=== PATIENT | female | born 1965 | race Caucasian/White ===

== ENCOUNTER 2017-10-22 09:57 | Observation (INO) | payer SELFPAY ==
[2017-10-22] VITALS (13 sets, daily range): BP systolic 96–162; BP diastolic 63–104
[~2017-10-22] VITALS: Ht 165.1 cm; Wt 75.7 kg
[~2017-10-22 09:57] MED LIST: AGM875T PO; ALPR.5T PO; AMIT50TA3 PO; ASP325TEC PO; ATOR20TA66 PO; CHLO25TA2 PO; CLCX200C PO; CLN.1T PO; CLON0.5T3 PO; CTLP20T PO; DOXY100C2 PO; DULO60CA6 PO; FLT05NA16 NSEACH; HYDR-2889 PO; HYDR-2890 PO; HYDR-3730 PO; HYDR-707 PO; HYDR118S10 PO; HYDR25CA5 PO; HYDROCODONE; ISOS30TA3 PO; LISI10TA2 PO; LISI1TAB; LISI40TA PO; METO25TA PO; METR500T PO; MULT1CAP27 PO; NAPR-243 PO; OMEG1CAP PO; PANT20TA2 PO; PARO20TA4 PO; QTP100T PO; RABE20TA PO; RISP1TAB2 PO; SIMV40TA4 PO; SULF1TAB35 PO; TRAZ150T42; TRAZ150T42 PO; ZIPR60CA6 PO
[2017-10-22] MEDS ORDERED: ONDANSETRON 4 MG/2 ML (SDV) Z0FRAN IVP ONE (10:15)
[2017-10-22] MEDS ORDERED: NITROGLYCERIN 0.4 MG SL TABS BTL 25'S SL PRN (10:15)
[2017-10-22] MEDS ORDERED: ASPIRIN 81 MG CHEW (CHILDREN'S ASA) PO ONE (10:15)
[2017-10-22 10:25] LABS: BASOPHILS # (AUTO) 0.1 10^3/uL (0.0-0.1); BASOPHILS % (AUTO) 1 % (0-10); EOSINOPHILS # (AUTO) 0.3 10^3/uL (0.0-0.3); EOSINOPHILS % (AUTO) 3 % (0-10); HEMATOCRIT 45 % (35-52); HEMOGLOBIN 15.8 G/DL (11.5-16.0); LYMPHOCYTES # (AUTO) 3.3 X 10^3 (1.0-4.0); LYMPHOCYTES % (AUTO) 27 % (12-44); MEAN CORPUSCULAR HEMOGLOBIN 34 PG (25-34); MEAN CORPUSCULAR HGB CONC 35 G/DL (32-36); MEAN CORPUSCULAR VOLUME 96 FL (80-99); MEAN PLATELET VOLUME 11.8 FL (7.4-10.4); MONOCYTES # (AUTO) 0.7 X 10^3 (0.0-1.0); MONOCYTES % (AUTO) 6 % (0-12); NEUTROPHILS # (AUTO) 7.7 X 10^3 (1.8-7.8); NEUTROPHILS % (AUTO) 64 % (42-75); PLATELET COUNT 251 10^3/uL (130-400); RED BLOOD COUNT 4.71 10^6/uL (4.35-5.85); RED CELL DISTRIBUTION WIDTH 12.6 % (10.0-14.5)
--- NOTE | 2017-10-22 10:28 | ED Chest Pain ---
General Chief Complaint: Chest Pain Stated Complaint: CP Source: patient, other Exam Limitations: no limitations History of Present Illness Date Seen by Provider: Oct 22, 2017 Time Seen by Provider: 09:58 Initial Comments Patient presents to ER by private conveyance with a chief complaint that in the last few hours she began to experience some substernal mid chest pain radiating to her left shoulder as well as back of her neck and jaw. She is not having any cough but she is having some shortness of breath, sweats, nausea and some palpitations. She says she is known to Dr. Lucas. She denies a history of atrial fibrillation or flutter but says that she is having a workup done looking for these things given her history of palpitations and chest pain. She had a heart catheter showing some disease in her maker coronary but no stent was placed and she's had no surgeries on her heart. She smokes half pack a day is not diabetic and has no hypothyroidism or hypercholesterolemia. She is on lisinopril, metoprolol and chlorthalidone for her blood pressure as well as a daily aspirin. She took one dose of nitroglycerin under the tongue when her chest pain started but she says it did nothing for her pain. She is currently rating her pain as a 6 out of 10. Allergies and Home Medications Allergies Uncoded Allergies: IV CONTRAST (Allergy, Unknown, HIVES, 11/02/14) Home Medications Buspirone HCl 10 Mg Tablet, 10 MG PO BID, (Reported) LAST FILLED 08/07/17 #90 Cetirizine HCl 10 Mg Tablet, 10 MG PO DAILY, (Reported) LAST FILLED 08/07/17 #30 Chlorthalidone 25 Mg Tablet, 25 MG PO DAILY, (Reported) LAST FILLED 03/16/17 #90 Clonidine HCl 0.1 Mg Tablet, 0.1 MG PO BID, (Reported) LAST FILLED 08/07/17 #60 Gabapentin 300 Mg Capsule, 300 MG PO HS, (Reported) Ginseng 100 Mg Capsule, 100 MG PO DAILY, (Reported) Lisinopril 10 Mg Tablet, 10 MG PO DAILY, (Reported) LAST FILLED 08/14/17 #30 Metoprolol Succinate 25 Mg Tab.er.24h, 25 MG PO DAILY, (Reported) LAST FILLED 03/16/17 #90 Vitamin B Complex 1 Each Tablet, 1 TAB PO DAILY, (Reported) Review of Systems Constitutional: No chills, No diaphoresis EENTM: No Blurred Vision, No Double Vision Respiratory: Denies Cough, Shortness of Air Cardiovascular: See HPI, Chest Pain, Palpitations, Denies Syncope Gastrointestinal: Denies Abdomen Distended, Denies Abdominal Pain, Denies Constipated, Denies Diarrhea, Nausea, Denies Vomiting Genitourinary: Denies Burning, Denies Discharge Musculoskeletal: No back pain, No joint pain Skin: No pruritus, No rash Psychiatric/Neurological: Denies Headache, Denies Numbness Past Gpohotl-Zftonq-Bjvpee Hx Patient Social History Alcohol Use: Denies Use Recreational Drug Use: Yes (remote Hx) Smoking Status: Current Everyday Smoker Type Used: Cigarettes (0.5 ppd) Recent Foreign Travel: No Contact w/Someone Who Travel: No Immunizations Up To Date Date of Pneumonia Vaccine: Jun 12, 2014 Date of Influenza Vaccine: Jun 12, 2014 Seasonal Allergies Seasonal Allergies: No Respiratory Respiratory Disorders: COPD Cardiovascular Cardiac Disorders: High Cholesterol, Hypertension Neurological Neurological Disorders: Headaches /Migraines Reproductive System Hx Reproductive Disorders: Yes (HAD A PRIOR ABLATION? FOR FOR HEAVY PEERIODS) Female Reproductive Disorders: Menstrual Problems Gastrointestinal Gastrointestinal Disorders: Gastroesophageal Reflux, Hiatal Hernia Musculoskeletal Musculoskeletal Disorders: Arthritis Psychosocial Behavioral Health Disorders: Anxiety, Depression Family Medical History Family Medial History: Diabetes mellitus 19 FATHER Myocardial infarction 19 FATHER Psychosocial problem 19 MOTHER Schizophrenia 19 MOTHER Physical Exam Vital Signs Vital Signs - First Documented 10/22/17 10:21 Temp 97.9 Pulse 63 Resp 18 B/P (MAP) 173/91 (118) Pulse Ox 97 O2 Delivery Room Air Capillary Refill : General Appearance: No Apparent Distress, WD/WN HEENT: PERRL/EOMI, Pharynx Normal Neck: Normal Inspection, Supple Respiratory: Lungs Clear, Normal Breath Sounds, No Accessory Muscle Use, No Respiratory Distress, Other (sternum is tender and re-creates the pain on palpation) Cardiovascular: Regular Rate, Rhythm, No Edema, Normal Peripheral Pulses Gastrointestinal: Normal Bowel Sounds, Non Tender, Soft Extremity: Normal Capillary Refill, No Pedal Edema Neurologic/Psychiatric: Alert, Oriented x3, No Motor/Sensory Deficits, Normal Mood/Affect Skin: Normal Color, Warm/Dry Progress/Results/Core Measures Results/Orders Lab Results Laboratory Tests Test 10/22/17 10:14 Range/Units White Blood Count 12.0 H 4.3-11.0 10^3/uL Red Blood Count 4.71 4.35-5.85 10^6/uL Hemoglobin 15.8 11.5-16.0 G/DL Hematocrit 45 35-52 % Mean Corpuscular Volume 96 80-99 FL Mean Corpuscular Hemoglobin 34 25-34 PG Mean Corpuscular Hemoglobin Concent 35 32-36 G/DL Red Cell Distribution Width 12.6 10.0-14.5 % Platelet Count 251 130-400 10^3/uL Mean Platelet Volume 11.8 H 7.4-10.4 FL Neutrophils (%) (Auto) 64 42-75 % Lymphocytes (%) (Auto) 27 12-44 % Monocytes (%) (Auto) 6 0-12 % Eosinophils (%) (Auto) 3 0-10 % Basophils (%) (Auto) 1 0-10 % Neutrophils # (Auto) 7.7 1.8-7.8 X 10^3 Lymphocytes # (Auto) 3.3 1.0-4.0 X 10^3 Monocytes # (Auto) 0.7 0.0-1.0 X 10^3 Eosinophils # (Auto) 0.3 0.0-0.3 10^3/uL Basophils # (Auto) 0.1 0.0-0.1 10^3/uL Prothrombin Time 12.1 L 12.2-14.7 SEC INR Comment 0.9 0.8-1.4 Activated Partial Thromboplast Time 27 24-35 SEC D-Dimer 0.28 0.00-0.49 UG/ML Sodium Level 144 135-145 MMOL/L Potassium Level 3.5 L 3.6-5.0 MMOL/L Chloride Level 110 H 98-107 MMOL/L Carbon Dioxide Level 21 21-32 MMOL/L Anion Gap 13 5-14 MMOL/L Blood Urea Nitrogen 15 7-18 MG/DL Creatinine 0.90 0.60-1.30 MG/DL Estimat Glomerular Filtration Rate > 60 BUN/Creatinine Ratio 17 Glucose Level 114 H 70-105 MG/DL Calcium Level 10.3 H 8.5-10.1 MG/DL Magnesium Level 2.4 1.8-2.4 MG/DL Total Bilirubin 0.2 0.1-1.0 MG/DL Aspartate Amino Transf (AST/SGOT) 21 5-34 U/L Alanine Aminotransferase (ALT/SGPT) 34 0-55 U/L Alkaline Phosphatase 83 40-136 U/L Myoglobin 35.3 10.0-92.0 NG/ML Troponin I < 0.30 <0.30 NG/ML B-Type Natriuretic Peptide 19.5 <100.0 PG/ML Total Protein 7.8 6.4-8.2 GM/DL Albumin 4.3 3.2-4.5 GM/DL Lipase 35 8-78 U/L My Orders Orders - THAO RAGSDALE Continuous Ekg Monitoring (10/22/17 10:01) Ekg Tracing (10/22/17 10:01) Cbc With Automated Diff (10/22/17 10:08) Magnesium (10/22/17 10:08) Chest 1 View, Ap/Pa Only (10/22/17 10:08) Cardiac Profile 1 (10/22/17 10:08) Comprehensive Metabolic Panel (10/22/17 10:08) Myoglobin Serum (10/22/17 10:08) Protime With Inr (10/22/17 10:08) Partial Thromboplastin Time (10/22/17 10:08) O2 (10/22/17 10:08) Lipid Panel (10/23/17 06:00) Aspirin Chewable Tablet (Baby Aspirin Ch (10/22/17 10:15) Nitroglycerin 0.4 Mg Btl 25's (Nitrostat (10/22/17 10:15) Saline Lock/Iv-Start (10/22/17 10:08) Lipase (10/22/17 10:08) BNP (10/22/17 10:08) Fibrin Degradation Products (10/22/17 10:08) Ondansetron Injection (Zofran Injectio (10/22/17 10:15) Medications Given in ED Current Medications Medications Dose Ordered Sig/Bradley Route Start Time Stop Time Status Last Admin Dose Admin Aspirin 324 mg ONCE ONCE PO 10/22/17 10:15 10/22/17 10:16 DC 10/22/17 10:50 324 MG Nitroglycerin 0.4 mg UD PRN SL 10/22/17 10:15 10/22/17 13:26 DC 10/22/17 10:50 0.4 MG Ondansetron HCl 4 mg ONCE ONCE IVP 10/22/17 10:15 10/22/17 10:16 DC 10/22/17 10:50 4 MG Vital Signs/I&O Vital Sign - Last 12Hours 10/22/17 10/22/17 10:21 10:21 Temp 97.9 Pulse 63 Resp 18 B/P (MAP) 173/91 (118) Pulse Ox 97 O2 Delivery Room Air Progress Note : Time: 11:15 Progress Note The one dose of nitroglycerin we gave here in the ER brought the patient's pain down from a 6 to a 1 out of 10. ECG Initial ECG Impression Date: Oct 22, 2017 Initial ECG Impression Time: 10:03 Initial ECG Rate: 96 Initial ECG Rhythm: Normal Sinus Initial ECG Intervals: Normal Initial ECG Impression: Normal Initial ECG Comparisson: No Previous ECG Available Comment No T-wave elevation or depression. Diagnostic Imaging Diagonstic Imaging: Xray Plain Films/CT/US/NM/MRI: chest Comments VIA [facility]. [place], [place] NAME: [facility] REC#: [id number] PT STATUS: REG ER : 1965 PHYSICIAN: THAO RAGSDALE MD ADMIT DATE: 10/22/17/ER Draft Date of Exam:10/22/17 CHEST 1 VIEW, AP/PA ONLY EXAM: CHEST 1 VIEW, AP/PA ONLY INDICATION: Chest pain. COMPARISON: Chest radiograph 11/09/2014. FINDINGS: Normal heart size and pulmonary vascularity. No focal pulmonary opacity, pleural effusion or pneumothorax. Osseous structures are unremarkable. IMPRESSION: No acute cardiopulmonary findings. Dictated on workstation # [id number] Dict: 10/22/17 1032 Trans: 10/22/[address] [place] [id number] Interpreted by: KHADRA SMITH MD Electronically signed by: Reviewed: Reviewed by Me Departure Communication (Admissions) Time/Spoke to Admitting Phy: 11:19 Communication Discussed her case lab imaging EKG and findings with Dr. Gama. Time/Spoke to Consulting Phy: 11:10 Communication/Consulting Discussed case and Dr. Elizabeth would like to give her 300 mg Plavix and observation stay. Impression Impression: Primary Impression: Chest pain Qualified Codes: R07.9 - Chest pain, unspecified Disposition: ADMITTED INPATIENT Condition: Stable Admissions Decision to Admit Reason: Admit from ER (General) Decision to Admit/Date: Oct 22, 2017 Time/Decision to Admit Time: 11:13 Departure-Patient Inst. Referrals: [facility] (PCP) Primary Care Physician MARC PELAYO APRN (Family) Primary Care Physician Copy Copies To 1: MEHREEN POLO DO Copies To 2: LARISA LUCAS MD, TITUS J Oct 22, 2017 10:28
--- NOTE | 2017-10-22 10:37 | Diagnostic Imaging Report ---
EXAM: CHEST 1 VIEW, AP/PA ONLY INDICATION: Chest pain. COMPARISON: Chest radiograph 11/09/2014. FINDINGS: Normal heart size and pulmonary vascularity. No focal pulmonary opacity, pleural effusion or pneumothorax. Osseous structures are unremarkable. IMPRESSION: No acute cardiopulmonary findings. Dictated by: Dictated on workstation # [id number]
[2017-10-22 10:40] LABS: INR 0.9 (0.8-1.4); PROTHROMBIN TIME PATIENT 12.1 SEC (12.2-14.7)
[2017-10-22 10:46] LABS: ALANINE AMINOTRANSFERASE 34 U/L (0-55); ALBUMIN 4.3 GM/DL (3.2-4.5); ALKALINE PHOSPHATASE 83 U/L (40-136); BILIRUBIN,TOTAL 0.2 MG/DL (0.1-1.0); BUN/CREATININE RATIO 17; CALCIUM 10.3 MG/DL (8.5-10.1); CARBON DIOXIDE 21 MMOL/L (21-32); CHLORIDE 110 MMOL/L (98-107); GFR ESTIMATED > 60; GLUCOSE 114 MG/DL (70-105); LIPASE 35 U/L (8-78); MAGNESIUM 2.4 MG/DL (1.8-2.4); POTASSIUM 3.5 MMOL/L (3.6-5.0); SODIUM 144 MMOL/L (135-145); TOTAL PROTEIN 7.8 GM/DL (6.4-8.2)
[2017-10-22 10:53] LABS: MYOGLOBIN SERUM 35.3 NG/ML (10.0-92.0)
[2017-10-22] MEDS ORDERED: CLOPIDOGREL 300 MG (PLAVIX) TABLET PO ONE (11:30)
--- NOTE | 2017-10-22 12:00 | Consultation-Cardiology ---
HPI-Cardiology Cardiology Consultation: Date of Consultation 10/22/17 Date of Admission Attending Physician Josefa Gama MD Admitting Physician [facility] Consulting Physician Marc ELIZABETH MD HPI: Time Seen by Provider: 12:01 Chief Complaint: Chest pain This is a 52-year-old lady who sees Dr. Lucas as an outpatient. She has history of coronary artery disease with moderate ostial LAD lesion found in October 2014 on coronary angiography. She presents with substernal chest pain radiating to her left shoulder. Moderate intensity. He is also complaining of shortness of breath and fever. Her chest pain is reproducible and also worse with breathing. She is an active smoker but denies diabetes. She has history of hyperlipidemia and hypertension. She denies any other exacerbating or relieving factors. She denies syncope, near-syncope, palpitation, lower extremity swelling. Review of Systems-Cardiology Review of Systems Constitutional: No As described under HPI, No no symptoms reported, No chills, fever, No lightheadedness, No malaise, No tiredness, No weight loss, No weight gain, No other Eyes: No As described under HPI, No no symptoms reported, No blindness, No blurred vision, No contact lenses, No drainage, No decreased acuity, No foreign body sensation, No glasses, No inflammation, No pain, No photophobia, No previous injury, No shadows, No tunnel vision, No other, No vision change Ears/Nose/Throat: No As described under HPI, No no symptoms reported, No chronic hearing loss, No epistaxis, No ear discharge, No ear pain, No loose teeth, No mouth pain, No mouth swelling, No nasal drainage, No nose pain, No recent hearing loss, No throat pain, No throat swelling, No ulcerations, No other Respiratory: No no symptoms reported, No As described under HPI, No cough, No orthopnea, shortness of breath, No SOB with excertion, No SOB at rest, No stridor, No wheezing, No other Cardiovascular: No no symptoms reported, No As described under HPI, chest pain , No edema, No irregular heart rate, No lightheadedness, No palpitations, No syncope, No other Gastrointestinal: No no symptoms reported, No As described under HPI, No abdomen distended, No abdominal pain, No blood streaked bowels, No constipation , No diarrhea, No difficulty swallowing, No nausea, No poor appetite, No poor fluid intake, No rectal bleeding, No vomiting, No other, No nausea/vomiting/ diarrhea, No stool coloration changes Genitourinary: No no symptoms reported, No As described under HPI, No burning, No dysuria, No discharge, No frequency, No flank pain, No hematuria, No incontinence, No pain, No urgency, No other, No urine frequency changes, No urine coloration changes Musculoskeletal: No no symptoms reported, No As describe under HPI, No back pain, No gout, No joint pain, No joint swelling, No muscle pain, No muscle stiffness, No neck pain, No other Skin: No no symptoms reported, No As described under HPI, No change in color, No change in hair/nails, No dryness, No lesions, No lumps, No rash, No other, No skin related problems, No ulcerations, No rash on exposed areas, No ulcerations on exposed areas Psychiatric/Neurological: No no symptoms reported, No As described under HPI, No anxiety, No depression, No emotional problems, No headache, No numbness, No pre-existing deficit, No seizure, No tingling, No tremors, No weakness, No other , No focal weakness, No syncope Hematologic: No no symptoms reported, No As described under HPI, No anemia, No blood clots, No easy bleeding, No easy bruising, No swollen glands, No other, No bleeding abnormalities WTX-[id number]-Izrhrl Hx Patient Social History Alcohol Use: Denies Use Recreational Drug Use: Yes (remote Hx) Smoking Status: Current Everyday Smoker Type Used: Cigarettes (0.5 ppd) Recent Foreign Travel: No Recent Infectious Disease Expo: No Immunizations Up To Date Date of Pneumonia Vaccine: Jun 12, 2014 Date of Influenza Vaccine: Jun 12, 2014 Past Medical History PMH As described under Assessment. Family Medical History Family History: Diabetes mellitus 19 FATHER Myocardial infarction 19 FATHER Psychosocial problem 19 MOTHER Schizophrenia 19 MOTHER Allergies and Home Medications Allergies Uncoded Allergies: IV CONTRAST (Allergy, Unknown, HIVES, 11/02/14) Home Medications Aspirin 325 Mg Tabec, 325 MG PO DAILY, (Reported) Atorvastatin 20 Mg Tablet, 20 MG PO DAILY, (Reported) Chlorthalidone 25 Mg Tablet, 25 MG PO DAILY, (Reported) Clonazepam 0.5 Mg Tablet, 0.5 MG PO HS PRN for ANXIETY, (Reported) Hydrocodone/Acetaminophen 1 Each Tablet, 1-2 TAB PO Q6H, (Reported) Isosorbide Mononitrate 30 Mg Tab.sr.24h, 1 EACH PO DAILY, #30 Ref 4 Prescribed by: LARISA LUCAS on 11/10/14 1006 Lisinopril 40 Mg Tablet, 40 MG PO DAILY, (Reported) Metoprolol Succinate 25 Mg Tab.sr.24h, 25 MG PO DAILY, (Reported) Multivitamins 1 Each Capsule, 1 CAP PO DAILY, (Reported) Pantoprazole Sodium 20 Mg Tablet.dr, 20 MG PO DAILY, #30 Ref 4 Prescribed by: LARISA LUCAS on 11/10/14 1006 Physical Exam-Cardiology Physical Exam Vital Signs/I&O Vital Sign - Last 12Hours 10/22/17 10/22/17 10/22/17 10:21 10:21 11:43 Temp 97.9 Pulse 63 Resp 18 B/P (MAP) 173/91 (118) Pulse Ox 97 98 O2 Delivery Room Air Nasal Cannula O2 Flow Rate 2.00 Capillary Refill : Less Than 3 Seconds Constitutional: appears stated age, AAO x 3, No apparent distress, No PERRL, No well-developed, No well-nourished, No other HEENT: PERRL, No normal ENT inspection, No TMs normal, No pharynx normal, No scleral icterus (R), No scleral icterus (L), No pale conjunctivae (R), No pale conjunctivae (L), No photophobia, No TM abnormal (R), No TM abnormal (L), No pharyngeal erythema, No tonsillar exudate, No other, No discharge, No EOMI, hearing is well preserved, No hard of hearing, oral hygience is good, No ulceration, No xanthelasmas are seen Neck: No carotid bruit, carotid pulses are 2 + bilaterally Respiratory: No accessory muscle use, No respiratory distress, No chest tender , No chest expansion is symmetric, chest is bilaterally symmetric, lungs clear to percussion, lungs clear to auscultation, No crackles, No rhonchi, No rales, No stridor, No wheezing, No pleural rub, No other Cardiovascular: regular rate-rhythm, No irregularly irregular, No extra beats, No parasternal heave is noted, No JVD, No edema, No bradycardia, No tachycardia , No point of maximal impulse, No cardiac thrills are palpable, S1 and S2, No gallop/S3, No gallop/S4, No diastolic murmur, No systolic murmur, No friction rub, No click, No other Gastrointestinal: No tender, No soft, No round, No distended, No pulsatile mass , No organomegaly, No guarding, No rebound, No tenderness, No hernia, No mass, No audible bowel sounds, No abnormal bowel sounds, No abdominal bruits, No spleenomegaly, No other Rectal: deferred Extremities: normal range of motion, non-tender, normal inspection, No pedal edema, No calf tenderness, No normal capillary refill, No pelvis stable, No calf tenderness, No inflammation, No pedal edema, No slow capillary refill, No swelling, No other, No abrasion, No clubbing, No cyanosis, No ecchymosis, No laceration, No no lower extremity edema bilateral, No significant edema, No tenderness, No wound Neurologic/Psychiatric: No utility sales and service manager II-XII nml as tested, no motor/sensory deficits , alert, normal mood/affect, oriented x 3, No abnormal cerebellar tests, No abnormal utility sales and service manager II-XII, No abnormal gait, No aphasia, No EOM palsy, No facial droop , No motor weakness, No sensory deficit, No depressed affect, No disoriented x 3 , No other, No grossly intact, power is 5/5 both on sides Skin: No normal color, No warm/dry, No cyanosis, No cool, No diaphoresis, No damp, No ecchymosis, No jaundice, No mottled, No pallor, No rash, No tattoos/ piercings, No ulcerations, No rash on exposed areas, No ulcerations on exposed areas, No other Lymphatic: No no adenopathy, No axilla node tender (R), No axilla node tender ( L), No inguinal node tender (R), No inguinal node tender (L), No other Data Review Labs Laboratory Tests 10/22/17 10:14: White Blood Count 12.0H, Red Blood Count 4.71, Hemoglobin 15.8, Hematocrit 45, Mean Corpuscular Volume 96, Mean Corpuscular Hemoglobin 34, Mean Corpuscular Hemoglobin Concent 35, Red Cell Distribution Width 12.6, Platelet Count 251, Mean Platelet Volume 11.8H, Neutrophils (%) (Auto) 64, Lymphocytes (%) (Auto) 27 , Monocytes (%) (Auto) 6, Eosinophils (%) (Auto) 3, Basophils (%) (Auto) 1, Neutrophils # (Auto) 7.7, Lymphocytes # (Auto) 3.3, Monocytes # (Auto) 0.7, Eosinophils # (Auto) 0.3, Basophils # (Auto) 0.1, Prothrombin Time 12.1L, INR Comment 0.9, Activated Partial Thromboplast Time 27, D-Dimer 0.28, Sodium Level 144, Potassium Level 3.5L, Chloride Level 110H, Carbon Dioxide Level 21, Anion Gap 13, Blood Urea Nitrogen 15, Creatinine 0.90, Estimat Glomerular Filtration Rate > 60, BUN/Creatinine Ratio 17, Glucose Level 114H, Calcium Level 10.3H, Magnesium Level 2.4, Total Bilirubin 0.2, Aspartate Amino Transf (AST/SGOT) 21, Alanine Aminotransferase (ALT/SGPT) 34, Alkaline Phosphatase 83, Myoglobin 35.3 , Troponin I < 0.30, B-Type Natriuretic Peptide 19.5, Total Protein 7.8, Albumin 4.3, Lipase 35 ECG Impression ECG Initial ECG Rhythm: Normal Sinus Initial ECG Impression: Nonspecific Changes A/P-Cardiology Assessment/Admission Diagnosis chest pain, with some atypical features. Coronary artery disease Hypertension Hyperlipidemia Tobaccoism Plan chest pain with some atypical features. EKG does not show any acute ST-T wave abnormalities. First set of troponin is negative. Acute coronary syndrome will be ruled out with serial troponins. However I gave Plavix 300 mg 1 because of her history of ostial LAD disease. Patient may require nuclear stress test. Defer to Dr. Lucas tomorrow. Coronary artery disease, status post cardiac catheterization done 10/2014 showing 60 percent stenosis ostial LAD, FFR after Adenosine injection was 0.81. Stress test 11/2014 did not show any ischemia in the anterior territory. Echocardiogram done on August 2014 showed normal LV and RV size and function with no valvular heart disease. Hypertension, controlled. Monitor blood pressure. Hyperlipidemia, continue statin. Monitor lipids Tobaccoism, strongly recommended to quit.. Dyspnea, secondary to COPD. however we'll request to rule out influenza. COPD based on CT scan Dr. Shayy to take over cardiology care tomorrow. Thank you for your consultation. Please call me if you have any questions. Sasha Elizabeth MD, FACP, FACC, FSCAI, FHRS, CCDS Interventional Cardiology Cardiac Electrophysiology Vascular Medicine and Endovascular Interventions Clinical Quality Measures AMI/AHF: ASA po Prior to arrival: Marc Sagastume MD Oct 22, 2017 12:00
[2017-10-22] MEDS ORDERED: INFLUENZA TRIvalent 2017-2018 0.5 ML/45 MCG SYR IM ONE (13:00)
[2017-10-22] MEDS ORDERED: GABA-488 PO (14:56)
[2017-10-22] MEDS ORDERED: ONDANSETRON 4 MG/2 ML (SDV) Z0FRAN IV PRN (15:00)
[2017-10-22] MEDS ORDERED: CATHETER FLUSH 10 ML SYR IV PRN (15:00)
[2017-10-22] MEDS ORDERED: ACETAMINOPHEN 500 MG TAB (TYLENOL) PO PRN (15:00)
[2017-10-22] MEDS ORDERED: CETI10TA17 PO (16:39)
[2017-10-22] MEDS ORDERED: METO-387 PO (16:39)
[2017-10-22] MEDS ORDERED: CLON0.1T PO (16:39)
[2017-10-22] MEDS ORDERED: BUSP10TA95 PO (16:39)
[2017-10-22] MEDS ORDERED: CHLO25TA22 PO (16:39)
[2017-10-22] MEDS ORDERED: LISI10TA2 PO (16:39)
[2017-10-22] MEDS ORDERED: VITA1TAB17 PO (16:41)
[2017-10-22] MEDS ORDERED: [UNRECOGNIZED DRUG - CODE] PO (16:41)
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
[2017-10-22] MEDS ORDERED: PATIENT MAY USE OWN MEDS, ALL MC SCH (17:00)
[2017-10-22] MEDS ORDERED: ENOXAPARIN 40 MG/0.4 ML (LOVENOX) SYR SC SCH (17:00)
[2017-10-22] MEDS ORDERED: busPIRone 10 MG (BUSPAR) TAB ONE (20:55)
[2017-10-22] MEDS ORDERED: cloNIDine 0.1 MG (CATAPRES) TAB ONE (20:55)
[2017-10-22] MEDS: CATHETER FLUSH 10 ML SYR IV SCH (20:58)
[2017-10-22] MEDS ORDERED: GABAPENTIN 300 MG (NEURONTIN) CAP PO SCH (21:00)
[2017-10-22] MEDS ORDERED: cloNIDine 0.1 MG (CATAPRES) TAB PO SCH (21:00)
[2017-10-22] MEDS ORDERED: busPIRone 10 MG (BUSPAR) TAB PO SCH (21:00)
[2017-10-23] VITALS: BP 124/91
[2017-10-23 02:18] VITALS: BP 112/85
[2017-10-23 03:35] VITALS: BP 121/43
[2017-10-23] MEDS: CATHETER FLUSH 10 ML SYR IV SCH (04:56)
[2017-10-23 05:37] LABS: BASOPHILS # (AUTO) 0.1 10^3/uL (0.0-0.1); BASOPHILS % (AUTO) 1 % (0-10); EOSINOPHILS # (AUTO) 0.2 10^3/uL (0.0-0.3); EOSINOPHILS % (AUTO) 2 % (0-10); HEMATOCRIT 43 % (35-52); HEMOGLOBIN 15.1 G/DL (11.5-16.0); LYMPHOCYTES # (AUTO) 2.6 X 10^3 (1.0-4.0); LYMPHOCYTES % (AUTO) 27 % (12-44); MEAN CORPUSCULAR HEMOGLOBIN 34 PG (25-34); MEAN CORPUSCULAR HGB CONC 35 G/DL (32-36); MEAN CORPUSCULAR VOLUME 96 FL (80-99); MEAN PLATELET VOLUME 12.2 FL (7.4-10.4); MONOCYTES # (AUTO) 0.6 X 10^3 (0.0-1.0); MONOCYTES % (AUTO) 6 % (0-12); NEUTROPHILS # (AUTO) 6.3 X 10^3 (1.8-7.8); NEUTROPHILS % (AUTO) 65 % (42-75); PLATELET COUNT 230 10^3/uL (130-400); RED BLOOD COUNT 4.49 10^6/uL (4.35-5.85); RED CELL DISTRIBUTION WIDTH 12.5 % (10.0-14.5); WHITE BLOOD COUNT 9.8 10^3/uL (4.3-11.0)
[2017-10-23 05:59] LABS: BUN/CREATININE RATIO 25; CALCIUM 9.9 MG/DL (8.5-10.1); CARBON DIOXIDE 18 MMOL/L (21-32); CHLORIDE 110 MMOL/L (98-107); CREATININE SERUM 0.88 MG/DL (0.60-1.30); GFR ESTIMATED > 60; GLUCOSE 101 MG/DL (70-105); POTASSIUM 4.2 MMOL/L (3.6-5.0); SODIUM 139 MMOL/L (135-145)
[2017-10-23 06:00] LABS: CHOLESTEROL 198 MG/DL (< 200); HDL CHOLESTEROL 44 MG/DL (40-60); TRIGLYCERIDES 147 MG/DL (<150); VLDL CHOLESTEROL 29 MG/DL (5-40)
[2017-10-23 08:30] VITALS: BP 137/89
--- NOTE | 2017-10-23 08:57 | Cardiology Progress Note ---
Subjective Date Seen by Provider: Oct 23, 2017 Time Seen by Provider: 08:55 Subjective/Events-last exam Patient is laying down in bed, feeling better, reported an episode of chest pain prior to admission, responded to sublingual nitroglycerin, no further episodes were reported, EKG and cardiac enzymes did not show any acute problems. Patient is still an active smoker and working on smoking cessation. Currently she had breakfast, will be unable to have a stress test done, I will schedule it as an outpatient Review of Systems General: No Chills, No Night Sweats, No Fatigue, No Malaise, No Appetite, No Other HEENT: No Head Aches, No Visual Changes, No Eye Pain, No Ear Pain, No Dysphasia , No Sinus Congestion, No Post Nasal Drip, No Sore Throat, No Other Pulmonary: No Dyspnea, No Cough, No Pleuritic Chest Pain, No Other Cardiovascular: No: Chest Pain, Palpitations, Orthopnea, Paroxysmal Noc. Dyspnea, Edema, Lt Headedness, Other Objective-Cardiology Exam Last Set of Vital Signs Vital Signs 10/22/17 10/23/17 11:43 08:30 Temp 98.9 Pulse 78 Resp 18 B/P (MAP) 137/89 (105) Pulse Ox 100 O2 Delivery Room Air O2 Flow Rate 2.00 Capillary Refill : Less Than 3 Seconds I&O Intake and Output 10/23/17 00:00 Intake Total 812 ml Output Total 350 ml Balance 462 ml Intake Oral 812 ml Output Urine Total 350 ml # Voids 1 Daily Weight Change No General: Alert, Oriented X3, Cooperative HEENT: Atraumatic, PERRLA Neck: Supple, No JVD, No Thyromegaly Lungs: Clear to Auscultation, Normal Air Movement Heart: Regular Rate, Normal S1, Normal S2, No Murmurs Abdomen: Normal Bowel Sounds, Soft, No Tenderness, No Hepatosplenomegaly, No Masses Extremities: No Clubbing, No Cyanosis, No Edema, Normal Pulses, No Tenderness/ Swelling Skin: No Rashes, No Breakdown, No Significant Lesion Neuro: Normal Gait, Normal Speech, Strength at 5/5 X4 Ext, Normal Tone, Sensation Intact Psych/Mental Status: Mental Status NL, Mood NL Results Lab Laboratory Tests 10/22/17 10:14 10/23/17 05:21 A/P-Cardiology Admission Diagnosis Chest pain nonspecific etiology Coronary artery disease Hypertension Hyperlipidemia Tobaccoism Assessment/Plan Chest pain nonspecific etiology, responsive to sublingual nitroglycerin, feeling better at this time, no chest pain yesterday or today. Patient had breakfast today, I'll schedule stress test as an outpatient, okay for discharge from cardiology standpoint Coronary artery disease, status post cardiac catheterization done 10/2014 showing 60 percent stenosis ostial LAD, FFR after Adenosine injection was 0.81. Stress test 11/2014 did not show any ischemia in the anterior territory, planning to repeat stress test as an outpatient. Echocardiogram done on August 2014 showed normal LV and RV size and function with no valvular heart disease. Hypertension, controlled. Monitor blood pressure. Hyperlipidemia, continue statin. Monitor lipids Tobaccoism, working on smoking cessation, educated in length about smoking cessation. Dyspnea, secondary to COPD. however we'll request to rule out influenza. COPD based on CT scan Clinical Quality Measures AMI/AHF: ASA po Prior to arrival: No DVT/VTE Risk/Contraindication: Risk Factor Score Per Nursin RFS Level Per Nursing on Admit: 2=Moderate LARISA DOWELL MD Oct 23, 2017 08:57
--- NOTE | 2017-10-23 08:58 | Cardiology Progress Note ---
Subjective Date Seen by Provider: Oct 23, 2017 Time Seen by Provider: 08:53 Objective-Cardiology Exam Last Set of Vital Signs Vital Signs 10/22/17 10/23/17 11:43 08:30 Temp 98.9 Pulse 78 Resp 18 B/P (MAP) 137/89 (105) Pulse Ox 100 O2 Delivery Room Air O2 Flow Rate 2.00 Capillary Refill : Less Than 3 Seconds I&O Intake and Output 10/23/17 00:00 Intake Total 812 ml Output Total 350 ml Balance 462 ml Intake Oral 812 ml Output Urine Total 350 ml # Voids 1 Daily Weight Change No Results Lab Laboratory Tests 10/22/17 10:14 10/23/17 05:21 Clinical Quality Measures AMI/AHF: ASA po Prior to arrival: No DVT/VTE Risk/Contraindication: Risk Factor Score Per Nursin RFS Level Per Nursing on Admit: 2=Moderate LARISA DOWELL MD Oct 23, 2017 08:58
[2017-10-23] MEDS ORDERED: CETIRIZINE HCL 10 MG PO SCH (09:00)
[2017-10-23] MEDS ORDERED: busPIRone 10 MG (BUSPAR) TAB PO SCH (09:00)
[2017-10-23] MEDS ORDERED: CHLORTHALIDONE 25 MG (HYGROTON) TABLET PO SCH (09:00)
[2017-10-23] MEDS ORDERED: cloNIDine 0.1 MG (CATAPRES) TAB PO SCH (09:00)
[2017-10-23] MEDS ORDERED: lisINopril 10 MG (PRINIVIL) TAB PO SCH (09:00)
[2017-10-23] MEDS ORDERED: ASPI-586 PO (09:04)
[2017-10-23] MEDS ORDERED: ATOR10TA PO (09:11)
--- NOTE | 2017-10-23 12:17 | Discharge Summary ---
Diagnosis/Chief Complaint Date of Admission Oct 22, 2017 at 11:15 Date of Discharge 10/23/17 Admission Diagnosis Admission Diagnosis Atypical Chest pain HTN HLD Tobacco Use Hyperthyroidism Discharge Diagnosis See Above Chief Complaint/HPI Chief Complaint/HPI 52 yo female came to ER due to chest pain starting early this morning that felt like an elephant on her chest, with associated sweatiness, jaw pain, left arm pain, nausea. She had a similar episode a few years ago and had a cath which showed non-obstructive CAD of up to 60% stenosis. She does have HTN, HLD and smokes. Her pain improved with nitroglycerin. Discharge Summary-Simple/Stand Consultations Cardiology: Dr Lucas Discharge Physical Examination Allergies: Uncoded Allergies: IV CONTRAST (Allergy, Unknown, HIVES, 11/02/14) Vitals & I&Os Vital Sign - Last 12Hours Date Time Temp Pulse Resp B/P (MAP) Pulse Ox O2 Delivery O2 Flow Rate FiO2 10/23/17 08:30 98.9 78 18 137/89 (105) 100 Room Air 10/22/17 11:43 2.00 Intake and Output 10/23/17 00:00 Intake Total 812 ml Output Total 350 ml Balance 462 ml General Appearance: Alert, Oriented X3, Cooperative, No Acute Distress HEENT: PERRLA, EOMI, Mucous Memb Moist/Blades Respiratory: Clear to Auscultation, Normal Air Movement Cardiovascular: Regular Rate, No Murmurs Abdominal: Normal Bowel Sounds, Soft, No Tenderness, No Hepatosplenomegaly, No Masses Extremities: No Edema, No Tenderness/Swelling Skin: No Rashes Neuro: Normal Speech, Strength at 5/5 X4 Ext, Sensation Intact, Cranial Nerves 3-12 NL Hospital Course See final discharge diagnosis. Radiology Reviewed CXR 10/22/17- No acute process Discussion & Recommendations 52 yo F admitted for chest pain. Neg troponin and normal ECG. Plans for stress test on Monday with Dr Lucas. Discharge Condition at discharge stable Instructions to patient/family Please see electronic discharge instructions given to patient. Discharge Medications Reviewed and agree with Discharge Medication list on patient's Discharge Instruction sheet Clinical Quality Measures AMI/AHF: ASA po Prior to arrival: No DVT/VTE Risk/Contraindication: Risk Factor Score Per Nursin RFS Level Per Nursing on Admit: 2=Moderate Copy Copies To 1: FREDY ARROYO MD, HOLLY R MD Oct 23, 2017 12:17
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
--- OUTSIDE RECORDS SUMMARY | 2017-10-25 13:05 | XMS REPORT | Clinical Summary ---
Author Author [facility] Organization [facility] Address Unknown Phone Unavailable Care Team Providers Care Plant Security Guard Name Role Phone PCP Unavailable Source Comments Some departments are not documenting in the electronic medical record. If you do not see the information that you expected, contact Release of Information in the Health Information Management department at [phone] for further assistance in locating additional records.[facility] Allergies Active Allergy Reactions Severity Noted Date Comments Adhesive Tape 12/31/2005 Allergy recorded in SMS: Tape Codeine Medium 12/31/2005 Allergy recorded in SMS: Codeine~Reactions: HIVES Current Medications Not on file Active Problems Not on file Social History Tobacco Use Types Packs/Day Years Used Date Never Assessed Sex Assigned at Date Recorded Not on file Last Filed Vital Signs Not on file Plan of Treatment Health Maintenance Due Date Last Done Comments PHYSICAL (COMPREHENSIVE) 1974 EXAM PERTUSSIS VACCINE 1978 TETANUS VACCINE 1984 CERVICAL CANCER SCREENING 1997 BREAST CANCER SCREENING 2007 INFLUENZA VACCINE 04/11/2017 COLORECTAL CANCER 2017 SCREENING Results Not on filefrom Last 3 Months
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
--- OUTSIDE RECORDS SUMMARY | 2017-10-25 13:06 | XMS REPORT ---
Author Author MABLE HWANG [facility] eClinicalWorks Address Unknown Phone Unavailable Care Team Providers Care Industrial Production Manager Name Role Phone MABLE HWANG CP Unavailable Allergies No Known Allergies Problems Problem Type Condition Code Onset Dates Condition Status Problem Bipolar I disorder, most recent episode (or current) mixed, moderate 296.62 Active Problem Essential hypertension I10 Active Problem Hyperlipidemia E78.5 Active Assessment Personal history of other (healed) [...] Start Date End Date Status Dosage Hydrocodone-Acetaminophen [facility] [address]-75 7.5-325 MG Orally every 6 hrs Aug 24, 2015 Sep 21, 2015 1 to 2 tablet as needed Results No Known Results Summary Purpose eClinicalWorks Submission
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
--- OUTSIDE RECORDS SUMMARY | 2017-10-25 13:07 | XMS REPORT ---
Author Author MABLE HWANG [facility] eClinicalWorks Address Unknown Phone Unavailable Care Team Providers Care Pain Management Specialist Name Role Phone MABLE HWANG CP Unavailable Allergies, Adverse Reactions, Alerts Substance Reaction Event Type Paxil irritability Drug Allergy Problems Problem Type Condition ICD-9 Code Onset Dates Condition Status Assessment Cellulitis of knee, right 682.6 Active Assessment Anxiety and depression 300.00 Active Assessment Hyperlipidemia 272.4 Active Assessment Essential hypertension, benign 401.1 Active Problem Nondependent tobacco use disorder 305.1 Active [...] Coronary atherosclerosis of unspecified type of vessel, alturas or graft 414.00 Active Problem Pain in [...] Date End Date Status Dosage Multi Complete [facility] [address] Orally Once a day not defined Toprol XL [facility] [address]-57 25 MG Orally Once a day Nov 04, 2014 take 1 tablet by Oral route 1 time per day REPOSITORY Hydrocodone-Acetaminophen [facility] [address]-81 7.5-325 MG Orally every 6 hrs must last 30 days November 14, 2014 take 1-2 tablet by Oral route every 6 hours PRN NOTE 4000mg of tylenol in a 24 hour period Bactrim DS [facility] [address]-53 800-160 MG Orally 2 times a day May 20, 2015 May 27, 2015 1 tablet Ranexa [facility] [address]-62 500 MG Orally Twice a day 1 tablet Lexapro [facility] [address]-88 20 MG Orally Once a day May 20, 2015 1 tablet Protonix [facility] [address]-64 40 MG Orally Once a day 1 tablet atorvastatin [facility] 0 20 mg oral daily at hs Nov 04, 2014 take 1 tablet by Oral route 1 time per day QHS; Avoid grapefruit juice Chlorthalidone [facility] [address]-54 25 MG Orally Once a day Nov 04, 2014 1 tablet by Oral route 1 time per day for blood pressure. take in the morning Aspirin [facility] [address]-44 325 mg Nov 04, 2014 1 tablet by Oral route 1 time per day Lisinopril [facility] [address]-09 10 MG Orally Once a day Nov 04, 2014 take 1 tablet by Oral route 1 time per day Procedures Procedure Coding System Code Date Office Visit, Est Pt., Level 3 CPT-4 50588 May 20, 2015 Vital Signs Date/Time: May 20, 2015 Temperature 98.9 F Weight 178.8 lbs Height 65 in BMI 29.75 Index 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 Diastolic 82 mmHg 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 Systolic 150 mmHg Cardiac Monitoring Heart Rate 80 bpm Results No Known Results Summary Purpose eClinicalWorks Submission
--- OUTSIDE RECORDS SUMMARY | 2017-10-25 13:09 | XMS REPORT | Continuity of Care Document ---
Author Author [facility] Organization [facility] Address Unknown Phone Unavailable Allergies Active Description Code Type Severity Reaction Onset Reported/Identified Relationship to Patient Clinical Status Yes No Known Drug Allergies [id number] Drug Allergy Mild N/A 02/05/2009 Yes IV CONTRAST IV CONTRAST Unknown HIVES 11/02/2014 Medications There is no data. Problems Date Dx Coded Attending Type Code Diagnosis Diagnosed By 06/19/2009 SABINA POWELL MD 338.4 CHRONIC PAIN SYNDROME 06/19/2009 SABINA POWELL MD 338.4 CHRONIC PAIN SYNDROME 06/19/2009 SABINA POWELL MD 338.4 CHRONIC PAIN SYNDROME 06/19/2009 STUART MAC APRN 338.4 CHRONIC PAIN SYNDROME 06/19/2009 SABINA POWELL MD 338.4 CHRONIC PAIN SYNDROME 06/19/2009 MEHREEN POLO DO 338.4 CHRONIC PAIN SYNDROME 06/19/2009 338.4 CHRONIC PAIN SYNDROME 06/19/2009 338.4 CHRONIC PAIN SYNDROME 06/19/2009 338.4 CHRONIC PAIN SYNDROME 06/19/2009 338.4 CHRONIC PAIN SYNDROME 06/19/2009 SABINA POWELL MD 338.4 CHRONIC PAIN SYNDROME 06/19/2009 338.4 CHRONIC PAIN SYNDROME 06/19/2009 DANIEL KAM MD 338.4 CHRONIC PAIN SYNDROME 06/19/2009 DANIEL KAM MD 338.4 CHRONIC PAIN SYNDROME 06/19/2009 MARC PELAYO APRN R 338.4 CHRONIC PAIN SYNDROME 06/19/2009 MARC PELAYO APRN R 338.4 CHRONIC PAIN SYNDROME 06/19/2009 MEHREEN POLO DO 338.4 CHRONIC PAIN SYNDROME 06/19/2009 YUMIKO PELAYO APRNINA R 338.4 CHRONIC PAIN SYNDROME 06/19/2009 PIERCE RAMACHANDRAN MARC R 338.4 CHRONIC PAIN SYNDROME 06/19/2009 LARISA DOWELL MD 338.4 CHRONIC PAIN SYNDROME 06/19/2009 MARC PELAYO APRN R 338.4 CHRONIC PAIN SYNDROME 06/19/2009 BARBER STUDENT AMBASSADOR, YASMIN M 338.4 CHRONIC PAIN SYNDROME 06/19/2009 PIERCE PIG CASTING MACHINE OPERATOR, MARC R 338.4 CHRONIC PAIN SYNDROME 06/19/2009 POLO DO, MEHREEN K 338.4 CHRONIC PAIN SYNDROME 06/19/2009 POLO DO, MEHREEN K 338.4 CHRONIC PAIN SYNDROME 06/19/2009 BARBER STUDENT AMBASSADOR, YASMIN M 338.4 CHRONIC PAIN SYNDROME 06/19/2009 BARBER STUDENT AMBASSADOR, YASMIN M 338.4 CHRONIC PAIN SYNDROME 06/19/2009 PIERCE PIG CASTING MACHINE OPERATOR, MARC R 338.4 CHRONIC PAIN SYNDROME 06/19/2009 BARBER STUDENT AMBASSADOR, YASMIN M 338.4 CHRONIC PAIN SYNDROME 06/19/2009 BARBER STUDENT AMBASSADOR, YASMIN M 338.4 CHRONIC PAIN SYNDROME 06/19/2009 PIERCE PIG CASTING MACHINE OPERATOR, MARC R 338.4 CHRONIC PAIN SYNDROME 06/19/2009 BARBER STUDENT AMBASSADOR, YASMIN M 338.4 CHRONIC PAIN SYNDROME 08/05/2009 SABINA POWELL MD 296.33 MAJOR DEPRESSION RECURRENT SEVERE 08/05/2009 SABINA POWELL MD 300.01 AN PANIC DIS W/O AGORA 08/05/2009 SABINA POWELL MD 296.33 MAJOR DEPRESSION RECURRENT SEVERE 08/05/2009 SABINA POWELL MD 300.01 AN PANIC DIS W/O AGORA 08/05/2009 SABINA POWELL MD 296.33 MAJOR DEPRESSION RECURRENT SEVERE 08/05/2009 SABINA POWELL MD 300.01 AN PANIC DIS W/O AGORA 08/05/2009 STUART MAC APRN 296.33 MAJOR DEPRESSION RECURRENT SEVERE 08/05/2009 STUART MAC APRN S 300.01 AN PANIC DIS W/O AGORA 08/05/2009 SABINA POWELL MD 296.33 MAJOR DEPRESSION RECURRENT SEVERE 08/05/2009 SABINA POWELL MD 300.01 AN PANIC DIS W/O AGORA 08/05/2009 MEHREEN POLO DO K 296.33 MAJOR DEPRESSION RECURRENT SEVERE 08/05/2009 MEHREEN POLO DO K 300.01 AN PANIC DIS W/O AGORA 08/05/2009 296.33 MAJOR DEPRESSION RECURRENT SEVERE 08/05/2009 300.01 AN PANIC DIS W/O AGORA 08/05/2009 296.33 MAJOR DEPRESSION RECURRENT SEVERE 08/05/2009 300.01 AN PANIC DIS W/O AGORA 08/05/2009 296.33 MAJOR DEPRESSION RECURRENT SEVERE 08/05/2009 300.01 AN PANIC DIS W/O AGORA 08/05/2009 296.33 MAJOR DEPRESSION RECURRENT SEVERE 08/05/2009 300.01 AN PANIC DIS W/O AGORA 08/05/2009 SABINA POWELL MD 296.33 MAJOR DEPRESSION RECURRENT SEVERE 08/05/2009 SABINA POWELL MD 300.01 AN PANIC DIS W/O AGORA 08/05/2009 296.33 MAJOR DEPRESSION RECURRENT SEVERE 08/05/2009 300.01 AN PANIC DIS W/O AGORA 08/05/2009 DANIEL KAM MD 296.33 MAJOR DEPRESSION RECURRENT SEVERE 08/05/2009 DANIEL KAM MD 300.01 AN PANIC DIS W/O AGORA 08/05/2009 DANIEL KAM MD 296.33 MAJOR DEPRESSION RECURRENT SEVERE 08/05/2009 DANIEL KAM MD 300.01 AN PANIC DIS W/O AGORA 08/05/2009 MARC PELAYO APRN R 296.33 MAJOR DEPRESSION RECURRENT SEVERE 08/05/2009 MARC PELAYO APRN R 300.01 AN PANIC DIS W/O AGORA 08/05/2009 MARC PELAYO APRN R 296.33 MAJOR DEPRESSION RECURRENT SEVERE 08/05/2009 MARC PELAYO APRN R 300.01 AN PANIC DIS W/O AGORA 08/05/2009 POLO DO, MEHREEN K 296.33 MAJOR DEPRESSION RECURRENT SEVERE 08/05/2009 POLO DO, MEHREEN K 300.01 AN PANIC DIS W/O AGORA 08/05/2009 MARC PELAYO APRN R 296.33 MAJOR DEPRESSION RECURRENT SEVERE 08/05/2009 MARC PELAYO APRN R 300.01 AN PANIC DIS W/O AGORA 08/05/2009 MARC PELAYO APRN R 296.33 MAJOR DEPRESSION RECURRENT SEVERE 08/05/2009 MARC PELAYO APRN R 300.01 AN PANIC DIS W/O AGORA 08/05/2009 LARISA DOWELL MD 296.33 MAJOR DEPRESSION RECURRENT SEVERE 08/05/2009 LARISA DOWELL MD 300.01 AN PANIC DIS W/O AGORA 08/05/2009 YUMIKO PELAYO APRNINA R 296.33 MAJOR DEPRESSION RECURRENT SEVERE 08/05/2009 MARC PELAYO APRN R 300.01 AN PANIC DIS W/O AGORA 08/05/2009 BARBER AUSTIN, YASMIN M 296.33 MAJOR DEPRESSION RECURRENT SEVERE 08/05/2009 BARBER STUDENT AMBASSADORYASMIN M 300.01 AN PANIC DIS W/O AGORA 08/05/2009 PIERCE PIG CASTING MACHINE OPERATOR, MARC R 296.33 MAJOR DEPRESSION RECURRENT SEVERE 08/05/2009 PIERCE PIG CASTING MACHINE OPERATOR, MARC R 300.01 AN PANIC DIS W/O AGORA 08/05/2009 POLO DO, MEHREEN K 296.33 MAJOR DEPRESSION RECURRENT SEVERE 08/05/2009 POLO DO, MEHREEN K 300.01 AN PANIC DIS W/O AGORA 08/05/2009 POLO DO, MEHREEN K 296.33 MAJOR DEPRESSION RECURRENT SEVERE 08/05/2009 POLO DO, MEHREEN K 300.01 AN PANIC DIS W/O AGORA 08/05/2009 BARBER STUDENT AMBASSADORYASMIN M 296.33 MAJOR DEPRESSION RECURRENT SEVERE 08/05/2009 BARBER STUDENT AMBASSADOR, YASMIN M 300.01 AN PANIC DIS W/O AGORA 08/05/2009 BARBER STUDENT AMBASSADORYASMIN M 296.33 MAJOR DEPRESSION RECURRENT SEVERE 08/05/2009 BARBER STUDENT AMBASSADORYASMIN M 300.01 AN PANIC DIS W/O AGORA 08/05/2009 PIERCE DAIN, MARC R 296.33 MAJOR DEPRESSION RECURRENT SEVERE 08/05/2009 PIERCE DAIN, MARC R 300.01 AN PANIC DIS W/O AGORA 08/05/2009 BARBER STUDENT AMBASSADOR, YASMIN M 296.33 MAJOR DEPRESSION RECURRENT SEVERE 08/05/2009 BARBER STUDENT AMBASSADOR, YASMIN M 300.01 AN PANIC DIS W/O AGORA 08/05/2009 BARBER STUDENT AMBASSADORYASMIN M 296.33 MAJOR DEPRESSION RECURRENT SEVERE 08/05/2009 BARBER STUDENT AMBASSADORYASMIN M 300.01 AN PANIC DIS W/O AGORA 08/05/2009 PIERCE PIG CASTING MACHINE OPERATOR, MARC R 296.33 MAJOR DEPRESSION RECURRENT SEVERE 08/05/2009 PIERCE PIG CASTING MACHINE OPERATOR, MARC R 300.01 AN PANIC DIS W/O AGORA 08/05/2009 YASMIN NORRIS M 296.33 MAJOR DEPRESSION RECURRENT SEVERE 08/05/2009 YASMIN NORRIS M 300.01 AN PANIC DIS W/O AGORA 08/25/2009 SABINA POWELL MD 401.9 Essential Hypertension 08/25/2009 SABINA POWELL MD 401.9 Essential Hypertension 08/25/2009 SABINA POWELL MD 401.9 Essential Hypertension 08/25/2009 ESTEFANIA RAMACHANDRAN, STUART S 401.9 Essential Hypertension 08/25/2009 SABINA POWELL MD 401.9 Essential Hypertension 08/25/2009 POLO DO, MEHREEN K 401.9 Essential Hypertension 08/25/2009 401.9 Essential Hypertension 08/25/2009 401.9 Essential Hypertension 08/25/2009 401.9 Essential Hypertension 08/25/2009 401.9 Essential Hypertension 08/25/2009 SABINA POWELL MD 401.9 Essential Hypertension 08/25/2009 401.9 Essential Hypertension 08/25/2009 YASMIN KAM MDA M 401.9 Essential Hypertension 08/25/2009 YASMIN KAM MDA M 401.9 Essential Hypertension 08/25/2009 PIERCE PIG CASTING MACHINE OPERATOR, MARC R 401.9 Essential Hypertension 08/25/2009 PIERCE PIG CASTING MACHINE OPERATOR, MARC R 401.9 Essential Hypertension 08/25/2009 POLO DO, MEHREEN K 401.9 Essential Hypertension 08/25/2009 PIERCE PIG CASTING MACHINE OPERATOR, MARC R 401.9 Essential Hypertension 08/25/2009 PIERCE PIG CASTING MACHINE OPERATOR, MARC R 401.9 Essential Hypertension 08/25/2009 LARISA DOWELL MD 401.9 Essential Hypertension 08/25/2009 PIERCE PIG CASTING MACHINE OPERATOR, MARC R 401.9 Essential Hypertension 08/25/2009 BARBER STUDENT AMBASSADOR, YASMIN M 401.9 Essential Hypertension 08/25/2009 PIERCE PIG CASTING MACHINE OPERATOR, MARC R 401.9 Essential Hypertension 08/25/2009 POLO DO, MEHREEN K 401.9 Essential Hypertension 08/25/2009 POLO DO, MEHREEN K 401.9 Essential Hypertension 08/25/2009 BARBER STUDENT AMBASSADOR, YASMIN M 401.9 Essential Hypertension 08/25/2009 BARBER STUDENT AMBASSADOR, YASMIN M 401.9 Essential Hypertension 08/25/2009 PIERCE PIG CASTING MACHINE OPERATOR, MARC R 401.9 Essential Hypertension 08/25/2009 BARBER STUDENT AMBASSADOR, YASMIN M 401.9 Essential Hypertension 08/25/2009 BARBER STUDENT AMBASSADOR, YASMIN M 401.9 Essential Hypertension 08/25/2009 PIERCE PIG CASTING MACHINE OPERATOR, MARC R 401.9 Essential Hypertension 08/25/2009 BARBER STUDENT AMBASSADOR, YASMIN M 401.9 Essential Hypertension 10/02/2009 SABINA POWELL MD V72.9 ROUTINE GENITOURINARY EXAM 10/02/2009 SABINA POWELL MD V72.9 ROUTINE GENITOURINARY EXAM 10/02/2009 ANDRE ALMAGUER, SABINA V72.9 ROUTINE GENITOURINARY EXAM 10/02/2009 SUTART MAC APRN V72.9 ROUTINE GENITOURINARY EXAM 10/02/2009 SABINA POWELL MD V72.9 ROUTINE GENITOURINARY EXAM 10/02/2009 NADIA POLO DOA K V72.9 ROUTINE GENITOURINARY EXAM 10/02/2009 V72.9 ROUTINE GENITOURINARY EXAM 10/02/2009 V72.9 ROUTINE GENITOURINARY EXAM 10/02/2009 V72.9 ROUTINE GENITOURINARY EXAM 10/02/2009 V72.9 ROUTINE GENITOURINARY EXAM 10/02/2009 ANDRE ALMAGUER, SABINA V72.9 ROUTINE GENITOURINARY EXAM 10/02/2009 V72.9 ROUTINE GENITOURINARY EXAM 10/02/2009 DANIEL KAM MD V72.9 ROUTINE GENITOURINARY EXAM 10/02/2009 DANIEL KAM MD V72.9 ROUTINE GENITOURINARY EXAM 10/02/2009 PIERCE RAMACHANDRAN, MARC R V72.9 ROUTINE GENITOURINARY EXAM 10/02/2009 PIERCE RAMACHANDRAN, MARC R V72.9 ROUTINE GENITOURINARY EXAM 10/02/2009 NADIA POLO DOA K V72.9 ROUTINE GENITOURINARY EXAM 10/02/2009 PIERCE RAMACHANDRAN, MARC R V72.9 ROUTINE GENITOURINARY EXAM 10/02/2009 PIERCE RAMACHANDRAN MARC R V72.9 ROUTINE GENITOURINARY EXAM 10/02/2009 LARISA DOWELL MD V72.9 ROUTINE GENITOURINARY EXAM 10/02/2009 PIERCE RAMACHANDRAN, MARC R V72.9 ROUTINE GENITOURINARY EXAM 10/02/2009 YASMIN NORRIS V72.9 ROUTINE GENITOURINARY EXAM 10/02/2009 PIERCE RAMACHANDRAN MARC R V72.9 ROUTINE GENITOURINARY EXAM 10/02/2009 NADIA POLO DOA K V72.9 ROUTINE GENITOURINARY EXAM 10/02/2009 POLO DO MEHREEN K V72.9 ROUTINE GENITOURINARY EXAM 10/02/2009 YASMIN NORRIS V72.9 ROUTINE GENITOURINARY EXAM 10/02/2009 YASMIN NORRIS V72.9 ROUTINE GENITOURINARY EXAM 10/02/2009 PIERCE PIG CASTING MACHINE OPERATOR, MARC R V72.9 ROUTINE GENITOURINARY EXAM 10/02/2009 YASMIN NORRIS V72.9 ROUTINE GENITOURINARY EXAM 10/02/2009 YASMIN NORRIS V72.9 ROUTINE GENITOURINARY EXAM 10/02/2009 PIERCE PIG CASTING MACHINE OPERATOR, MARC R V72.9 ROUTINE GENITOURINARY EXAM 10/02/2009 YASMIN NORRIS V72.9 ROUTINE GENITOURINARY EXAM 11/05/2009 SABINA POWELL MD 780.52 insomnia 11/05/2009 SABINA POWELL MD 780.52 insomnia 11/05/2009 SABINA POWELL MD 780.52 insomnia 11/05/2009 STUART MAC APRN 780.52 insomnia 11/05/2009 SABINA POWELL MD 780.52 insomnia 11/05/2009 MELANI DOMEHREEN K 780.52 insomnia 11/05/2009 780.52 insomnia 11/05/2009 780.52 insomnia 11/05/2009 780.52 insomnia 11/05/2009 780.52 insomnia 11/05/2009 SABINA POWELL MD 780.52 insomnia 11/05/2009 780.52 insomnia 11/05/2009 DANIEL KAM MD 780.52 insomnia 11/05/2009 DANIEL KAM MD 780.52 insomnia 11/05/2009 PIERCE PIG CASTING MACHINE OPERATOR, MARC R 780.52 insomnia 11/05/2009 PIERCE PIG CASTING MACHINE OPERATOR, MARC R 780.52 insomnia 11/05/2009 POLO DO MEHREEN K 780.52 insomnia 11/05/2009 PIERCE PIG CASTING MACHINE OPERATOR, MARC R 780.52 insomnia 11/05/2009 PIERCE PIG CASTING MACHINE OPERATOR, MARC R 780.52 insomnia 11/05/2009 LARISA DOWELL MD 780.52 insomnia 11/05/2009 PIERCE PIG CASTING MACHINE OPERATOR, MARC R 780.52 insomnia 11/05/2009 YASMIN NORRIS 780.52 insomnia 11/05/2009 PIERCE PIG CASTING MACHINE OPERATOR, MARC R 780.52 insomnia 11/05/2009 POLO DO MEHREEN K 780.52 insomnia 11/05/2009 POLO DO, MEHREEN K 780.52 insomnia 11/05/2009 YASMIN NORRIS 780.52 insomnia 11/05/2009 BARBER AUSTIN, YASMIN M 780.52 insomnia 11/05/2009 PIERCE PIG CASTING MACHINE OPERATOR, MARC R 780.52 insomnia 11/05/2009 BARBER [place], YASMIN M 780.52 insomnia 11/05/2009 BARBER [place], YASMIN M 780.52 insomnia 11/05/2009 PIERCE PIG CASTING MACHINE OPERATOR, MARC R 780.52 insomnia 11/05/2009 YASMIN NORRIS 780.52 insomnia 11/27/2009 ANDRE ALMAGUER, SABINA 461.9 SINUSITIS ACUTE 11/27/2009 SABINA POWELL MD 461.9 SINUSITIS ACUTE 11/27/2009 SABINA POWELL MD 461.9 SINUSITIS ACUTE 11/27/2009 ESTEFANIA RAMACHANDRAN, STUART S 461.9 SINUSITIS ACUTE 11/27/2009 SABINA POWELL MD 461.9 SINUSITIS ACUTE 11/27/2009 POLO MEHREEN BURCH K 461.9 SINUSITIS ACUTE 11/27/2009 461.9 SINUSITIS ACUTE 11/27/2009 461.9 SINUSITIS ACUTE 11/27/2009 461.9 SINUSITIS ACUTE 11/27/2009 461.9 SINUSITIS ACUTE 11/27/2009 SABINA POWELL MD 461.9 SINUSITIS ACUTE 11/27/2009 461.9 SINUSITIS ACUTE 11/27/2009 DANIEL KAM MD 461.9 SINUSITIS ACUTE 11/27/2009 DANIEL KAM MD 461.9 SINUSITIS ACUTE 11/27/2009 PIERCE PIG CASTING MACHINE OPERATOR, MARC R 461.9 SINUSITIS ACUTE 11/27/2009 PIERCE PIG CASTING MACHINE OPERATOR, MARC R 461.9 SINUSITIS ACUTE 11/27/2009 POLO MEHREEN BURCH K 461.9 SINUSITIS ACUTE 11/27/2009 PIERCE PIG CASTING MACHINE OPERATOR, MARC R 461.9 SINUSITIS ACUTE 11/27/2009 PIERCE PIG CASTING MACHINE OPERATOR, MARC R 461.9 SINUSITIS ACUTE 11/27/2009 LARISA DOWELL MD 461.9 SINUSITIS ACUTE 11/27/2009 PIERCE PIG CASTING MACHINE OPERATOR, MARC R 461.9 SINUSITIS ACUTE 11/27/2009 YASMIN NORRIS 461.9 SINUSITIS ACUTE 11/27/2009 PIERCE PIG CASTING MACHINE OPERATOR, MARC R 461.9 SINUSITIS ACUTE 11/27/2009 POLO DO, MEHREEN K 461.9 SINUSITIS ACUTE 11/27/2009 POLO DO, MEHREEN K 461.9 SINUSITIS ACUTE 11/27/2009 BARBER [place], YASMIN M 461.9 SINUSITIS ACUTE 11/27/2009 BARBER [place], YASMIN M 461.9 SINUSITIS ACUTE 11/27/2009 PIERCE PIG CASTING MACHINE OPERATOR, MARC R 461.9 SINUSITIS ACUTE 11/27/2009 YASMIN NORRIS M 461.9 SINUSITIS ACUTE 11/27/2009 BARBER [place], YASMIN M 461.9 SINUSITIS ACUTE 11/27/2009 PIERCE PIG CASTING MACHINE OPERATOR, MARC R 461.9 SINUSITIS ACUTE 11/27/2009 YASMIN NORRIS 461.9 SINUSITIS ACUTE 12/22/2009 ANDRE ALMAGUER, SABINA 692.9 DERMATITIS 12/22/2009 ANDRE ALMAGUER, SABINA 692.9 DERMATITIS 12/22/2009 ANDRE ALMAGUER, SABINA 692.9 DERMATITIS 12/22/2009 ESTEFANIA RAMACHANDRAN, STUART S 692.9 DERMATITIS 12/22/2009 SABINA POWELL MD 692.9 DERMATITIS 12/22/2009 MELANI BURCH, MEHREEN K 692.9 DERMATITIS 12/22/2009 692.9 DERMATITIS 12/22/2009 692.9 DERMATITIS 12/22/2009 692.9 DERMATITIS 12/22/2009 692.9 DERMATITIS 12/22/2009 SABINA POWELL MD 692.9 DERMATITIS 12/22/2009 692.9 DERMATITIS 12/22/2009 DANIEL KAM MD 692.9 DERMATITIS 12/22/2009 DANIEL KAM MD 692.9 DERMATITIS 12/22/2009 PIERCE PIG CASTING MACHINE OPERATOR, MARC R 692.9 DERMATITIS 12/22/2009 PIERCE PIG CASTING MACHINE OPERATOR, MARC R 692.9 DERMATITIS 12/22/2009 POLO DO, MEHREEN K 692.9 DERMATITIS 12/22/2009 PIERCE PIG CASTING MACHINE OPERATOR, MARC R 692.9 DERMATITIS 12/22/2009 PIERCE PIG CASTING MACHINE OPERATOR, MARC R 692.9 DERMATITIS 12/22/2009 LARISA DOWELL MD 692.9 DERMATITIS 12/22/2009 PIERCE PIG CASTING MACHINE OPERATOR, MRAC R 692.9 DERMATITIS 12/22/2009 YASMIN NORRIS 692.9 DERMATITIS 12/22/2009 PIERCE PIG CASTING MACHINE OPERATOR, MARC R 692.9 DERMATITIS 12/22/2009 POLO DO, MEHREEN K 692.9 DERMATITIS 12/22/2009 POLO DO, MEHREEN K 692.9 DERMATITIS 12/22/2009 BARBER STUDENT AMBASSADOR, YASMIN M 692.9 DERMATITIS 12/22/2009 BARBER STUDENT AMBASSADOR, YASMIN M 692.9 DERMATITIS 12/22/2009 PIERCE PIG CASTING MACHINE OPERATOR, MARC R 692.9 DERMATITIS 12/22/2009 BARBER STUDENT AMBASSADOR, YASMIN M 692.9 DERMATITIS 12/22/2009 BARBER STUDENT AMBASSADOR, YSAMIN M 692.9 DERMATITIS 12/22/2009 PIERCE PIG CASTING MACHINE OPERATOR, MARC R 692.9 DERMATITIS 12/22/2009 BARBER STUDENT AMBASSADOR, YASMIN M 692.9 DERMATITIS 01/11/2010 ANDRE ALMAGUER, SABINA 133.0 SCABIES 01/11/2010 ANDRE ALMAGUER, SABINA 133.0 SCABIES 01/11/2010 SABINA POWELL MD 133.0 SCABIES 01/11/2010 ESTEFANIA RAMACHANDRAN, STUART S 133.0 SCABIES 01/11/2010 SABINA POWELL MD 133.0 SCABIES 01/11/2010 POLO DO, MEHREEN K 133.0 SCABIES 01/11/2010 133.0 SCABIES 01/11/2010 133.0 SCABIES 01/11/2010 133.0 SCABIES 01/11/2010 133.0 SCABIES 01/11/2010 SABINA POWELL MD 133.0 SCABIES 01/11/2010 133.0 SCABIES 01/11/2010 DANIEL KAM MD 133.0 SCABIES 01/11/2010 DANIEL KAM MD 133.0 SCABIES 01/11/2010 PIERCE PIG CASTING MACHINE OPERATOR, MARC R 133.0 SCABIES 01/11/2010 PIERCE PIG CASTING MACHINE OPERATOR, MARC R 133.0 SCABIES 01/11/2010 POLO DO, MEHREEN K 133.0 SCABIES 01/11/2010 PIERCE PIG CASTING MACHINE OPERATOR, MARC R 133.0 SCABIES 01/11/2010 PIERCE PIG CASTING MACHINE OPERATOR, MARC R 133.0 SCABIES 01/11/2010 LARISA DOWELL MD 133.0 SCABIES 01/11/2010 PIERCE PIG CASTING MACHINE OPERATOR, MARC R 133.0 SCABIES 01/11/2010 BARBER STUDENT AMBASSADOR, YASMIN M 133.0 SCABIES 01/11/2010 PIERCE PIG CASTING MACHINE OPERATOR, MARC R 133.0 SCABIES 01/11/2010 POLO DO, MEHREEN K 133.0 SCABIES 01/11/2010 POLO DO, MEHREEN K 133.0 SCABIES 01/11/2010 BABRER STUDENT AMBASSADOR, YASMIN M 133.0 SCABIES 01/11/2010 BARBER STUDENT AMBASSADOR, YASMIN M 133.0 SCABIES 01/11/2010 PIERCE PIG CASTING MACHINE OPERATOR, MARC R 133.0 SCABIES 01/11/2010 BARBER STUDENT AMBASSADOR, YASMIN M 133.0 SCABIES 01/11/2010 BARBER STUDENT AMBASSADOR, YASMIN M 133.0 SCABIES 01/11/2010 PIERCE PIG CASTING MACHINE OPERATOR, MARC R 133.0 SCABIES 01/11/2010 BARBER STUDENT AMBASSADOR, YASMIN M 133.0 SCABIES 01/21/2010 SABINA POWELL MD V58.69 LONG-TERM (CURRENT) USE OF OTHER MEDICATIONS 01/21/2010 SABINA POWELL MD V58.69 LONG-TERM (CURRENT) USE OF OTHER MEDICATIONS 01/21/2010 SABINA POWELL MD V58.69 LONG-TERM (CURRENT) USE OF OTHER MEDICATIONS 01/21/2010 STUART MAC APRN V58.69 LONG-TERM (CURRENT) USE OF OTHER MEDICATIONS 01/21/2010 SABINA POWELL MD V58.69 LONG-TERM (CURRENT) USE OF OTHER MEDICATIONS 01/21/2010 POLO DO, MEHREEN K V58.69 LONG-TERM (CURRENT) USE OF OTHER MEDICATIONS 01/21/2010 V58.69 LONG-TERM ( CURRENT) USE OF OTHER MEDICATIONS 01/21/2010 V58.69 LONG-TERM ( CURRENT) USE OF OTHER MEDICATIONS 01/21/2010 V58.69 LONG-TERM ( CURRENT) USE OF OTHER MEDICATIONS 01/21/2010 V58.69 LONG-TERM ( CURRENT) USE OF OTHER MEDICATIONS 01/21/2010 SABINA POWELL MD V58.69 LONG-TERM (CURRENT) USE OF OTHER MEDICATIONS 01/21/2010 V58.69 LONG-TERM ( CURRENT) USE OF OTHER MEDICATIONS 01/21/2010 DANIEL KAM MD V58.69 LONG-TERM (CURRENT) USE OF OTHER MEDICATIONS 01/21/2010 DANIEL KAM MD V58.69 LONG-TERM (CURRENT) USE OF OTHER MEDICATIONS 01/21/2010 PIERCE PIG CASTING MACHINE OPERATORYUMIKOMARC R V58.69 LONG-TERM (CURRENT) USE OF OTHER MEDICATIONS 01/21/2010 PIERCE PIG CASTING MACHINE OPERATOR, MARC R V58.69 LONG-TERM (CURRENT) USE OF OTHER MEDICATIONS 01/21/2010 MEHREEN POLO DO V58.69 LONG-TERM (CURRENT) USE OF OTHER MEDICATIONS 01/21/2010 PIERCE PIG CASTING MACHINE OPERATOR, MARC R V58.69 LONG-TERM (CURRENT) USE OF OTHER MEDICATIONS 01/21/2010 PIERCE RAMACHANDRAN MARC R V58.69 LONG-TERM (CURRENT) USE OF OTHER MEDICATIONS 01/21/2010 LARISA DOWELL MD V58.69 LONG-TERM (CURRENT) USE OF OTHER MEDICATIONS 01/21/2010 PIERCE RAMACHANDRAN MARC R V58.69 LONG-TERM (CURRENT) USE OF OTHER MEDICATIONS 01/21/2010 YASMIN NORRIS V58.69 LONG-TERM (CURRENT) USE OF OTHER MEDICATIONS 01/21/2010 PIERCE RAMACHANDRAN MARC R V58.69 LONG-TERM (CURRENT) USE OF OTHER MEDICATIONS 01/21/2010 MEHREEN POLO DO V58.69 LONG-TERM (CURRENT) USE OF OTHER MEDICATIONS 01/21/2010 MEHREEN POLO DO K V58.69 LONG-TERM (CURRENT) USE OF OTHER MEDICATIONS 01/21/2010 YASMIN NRORIS V58.69 LONG-TERM (CURRENT) USE OF OTHER MEDICATIONS 01/21/2010 YASMIN NORRIS V58.69 LONG-TERM (CURRENT) USE OF OTHER MEDICATIONS 01/21/2010 PIERCE RAMACHANDRAN MARC R V58.69 LONG-TERM (CURRENT) USE OF OTHER MEDICATIONS 01/21/2010 YASMIN NORRIS V58.69 LONG-TERM (CURRENT) USE OF OTHER MEDICATIONS 01/21/2010 YASMIN NORRIS V58.69 LONG-TERM (CURRENT) USE OF OTHER MEDICATIONS 01/21/2010 PIERCE RAMACHANDRAN MARC R V58.69 LONG-TERM (CURRENT) USE OF OTHER MEDICATIONS 01/21/2010 YASMIN NORRIS V58.69 LONG-TERM (CURRENT) USE OF OTHER MEDICATIONS 11/11/2010 Ot 296.20 11/11/2010 Ot 305.70 11/11/2010 Ot 969.00 11/11/2010 Ot 969.3 11/11/2010 Ot E849.0 11/11/2010 Ot E950.3 11/18/2010 SABINA POWELL MD 241.1 NONTOXIC MULTINODULAR GOITER 11/18/2010 SABINA POWELL MD 241.1 NONTOXIC MULTINODULAR GOITER 11/18/2010 SABINA POWELL MD 241.1 NONTOXIC MULTINODULAR GOITER 11/18/2010 STUART MAC APRN 241.1 NONTOXIC MULTINODULAR GOITER 11/18/2010 SABINA POWELL MD 241.1 NONTOXIC MULTINODULAR GOITER 11/18/2010 MEHREEN POLO DO 241.1 NONTOXIC MULTINODULAR GOITER 11/18/2010 241.1 NONTOXIC MULTINODULAR GOITER 11/18/2010 241.1 NONTOXIC MULTINODULAR GOITER 11/18/2010 241.1 NONTOXIC MULTINODULAR GOITER 11/18/2010 241.1 NONTOXIC MULTINODULAR GOITER 11/18/2010 SABINA POWELL MD 241.1 NONTOXIC MULTINODULAR GOITER 11/18/2010 241.1 NONTOXIC MULTINODULAR GOITER 11/18/2010 DANIEL KAM MD 241.1 NONTOXIC MULTINODULAR GOITER 11/18/2010 DANIEL KAM MD 241.1 NONTOXIC MULTINODULAR GOITER 11/18/2010 YUMIKO PELAYO APRNINA R 241.1 NONTOXIC MULTINODULAR GOITER 11/18/2010 YUMIKO PELAYO APRNINA R 241.1 NONTOXIC MULTINODULAR GOITER 11/18/2010 MEHREEN POLO DO 241.1 NONTOXIC MULTINODULAR GOITER 11/18/2010 PIERCE RAMACHANDRAN MARC R 241.1 NONTOXIC MULTINODULAR GOITER 11/18/2010 PIERCE RAMACHANDRAN MARC R 241.1 NONTOXIC MULTINODULAR GOITER 11/18/2010 LARISA DOWELL MD 241.1 NONTOXIC MULTINODULAR GOITER 11/18/2010 PIERCE RAMACHANDRAN MARC R 241.1 NONTOXIC MULTINODULAR GOITER 11/18/2010 YASMIN NORRIS 241.1 NONTOXIC MULTINODULAR GOITER 11/18/2010 PIERCE PIG CASTING MACHINE OPERATOR, MARC R 241.1 NONTOXIC MULTINODULAR GOITER 11/18/2010 POLO DO, MEHREEN K 241.1 NONTOXIC MULTINODULAR GOITER 11/18/2010 POLO DO, MEHREEN K 241.1 NONTOXIC MULTINODULAR GOITER 11/18/2010 BARBER STUDENT AMBASSADOR, YASMIN M 241.1 NONTOXIC MULTINODULAR GOITER 11/18/2010 BARBER STUDENT AMBASSADOR, YASMIN M 241.1 NONTOXIC MULTINODULAR GOITER 11/18/2010 PIERCE PIG CASTING MACHINE OPERATOR, MARC R 241.1 NONTOXIC MULTINODULAR GOITER 11/18/2010 BARBER STUDENT AMBASSADOR, YASMIN M 241.1 NONTOXIC MULTINODULAR GOITER 11/18/2010 BARBER STUDENT AMBASSADOR, YASMIN M 241.1 NONTOXIC MULTINODULAR GOITER 11/18/2010 PIERCE PIG CASTING MACHINE OPERATOR, MARC R 241.1 NONTOXIC MULTINODULAR GOITER 11/18/2010 BARBER STUDENT AMBASSADOR, YASMIN M 241.1 NONTOXIC MULTINODULAR GOITER 12/20/2010 SABINA POWELL MD 272.4 OTHER AND UNSPECIFIED HYPERLIPIDEMIA 12/20/2010 SABINA POWELL MD 356.9 UNSPECIFIED IDIOPATHIC PERIPHERAL NEUROPATHY 12/20/2010 SABINA POWELL MD 626.0 ABSENCE OF MENSTRUATION 12/20/2010 SABINA POWELL MD 272.4 OTHER AND UNSPECIFIED HYPERLIPIDEMIA 12/20/2010 SABINA POWELL MD 356.9 UNSPECIFIED IDIOPATHIC PERIPHERAL NEUROPATHY 12/20/2010 SABINA POWELL MD 626.0 ABSENCE OF MENSTRUATION 12/20/2010 SABINA POWELL MD 272.4 OTHER AND UNSPECIFIED HYPERLIPIDEMIA 12/20/2010 SABINA POWELL MD 356.9 UNSPECIFIED IDIOPATHIC PERIPHERAL NEUROPATHY 12/20/2010 SABINA POWELL MD 626.0 ABSENCE OF MENSTRUATION 12/20/2010 STUART MAC APRN S 272.4 OTHER AND UNSPECIFIED HYPERLIPIDEMIA 12/20/2010 STUART AMC APRN S 356.9 UNSPECIFIED IDIOPATHIC PERIPHERAL NEUROPATHY 12/20/2010 STUART MAC APRN S 626.0 ABSENCE OF MENSTRUATION 12/20/2010 SABINA POWELL MD 272.4 OTHER AND UNSPECIFIED HYPERLIPIDEMIA 12/20/2010 SABINA POWELL MD 356.9 UNSPECIFIED IDIOPATHIC PERIPHERAL NEUROPATHY 12/20/2010 SABINA POWELL MD 626.0 ABSENCE OF MENSTRUATION 12/20/2010 POLO DO, MEHREEN K 272.4 OTHER AND UNSPECIFIED HYPERLIPIDEMIA 12/20/2010 POLO DO, MEHREEN K 356.9 UNSPECIFIED IDIOPATHIC PERIPHERAL NEUROPATHY 12/20/2010 POLO DO, MEHREEN K 626.0 ABSENCE OF MENSTRUATION 12/20/2010 272.4 OTHER AND UNSPECIFIED HYPERLIPIDEMIA 12/20/2010 356.9 UNSPECIFIED IDIOPATHIC PERIPHERAL NEUROPATHY 12/20/2010 626.0 ABSENCE OF MENSTRUATION 12/20/2010 272.4 OTHER AND UNSPECIFIED HYPERLIPIDEMIA 12/20/2010 356.9 UNSPECIFIED IDIOPATHIC PERIPHERAL NEUROPATHY 12/20/2010 626.0 ABSENCE OF MENSTRUATION 12/20/2010 272.4 OTHER AND UNSPECIFIED HYPERLIPIDEMIA 12/20/2010 356.9 UNSPECIFIED IDIOPATHIC PERIPHERAL NEUROPATHY 12/20/2010 626.0 ABSENCE OF MENSTRUATION 12/20/2010 272.4 OTHER AND UNSPECIFIED HYPERLIPIDEMIA 12/20/2010 356.9 UNSPECIFIED IDIOPATHIC PERIPHERAL NEUROPATHY 12/20/2010 626.0 ABSENCE OF MENSTRUATION 12/20/2010 SABINA POWELL MD 272.4 OTHER AND UNSPECIFIED HYPERLIPIDEMIA 12/20/2010 SABINA POWELL MD 356.9 UNSPECIFIED IDIOPATHIC PERIPHERAL NEUROPATHY 12/20/2010 SABINA POWELL MD 626.0 ABSENCE OF MENSTRUATION 12/20/2010 272.4 OTHER AND UNSPECIFIED HYPERLIPIDEMIA 12/20/2010 356.9 UNSPECIFIED IDIOPATHIC PERIPHERAL NEUROPATHY 12/20/2010 626.0 ABSENCE OF MENSTRUATION 12/20/2010 DANIEL KAM MD 272.4 OTHER AND UNSPECIFIED HYPERLIPIDEMIA 12/20/2010 DANIEL KAM MD 356.9 UNSPECIFIED IDIOPATHIC PERIPHERAL NEUROPATHY 12/20/2010 DANIEL KAM MD 626.0 ABSENCE OF MENSTRUATION 12/20/2010 DANIEL KAM MD 272.4 OTHER AND UNSPECIFIED HYPERLIPIDEMIA 12/20/2010 DANIEL KAM MD 356.9 UNSPECIFIED IDIOPATHIC PERIPHERAL NEUROPATHY 12/20/2010 DANIEL KAM MD 626.0 ABSENCE OF MENSTRUATION 12/20/2010 PIERCE PIG CASTING MACHINE OPERATOR, MARC R 272.4 OTHER AND UNSPECIFIED HYPERLIPIDEMIA 12/20/2010 PIERCE PIG CASTING MACHINE OPERATOR, MARC R 356.9 UNSPECIFIED IDIOPATHIC PERIPHERAL NEUROPATHY 12/20/2010 PIERCE PIG CASTING MACHINE OPERATOR, MARC R 626.0 ABSENCE OF MENSTRUATION 12/20/2010 PIERCE PIG CASTING MACHINE OPERATOR, MARC R 272.4 OTHER AND UNSPECIFIED HYPERLIPIDEMIA 12/20/2010 PIERCE PIG CASTING MACHINE OPERATOR, MARC R 356.9 UNSPECIFIED IDIOPATHIC PERIPHERAL NEUROPATHY 12/20/2010 PIERCE PIG CASTING MACHINE OPERATOR, MARC R 626.0 ABSENCE OF MENSTRUATION 12/20/2010 POLO DO, MEHREEN K 272.4 OTHER AND UNSPECIFIED HYPERLIPIDEMIA 12/20/2010 POLO DO, MEHREEN K 356.9 UNSPECIFIED IDIOPATHIC PERIPHERAL NEUROPATHY 12/20/2010 POLO DO, MEHREEN K 626.0 ABSENCE OF MENSTRUATION 12/20/2010 PIERCE PIG CASTING MACHINE OPERATOR, MARC R 272.4 OTHER AND UNSPECIFIED HYPERLIPIDEMIA 12/20/2010 PIERCE PIG CASTING MACHINE OPERATOR, MARC R 356.9 UNSPECIFIED IDIOPATHIC PERIPHERAL NEUROPATHY 12/20/2010 PIERCE PIG CASTING MACHINE OPERATOR, MARC R 626.0 ABSENCE OF MENSTRUATION 12/20/2010 PIERCE DAIN, MARC R 272.4 OTHER AND UNSPECIFIED HYPERLIPIDEMIA 12/20/2010 PIERCE RAMACHANDRAN, MARC R 356.9 UNSPECIFIED IDIOPATHIC PERIPHERAL NEUROPATHY 12/20/2010 PIERCE DAIN, MARC R 626.0 ABSENCE OF MENSTRUATION 12/20/2010 MAGALYS ALMAGUER, LARISA 272.4 OTHER AND UNSPECIFIED HYPERLIPIDEMIA 12/20/2010 LARISA DOWELL MD 356.9 UNSPECIFIED IDIOPATHIC PERIPHERAL NEUROPATHY 12/20/2010 MAGALYS ALMAGUER BASOLMAN 626.0 ABSENCE OF MENSTRUATION 12/20/2010 PIERCE DAIN, MARC R 272.4 OTHER AND UNSPECIFIED HYPERLIPIDEMIA 12/20/2010 PIERCE DAIN, MARC R 356.9 UNSPECIFIED IDIOPATHIC PERIPHERAL NEUROPATHY 12/20/2010 PIERCE DAIN, MARC R 626.0 ABSENCE OF MENSTRUATION 12/20/2010 BARBER STUDENT AMBASSADOR, YASMIN M 272.4 OTHER AND UNSPECIFIED HYPERLIPIDEMIA 12/20/2010 BARBER STUDENT AMBASSADOR, YASMIN M 356.9 UNSPECIFIED IDIOPATHIC PERIPHERAL NEUROPATHY 12/20/2010 BARBER STUDENT AMBASSADOR, YASMIN M 626.0 ABSENCE OF MENSTRUATION 12/20/2010 PIERCE PIG CASTING MACHINE OPERATOR, MARC R 272.4 OTHER AND UNSPECIFIED HYPERLIPIDEMIA 12/20/2010 PIERCE PIG CASTING MACHINE OPERATOR, MARC R 356.9 UNSPECIFIED IDIOPATHIC PERIPHERAL NEUROPATHY 12/20/2010 PIERCE DAIN, MARC R 626.0 ABSENCE OF MENSTRUATION 12/20/2010 POLO DO, MEHREEN K 272.4 OTHER AND UNSPECIFIED HYPERLIPIDEMIA 12/20/2010 POLO DO, MEHREEN K 356.9 UNSPECIFIED IDIOPATHIC PERIPHERAL NEUROPATHY 12/20/2010 POLO DO, MEHREEN K 626.0 ABSENCE OF MENSTRUATION 12/20/2010 POLO DO, MEHREEN K 272.4 OTHER AND UNSPECIFIED HYPERLIPIDEMIA 12/20/2010 OPLO DO, MEHREEN K 356.9 UNSPECIFIED IDIOPATHIC PERIPHERAL NEUROPATHY 12/20/2010 POLO DO, MEHREEN K 626.0 ABSENCE OF MENSTRUATION 12/20/2010 BARBER STUDENT AMBASSADOR, YASMIN M 272.4 OTHER AND UNSPECIFIED HYPERLIPIDEMIA 12/20/2010 BARBER STUDENT AMBASSADOR, YASMIN M 356.9 UNSPECIFIED IDIOPATHIC PERIPHERAL NEUROPATHY 12/20/2010 BARBER STUDENT AMBASSADOR, YASMIN M 626.0 ABSENCE OF MENSTRUATION 12/20/2010 BARBER STUDENT AMBASSADOR, YASMIN M 272.4 OTHER AND UNSPECIFIED HYPERLIPIDEMIA 12/20/2010 BARBER STUDENT AMBASSADOR, YASMIN M 356.9 UNSPECIFIED IDIOPATHIC PERIPHERAL NEUROPATHY 12/20/2010 BARBER STUDENT AMBASSADOR, YASMIN M 626.0 ABSENCE OF MENSTRUATION 12/20/2010 PIERCE PIG CASTING MACHINE OPERATOR, MARC R 272.4 OTHER AND UNSPECIFIED HYPERLIPIDEMIA 12/20/2010 PIERCE PIG CASTING MACHINE OPERATOR, MARC R 356.9 UNSPECIFIED IDIOPATHIC PERIPHERAL NEUROPATHY 12/20/2010 PIERCE PIG CASTING MACHINE OPERATOR, MARC R 626.0 ABSENCE OF MENSTRUATION 12/20/2010 BARBER STUDENT AMBASSADOR, YASMIN M 272.4 OTHER AND UNSPECIFIED HYPERLIPIDEMIA 12/20/2010 BARBER STUDENT AMBASSADOR, YASMIN M 356.9 UNSPECIFIED IDIOPATHIC PERIPHERAL NEUROPATHY 12/20/2010 BARBER STUDENT AMBASSADOR, YASMIN M 626.0 ABSENCE OF MENSTRUATION 12/20/2010 BARBER STUDENT AMBASSADOR, YASMIN M 272.4 OTHER AND UNSPECIFIED HYPERLIPIDEMIA 12/20/2010 BARBER STUDENT AMBASSADOR, YASMIN M 356.9 UNSPECIFIED IDIOPATHIC PERIPHERAL NEUROPATHY 12/20/2010 BARBER STUDENT AMBASSADOR, YASMIN M 626.0 ABSENCE OF MENSTRUATION 12/20/2010 PIERCE PIG CASTING MACHINE OPERATOR, MARC R 272.4 OTHER AND UNSPECIFIED HYPERLIPIDEMIA 12/20/2010 PIERCE PIG CASTING MACHINE OPERATOR, MARC R 356.9 UNSPECIFIED IDIOPATHIC PERIPHERAL NEUROPATHY 12/20/2010 PIERCE PIG CASTING MACHINE OPERATOR, MARC R 626.0 ABSENCE OF MENSTRUATION 12/20/2010 BARBER STUDENT AMBASSADOR, YASMIN M 272.4 OTHER AND UNSPECIFIED HYPERLIPIDEMIA 12/20/2010 BARBER STUDENT AMBASSADOR, YASMIN M 356.9 UNSPECIFIED IDIOPATHIC PERIPHERAL NEUROPATHY 12/20/2010 YASMIN NORRIS 626.0 ABSENCE OF MENSTRUATION 06/04/2011 Ot 524.60 06/04/2011 Ot 784.92 06/13/2011 SABINA POWELL MD 524.60 TEMPOROMANDIBULAR JOINT DISORDERS UNSPECIFIED 06/13/2011 SABINA POWELL MD 524.60 TEMPOROMANDIBULAR JOINT DISORDERS UNSPECIFIED 06/13/2011 SABINA POWELL MD 524.60 TEMPOROMANDIBULAR JOINT DISORDERS UNSPECIFIED 06/13/2011 STUART MAC APRN 524.60 TEMPOROMANDIBULAR JOINT DISORDERS UNSPECIFIED 06/13/2011 SABINA POWELL MD 524.60 TEMPOROMANDIBULAR JOINT DISORDERS UNSPECIFIED 06/13/2011 MEHREEN POLO DO 524.60 TEMPOROMANDIBULAR JOINT DISORDERS UNSPECIFIED 06/13/2011 524.60 TEMPOROMANDIBULAR JOINT DISORDERS UNSPECIFIED 06/13/2011 524.60 TEMPOROMANDIBULAR JOINT DISORDERS UNSPECIFIED 06/13/2011 524.60 TEMPOROMANDIBULAR JOINT DISORDERS UNSPECIFIED 06/13/2011 524.60 TEMPOROMANDIBULAR JOINT DISORDERS UNSPECIFIED 06/13/2011 SABINA POWELL MD 524.60 TEMPOROMANDIBULAR JOINT DISORDERS UNSPECIFIED 06/13/2011 524.60 TEMPOROMANDIBULAR JOINT DISORDERS UNSPECIFIED 06/13/2011 DANIEL KAM MD 524.60 TEMPOROMANDIBULAR JOINT DISORDERS UNSPECIFIED 06/13/2011 DANIEL KAM MD 524.60 TEMPOROMANDIBULAR JOINT DISORDERS UNSPECIFIED 06/13/2011 PIERCE RAMACHANDRAN, MRAC R 524.60 TEMPOROMANDIBULAR JOINT DISORDERS UNSPECIFIED 06/13/2011 PIERCE RAMACHANDRAN, MARC R 524.60 TEMPOROMANDIBULAR JOINT DISORDERS UNSPECIFIED 06/13/2011 MEHREEN POLO DO 524.60 TEMPOROMANDIBULAR JOINT DISORDERS UNSPECIFIED 06/13/2011 PIERCE RAMACHANDRAN, MARC R 524.60 TEMPOROMANDIBULAR JOINT DISORDERS UNSPECIFIED 06/13/2011 PIERCE RAMACHANDRAN, MARC R 524.60 TEMPOROMANDIBULAR JOINT DISORDERS UNSPECIFIED 06/13/2011 MAGALYS ALMAGUER, LARISA 524.60 TEMPOROMANDIBULAR JOINT DISORDERS UNSPECIFIED 06/13/2011 PIERCE RAMACHANDRAN, MARC R 524.60 TEMPOROMANDIBULAR JOINT DISORDERS UNSPECIFIED 06/13/2011 BARBER STUDENT AMBASSADOR, YASMIN M 524.60 TEMPOROMANDIBULAR JOINT DISORDERS UNSPECIFIED 06/13/2011 PIERCE RAMACHANDRAN, MARC R 524.60 TEMPOROMANDIBULAR JOINT DISORDERS UNSPECIFIED 06/13/2011 POLO DO, MEHREEN K 524.60 TEMPOROMANDIBULAR JOINT DISORDERS UNSPECIFIED 06/13/2011 POLO DO, MEHREEN K 524.60 TEMPOROMANDIBULAR JOINT DISORDERS UNSPECIFIED 06/13/2011 BARBER STUDENT AMBASSADOR, YASMIN M 524.60 TEMPOROMANDIBULAR JOINT DISORDERS UNSPECIFIED 06/13/2011 BARBER STUDENT AMBASSADOR, YASMIN M 524.60 TEMPOROMANDIBULAR JOINT DISORDERS UNSPECIFIED 06/13/2011 PIERCE RAMACHANDRAN, MARC R 524.60 TEMPOROMANDIBULAR JOINT DISORDERS UNSPECIFIED 06/13/2011 BARBER STUDENT AMBASSADOR, YASMIN M 524.60 TEMPOROMANDIBULAR JOINT DISORDERS UNSPECIFIED 06/13/2011 BARBER STUDENT AMBASSADOR, YASMIN M 524.60 TEMPOROMANDIBULAR JOINT DISORDERS UNSPECIFIED 06/13/2011 PIERCE RAMACHANDRAN, MARC R 524.60 TEMPOROMANDIBULAR JOINT DISORDERS UNSPECIFIED 06/13/2011 BARBER STUDENT AMBASSADOR, YASMIN M 524.60 TEMPOROMANDIBULAR JOINT DISORDERS UNSPECIFIED 07/04/2012 Ot 338.29 07/04/2012 Ot 729.5 07/26/2012 SABINA POWELL MD 787.20 DYSPHAGIA, UNSPECIFIED 07/26/2012 SABINA POWELL MD 787.20 DYSPHAGIA, UNSPECIFIED 07/26/2012 SABINA POWELL MD 787.20 DYSPHAGIA, UNSPECIFIED 07/26/2012 STUART MAC APRN 787.20 DYSPHAGIA, UNSPECIFIED 07/26/2012 SABINA POWELL MD 787.20 DYSPHAGIA, UNSPECIFIED 07/26/2012 POLO DO, MEHREEN K 787.20 DYSPHAGIA, UNSPECIFIED 07/26/2012 787.20 DYSPHAGIA, UNSPECIFIED 07/26/2012 787.20 DYSPHAGIA, UNSPECIFIED 07/26/2012 787.20 DYSPHAGIA, UNSPECIFIED 07/26/2012 787.20 DYSPHAGIA, UNSPECIFIED 07/26/2012 ANDRE ALMAGUER, SABINA 787.20 DYSPHAGIA, UNSPECIFIED 07/26/2012 787.20 DYSPHAGIA, UNSPECIFIED 07/26/2012 NEGIN ALMAGUER, DANIEL Tran 787.20 DYSPHAGIA, UNSPECIFIED 07/26/2012 NEGIN ALMAGUER, DANIEL Tran 787.20 DYSPHAGIA, UNSPECIFIED 07/26/2012 PIERCE PIG CASTING MACHINE OPERATOR, MARC R 787.20 DYSPHAGIA, UNSPECIFIED 07/26/2012 PIERCE PIG CASTING MACHINE OPERATOR, MARC R 787.20 DYSPHAGIA, UNSPECIFIED 07/26/2012 POLO DO, MEHREEN K 787.20 DYSPHAGIA, UNSPECIFIED 07/26/2012 PIERCE PIG CASTING MACHINE OPERATOR, MARC R 787.20 DYSPHAGIA, UNSPECIFIED 07/26/2012 PIERCE PIG CASTING MACHINE OPERATOR, MARC R 787.20 DYSPHAGIA, UNSPECIFIED 07/26/2012 MAGALYS ALMAGUER, LARISA 787.20 DYSPHAGIA, UNSPECIFIED 07/26/2012 PIERCE PIG CASTING MACHINE OPERATOR, MARC R 787.20 DYSPHAGIA, UNSPECIFIED 07/26/2012 BARBER STUDENT AMBASSADOR, YASMIN M 787.20 DYSPHAGIA, UNSPECIFIED 07/26/2012 PIERCE PIG CASTING MACHINE OPERATOR, MARC R 787.20 DYSPHAGIA, UNSPECIFIED 07/26/2012 POLO DO, MEHREEN K 787.20 DYSPHAGIA, UNSPECIFIED 07/26/2012 POLO DO, MEHREEN K 787.20 DYSPHAGIA, UNSPECIFIED 07/26/2012 BARBER STUDENT AMBASSADOR, YASMIN M 787.20 DYSPHAGIA, UNSPECIFIED 07/26/2012 BARBER STUDENT AMBASSADOR, YASMIN M 787.20 DYSPHAGIA, UNSPECIFIED 07/26/2012 PIERCE PIG CASTING MACHINE OPERATOR, MARC R 787.20 DYSPHAGIA, UNSPECIFIED 07/26/2012 BARBER STUDENT AMBASSADOR, YASMIN M 787.20 DYSPHAGIA, UNSPECIFIED 07/26/2012 BARBER STUDENT AMBASSADOR, YASMIN M 787.20 DYSPHAGIA, UNSPECIFIED 07/26/2012 PIERCE PIG CASTING MACHINE OPERATOR, MRAC R 787.20 DYSPHAGIA, UNSPECIFIED 07/26/2012 BARBER STUDENT AMBASSADOR, YASMIN M 787.20 DYSPHAGIA, UNSPECIFIED 08/15/2012 SABINA POWELL MD 401.1 ESSENTIAL HYPERTENSION BENIGN 08/15/2012 SABINA POWELL MD 401.1 ESSENTIAL HYPERTENSION BENIGN 08/15/2012 SABINA POWELL MD 401.1 ESSENTIAL HYPERTENSION BENIGN 08/15/2012 ESTEFANIA RAMACHANDRAN, STUART S 401.1 ESSENTIAL HYPERTENSION BENIGN 08/15/2012 SABINA POWELL MD 401.1 ESSENTIAL HYPERTENSION BENIGN 08/15/2012 POLO DO, MEHREEN K 401.1 ESSENTIAL HYPERTENSION BENIGN 08/15/2012 401.1 ESSENTIAL HYPERTENSION BENIGN 08/15/2012 401.1 ESSENTIAL HYPERTENSION BENIGN 08/15/2012 401.1 ESSENTIAL HYPERTENSION BENIGN 08/15/2012 401.1 ESSENTIAL HYPERTENSION BENIGN 08/15/2012 401.1 ESSENTIAL HYPERTENSION BENIGN 08/15/2012 NEGIN ALMAGUER, DANIEL M 401.1 ESSENTIAL HYPERTENSION BENIGN 08/15/2012 NEGIN ALMAGUER, DANIEL M 401.1 ESSENTIAL HYPERTENSION BENIGN 08/15/2012 PIERCE RAMACHANDRAN, MARC R 401.1 ESSENTIAL HYPERTENSION BENIGN 08/15/2012 PIERCE RAMACHANDRAN, MARC R 401.1 ESSENTIAL HYPERTENSION BENIGN 08/15/2012 POLO DO, MEHREEN K 401.1 ESSENTIAL HYPERTENSION BENIGN 08/15/2012 PIERCE RAMACHANDRAN, MARC R 401.1 ESSENTIAL HYPERTENSION BENIGN 08/15/2012 PIERCE RAMACHANDRAN, MARC R 401.1 ESSENTIAL HYPERTENSION BENIGN 08/15/2012 LARISA DOWELL MD 401.1 ESSENTIAL HYPERTENSION BENIGN 08/15/2012 PIERCE PIG CASTING MACHINE OPERATOR, MARC R 401.1 ESSENTIAL HYPERTENSION BENIGN 08/15/2012 BARBER STUDENT AMBASSADOR, YASMIN M 401.1 ESSENTIAL HYPERTENSION BENIGN 08/15/2012 PIERCE PIG CASTING MACHINE OPERATOR, MARC R 401.1 ESSENTIAL HYPERTENSION BENIGN 08/15/2012 POLO DO, MEHREEN K 401.1 ESSENTIAL HYPERTENSION BENIGN 08/15/2012 POLO DO, MEHREEN K 401.1 ESSENTIAL HYPERTENSION BENIGN 08/15/2012 BARBER STUDENT AMBASSADOR, YASMIN M 401.1 ESSENTIAL HYPERTENSION BENIGN 08/15/2012 BARBER STUDENT AMBASSADOR, YASMIN M 401.1 ESSENTIAL HYPERTENSION BENIGN 08/15/2012 PIERCE PIG CASTING MACHINE OPERATOR, MARC R 401.1 ESSENTIAL HYPERTENSION BENIGN 08/15/2012 BARBER STUDENT AMBASSADOR, YASMIN M 401.1 ESSENTIAL HYPERTENSION BENIGN 08/15/2012 BARBER STUDENT AMBASSADOR, YASMIN M 401.1 ESSENTIAL HYPERTENSION BENIGN 08/15/2012 PIERCE PIG CASTING MACHINE OPERATOR, MARC R 401.1 ESSENTIAL HYPERTENSION BENIGN 08/15/2012 BARBER STUDENT AMBASSADOR, YASMIN M 401.1 ESSENTIAL HYPERTENSION BENIGN 09/12/2012 SABINA POWELL MD 610.0 BREAST CYST 09/12/2012 SABINA POWELL MD 610.0 BREAST CYST 09/12/2012 ESTEFANIA RAMACHANDRAN, STUART S 610.0 BREAST CYST 09/12/2012 ANDRE ALMAGUER, SABINA 610.0 BREAST CYST 09/12/2012 POLO DO, MEHREEN K 610.0 BREAST CYST 09/12/2012 610.0 BREAST CYST 09/12/2012 610.0 BREAST CYST 09/12/2012 610.0 BREAST CYST 09/12/2012 610.0 BREAST CYST 09/12/2012 610.0 BREAST CYST 09/12/2012 NEGIN ALMAGUER, DANIEL M 610.0 BREAST CYST 09/12/2012 NEGIN ALMAGUER, DANIEL M 610.0 BREAST CYST 09/12/2012 PIERCE PIG CASTING MACHINE OPERATOR, MARC R 610.0 BREAST CYST 09/12/2012 PIERCE PIG CASTING MACHINE OPERATOR, MARC R 610.0 BREAST CYST 09/12/2012 POLO DO, MEHREEN K 610.0 BREAST CYST 09/12/2012 PIERCE PIG CASTING MACHINE OPERATOR, MARC R 610.0 BREAST CYST 09/12/2012 PIERCE PIG CASTING MACHINE OPERATOR, MARC R 610.0 BREAST CYST 09/12/2012 MAGALYS ALMAGUER, LARISA 610.0 BREAST CYST 09/12/2012 PIERCE PIG CASTING MACHINE OPERATOR, MARC R 610.0 BREAST CYST 09/12/2012 BARBER STUDENT AMBASSADOR, YASMIN M 610.0 BREAST CYST 09/12/2012 PIERCE PIG CASTING MACHINE OPERATOR, MARC R 610.0 BREAST CYST 09/12/2012 POLO DO, MEHREEN K 610.0 BREAST CYST 09/12/2012 POLO DO, MEHREEN K 610.0 BREAST CYST 09/12/2012 BARBER STUDENT AMBASSADOR, YASMIN M 610.0 BREAST CYST 09/12/2012 BARBER STUDENT AMBASSADOR, YASMIN M 610.0 BREAST CYST 09/12/2012 PIECRE PIG CASTING MACHINE OPERATOR, MARC R 610.0 BREAST CYST 09/12/2012 BARBER STUDENT AMBASSADOR, YASMIN M 610.0 BREAST CYST 09/12/2012 BARBER STUDENT AMBASSADOR, YASMIN M 610.0 BREAST CYST 09/12/2012 PIERCE PIG CASTING MACHINE OPERATOR, MARC R 610.0 BREAST CYST 09/12/2012 BARBER STUDENT AMBASSADOR, YASMIN M 610.0 BREAST CYST 09/25/2012 SABINA POWELL MD 216.9 PIGMENTED NEVUS 09/25/2012 ANDRE ALMAGUER, SABINA 278.00 OBESITY 09/25/2012 SABINA POWELL MD 625.9 pelvic pain 09/25/2012 ANGE MAC APRNA S 216.9 PIGMENTED NEVUS 09/25/2012 ESTEFANIA RAMACHANDRAN, STUART S 278.00 OBESITY 09/25/2012 STUART MAC APRN S 625.9 pelvic pain 09/25/2012 SABINA POWELL MD 216.9 PIGMENTED NEVUS 09/25/2012 SABINA POWELL MD 278.00 OBESITY 09/25/2012 SABINA POWELL MD 625.9 pelvic pain 09/25/2012 POLO DO, MEHREEN K 216.9 PIGMENTED NEVUS 09/25/2012 POLO DO, MEHREEN K 278.00 OBESITY 09/25/2012 POLO DO, MEHREEN K 625.9 pelvic pain 09/25/2012 216.9 PIGMENTED NEVUS 09/25/2012 278.00 OBESITY 09/25/2012 625.9 pelvic pain 09/25/2012 216.9 PIGMENTED NEVUS 09/25/2012 278.00 OBESITY 09/25/2012 625.9 pelvic pain 09/25/2012 216.9 PIGMENTED NEVUS 09/25/2012 278.00 OBESITY 09/25/2012 625.9 pelvic pain 09/25/2012 216.9 PIGMENTED NEVUS 09/25/2012 278.00 OBESITY 09/25/2012 625.9 pelvic pain 09/25/2012 216.9 PIGMENTED NEVUS 09/25/2012 278.00 OBESITY 09/25/2012 625.9 pelvic pain 09/25/2012 DANIEL KAM MD 216.9 PIGMENTED NEVUS 09/25/2012 DANIEL KAM MD 278.00 OBESITY 09/25/2012 DANIEL KAM MD 625.9 pelvic pain 09/25/2012 DANIEL KAM MD 216.9 PIGMENTED NEVUS 09/25/2012 DANIEL KAM MD 278.00 OBESITY 09/25/2012 DANIEL KAM MD 625.9 pelvic pain 09/25/2012 PIERCE PIG CASTING MACHINE OPERATOR, MARC R 216.9 PIGMENTED NEVUS 09/25/2012 PIERCE RAMACHANDRAN, MARC R 278.00 OBESITY 09/25/2012 PIERCE RAMACHANDRAN, MARC R 625.9 pelvic pain 09/25/2012 PIERCE PIG CASTING MACHINE OPERATOR, MARC R 216.9 PIGMENTED NEVUS 09/25/2012 PIERCE RAMACHANDRAN, MARC R 278.00 OBESITY 09/25/2012 PIERCE PIG CASTING MACHINE OPERATOR, MARC R 625.9 pelvic pain 09/25/2012 POLO DO, MEHREEN K 216.9 PIGMENTED NEVUS 09/25/2012 POLO DO, MEHREEN K 278.00 OBESITY 09/25/2012 POLO DO, MEHREEN K 625.9 pelvic pain 09/25/2012 PIERCE PIG CASTING MACHINE OPERATOR, MARC R 216.9 PIGMENTED NEVUS 09/25/2012 PIERCE PIG CASTING MACHINE OPERATOR, MARC R 278.00 OBESITY 09/25/2012 PIERCE PIG CASTING MACHINE OPERATOR, MARC R 625.9 pelvic pain 09/25/2012 PIERCE PIG CASTING MACHINE OPERATOR, MARC R 216.9 PIGMENTED NEVUS 09/25/2012 PIERCE PIG CASTING MACHINE OPERATOR, MARC R 278.00 OBESITY 09/25/2012 PIERCE PIG CASTING MACHINE OPERATOR, MARC R 625.9 pelvic pain 09/25/2012 MAGALYS ALMAGUER, LARISA 216.9 PIGMENTED NEVUS 09/25/2012 MAGALYS ALMAGUER, BASHAR 278.00 OBESITY 09/25/2012 MAGALYS ALMAGUER, LARISA 625.9 pelvic pain 09/25/2012 PIERCE PIG CASTING MACHINE OPERATOR, MARC R 216.9 PIGMENTED NEVUS 09/25/2012 PIERCE PIG CASTING MACHINE OPERATOR, MARC R 278.00 OBESITY 09/25/2012 PIERCE PIG CASTING MACHINE OPERATOR, MARC R 625.9 pelvic pain 09/25/2012 YASMIN NORRIS M 216.9 PIGMENTED NEVUS 09/25/2012 YASMIN NORRIS M 278.00 OBESITY 09/25/2012 YASMIN NORRIS M 625.9 pelvic pain 09/25/2012 PIERCE PIG CASTING MACHINE OPERATOR, MARC R 216.9 PIGMENTED NEVUS 09/25/2012 PIERCE PIG CASTING MACHINE OPERATOR, MARC R 278.00 OBESITY 09/25/2012 PIERCE PIG CASTING MACHINE OPERATOR, MARC R 625.9 pelvic pain 09/25/2012 POLO DO, MEHREEN K 216.9 PIGMENTED NEVUS 09/25/2012 POLO DO, MEHREEN K 278.00 OBESITY 09/25/2012 POLO DO, MEHREEN K 625.9 pelvic pain 09/25/2012 POLO DO, MEHREEN K 216.9 PIGMENTED NEVUS 09/25/2012 POLO DO, MEHREEN K 278.00 OBESITY 09/25/2012 POLO DO, MEHREEN K 625.9 pelvic pain 09/25/2012 YASMIN NORRIS M 216.9 PIGMENTED NEVUS 09/25/2012 YASMIN NORRIS M 278.00 OBESITY 09/25/2012 BARBER STUDENT AMBASSADOR, YASMIN M 625.9 pelvic pain 09/25/2012 BARBER STUDENT AMBASSADOR, YASMIN M 216.9 PIGMENTED NEVUS 09/25/2012 BARBER STUDENT AMBASSADOR, YASMIN M 278.00 OBESITY 09/25/2012 BARBER STUDENT AMBASSADOR, YASMIN M 625.9 pelvic pain 09/25/2012 PIERCE PIG CASTING MACHINE OPERATOR, MARC R 216.9 PIGMENTED NEVUS 09/25/2012 PIERCE PIG CASTING MACHINE OPERATOR, MARC R 278.00 OBESITY 09/25/2012 PIERCE PIG CASTING MACHINE OPERATOR, MARC R 625.9 pelvic pain 09/25/2012 BARBER STUDENT AMBASSADOR, YASMIN M 216.9 PIGMENTED NEVUS 09/25/2012 BARBER STUDENT AMBASSADOR, YASMIN M 278.00 OBESITY 09/25/2012 BARBER STUDENT AMBASSADOR, YASMIN M 625.9 pelvic pain 09/25/2012 BARBER STUDENT AMBASSADOR, YASMIN M 216.9 PIGMENTED NEVUS 09/25/2012 BARBER STUDENT AMBASSADOR, YASMIN M 278.00 OBESITY 09/25/2012 BARBER STUDENT AMBASSADOR, YASMIN M 625.9 pelvic pain 09/25/2012 PIERCE PIG CASTING MACHINE OPERATOR, MARC R 216.9 PIGMENTED NEVUS 09/25/2012 PIERCE PIG CASTING MACHINE OPERATOR, MARC R 278.00 OBESITY 09/25/2012 PIERCE PIG CASTING MACHINE OPERATOR, MARC R 625.9 pelvic pain 09/25/2012 BARBER STUDENT AMBASSADOR, YASMIN M 216.9 PIGMENTED NEVUS 09/25/2012 BARBER STUDENT AMBASSADOR, YASMIN M 278.00 OBESITY 09/25/2012 BARBER STUDENT AMBASSADOR, YASMIN M 625.9 pelvic pain 10/11/2012 STUART MAC APRN 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, CHIN, AND NOSE 10/11/2012 SABINA POWELL MD 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, CHIN, AND NOSE 10/11/2012 MEHREEN POLO DO 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, CHIN, AND NOSE 10/11/2012 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, CHIN, AND NOSE 10/11/2012 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, CHIN, AND NOSE 10/11/2012 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, CHIN, AND NOSE 10/11/2012 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, CHIN, AND NOSE 10/11/2012 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, CHIN, AND NOSE 10/11/2012 DANIEL KAM MD 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, CHIN, AND NOSE 10/11/2012 DANIEL KAM MD M 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, CHIN, AND NOSE 10/11/2012 PIERCE PIG CASTING MACHINE OPERATOR, MARC R 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, CHIN, AND NOSE 10/11/2012 PIERCE PIG CASTING MACHINE OPERATOR, MARC R 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, CHIN, AND NOSE 10/11/2012 POLO DO, MEHREEN K 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, CHIN, AND NOSE 10/11/2012 PIERCE PIG CASTING MACHINE OPERATOR, MARC R 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, CHIN, AND NOSE 10/11/2012 PIERCE PIG CASTING MACHINE OPERATOR, MARC R 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, CHIN, AND NOSE 10/11/2012 MAGALYS ALMAGUER, BASHAR 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, CHIN, AND NOSE 10/11/2012 PIERCE PIG CASTING MACHINE OPERATOR, MACR R 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, CHIN, AND NOSE 10/11/2012 BARBER AUSTIN, YASMIN M 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, CHIN, AND NOSE 10/11/2012 PIERCE DAIN, MARC R 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, CHIN, AND NOSE 10/11/2012 POLO DO, MEHREEN K 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, CHIN, AND NOSE 10/11/2012 POLO DO, MEHREEN K 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, CHIN, AND NOSE 10/11/2012 BARBER STUDENT AMBASSADOR, YASMIN M 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, CHIN, AND NOSE 10/11/2012 BARBER STUDENT AMBASSADOR, YASMIN M 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, CHIN, AND NOSE 10/11/2012 PIERCE DAIN, MARC R 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, CHIN, AND NOSE 10/11/2012 BARBER STUDENT AMBASSADOR, YASMIN M 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, CHIN, AND NOSE 10/11/2012 BARBER STUDENT AMBASSADOR, YASMIN M 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, CHIN, AND NOSE 10/11/2012 PIERCE RAMACHANDRAN, MARC R 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, CHIN, AND NOSE 10/11/2012 BARBER AUSTIN, YASMIN M 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, CHIN, AND NOSE 10/24/2012 SABINA POWELL MD 219.9 UTERINE NEOPLASM, BENIGN 10/24/2012 SABINA POWELL MD 305.1 NICOTINE DEPENDENCE 10/24/2012 MEHREEN POLO DO K 219.9 UTERINE NEOPLASM, BENIGN 10/24/2012 MELANI BURCH, MEHREEN K 305.1 NICOTINE DEPENDENCE 10/24/2012 219.9 UTERINE NEOPLASM, BENIGN 10/24/2012 305.1 NICOTINE DEPENDENCE 10/24/2012 219.9 UTERINE NEOPLASM, BENIGN 10/24/2012 305.1 NICOTINE DEPENDENCE 10/24/2012 219.9 UTERINE NEOPLASM, BENIGN 10/24/2012 305.1 NICOTINE DEPENDENCE 10/24/2012 219.9 UTERINE NEOPLASM, BENIGN 10/24/2012 305.1 NICOTINE DEPENDENCE 10/24/2012 219.9 UTERINE NEOPLASM, BENIGN 10/24/2012 305.1 NICOTINE DEPENDENCE 10/24/2012 DANIEL KAM MD 219.9 UTERINE NEOPLASM, BENIGN 10/24/2012 DANIEL KAM MD 305.1 NICOTINE DEPENDENCE 10/24/2012 DANIEL KAM MD 219.9 UTERINE NEOPLASM, BENIGN 10/24/2012 DANIEL KAM MD M 305.1 NICOTINE DEPENDENCE 10/24/2012 PIERCE PIG CASTING MACHINE OPERATOR, MARC R 219.9 UTERINE NEOPLASM, BENIGN 10/24/2012 PIERCE PIG CASTING MACHINE OPERATOR, MARC R 305.1 NICOTINE DEPENDENCE 10/24/2012 PIERCE PIG CASTING MACHINE OPERATOR, MARC R 219.9 UTERINE NEOPLASM, BENIGN 10/24/2012 PIERCE PIG CASTING MACHINE OPERATOR, MARC R 305.1 NICOTINE DEPENDENCE 10/24/2012 MELANI BURCH MEHREEN K 219.9 UTERINE NEOPLASM, BENIGN 10/24/2012 MELANI BURCH MEHREEN K 305.1 NICOTINE DEPENDENCE 10/24/2012 PIERCE PIG CASTING MACHINE OPERATOR, MARC R 219.9 UTERINE NEOPLASM, BENIGN 10/24/2012 PIERCE PIG CASTING MACHINE OPERATOR, MARC R 305.1 NICOTINE DEPENDENCE 10/24/2012 PIERCE PIG CASTING MACHINE OPERATOR, MARC R 219.9 UTERINE NEOPLASM, BENIGN 10/24/2012 PIERCE PIG CASTING MACHINE OPERATOR, MARC R 305.1 NICOTINE DEPENDENCE 10/24/2012 MAGALYS ALMAGUER, LARISA 219.9 UTERINE NEOPLASM, BENIGN 10/24/2012 LARISA DOWELL MD 305.1 NICOTINE DEPENDENCE 10/24/2012 PIERCE PIG CASTING MACHINE OPERATOR, MARC R 219.9 UTERINE NEOPLASM, BENIGN 10/24/2012 PIERCE PIG CASTING MACHINE OPERATOR, MARC R 305.1 NICOTINE DEPENDENCE 10/24/2012 YASMIN NORRIS M 219.9 UTERINE NEOPLASM, BENIGN 10/24/2012 YASMIN NORRIS M 305.1 NICOTINE DEPENDENCE 10/24/2012 PIERCE PIG CASTING MACHINE OPERATOR, MARC R 219.9 UTERINE NEOPLASM, BENIGN 10/24/2012 PIERCE PIG CASTING MACHINE OPERATOR, MARC R 305.1 NICOTINE DEPENDENCE 10/24/2012 MELANI BURCH MEHREEN K 219.9 UTERINE NEOPLASM, BENIGN 10/24/2012 MELANI BURCHNADIAA K 305.1 NICOTINE DEPENDENCE 10/24/2012 MELANI BURCH MEHREEN K 219.9 UTERINE NEOPLASM, BENIGN 10/24/2012 MELANI BURCH MEHREEN K 305.1 NICOTINE DEPENDENCE 10/24/2012 BARBER STUDENT AMBASSADOR, YASMIN M 219.9 UTERINE NEOPLASM, BENIGN 10/24/2012 BARBER STUDENT AMBASSADOR, YASMIN M 305.1 NICOTINE DEPENDENCE 10/24/2012 BARBER STUDENT AMBASSADOR, YASMIN M 219.9 UTERINE NEOPLASM, BENIGN 10/24/2012 BARBER STUDENT AMBASSADOR, YASMIN M 305.1 NICOTINE DEPENDENCE 10/24/2012 PIERCE PIG CASTING MACHINE OPERATOR, MARC R 219.9 UTERINE NEOPLASM, BENIGN 10/24/2012 PIERCE PIG CASTING MACHINE OPERATOR, MARC R 305.1 NICOTINE DEPENDENCE 10/24/2012 BARBER STUDENT AMBASSADOR, YASMIN M 219.9 UTERINE NEOPLASM, BENIGN 10/24/2012 BARBER STUDENT AMBASSADOR, YASMIN M 305.1 NICOTINE DEPENDENCE 10/24/2012 BARBER STUDENT AMBASSADOR, YASMIN M 219.9 UTERINE NEOPLASM, BENIGN 10/24/2012 BARBER STUDENT AMBASSADOR, YASMIN M 305.1 NICOTINE DEPENDENCE 10/24/2012 PIERCE PIG CASTING MACHINE OPERATOR, MARC R 219.9 UTERINE NEOPLASM, BENIGN 10/24/2012 PIERCE PIG CASTING MACHINE OPERATOR, MARC R 305.1 NICOTINE DEPENDENCE 10/24/2012 BARBER STUDENT AMBASSADOR, YASMIN M 219.9 UTERINE NEOPLASM, BENIGN 10/24/2012 BARBER STUDENT AMBASSADOR, YASMIN M 305.1 NICOTINE DEPENDENCE 11/15/2012 MEHREEN POLO DO K V73.81 HPV SCREENING 11/15/2012 MEHREEN POLO DO K V76.10 BREAST CANCER SCREENING 11/15/2012 MEHREEN POLO DO K V76.2 CERVICAL CANCER SCREENING (PAP SMEAR) 11/15/2012 V73.81 HPV SCREENING 11/15/2012 V76.10 BREAST CANCER SCREENING 11/15/2012 V76.2 CERVICAL CANCER SCREENING (PAP SMEAR) 11/15/2012 V73.81 HPV SCREENING 11/15/2012 V76.10 BREAST CANCER SCREENING 11/15/2012 V76.2 CERVICAL CANCER SCREENING (PAP SMEAR) 11/15/2012 V73.81 HPV SCREENING 11/15/2012 V76.10 BREAST CANCER SCREENING 11/15/2012 V76.2 CERVICAL CANCER SCREENING (PAP SMEAR) 11/15/2012 V73.81 HPV SCREENING 11/15/2012 V76.10 BREAST CANCER SCREENING 11/15/2012 V76.2 CERVICAL CANCER SCREENING (PAP SMEAR) 11/15/2012 V73.81 HPV SCREENING 11/15/2012 V76.10 BREAST CANCER SCREENING 11/15/2012 V76.2 CERVICAL CANCER SCREENING (PAP SMEAR) 11/15/2012 DANIEL KAM MD V73.81 HPV SCREENING 11/15/2012 DANIEL KAM MD V76.10 BREAST CANCER SCREENING 11/15/2012 DANIEL KAM MD V76.2 CERVICAL CANCER SCREENING (PAP SMEAR) 11/15/2012 DANIEL KAM MD V73.81 HPV SCREENING 11/15/2012 DANIEL KAM MD V76.10 BREAST CANCER SCREENING 11/15/2012 DANIEL KAM MD V76.2 CERVICAL CANCER SCREENING (PAP SMEAR) 11/15/2012 PIERCE PIG CASTING MACHINE OPERATOR, MARC R V73.81 HPV SCREENING 11/15/2012 PIERCE PIG CASTING MACHINE OPERATOR, MARC R V76.10 BREAST CANCER SCREENING 11/15/2012 PIERCE PIG CASTING MACHINE OPERATOR, MARC R V76.2 CERVICAL CANCER SCREENING (PAP SMEAR) 11/15/2012 PIERCE PIG CASTING MACHINE OPERATOR, MARC R V73.81 HPV SCREENING 11/15/2012 PIERCE PIG CASTING MACHINE OPERATOR, MARC R V76.10 BREAST CANCER SCREENING 11/15/2012 PIERCE PIG CASTING MACHINE OPERATOR, MARC R V76.2 CERVICAL CANCER SCREENING (PAP SMEAR) 11/15/2012 POLO DO, MEHREEN K V73.81 HPV SCREENING 11/15/2012 POLO DO, MEHREEN K V76.10 BREAST CANCER SCREENING 11/15/2012 POLO DO, MEHREEN K V76.2 CERVICAL CANCER SCREENING (PAP SMEAR) 11/15/2012 PIERCE PIG CASTING MACHINE OPERATOR, MARC R V73.81 HPV SCREENING 11/15/2012 PIERCE PIG CASTING MACHINE OPERATOR, MARC R V76.10 BREAST CANCER SCREENING 11/15/2012 PIERCE PIG CASTING MACHINE OPERATOR, MARC R V76.2 CERVICAL CANCER SCREENING (PAP SMEAR) 11/15/2012 PIERCE PIG CASTING MACHINE OPERATOR, MARC R V73.81 HPV SCREENING 11/15/2012 PIERCE PIG CASTING MACHINE OPERATOR, MARC R V76.10 BREAST CANCER SCREENING 11/15/2012 PIERCE PIG CASTING MACHINE OPERATOR, MARC R V76.2 CERVICAL CANCER SCREENING (PAP SMEAR) 11/15/2012 MAGALYS ALMAGUER, LARISA V73.81 HPV SCREENING 11/15/2012 MAGALYS ALMAGUER, LARISA V76.10 BREAST CANCER SCREENING 11/15/2012 MAGALYS ALMAGUER, LARISA V76.2 CERVICAL CANCER SCREENING (PAP SMEAR) 11/15/2012 PIERCE PIG CASTING MACHINE OPERATOR, MARC R V73.81 HPV SCREENING 11/15/2012 PIERCE PIG CASTING MACHINE OPERATOR, MARC R V76.10 BREAST CANCER SCREENING 11/15/2012 PIERCE PIG CASTING MACHINE OPERATOR, MARC R V76.2 CERVICAL CANCER SCREENING (PAP SMEAR) 11/15/2012 YASMIN NORRIS M V73.81 HPV SCREENING 11/15/2012 YASMIN NORRIS M V76.10 BREAST CANCER SCREENING 11/15/2012 BARBER AUSTIN, YASMIN M V76.2 CERVICAL CANCER SCREENING (PAP SMEAR) 11/15/2012 PIERCE PIG CASTING MACHINE OPERATOR, MARC R V73.81 HPV SCREENING 11/15/2012 PIERCE PIG CASTING MACHINE OPERATOR, MARC R V76.10 BREAST CANCER SCREENING 11/15/2012 PIERCE PIG CASTING MACHINE OPERATOR, MARC R V76.2 CERVICAL CANCER SCREENING (PAP SMEAR) 11/15/2012 POLO DO, MEHREEN K V73.81 HPV SCREENING 11/15/2012 POLO DO, MEHREEN K V76.10 BREAST CANCER SCREENING 11/15/2012 POLO DO, MEHREEN K V76.2 CERVICAL CANCER SCREENING (PAP SMEAR) 11/15/2012 POLO DO, MEHREEN K V73.81 HPV SCREENING 11/15/2012 POLO DO, MEHREEN K V76.10 BREAST CANCER SCREENING 11/15/2012 POLO DO, MEHREEN K V76.2 CERVICAL CANCER SCREENING (PAP SMEAR) 11/15/2012 YASMIN NORRIS M V73.81 HPV SCREENING 11/15/2012 YASMIN NORRIS M V76.10 BREAST CANCER SCREENING 11/15/2012 YASMIN NORRIS M V76.2 CERVICAL CANCER SCREENING (PAP SMEAR) 11/15/2012 YASMIN NORRIS M V73.81 HPV SCREENING 11/15/2012 YASMIN NORRIS M V76.10 BREAST CANCER SCREENING 11/15/2012 YASMIN NORRIS M V76.2 CERVICAL CANCER SCREENING (PAP SMEAR) 11/15/2012 PIERCE PIG CASTING MACHINE OPERATOR, MARC R V73.81 HPV SCREENING 11/15/2012 PIERCE PIG CASTING MACHINE OPERATOR, MARC R V76.10 BREAST CANCER SCREENING 11/15/2012 PIERCE PIG CASTING MACHINE OPERATOR, MARC R V76.2 CERVICAL CANCER SCREENING (PAP SMEAR) 11/15/2012 BARBER STUDENT AMBASSADOR, YASMIN M V73.81 HPV SCREENING 11/15/2012 BARBER STUDENT AMBASSADOR, YASMIN M V76.10 BREAST CANCER SCREENING 11/15/2012 BARBER STUDENT AMBASSADOR, YASMIN M V76.2 CERVICAL CANCER SCREENING (PAP SMEAR) 11/15/2012 BARBER STUDENT AMBASSADOR, YASMIN M V73.81 HPV SCREENING 11/15/2012 BARBER STUDENT AMBASSADOR, YASMIN M V76.10 BREAST CANCER SCREENING 11/15/2012 BARBER STUDENT AMBASSADOR, YASMIN M V76.2 CERVICAL CANCER SCREENING (PAP SMEAR) 11/15/2012 PIERCE PIG CASTING MACHINE OPERATOR, MARC R V73.81 HPV SCREENING 11/15/2012 PIERCE PIG CASTING MACHINE OPERATOR, MARC R V76.10 BREAST CANCER SCREENING 11/15/2012 PIERCE PIG CASTING MACHINE OPERATOR, MARC R V76.2 CERVICAL CANCER SCREENING (PAP SMEAR) 11/15/2012 BARBER STUDENT AMBASSADOR, YASMIN M V73.81 HPV SCREENING 11/15/2012 BARBER STUDENT AMBASSADOR, YASMIN M V76.10 BREAST CANCER SCREENING 11/15/2012 BARBER STUDENT AMBASSADOR, YASMIN M V76.2 CERVICAL CANCER SCREENING (PAP SMEAR) 01/24/2013 465.9 UPPER RESPIRATORY INFECTION 01/24/2013 465.9 UPPER RESPIRATORY INFECTION 01/24/2013 465.9 UPPER RESPIRATORY INFECTION 01/24/2013 465.9 UPPER RESPIRATORY INFECTION 01/24/2013 DANIEL KAM MD 465.9 UPPER RESPIRATORY INFECTION 01/24/2013 DANIEL KAM MD 465.9 UPPER RESPIRATORY INFECTION 01/24/2013 PIERCE PIG CASTING MACHINE OPERATOR, MARC R 465.9 UPPER RESPIRATORY INFECTION 01/24/2013 PIERCE PIG CASTING MACHINE OPERATOR, MARC R 465.9 UPPER RESPIRATORY INFECTION 01/24/2013 MEHREEN POLO DO 465.9 UPPER RESPIRATORY INFECTION 01/24/2013 PIERCE PIG CASTING MACHINE OPERATOR, MARC R 465.9 UPPER RESPIRATORY INFECTION 01/24/2013 PIERCE PIG CASTING MACHINE OPERATOR, MARC R 465.9 UPPER RESPIRATORY INFECTION 01/24/2013 LARISA DOWELL MD 465.9 UPPER RESPIRATORY INFECTION 01/24/2013 PIERCE PIG CASTING MACHINE OPERATOR, MARC R 465.9 UPPER RESPIRATORY INFECTION 01/24/2013 BARBER AUSTIN, YASMIN M 465.9 UPPER RESPIRATORY INFECTION 01/24/2013 PIERCE PIG CASTING MACHINE OPERATOR, MARC R 465.9 UPPER RESPIRATORY INFECTION 01/24/2013 POLO DONADIAA K 465.9 UPPER RESPIRATORY INFECTION 01/24/2013 POLO DO, MEHREEN K 465.9 UPPER RESPIRATORY INFECTION 01/24/2013 BARBER STUDENT AMBASSADOR, YASMIN M 465.9 UPPER RESPIRATORY INFECTION 01/24/2013 BARBER STUDENT AMBASSADOR, YASMIN M 465.9 UPPER RESPIRATORY INFECTION 01/24/2013 PIERCE PIG CASTING MACHINE OPERATOR, MARC R 465.9 UPPER RESPIRATORY INFECTION 01/24/2013 BARBER STUDENT AMBASSADOR, YASMIN M 465.9 UPPER RESPIRATORY INFECTION 01/24/2013 BARBER STUDENT AMBASSADOR, YASMIN M 465.9 UPPER RESPIRATORY INFECTION 01/24/2013 PIERCE PIG CASTING MACHINE OPERATOR, MARC R 465.9 UPPER RESPIRATORY INFECTION 01/24/2013 BARBER STUDENT AMBASSADOR, YASMIN M 465.9 UPPER RESPIRATORY INFECTION 01/31/2013 SADIQ ALMAGUER, SANTIAGO R Ot 840.9 01/31/2013 SADIQ ALMAGUER, SANTIAGO R Ot 959.2 01/31/2013 SADIQ ALMAGUER, SANTIAGO R Ot E000.8 01/31/2013 SADIQ ALMAGUER, SANTIAGO R Ot E849.0 01/31/2013 SADIQ ALMAGUER SANITAGO R Ot E927.0 02/15/2013 719.41 PAIN IN JOINT INVOLVING SHOULDER REGION 02/15/2013 719.41 PAIN IN JOINT INVOLVING SHOULDER REGION 02/15/2013 719.41 PAIN IN JOINT INVOLVING SHOULDER REGION 02/15/2013 DANIEL KAM MD 719.41 PAIN IN JOINT INVOLVING SHOULDER REGION 02/15/2013 DANIEL KAM MD 719.41 PAIN IN JOINT INVOLVING SHOULDER REGION 02/15/2013 YUMIKO PELAYO APRNINA R 719.41 PAIN IN JOINT INVOLVING SHOULDER REGION 02/15/2013 YUMIKO PELAYO APRNINA R 719.41 PAIN IN JOINT INVOLVING SHOULDER REGION 02/15/2013 MEHREEN POLO DO K 719.41 PAIN IN JOINT INVOLVING SHOULDER REGION 02/15/2013 PIERCE RAMACHANDRAN MARC R 719.41 PAIN IN JOINT INVOLVING SHOULDER REGION 02/15/2013 PIERCE RAMACHANDRAN MARC R 719.41 PAIN IN JOINT INVOLVING SHOULDER REGION 02/15/2013 LARISA DOWELL MD 719.41 PAIN IN JOINT INVOLVING SHOULDER REGION 02/15/2013 YUMIKO PELAYO APRNINA R 719.41 PAIN IN JOINT INVOLVING SHOULDER REGION 02/15/2013 YASMIN NORRIS M 719.41 PAIN IN JOINT INVOLVING SHOULDER REGION 02/15/2013 YUMIKO PELAYO APRNINA R 719.41 PAIN IN JOINT INVOLVING SHOULDER REGION 02/15/2013 MEHREEN POLO DO K 719.41 PAIN IN JOINT INVOLVING SHOULDER REGION 02/15/2013 NADIA POLO DOA K 719.41 PAIN IN JOINT INVOLVING SHOULDER REGION 02/15/2013 BARBER STUDENT AMBASSADORYASMIN M 719.41 PAIN IN JOINT INVOLVING SHOULDER REGION 02/15/2013 BARBER STUDENT AMBASSADORYASMIN M 719.41 PAIN IN JOINT INVOLVING SHOULDER REGION 02/15/2013 MARC PELAYO APRN R 719.41 PAIN IN JOINT INVOLVING SHOULDER REGION 02/15/2013 YASMIN NORRIS M 719.41 PAIN IN JOINT INVOLVING SHOULDER REGION 02/15/2013 YASMIN NORRIS M 719.41 PAIN IN JOINT INVOLVING SHOULDER REGION 02/15/2013 MARC PELAYO APRN R 719.41 PAIN IN JOINT INVOLVING SHOULDER REGION 02/15/2013 YASMIN NORRIS M 719.41 PAIN IN JOINT INVOLVING SHOULDER REGION 11/05/2013 SADIQ ALMAGUER, SANTIAGO R Ot 789.00 01/16/2014 MARC PELAYO APRN R 300.00 AN ANXIETY UNSPEC 01/16/2014 YUMIKO PELAYO APRNINA R V70.0 EXAM - ROUTINE H&P 01/16/2014 YUMIKO PELAYO APRNINA R 300.00 AN ANXIETY UNSPEC 01/16/2014 YUMIKO PELAYO APRNINA R V70.0 EXAM - ROUTINE H&P 01/16/2014 NADIA POLO DOA K 300.00 AN ANXIETY UNSPEC 01/16/2014 NADIA POLO DOA K V70.0 EXAM - ROUTINE H&P 01/16/2014 YUMIKO PELAYO APRNINA R 300.00 AN ANXIETY UNSPEC 01/16/2014 YUMIKO PELAYO APRNINA R V70.0 EXAM - ROUTINE H&P 01/16/2014 YUMIKO PELAYO APRNINA R 300.00 AN ANXIETY UNSPEC 01/16/2014 PIERCE RAMACHANDRAN MARC R V70.0 EXAM - ROUTINE H&P 01/16/2014 LARISA DOWELL MD 300.00 AN ANXIETY UNSPEC 01/16/2014 VIJAYA DOWELL MDHAR V70.0 EXAM - ROUTINE H&P 01/16/2014 YUMIKO PELAYO APRNINA R 300.00 AN ANXIETY UNSPEC 01/16/2014 PIERCE RAMACHANDRAN MARC R V70.0 EXAM - ROUTINE H&P 01/16/2014 BARBER STUDENT AMBASSADOR, YASMIN M 300.00 AN ANXIETY UNSPEC 01/16/2014 BARBER STUDENT AMBASSADOR, YASMIN M V70.0 EXAM - ROUTINE H&P 01/16/2014 YUMIKO PELAYO APRNINA R 300.00 AN ANXIETY UNSPEC 01/16/2014 PIERCE RAMACHANDRAN MARC R V70.0 EXAM - ROUTINE H&P 01/16/2014 POLO DO, MEHREEN K 300.00 AN ANXIETY UNSPEC 01/16/2014 POLO DO, MEHREEN K V70.0 EXAM - ROUTINE H&P 01/16/2014 POLO DO, MEHREEN K 300.00 AN ANXIETY UNSPEC 01/16/2014 POLO DO, MEHREEN K V70.0 EXAM - ROUTINE H&P 01/16/2014 BARBER STUDENT AMBASSADOR, YASMIN M 300.00 AN ANXIETY UNSPEC 01/16/2014 BARBER STUDENT AMBASSADOR, YASMIN M V70.0 EXAM - ROUTINE H&P 01/16/2014 BARBER STUDENT AMBASSADOR, YASMIN M 300.00 AN ANXIETY UNSPEC 01/16/2014 BARBER STUDENT AMBASSADOR, YASMIN M V70.0 EXAM - ROUTINE H&P 01/16/2014 YUMIKO PELAYO APRNINA R 300.00 AN ANXIETY UNSPEC 01/16/2014 PIERCE RAMACHANDRAN MARC R V70.0 EXAM - ROUTINE H&P 01/16/2014 BARBER STUDENT AMBASSADOR, YASMIN M 300.00 AN ANXIETY UNSPEC 01/16/2014 BARBER STUDENT AMBASSADOR, YASMIN M V70.0 EXAM - ROUTINE H&P 01/16/2014 BARBER STUDENT AMBASSADOR, YASMIN M 300.00 AN ANXIETY UNSPEC 01/16/2014 BARBER STUDENT AMBASSADOR, YASMIN M V70.0 EXAM - ROUTINE H&P 01/16/2014 MARC PELAYO APRN R 300.00 AN ANXIETY UNSPEC 01/16/2014 YUMIKO PELAYO APRNINA R V70.0 EXAM - ROUTINE H&P 01/16/2014 BARBER STUDENT AMBASSADOR, YASMIN M 300.00 AN ANXIETY UNSPEC 01/16/2014 BARBER STUDENT AMBASSADOR, YASMIN M V70.0 EXAM - ROUTINE H&P 01/29/2014 PIERCE PIG CASTING MACHINE OPERATOR, MARC R 239.3 BREAST MASS 01/29/2014 PIERCE PIG CASTING MACHINE OPERATOR, MARC R 239.3 BREAST MASS 01/29/2014 POLO DO, MEHREEN K 239.3 BREAST MASS 01/29/2014 PIERCE PIG CASTING MACHINE OPERATOR, MARC R 239.3 BREAST MASS 01/29/2014 PIERCE PIG CASTING MACHINE OPERATOR, MARC R 239.3 BREAST MASS 01/29/2014 MAGALYS ALMAGUER, BASOLMAN 239.3 BREAST MASS 01/29/2014 PIERCE PIG CASTING MACHINE OPERATOR, MARC R 239.3 BREAST MASS 01/29/2014 BARBER STUDENT AMBASSADOR, YASMIN M 239.3 BREAST MASS 01/29/2014 PIERCE PIG CASTING MACHINE OPERATOR, MARC R 239.3 BREAST MASS 01/29/2014 POLO DO, MEHREEN K 239.3 BREAST MASS 01/29/2014 POLO DO, MEHREEN K 239.3 BREAST MASS 01/29/2014 BARBER STUDENT AMBASSADOR, YASMIN M 239.3 BREAST MASS 01/29/2014 BARBER STUDENT AMBASSADOR, YASMIN M 239.3 BREAST MASS 01/29/2014 PIERCE PIG CASTING MACHINE OPERATOR, MARC R 239.3 BREAST MASS 01/29/2014 BARBER STUDENT AMBASSADOR, YASMIN M 239.3 BREAST MASS 01/29/2014 BARBER STUDENT AMBASSADOR, YASMIN M 239.3 BREAST MASS 01/29/2014 PIERCE PIG CASTING MACHINE OPERATOR, MARC R 239.3 BREAST MASS 01/29/2014 BARBER STUDENT AMBASSADOR, YASMIN M 239.3 BREAST MASS 06/06/2014 PIERCE PIG CASTING MACHINE OPERATOR, MARC R 784.0 HEADACHE 06/06/2014 PIERCE PIG CASTING MACHINE OPERATOR, MARC R 786.50 CHEST PAIN 06/06/2014 POLO DO, MEHREEN K 784.0 HEADACHE 06/06/2014 POLO DO, MEHREEN K 786.50 CHEST PAIN 06/06/2014 PIERCE PIG CASTING MACHINE OPERATOR, MARC R 784.0 HEADACHE 06/06/2014 PIERCE PIG CASTING MACHINE OPERATOR, MARC R 786.50 CHEST PAIN 06/06/2014 PIERCE PIG CASTING MACHINE OPERATOR, MARC R 784.0 HEADACHE 06/06/2014 PIERCE PIG CASTING MACHINE OPERATOR, MARC R 786.50 CHEST PAIN 06/06/2014 MAGALYS ALMAGUER, LARISA 784.0 HEADACHE 06/06/2014 MAGALYS ALMAGUER, LARISA 786.50 CHEST PAIN 06/06/2014 PIERCE PIG CASTING MACHINE OPERATOR, MARC R 784.0 HEADACHE 06/06/2014 PIERCE PIG CASTING MACHINE OPERATOR, MARC R 786.50 CHEST PAIN 06/06/2014 BARBER STUDENT AMBASSADOR, YASMIN M 784.0 HEADACHE 06/06/2014 BARBER STUDENT AMBASSADOR, YASMIN M 786.50 CHEST PAIN 06/06/2014 PIERCE PIG CASTING MACHINE OPERATOR, MARC R 784.0 HEADACHE 06/06/2014 PIERCE PIG CASTING MACHINE OPERATOR, MARC R 786.50 CHEST PAIN 06/06/2014 POLO DO, MEHREEN K 784.0 HEADACHE 06/06/2014 POLO DO, MEHREEN K 786.50 CHEST PAIN 06/06/2014 POLO DO, MEHREEN K 784.0 HEADACHE 06/06/2014 POLO DO, MEHREEN K 786.50 CHEST PAIN 06/06/2014 BARBER STUDENT AMBASSADOR, YASMIN M 784.0 HEADACHE 06/06/2014 BARBER STUDENT AMBASSADOR, YASMIN M 786.50 CHEST PAIN 06/06/2014 BARBER STUDENT AMBASSADOR, YASMIN M 784.0 HEADACHE 06/06/2014 BARBER STUDENT AMBASSADOR, YASMIN M 786.50 CHEST PAIN 06/06/2014 PIERCE PIG CASTING MACHINE OPERATOR, MARC R 784.0 HEADACHE 06/06/2014 PIERCE PIG CASTING MACHINE OPERATOR, MARC R 786.50 CHEST PAIN 06/06/2014 BARBER STUDENT AMBASSADOR, YASMIN M 784.0 HEADACHE 06/06/2014 BARBER STUDENT AMBASSADOR, YASMIN M 786.50 CHEST PAIN 06/06/2014 BARBER STUDENT AMBASSADOR, YASMIN M 784.0 HEADACHE 06/06/2014 BARBER STUDENT AMBASSADOR, YASMIN M 786.50 CHEST PAIN 06/06/2014 PIERCE PIG CASTING MACHINE OPERATOR, MARC R 784.0 HEADACHE 06/06/2014 PIERCE PIG CASTING MACHINE OPERATOR, MARC R 786.50 CHEST PAIN 06/06/2014 BARBER STUDENT AMBASSADOR, YASMIN M 784.0 HEADACHE 06/06/2014 BARBER STUDENT AMBASSADOR, YASMIN M 786.50 CHEST PAIN 06/13/2014 POLO DO, MEHREEN K V81.1 HYPERTENSION SCREENING 06/13/2014 PIERCE PIG CASTING MACHINE OPERATOR, MARC R V81.1 HYPERTENSION SCREENING 06/13/2014 PIERCE PIG CASTING MACHINE OPERATOR, MARC R V81.1 HYPERTENSION SCREENING 06/13/2014 LARISA DOWELL MD V81.1 HYPERTENSION SCREENING 06/13/2014 PIERCE PIG CASTING MACHINE OPERATOR, MARC R V81.1 HYPERTENSION SCREENING 06/13/2014 BARBER STUDENT AMBASSADOR, YASMIN M V81.1 HYPERTENSION SCREENING 06/13/2014 PIERCE PIG CASTING MACHINE OPERATOR, MARC R V81.1 HYPERTENSION SCREENING 06/13/2014 POLO DO, MEHREEN K V81.1 HYPERTENSION SCREENING 06/13/2014 POLO DO, MEHREEN K V81.1 HYPERTENSION SCREENING 06/13/2014 YASMIN NORRIS M V81.1 HYPERTENSION SCREENING 06/13/2014 YASMIN NORRIS M V81.1 HYPERTENSION SCREENING 06/13/2014 PIERCE PIG CASTING MACHINE OPERATOR, MARC R V81.1 HYPERTENSION SCREENING 06/13/2014 YASMIN NORRIS M V81.1 HYPERTENSION SCREENING 06/13/2014 YASMIN NORRIS M V81.1 HYPERTENSION SCREENING 06/13/2014 PIERCE RAMACHANDRAN, MARC R V81.1 HYPERTENSION SCREENING 06/13/2014 BARBER STUDENT AMBASSADOR, YASMIN M V81.1 HYPERTENSION SCREENING 06/13/2014 AVANI GUO APRN Ot 300.00 ANXIETY STATE NOS 06/13/2014 AVANI GUO APRN Ot 786.50 CHEST PAIN NOS 07/03/2014 YUMIKO PELAYO [facility]INA R [facility] 07/03/2014 YUMIKO PELAYO APRNINA R V04.81 FLU SHOT 07/03/2014 PIERCE RAMACHANDRAN MARC R [facility] RECORDS 07/03/2014 PIERCE RAMACHANDRAN MARC R V04.81 FLU SHOT 07/03/2014 LARISA DOWELL MD [facility] MED[facility] RECORDS 07/03/2014 LARISA DOWELL MD V04.81 FLU SHOT 07/03/2014 PIERCE RAMACHANDRAN, MARC R [facility] MED[facility] RECORDS 07/03/2014 PIERCE RAMACHANDRAN, MARC R V04.81 FLU SHOT 07/03/2014 [facility] 07/03/2014 YASMIN NORRIS V04.81 FLU SHOT 07/03/2014 PIERCE RAMACHANDRAN MARC R [facility] RECORDS 07/03/2014 PIERCE RAMACHANDRAN, MARC R V04.81 FLU SHOT 07/03/2014 POLO DO MEHREEN K [facility] MEDICAL RECORDS 07/03/2014 POLO DO, MEHREEN K V04.81 FLU SHOT 07/03/2014 POLO DO, MEHREEN K [facility] MEDICAL RECORDS 07/03/2014 POLO DO, MEHREEN K V04.81 FLU SHOT 07/03/2014 YAS[facility] 07/03/2014 YASMIN NORRIS V04.81 FLU SHOT 07/03/2014 YASMIN NORRIS [facility] 07/03/2014 YASMIN NORRIS V04.81 FLU SHOT 07/03/2014 PIERCE PIG CASTING MACHINE OPERATOR, MARC R [facility] MEDICAL RECORDS 07/03/2014 PIERCE PIG CASTING MACHINE OPERATOR, MARC R V04.81 FLU SHOT 07/03/2014 YASMIN NORRIS [facility] REC[facility] 07/03/2014 YASMIN NORRIS V04.81 FLU SHOT 07/03/2014 [facility] 07/03/2014 YASMIN NORRIS V04.81 FLU SHOT 07/03/2014 PIERCE PIG CASTING MACHINE OPERATOR, MARC R [facility] MED[facility] REC[facility]DS 07/03/2014 PIERCE DAIN, MARC R V04.81 FLU SHOT 07/03/2014 YASMIN NORRIS [facility] MED[facility] RECORDS 07/03/2014 YASMIN NORRIS V04.81 FLU SHOT 08/12/2014 Ot V76.12 08/12/2014 Ot 241.0 08/12/2014 Ot 241.0 08/12/2014 Ot 241.1 08/12/2014 Ot 787.20 08/12/2014 Ot 241.0 08/12/2014 Ot 530.81 08/12/2014 Ot 553.3 08/12/2014 Ot 793.82 08/12/2014 Ot V76.12 08/12/2014 Ot 793.89 08/12/2014 Ot 625.9 08/12/2014 DANIEL KAM MD Ot 241.1 08/12/2014 DANIEL KAM MD Ot 401.1 08/12/2014 DANIEL KAM MD Ot 719.41 08/12/2014 LUPILLO KIM Ot 611.71 08/12/2014 LUPILLO KIM Ot 793.89 08/12/2014 MARC PELAYO R PIG CASTING MACHINE OPERATOR Ot 611.72 08/12/2014 MARC PELAYO R PIG CASTING MACHINE OPERATOR Ot 611.89 08/15/2014 YASMIN NORRIS 296.62 MO BIPOLAR I MIXED MODERATE 08/15/2014 YASMIN NORRIS 300.02 AN GEN ANXIETY 08/15/2014 MARC PELAYO APRN R 296.62 MO BIPOLAR I MIXED MODERATE 08/15/2014 MARC PELAYO APRN R 300.02 AN GEN ANXIETY 08/15/2014 POLO DO, MEHREEN K 296.62 MO BIPOLAR I MIXED MODERATE 08/15/2014 POLO DO, MEHREEN K 300.02 AN GEN ANXIETY 08/15/2014 POLO DO, MEHREEN K 296.62 MO BIPOLAR I MIXED MODERATE 08/15/2014 POLO DO, MEHREEN K 300.02 AN GEN ANXIETY 08/15/2014 BARBER STUDENT AMBASSADOR, YASMIN M 296.62 MO BIPOLAR I MIXED MODERATE 08/15/2014 BARBER STUDENT AMBASSADOR, YASMIN M 300.02 AN GEN ANXIETY 08/15/2014 BARBER STUDENT AMBASSADOR, YASMIN M 296.62 MO BIPOLAR I MIXED MODERATE 08/15/2014 BARBER STUDENT AMBASSADOR, YASMIN M 300.02 AN GEN ANXIETY 08/15/2014 PIERCE RAMACHANDRAN MARC R 296.62 MO BIPOLAR I MIXED MODERATE 08/15/2014 PIERCE RAMACHADNRAN MARC R 300.02 AN GEN ANXIETY 08/15/2014 BARBER STUDENT AMBASSADOR, YASMIN M 296.62 MO BIPOLAR I MIXED MODERATE 08/15/2014 BARBER STUDENT AMBASSADOR, YASMIN M 300.02 AN GEN ANXIETY 08/15/2014 BARBER STUDENT AMBASSADOR, YASMIN M 296.62 MO BIPOLAR I MIXED MODERATE 08/15/2014 BARBER STUDENT AMBASSADOR, YASMIN M 300.02 AN GEN ANXIETY 08/15/2014 PIERCE RAMACHANDRAN, MARC R 296.62 MO BIPOLAR I MIXED MODERATE 08/15/2014 PIERCE RAMACHANDRAN MARC R 300.02 AN GEN ANXIETY 08/15/2014 BARBER STUDENT AMBASSADOR, YASMIN M 296.62 MO BIPOLAR I MIXED MODERATE 08/15/2014 BARBER STUDENT AMBASSADOR, YASMIN M 300.02 AN GEN ANXIETY 10/03/2014 PIERCE RAMACHANDRAN MARC R 702.0 ACTINIC KERATOSIS 10/03/2014 BARBER STUDENT AMBASSADOR, YASMIN M 702.0 ACTINIC KERATOSIS 10/03/2014 BARBER STUDENT AMBASSADOR, YASMIN M 702.0 ACTINIC KERATOSIS 10/03/2014 PIERCE RAMACHANDRAN MARC R 702.0 ACTINIC KERATOSIS 10/03/2014 BARBER STUDENT AMBASSADOR, YASMIN M 702.0 ACTINIC KERATOSIS 11/01/2014 Ot V76.12 11/01/2014 Ot 241.0 11/01/2014 Ot 241.0 11/01/2014 Ot 241.1 11/01/2014 Ot 787.20 11/01/2014 Ot 241.0 11/01/2014 Ot 530.81 11/01/2014 Ot 553.3 11/01/2014 Ot 793.82 11/01/2014 Ot V76.12 11/01/2014 Ot 793.89 11/01/2014 Ot 625.9 11/01/2014 NEGIN ALMAGUER, DANIEL Tran Ot 241.1 11/01/2014 NEGIN ALMAGUER, DANIEL Tran Ot 401.1 11/01/2014 DANIEL KAM MD Ot 719.41 11/01/2014 LUPILLO KIM TREE PLANTER Ot 611.71 11/01/2014 LUPILLO KIM TREE PLANTER Ot 793.89 11/01/2014 MARC PELAYO PIG CASTING MACHINE OPERATOR Ot 611.72 11/01/2014 MARC PELAYO PIG CASTING MACHINE OPERATOR Ot 611.89 11/01/2014 GRACE CANDELARIO, GREG Castrejon Ot 272.4 11/01/2014 GRACE CANDELARIO, GREG Castrejon Ot 397.0 11/01/2014 GRACE CANDELARIO, GREG Castrejon Ot 401.1 11/01/2014 GRACE CANDELARIO, GREG Castrejon Ot 424.0 11/01/2014 GRACE CANDELARIO, GREG Castrejon Ot 786.50 11/01/2014 GRACE CANDELARIO, GREG Castrejon Ot 272.4 11/01/2014 GRACE CANDELARIO, GREG Castrejon Ot 305.1 11/01/2014 GRACE CANDELARIO, GREG Castrejon Ot 401.1 11/01/2014 GREG LARA Ot 786.50 11/03/2014 Ot 272.4 11/03/2014 Ot 305.1 11/03/2014 Ot 401.9 11/03/2014 Ot 414.01 11/03/2014 Ot 719.47 11/03/2014 Ot 786.50 11/03/2014 Ot 995.1 11/03/2014 Ot 995.27 11/03/2014 Ot E849.6 11/03/2014 Ot E947.8 11/03/2014 Ot V58.69 11/03/2014 Ot V76.12 11/03/2014 Ot 241.0 11/03/2014 Ot 241.0 11/03/2014 Ot 241.1 11/03/2014 Ot 787.20 11/03/2014 Ot 241.0 11/03/2014 Ot 530.81 11/03/2014 Ot 553.3 11/03/2014 Ot 793.82 11/03/2014 Ot V76.12 11/03/2014 Ot 793.89 11/03/2014 Ot 625.9 11/03/2014 DANIEL KAM MD Ot 241.1 11/03/2014 DANIEL KAM MD Ot 401.1 11/03/2014 DANIEL KAM MD Ot 719.41 11/03/2014 LUPILLO KIM Ot 611.71 11/03/2014 LUPILLO KIM Ot 793.89 11/03/2014 MARC PELAYO PIG CASTING MACHINE OPERATOR Ot 611.72 11/03/2014 MARC PELAYO PIG CASTING MACHINE OPERATOR Ot 611.89 11/03/2014 Ot V76.12 11/03/2014 Ot 241.0 11/03/2014 Ot 241.0 11/03/2014 Ot 241.1 11/03/2014 Ot 787.20 11/03/2014 Ot 241.0 11/03/2014 Ot 530.81 11/03/2014 Ot 553.3 11/03/2014 Ot 793.82 11/03/2014 Ot V76.12 11/03/2014 Ot 793.89 11/03/2014 Ot 625.9 11/03/2014 DANIEL KAM MD Ot 241.1 11/03/2014 DANIEL KAM MD Ot 401.1 11/03/2014 DANIEL KAM MD Ot 719.41 11/03/2014 LUPILLO KIM Ot 611.71 11/03/2014 LUPILLO KIM Ot 793.89 11/03/2014 MARC PELAYO PIG CASTING MACHINE OPERATOR Ot 611.72 11/03/2014 MARC PELAYO PIG CASTING MACHINE OPERATOR Ot 611.89 11/03/2014 GREG LARA Ot 272.4 11/03/2014 GREG LARA Ot 397.0 11/03/2014 GREG LARA Ot 401.1 11/03/2014 GREG LARA Ot 424.0 11/03/2014 GREG LARA Ot 786.50 11/03/2014 GRACE PA, GREG K Ot 272.4 11/03/2014 GRACE PA, GREG K Ot 305.1 11/03/2014 GRACE PA, GREG K Ot 401.1 11/03/2014 GRACE PA, GREG K Ot 786.50 11/03/2014 Ot V76.12 11/03/2014 Ot 241.0 11/03/2014 Ot 241.0 11/03/2014 Ot 241.1 11/03/2014 Ot 787.20 11/03/2014 Ot 241.0 11/03/2014 Ot 530.81 11/03/2014 Ot 553.3 11/03/2014 Ot 793.82 11/03/2014 Ot V76.12 11/03/2014 Ot 793.89 11/03/2014 Ot 625.9 11/03/2014 NEGIN ALMAGUER, DANIEL Tran Ot 241.1 11/03/2014 NEGIN ALMAGUER, DANIEL Tran Ot 401.1 11/03/2014 NEGIN ALMAGUER, DANIEL Tran Ot 719.41 11/03/2014 LUPILLO KIM Ot 611.71 11/03/2014 LUPILLO KIM Ot 793.89 11/03/2014 MARC PELAYO PIG CASTING MACHINE OPERATOR Ot 611.72 11/03/2014 MARC PELAYO PIG CASTING MACHINE OPERATOR Ot 611.89 11/03/2014 GRACE PA, GREG K Ot 272.4 11/03/2014 GRACE PA, GREG K Ot 397.0 11/03/2014 GRACE PA, GREG K Ot 401.1 11/03/2014 GRACE PA, GREG K Ot 424.0 11/03/2014 GRACE PA, GREG K Ot 786.50 11/03/2014 GRACE PA, GREG K Ot 272.4 11/03/2014 GRACE PA, GREG K Ot 305.1 11/03/2014 GRACE PA, GREG K Ot 401.1 11/03/2014 GRACE PA, GREG K Ot 786.50 11/03/2014 GRACE PA, GREG K Ot 272.4 11/03/2014 GRACE CANDELARIO, GREG Castrejon Ot 305.1 11/03/2014 GRACE CANDELARIO, GREG Castrejon Ot 401.1 11/03/2014 GRACE CANDELARIO, GREG Castrejon Ot 786.50 11/03/2014 GRACE CANDELARIO, GREG K Ot 272.4 11/03/2014 GRACE CANDELARIO, GREG Castrejon Ot 397.0 11/03/2014 GRACE CANDELARIO, GREG Castrejon Ot 401.1 11/03/2014 GRACE CANDELARIO, GREG Castrejon Ot 424.0 11/03/2014 GRACE CANDELARIO, GREG Castrejon Ot 786.50 11/04/2014 YASMIN NORRIS 414.00 CORONARY ATHEROSCLEROSIS OF UNSPECIFIED TYPE OF VESSEL [place] OR GRAFT 11/04/2014 YASMIN NORRIS 719.47 PAIN IN JOINT INVOLVING ANKLE AND FOOT 11/04/2014 MARC PELAYO APRN R 414.00 CORONARY ATHEROSCLEROSIS OF UNSPECIFIED TYPE OF VESSEL [place] OR GRAFT 11/04/2014 MARC PELAYO APRN R 719.47 PAIN IN JOINT INVOLVING ANKLE AND FOOT 11/04/2014 YASMIN NORRIS 414.00 CORONARY ATHEROSCLEROSIS OF UNSPECIFIED TYPE OF VESSEL [place] OR GRAFT 11/04/2014 YASMIN NORRIS 719.47 PAIN IN JOINT INVOLVING ANKLE AND FOOT 11/10/2014 Ot 272.4 11/10/2014 Ot 296.20 11/10/2014 Ot 305.1 11/10/2014 Ot 401.9 11/10/2014 Ot 413.9 11/10/2014 Ot 414.01 11/10/2014 Ot 496 11/10/2014 Ot 530.81 11/10/2014 Ot 553.3 12/05/2014 MAGALYS ALMAGUER, LARISA Morgan Ot 272.4 12/05/2014 MAGALYS ALMAGUER, LARISA Morgan Ot 414.00 12/05/2014 MAGALYS ALMAGUER, LARISA Morgan Ot 496 12/05/2014 MAGALYS ALMAGUER, LARISA Morgan Ot 786.09 12/19/2014 PIERCE RAMACHANDRAN MARC R 780.4 DIZZINESS AND GIDDINESS 12/19/2014 YASMIN NORRIS 780.4 DIZZINESS AND GIDDINESS 02/03/2015 Ot V76.12 02/03/2015 Ot 241.0 02/03/2015 Ot 241.0 02/03/2015 Ot 241.1 02/03/2015 Ot 787.20 02/03/2015 Ot 241.0 02/03/2015 Ot 530.81 02/03/2015 Ot 553.3 02/03/2015 Ot 793.82 02/03/2015 Ot V76.12 02/03/2015 Ot 793.89 02/03/2015 Ot 625.9 02/03/2015 DANIEL KAM MD Ot 241.1 02/03/2015 DANIEL KAM MD Ot 401.1 02/03/2015 DANIEL KAM MD Ot 719.41 02/03/2015 LUPILLO KIM TREE PLANTER Ot 611.71 02/03/2015 LUPILLO KIM TREE PLANTER Ot 793.89 02/03/2015 MARC PELAYO PIG CASTING MACHINE OPERATOR Ot 611.72 02/03/2015 MARC PELAYO PIG CASTING MACHINE OPERATOR Ot 611.89 02/03/2015 GRACE PA, GREG K Ot 272.4 02/03/2015 GRACE PA, GREG K Ot 397.0 02/03/2015 STUART-ROB PA, GREG K Ot 401.1 02/03/2015 GRACE PA, GREG K Ot 424.0 02/03/2015 SADE-ROB PA, GREG K Ot 786.50 02/03/2015 STUART-ROB PA, GREG K Ot 272.4 02/03/2015 SADE-ROB PA, GREG K Ot 305.1 02/03/2015 STUART-ROB PA, GREG K Ot 401.1 02/03/2015 STUART-ROB PA, GREG K Ot 786.50 02/03/2015 MAGALYS ALMAGUER, LARISA Morgan Ot 272.4 02/03/2015 MAGALYS ALMAGUER, LARISA Morgan Ot 414.00 02/03/2015 MAGALYS ALMAGUER, LARISA Morgan Ot 496 02/03/2015 MAGALYS ALMAGUER, LARISA Morgan Ot 786.09 02/03/2015 SADE-ROB PA, GREG K Ot 272.4 02/03/2015 GRACE PA, GREG K Ot 305.1 02/03/2015 SADE-ROB PA, GREG K Ot 401.1 02/03/2015 STUART-ROB PA, GREG K Ot 786.50 02/03/2015 STUART-ROB PA, GREG K Ot 272.4 02/03/2015 STUART-ROB PA, GREG K Ot 397.0 02/03/2015 STUART-ROB PA, GREG K Ot 401.1 02/03/2015 STUART-ROB PA, GREG K Ot 424.0 02/03/2015 STUART-ROB PA, GREG K Ot 786.50 02/03/2015 NEGIN ALMAGUER, DANIEL Tran Ot 241.1 02/03/2015 NEGIN ALMAGUER, DANIEL Tran Ot 401.1 02/03/2015 NEGIN ALMAGUER, DANIEL Tran Ot 719.41 02/10/2015 NEGIN ALMAGUER, DANIEL Tran Ot 241.1 02/10/2015 NEGIN ALMAGUER, DANIEL M Ot 401.1 02/10/2015 NEGIN ALMAGUER, DANIEL Tran Ot 719.41 02/10/2015 STUART-ROB PA, GREG K Ot 272.4 02/10/2015 STUART-ROB PA, GREG K Ot 397.0 02/10/2015 STUART-ROB PA, GREG K Ot 401.1 02/10/2015 STUART-ROB PA, GREG K Ot 424.0 02/10/2015 STUART-ROB PA, GREG K Ot 786.50 02/10/2015 STUART-ROB PA, GREG K Ot 272.4 02/10/2015 STUART-ROB PA, GREG K Ot 305.1 02/10/2015 STUART-ROB PA, GREG K Ot 401.1 02/10/2015 STUART-ROB PA, GREG K Ot 786.50 02/10/2015 MAGALYS ALMAGUER, LARISA Morgan Ot 272.4 02/10/2015 MAGALYS ALMAGUER, LARISA Morgan Ot 414.00 02/10/2015 MAGALYS ALMAGUER, LARISA Morgan Ot 496 02/10/2015 LARISA DOWELL MD Ot 786.09 Procedures Code [place] [address] ROUTINE VENIPUNCTURE 07/13/2012 69442 URINE DRUG SCREEN (IN-HOUSE ) 07/13/2012 93798 A1C (IN-HOUSE) 07/13/2012 55063 CBC 07/13/2012 76173 LIPID PANEL 07/13/2012 93822 CMP 07/13/2012 5422461 GFR CALC (RESULT ONLY) 07/13/2012 21919 LH 07/14/2012 86237 T4 FREE 07/14/2012 52062 T3 TOTAL 07/14/2012 38013 FSH 07/14/2012 90787 TSH 07/14/2012 53283 FNA W/IMAGE 07/17/2012 00977 TRIGGER POINT INJ/3 MUS 07/17/2012 02416 BARIUM SWALLOW XRAY 07/17/2012 86857 US THYROID ULTRASOUND 07/17/2012 L3040 FT ARCH SUPRT PREMOLD LONGIT 07/17/2012 62788 ESTROGEN 07/18/2012 81397 MAMMOGRAM DX, RIGHT 09/12/2012 53754 URINE DRUG SCREEN (IN-HOUSE ) 09/21/2012 96105 URINE DRUG SCREEN (IN-HOUSE ) 09/21/2012 84280 US PELVIC COMPL (REFLEX CPT - 34145) 09/25/2012 82297 URINE DRUG SCREEN (IN-HOUSE ) 09/25/2012 65918 BIOPSY SKIN (EACH ADD'L) 10/12/2012 29739 BIOPSY SKIN LESION (SINGLE) 10/18/2012 FITZE Mayra Mcdaniel 10/25/2012 74580 URINE DRUG SCREEN (IN-HOUSE ) 11/15/2012 93176 PAP SMEAR 11/16/2012 Q0091 PAP SMEAR OBTAIN SMEAR 11/16/2012 ORTHOPEDI RevealAndrey 05/07/2013 62068 URINE DRUG SCREEN (IN-HOUSE ) 05/29/2013 09033 URINE DRUG SCREEN (IN-HOUSE ) 05/29/2013 95272 US GUIDE FOR BIOPSY 01/17/2014 96233 MAMMOGRAM DX, LEFT 01/17/2014 20973 AMERITOX 01/20/2014 96768 MAMMOGRAM DX, YUMIKO 01/21/2014 48459 BIOPSY OF BREAST, OPEN 01/29/2014 82988 ROUTINE VENIPUNCTURE 06/06/2014 29551 XRAY CHEST 2 VIEW 06/06/2014 31792 EKG, TRACING 06/06/2014 0983470 GFR CALC (RESULT ONLY) 06/06/2014 98041 CMP 06/06/2014 49836 LIPID PANEL 06/06/2014 81240 MAGNESIUM 06/06/2014 54317 CBC 06/06/2014 00766 TSH 06/06/2014 BLOOD PRESSURE CHECK 06/13/2014 73419 NUCLEAR STRESS TESTING 08/01/2014 08506 ECHO 2D 08/01/2014 21537 LIVER PANEL (LFT) 09/10/2014 63071 VALPROIC ACID / DEPAKOTE 09/10/2014 15671 PSYCH DIAG EVAL W/MED SRVCS 09/10/2014 BLOOD PRESSURE CHECK 09/10/2014 BLOOD PRESSURE CHECK 09/17/2014 38541 LIVER PANEL (LFT) 09/25/2014 12833 VALPROIC ACID / DEPAKOTE 09/25/2014 38029 PSYCH DIAG EVAL W/MED SRVCS 09/25/2014 65261 UA W/ CULTURE IF INDICATED 12/19/2014 Results There is no data. Encounters ACCT No. Visit Date/Time Discharge Status Pt. Type Provider Facility Loc./Unit Complaint [id number] 12/01/2014 07:22:00 12/01/2014 23:59:59 CLS Outpatient LARISA DOWELL MD [facility] CARD [id number] 10/14/2014 11:25:00 10/14/2014 23:59:59 CLS Outpatient GREG LARA [facility] CARD [id number] 08/19/2014 12:15:00 08/19/2014 23:59:59 CLS Preadmit GREG LARA [facility] CARD [id number] 08/13/2014 10:45:00 08/13/2014 23:59:59 CLS Outpatient GREG LARA [facility] CARD [id number] 06/13/2014 12:09:00 06/13/2014 14:27:00 DIS Emergency AVANI GUO PIG CASTING MACHINE OPERATOR [facility] ER CHEST PAIN ABDOMINAL PAIN [id number] 02/10/2014 10:25:00 02/10/2014 23:59:59 CLS Outpatient MARC PELAYO APRN [facility] RAD [id number] 01/21/2014 14:18:00 01/21/2014 23:59:59 CLS Outpatient LUPILLO KIM [facility] RAD [id number] 11/05/2013 11:56:00 11/05/2013 15:31:00 DIS Emergency SANTIAGO BABCOCK MD [facility] ER [id number] 04/02/2013 14:50:00 04/02/2013 23:59:59 CLS Outpatient DANIEL KAM MD [facility] RAD [id number] 01/31/2013 19:06:00 01/31/2013 21:39:00 DIS Emergency SANTIAGO BABCOCK MD [facility] ER [id number] 10/23/2017 09:21:00 Document Registration [id number] 11/09/2014 19:40:00 Document Registration [id number] 11/03/2014 11:55:00 Document Registration [id number] 11/03/2014 11:55:00 Document Registration [id number] 11/03/2014 11:55:00 Document Registration [id number] 11/03/2014 11:55:00 Document Registration [id number] 11/01/2014 22:05:00 Document Registration [id number] 10/05/2012 13:48:00 Document Registration [id number] 09/19/2012 07:38:00 Document Registration [id number] 08/24/2012 11:20:00 Document Registration [id number] 08/08/2012 08:36:00 Document Registration [id number] 08/07/2012 09:34:00 Document Registration [id number] 07/20/2012 14:19:00 Document Registration [id number] 07/04/2012 12:03:00 Document Registration [id number] 06/04/2011 15:05:00 Document Registration [id number] 03/09/2011 12:45:00 Document Registration [id number] 11/29/2010 11:41:00 Document Registration [id number] 11/11/2010 04:00:00 Document Registration [id number] 01/15/2010 14:28:00 Document Registration [id number] 12/19/2014 13:17:00 12/19/2014 23:59:59 CLS Outpatient MARC PELAYO APRN [id number] 12/05/2014 09:58:00 12/05/2014 23:59:59 CLS Outpatient YASMIN NORRIS [id number] 12/05/2014 09:58:00 12/05/2014 23:59:59 CLS Outpatient YASMIN NORRIS [id number] 10/22/2014 11:11:00 10/22/2014 23:59:59 CLS Outpatient YASMIN NORRIS [id number] 10/03/2014 08:48:00 10/03/2014 23:59:59 CLS Outpatient MARC PELAYO APRN R [id number] 09/17/2014 10:06:00 09/17/2014 23:59:59 CLS Outpatient MELANI MEHREEN [id number] 09/10/2014 12:24:00 09/10/2014 23:59:59 CLS Outpatient POLO MEHREEN [id number] 09/10/2014 11:24:00 09/10/2014 23:59:59 CLS Outpatient YASMIN NORRIS [id number] 09/03/2014 08:35:00 09/03/2014 23:59:59 CLS Outpatient MARC PELAYO APRN R [id number] 08/15/2014 08:38:00 08/15/2014 23:59:59 CLS Outpatient YASMIN NORRIS [id number] 08/15/2014 08:38:00 08/15/2014 23:59:59 CLS Outpatient YASMIN NORRIS [id number] 08/05/2014 10:49:00 08/05/2014 23:59:59 CLS Outpatient MARC PELAYO APRN R [id number] 08/01/2014 09:53:00 08/01/2014 23:59:59 CLS Outpatient MAGALYS ALMAGUER, LARISA [id number] 07/03/2014 11:18:00 07/03/2014 23:59:59 CLS Outpatient PIERCE DAIN MARC R [id number] 06/13/2014 09:36:00 06/13/2014 23:59:59 CLS Outpatient MEHREEN POLO DO [id number] 06/06/2014 08:11:00 06/06/2014 23:59:59 CLS Outpatient MARC PELAYO APRN R [id number] 01/16/2014 13:13:00 01/16/2014 23:59:59 CLS Outpatient MARC PELAYO APRN R [id number] 01/16/2014 13:13:00 01/16/2014 23:59:59 CLS Outpatient PIERCE RAMACHANDRAN MARC Cameron [id number] 06/28/2013 10:42:00 06/28/2013 23:59:59 CLS Outpatient DANIEL KAM MD [id number] 05/29/2013 16:01:00 05/29/2013 23:59:59 CLS Outpatient DANIEL KAM MD [id number] 11/15/2012 10:05:00 11/15/2012 23:59:59 CLS Outpatient MEHREEN POLO DO [id number] 10/24/2012 13:59:00 10/24/2012 23:59:59 CLS Outpatient SABINA POWELL MD [id number] 10/11/2012 13:37:00 10/11/2012 23:59:59 CLS Outpatient STUART MAC APRN [id number] 09/25/2012 14:38:00 09/25/2012 23:59:59 CLS Outpatient SABINA POWELL MD [id number] 09/17/2012 00:00:00 09/17/2012 23:59:59 CLS Outpatient SABINA POWELL MD [id number] 08/15/2012 13:34:00 08/15/2012 23:59:59 [place] [id number] 07/13/2012 10:10:00 07/13/2012 23:59:59 CLS Outpatient SABINA POWELL MD [id number] 04/26/2013 11:16:00 Document Registration [id number] 03/26/2013 12:59:00 Document Registration [id number] 02/15/2013 09:57:00 Document Registration [id number] 01/24/2013 12:42:00 Document Registration [id number] 01/15/2013 15:35:00 Document Registration
== END 2017-10-23 09:04 | disposition home or self-care (01) ==
LOC: EDUNIT# 09:57 → ER 10:00 → ICU 11:15 → UNDOADMOB 11:15 → ICU 12:20 → UNDODISOB 10-23 12:15
PROVIDERS: ADMIT Family Medicine; ATTEND Family Medicine
DX: R07.89 Other chest pain (principal); I25.10 Atherosclerotic heart disease of native coronary artery without angina pectoris; I10 Essential (primary) hypertension; E78.5 Hyperlipidemia, unspecified; F17.210 Nicotine dependence, cigarettes, uncomplicated; J44.9 Chronic obstructive pulmonary disease, unspecified; F41.9 Anxiety disorder, unspecified; F32.9 Major depressive disorder, single episode, unspecified; E05.90 Thyrotoxicosis, unspecified without thyrotoxic crisis or storm
CPT/HCPCS: 36415; 71045; 80048; 80053; 80061; 83690; 83735; 83874; 83880; 84443; 84484; 85025; 85379; 85610; 85730; 87804; 93005; 96374

== ENCOUNTER → 2017-10-25 | Outpatient (CLI) | payer SELFPAY ==
[~2017-10-25] VITALS: Ht 165.1 cm; Wt 75.7 kg
[~2017-10-25] MED LIST changes: +ASPI-586 PO; +ATOR10TA PO; +BUSP10TA95 PO; +CATHETER FLUSH 10 ML SYR IV PRN; +CETI10TA17 PO; +CHLO25TA22 PO; +CLON0.1T PO; +GABA-488 PO; +METO-387 PO; +VITA1TAB17 PO; +[UNRECOGNIZED DRUG - CODE] PO
[2017-10-25 13:15] VITALS: BP 158/121
--- NOTE | 2017-10-25 18:18 | STRESS TEST ---
DATE OF SERVICE: 10/25/2017 EXERCISE MYOVIEW STRESS TEST REPORT REFERRING PHYSICIAN: [facility]. Baseline heart rate is 100. Baseline blood pressure 158/120. Baseline EKG is sinus rhythm with no ischemic changes. In summary, the patient was injected with 10.61 mCi of technetium-99 Myoview and the resting images were obtained. Then, the patient started exercising with the baseline heart rate, blood pressure and EKG mentioned above. She was able to exercise for 3 minutes 30 seconds on standard Alexandru protocol. With peak exercise level, EKG was showing [address] depression in II, III, aVF, V4, V5. Blood pressure was 186/98. During recovery, heart rate and blood pressure returned to baseline. EKG returned to baseline. The resting and stress images were reviewed and compared in the short axis, horizontal long axis, and vertical long axis views. Review of the images showed breast attenuation with reversible ischemia involving the mid to apical inferior wall and inferoseptum. SSS is 6, SDS 3, TID value is 1.03. On the gated images, the left ventricle appeared to be normal size with normal contractility, calculated ejection fraction 58%. CONCLUSION: 1. Poor exercise tolerance. A total of 3 minutes 30 seconds on standard Alexandru protocol, total of 5.2 METS achieving 100% of maximum expected heart rate. 2. Appropriate heart rate response to exercise with mild hypertensive response to exercise. 3. Nondiagnostic EKG changes with exercise returned to baseline during recovery. 4. Mild ischemia involving the mid to apical inferior wall and inferoseptum. 5. Normal left ventricular size with normal contractility, calculated ejection fraction 58%. Job ID: [id number] DocumentID: [id number] Dictated Date: 10/25/2017 14:42:35 Truck Farmer Date: 10/25/2017 18:18:14 Dictated By: LARISA DOWELL MD
== END ==
LOC: CARD 11:31
PROVIDERS: ATTEND Physician Assistant
DX: I25.10 Atherosclerotic heart disease of native coronary artery without angina pectoris (principal); E78.2 Mixed hyperlipidemia
CPT/HCPCS: 78452; 93017

== ENCOUNTER 2017-11-01 08:33 | Day surgery (SDC) | payer SELFPAY ==
[~2017-11-01] VITALS: Ht 165.1 cm; Wt 75.7 kg
[2017-11-01] VITALS (11 sets, daily range): BP systolic 101–120; BP diastolic 75–83
[~2017-11-01 08:33] MED LIST changes: -CATHETER FLUSH 10 ML SYR IV PRN
--- OUTSIDE RECORDS SUMMARY | 2017-11-01 08:37 | XMS REPORT | Clinical Summary ---
Author Author [facility] Organization [facility] Address Unknown Phone Unavailable Care Team Providers Care Ip Network Architect Name Role Phone PCP Unavailable Source Comments Some departments are not documenting in the electronic medical record. If you do not see the information that you expected, contact Release of Information in the Health Information Management department at [phone] for further assistance in locating additional records.[facility] Allergies Active Allergy Reactions Severity Noted [...]
--- OUTSIDE RECORDS SUMMARY | 2017-11-01 08:42 | XMS REPORT | Continuity of Care Document ---
Author Author [facility] Organization [facility] Address Unknown Phone Unavailable Allergies Active Description Code Type Severity Reaction Onset Reported/Identified Relationship to Patient Clinical Status Yes No Known Drug Allergies [id number] Drug Allergy Mild N/A 02/05/2009 Yes IV [...] POLO DO 338.4 CHRONIC PAIN SYNDROME 06/19/2009 PIERCE RAMACHANDRAN, MARC R 338.4 CHRONIC PAIN SYNDROME 06/19/2009 PIERCE RAMACHANDRAN MARC R 338.4 CHRONIC PAIN SYNDROME 06/19/2009 LARISA DOWELL MD 338.4 CHRONIC PAIN SYNDROME 06/19/2009 MARC PELAYO APRN R 338.4 CHRONIC PAIN SYNDROME 06/19/2009 BARBER TRANSMISSION REBUILDER, YASMIN M 338.4 CHRONIC PAIN SYNDROME 06/19/2009 PIERCE DIE MAKER STAMPING, MARC R 338.4 CHRONIC PAIN SYNDROME 06/19/2009 POLO DO, MEHREEN K 338.4 CHRONIC PAIN SYNDROME 06/19/2009 POLO DO, MEHREEN K 338.4 CHRONIC PAIN SYNDROME 06/19/2009 BARBER TRANSMISSION REBUILDER, YASMIN M 338.4 CHRONIC PAIN SYNDROME 06/19/2009 BARBER TRANSMISSION REBUILDER, YASMIN M 338.4 CHRONIC PAIN SYNDROME 06/19/2009 PIERCE DIE MAKER STAMPING, MARC R 338.4 CHRONIC PAIN SYNDROME 06/19/2009 BARBER TRANSMISSION REBUILDER, YASMIN M 338.4 CHRONIC PAIN SYNDROME 06/19/2009 BARBER TRANSMISSION REBUILDER, YASMIN M 338.4 CHRONIC PAIN SYNDROME 06/19/2009 PIERCE DIE MAKER STAMPING, MARC R 338.4 CHRONIC PAIN SYNDROME 06/19/2009 BAREBR TRANSMISSION REBUILDER, YASMIN M 338.4 CHRONIC PAIN SYNDROME 08/05/2009 [...] 300.01 AN PANIC DIS W/O AGORA 08/05/2009 ADNIEL KAM MD 296.33 MAJOR DEPRESSION RECURRENT SEVERE [...] 296.33 MAJOR DEPRESSION RECURRENT SEVERE 08/05/2009 BARBER TRANSMISSION REBUILDERYASMIN M 300.01 AN PANIC DIS W/O AGORA 08/05/2009 PIERCE DIE MAKER STAMPING, MARC R 296.33 MAJOR DEPRESSION RECURRENT SEVERE 08/05/2009 PIERCE DIE MAKER STAMPING, MARC R 300.01 AN PANIC DIS W/O AGORA 08/05/2009 POLO DO, MEHREEN K 296.33 MAJOR DEPRESSION RECURRENT SEVERE 08/05/2009 POLO DO, MEHREEN K 300.01 AN PANIC DIS W/O AGORA 08/05/2009 POLO DO, MEHREEN K 296.33 MAJOR DEPRESSION RECURRENT SEVERE 08/05/2009 POLO DO, MEHREEN K 300.01 AN PANIC DIS W/O AGORA 08/05/2009 BARBER TRANSMISSION REBUILDERYASMIN M 296.33 MAJOR DEPRESSION RECURRENT SEVERE 08/05/2009 BARBER TRANSMISSION REBUILDER, YASMIN M 300.01 AN PANIC DIS W/O AGORA 08/05/2009 BARBER TRANSMISSION REBUILDERYASMIN M 296.33 MAJOR DEPRESSION RECURRENT SEVERE 08/05/2009 BARBER TRANSMISSION REBUILDERYASMIN M 300.01 AN PANIC DIS W/O AGORA 08/05/2009 PIERCE DAIN, MARC R 296.33 MAJOR DEPRESSION RECURRENT SEVERE 08/05/2009 PIERCE DAIN, MARC R 300.01 AN PANIC DIS W/O AGORA 08/05/2009 BARBER TRANSMISSION REBUILDER, YASMIN M 296.33 MAJOR DEPRESSION RECURRENT SEVERE 08/05/2009 BARBER TRANSMISSION REBUILDER, YASMIN M 300.01 AN PANIC DIS W/O AGORA 08/05/2009 BARBER TRANSMISSION REBUILDERYASMIN M 296.33 MAJOR DEPRESSION RECURRENT SEVERE 08/05/2009 BARBER TRANSMISSION REBUILDERYASMIN M 300.01 AN PANIC DIS W/O AGORA 08/05/2009 PIERCE DIE MAKER STAMPING, MARC R 296.33 MAJOR DEPRESSION RECURRENT SEVERE 08/05/2009 PIERCE DIE MAKER STAMPING, MARC R 300.01 AN PANIC DIS W/O [...] MDA M 401.9 Essential Hypertension 08/25/2009 PIERCE DIE MAKER STAMPING, MARC R 401.9 Essential Hypertension 08/25/2009 PIEREC DIE MAKER STAMPING, MARC R 401.9 Essential Hypertension 08/25/2009 POLO DO, MEHREEN K 401.9 Essential Hypertension 08/25/2009 PIERCE DIE MAKER STAMPING, MARC R 401.9 Essential Hypertension 08/25/2009 PIERCE DIE MAKER STAMPING, MARC R 401.9 Essential Hypertension 08/25/2009 LARISA DOWELL MD 401.9 Essential Hypertension 08/25/2009 PIERCE DIE MAKER STAMPING, MARC R 401.9 Essential Hypertension 08/25/2009 BARBER TRANSMISSION REBUILDER, YASMIN M 401.9 Essential Hypertension 08/25/2009 PIERCE DIE MAKER STAMPING, MARC R 401.9 Essential Hypertension 08/25/2009 POLO DO, MEHREEN K 401.9 Essential Hypertension 08/25/2009 POLO DO, MEHREEN K 401.9 Essential Hypertension 08/25/2009 BARBER TRANSMISSION REBUILDER, YASMIN M 401.9 Essential Hypertension 08/25/2009 BARBER TRANSMISSION REBUILDER, YASMIN M 401.9 Essential Hypertension 08/25/2009 PIERCE DIE MAKER STAMPING, MARC R 401.9 Essential Hypertension 08/25/2009 BARBER TRANSMISSION REBUILDER, YASMIN M 401.9 Essential Hypertension 08/25/2009 BARBER TRANSMISSION REBUILDER, YASMIN M 401.9 Essential Hypertension 08/25/2009 PIERCE DIE MAKER STAMPING, MARC R 401.9 Essential Hypertension 08/25/2009 BARBER TRANSMISSION REBUILDER, YASMIN M 401.9 Essential Hypertension 10/02/2009 SABINA POWELL MD V72.9 ROUTINE GENITOURINARY EXAM 10/02/2009 SABINA POWELL MD V72.9 ROUTINE GENITOURINARY EXAM 10/02/2009 ANDRE ALMAGUER, SABINA V72.9 ROUTINE GENITOURINARY EXAM 10/02/2009 STUART MAC APRN V72.9 ROUTINE GENITOURINARY EXAM 10/02/2009 SABINA POWELL MD V72.9 ROUTINE GENITOURINARY EXAM 10/02/2009 NADIA POLO DOA K V72.9 ROUTINE GENITOURINARY EXAM 10/02/2009 V72.9 ROUTINE GENITOURINARY EXAM 10/02/2009 V72.9 ROUTINE GENITOURINARY EXAM 10/02/2009 V72.9 ROUTINE GENITOURINARY EXAM 10/02/2009 V72.9 ROUTINE GENITOURINARY EXAM 10/02/2009 NADRE ALMAGUER, SABINA V72.9 ROUTINE GENITOURINARY EXAM 10/02/2009 [...] NORRIS V72.9 ROUTINE GENITOURINARY EXAM 10/02/2009 PIERCE DIE MAKER STAMPING, MARC R V72.9 ROUTINE GENITOURINARY EXAM 10/02/2009 YASMIN NORRIS V72.9 ROUTINE GENITOURINARY EXAM 10/02/2009 YASMIN NORRIS V72.9 ROUTINE GENITOURINARY EXAM 10/02/2009 PIERCE DIE MAKER STAMPING, MARC R V72.9 ROUTINE GENITOURINARY EXAM 10/02/2009 [...] DANIEL KAM MD 780.52 insomnia 11/05/2009 DANIEL KMA MD 780.52 insomnia 11/05/2009 PIERCE DIE MAKER STAMPING, MARC R 780.52 insomnia 11/05/2009 PIERCE DIE MAKER STAMPING, MARC R 780.52 insomnia 11/05/2009 POLO DO MEHREEN K 780.52 insomnia 11/05/2009 PIERCE DIE MAKER STAMPING, MARC R 780.52 insomnia 11/05/2009 PIERCE DIE MAKER STAMPING, MARC R 780.52 insomnia 11/05/2009 LARISA DOWELL MD 780.52 insomnia 11/05/2009 PIERCE DIE MAKER STAMPING, MARC R 780.52 insomnia 11/05/2009 YASMIN NORRIS 780.52 insomnia 11/05/2009 PIERCE DIE MAKER STAMPING, MARC R 780.52 insomnia 11/05/2009 POLO DO MEHREEN K 780.52 insomnia 11/05/2009 POLO DO, MEHREEN K 780.52 insomnia 11/05/2009 YASMIN NORRIS 780.52 insomnia 11/05/2009 BARBER [place], YASMIN M 780.52 insomnia 11/05/2009 PIERCE DIE MAKER STAMPING, MARC R 780.52 insomnia 11/05/2009 BARBER [place], YASMIN M 780.52 insomnia 11/05/2009 BARBER [place], YASMIN M 780.52 insomnia 11/05/2009 PIERCE DIE MAKER STAMPING, MARC R 780.52 insomnia 11/05/2009 YASMIN NORRIS [...] KAM MD 461.9 SINUSITIS ACUTE 11/27/2009 PIERCE DIE MAKER STAMPING, MARC R 461.9 SINUSITIS ACUTE 11/27/2009 PIERCE DIE MAKER STAMPING, MARC R 461.9 SINUSITIS ACUTE 11/27/2009 POLO MEHREEN BURCH K 461.9 SINUSITIS ACUTE 11/27/2009 PIERCE DIE MAKER STAMPING, MARC R 461.9 SINUSITIS ACUTE 11/27/2009 PIERCE DIE MAKER STAMPING, MARC R 461.9 SINUSITIS ACUTE 11/27/2009 LARISA DOWELL MD 461.9 SINUSITIS ACUTE 11/27/2009 PIERCE DIE MAKER STAMPING, MARC R 461.9 SINUSITIS ACUTE 11/27/2009 YASMIN NORRIS 461.9 SINUSITIS ACUTE 11/27/2009 PIERCE DIE MAKER STAMPING, MARC R 461.9 SINUSITIS ACUTE 11/27/2009 POLO DO, MEHREEN K 461.9 SINUSITIS ACUTE 11/27/2009 POLO DO, MEHREEN K 461.9 SINUSITIS ACUTE 11/27/2009 BARBER [place], YASMIN M 461.9 SINUSITIS ACUTE 11/27/2009 BARBER [place], YASMIN M 461.9 SINUSITIS ACUTE 11/27/2009 PIERCE DIE MAKER STAMPING, MARC R 461.9 SINUSITIS ACUTE 11/27/2009 YASMIN NORRIS M 461.9 SINUSITIS ACUTE 11/27/2009 BARBER [place], YASMIN M 461.9 SINUSITIS ACUTE 11/27/2009 PIERCE DIE MAKER STAMPING, MARC R 461.9 SINUSITIS ACUTE 11/27/2009 YASMIN [...] DANIEL KAM MD 692.9 DERMATITIS 12/22/2009 PIERCE DIE MAKER STAMPING, MARC R 692.9 DERMATITIS 12/22/2009 PIERCE DIE MAKER STAMPING, MARC R 692.9 DERMATITIS 12/22/2009 POLO DO, MEHREEN K 692.9 DERMATITIS 12/22/2009 PIERCE DIE MAKER STAMPING, MARC R 692.9 DERMATITIS 12/22/2009 PIERCE DIE MAKER STAMPING, MARC R 692.9 DERMATITIS 12/22/2009 LARISA DOWELL MD 692.9 DERMATITIS 12/22/2009 PIERCE DIE MAKER STAMPING, MARC R 692.9 DERMATITIS 12/22/2009 YASMIN NORRIS 692.9 DERMATITIS 12/22/2009 PIERCE DIE MAKER STAMPING, MARC R 692.9 DERMATITIS 12/22/2009 POLO DO, MEHREEN K 692.9 DERMATITIS 12/22/2009 POLO DO, MEHREEN K 692.9 DERMATITIS 12/22/2009 BARBER TRANSMISSION REBUILDER, YASMIN M 692.9 DERMATITIS 12/22/2009 BARBER TRANSMISSION REBUILDER, YASMIN M 692.9 DERMATITIS 12/22/2009 PIERCE DIE MAKER STAMPING, MARC R 692.9 DERMATITIS 12/22/2009 BARBER TRANSMISSION REBUILDER, YASMIN M 692.9 DERMATITIS 12/22/2009 BARBER TRANSMISSION REBUILDER, YASMIN M 692.9 DERMATITIS 12/22/2009 PIERCE DIE MAKER STAMPING, MARC R 692.9 DERMATITIS 12/22/2009 BARBER TRANSMISSION REBUILDER, YASMIN M 692.9 DERMATITIS 01/11/2010 ANDRE ALMAGUER, [...] DANIEL KAM MD 133.0 SCABIES 01/11/2010 PIERCE DIE MAKER STAMPING, MARC R 133.0 SCABIES 01/11/2010 PIERCE DIE MAKER STAMPING, MARC R 133.0 SCABIES 01/11/2010 POLO DO, MEHREEN K 133.0 SCABIES 01/11/2010 PIERCE DIE MAKER STAMPING, MARC R 133.0 SCABIES 01/11/2010 PIERCE DIE MAKER STAMPING, MARC R 133.0 SCABIES 01/11/2010 LARISA DOWELL MD 133.0 SCABIES 01/11/2010 PIERCE DIE MAKER STAMPING, MARC R 133.0 SCABIES 01/11/2010 BARBER TRANSMISSION REBUILDER, YASMIN M 133.0 SCABIES 01/11/2010 PIERCE DIE MAKER STAMPING, MARC R 133.0 SCABIES 01/11/2010 POLO DO, MEHREEN K 133.0 SCABIES 01/11/2010 POLO DO, MEHREEN K 133.0 SCABIES 01/11/2010 BARBER TRANSMISSION REBUILDER, YASMIN M 133.0 SCABIES 01/11/2010 BARBER TRANSMISSION REBUILDER, YASMIN M 133.0 SCABIES 01/11/2010 PIERCE DIE MAKER STAMPING, MARC R 133.0 SCABIES 01/11/2010 BARBER TRANSMISSION REBUILDER, YASMIN M 133.0 SCABIES 01/11/2010 BARBER TRANSMISSION REBUILDER, YASMIN M 133.0 SCABIES 01/11/2010 PIERCE DIE MAKER STAMPING, MARC R 133.0 SCABIES 01/11/2010 BARBER TRANSMISSION REBUILDER, YASMIN M 133.0 SCABIES 01/21/2010 SABINA POWELL MD V58.69 LONG-TERM (CURRENT) USE OF OTHER MEDICATIONS 01/21/2010 SABINA POWELL MD V58.69 LONG-TERM (CURRENT) USE OF OTHER MEDICATIONS 01/21/2010 SABINA POWELL MD V58.69 LONG-TERM (CURRENT) USE OF OTHER MEDICATIONS 01/21/2010 STUART MAC APRN V58.69 LONG-TERM (CURRENT) USE OF OTHER MEDICATIONS 01/21/2010 ASBINA POWELL MD V58.69 LONG-TERM (CURRENT) USE OF [...] (CURRENT) USE OF OTHER MEDICATIONS 01/21/2010 PIERCE DIE MAKER STAMPINGYUMIKOMARC R V58.69 LONG-TERM (CURRENT) USE OF OTHER MEDICATIONS 01/21/2010 PIERCE DIE MAKER STAMPING, MARC R V58.69 LONG-TERM (CURRENT) USE OF OTHER MEDICATIONS 01/21/2010 MEHREEN POLO DO V58.69 LONG-TERM (CURRENT) USE OF OTHER MEDICATIONS 01/21/2010 PIERCE DIE MAKER STAMPING, MARC R V58.69 LONG-TERM (CURRENT) USE OF [...] (CURRENT) USE OF OTHER MEDICATIONS 01/21/2010 MEHREEN POOL DO K V58.69 LONG-TERM (CURRENT) USE OF [...] NORRIS 241.1 NONTOXIC MULTINODULAR GOITER 11/18/2010 PIERCE DIE MAKER STAMPING, MARC R 241.1 NONTOXIC MULTINODULAR GOITER 11/18/2010 POLO DO, MEHREEN K 241.1 NONTOXIC MULTINODULAR GOITER 11/18/2010 POLO DO, MEHREEN K 241.1 NONTOXIC MULTINODULAR GOITER 11/18/2010 BARBER TRANSMISSION REBUILDER, YASMIN M 241.1 NONTOXIC MULTINODULAR GOITER 11/18/2010 BARBER TRANSMISSION REBUILDER, YASMIN M 241.1 NONTOXIC MULTINODULAR GOITER 11/18/2010 PIERCE DIE MAKER STAMPING, MARC R 241.1 NONTOXIC MULTINODULAR GOITER 11/18/2010 BARBER TRANSMISSION REBUILDER, YASMIN M 241.1 NONTOXIC MULTINODULAR GOITER 11/18/2010 BARBER TRANSMISSION REBUILDER, YASMIN M 241.1 NONTOXIC MULTINODULAR GOITER 11/18/2010 PIERCE DIE MAKER STAMPING, MARC R 241.1 NONTOXIC MULTINODULAR GOITER 11/18/2010 BARBER TRANSMISSION REBUILDER, YASMIN M 241.1 NONTOXIC MULTINODULAR GOITER 12/20/2010 [...] 272.4 OTHER AND UNSPECIFIED HYPERLIPIDEMIA 12/20/2010 STUART MAC APRN S 356.9 UNSPECIFIED IDIOPATHIC PERIPHERAL NEUROPATHY [...] MD 626.0 ABSENCE OF MENSTRUATION 12/20/2010 PIERCE DIE MAKER STAMPING, MARC R 272.4 OTHER AND UNSPECIFIED HYPERLIPIDEMIA 12/20/2010 PIERCE DIE MAKER STAMPING, MARC R 356.9 UNSPECIFIED IDIOPATHIC PERIPHERAL NEUROPATHY 12/20/2010 PIERCE DIE MAKER STAMPING, MARC R 626.0 ABSENCE OF MENSTRUATION 12/20/2010 PIERCE DIE MAKER STAMPING, MARC R 272.4 OTHER AND UNSPECIFIED HYPERLIPIDEMIA 12/20/2010 PIERCE DIE MAKER STAMPING, MARC R 356.9 UNSPECIFIED IDIOPATHIC PERIPHERAL NEUROPATHY 12/20/2010 PIERCE DIE MAKER STAMPING, MARC R 626.0 ABSENCE OF MENSTRUATION 12/20/2010 POLO DO, MEHREEN K 272.4 OTHER AND UNSPECIFIED HYPERLIPIDEMIA 12/20/2010 POLO DO, MEHREEN K 356.9 UNSPECIFIED IDIOPATHIC PERIPHERAL NEUROPATHY 12/20/2010 POLO DO, MEHREEN K 626.0 ABSENCE OF MENSTRUATION 12/20/2010 PIERCE DIE MAKER STAMPING, MARC R 272.4 OTHER AND UNSPECIFIED HYPERLIPIDEMIA 12/20/2010 PIERCE DIE MAKER STAMPING, MARC R 356.9 UNSPECIFIED IDIOPATHIC PERIPHERAL NEUROPATHY 12/20/2010 PIERCE DIE MAKER STAMPING, MARC R 626.0 ABSENCE OF MENSTRUATION 12/20/2010 [...] R 626.0 ABSENCE OF MENSTRUATION 12/20/2010 BARBER TRANSMISSION REBUILDER, YASMIN M 272.4 OTHER AND UNSPECIFIED HYPERLIPIDEMIA 12/20/2010 BARBER TRANSMISSION REBUILDER, YASMIN M 356.9 UNSPECIFIED IDIOPATHIC PERIPHERAL NEUROPATHY 12/20/2010 BARBER TRANSMISSION REBUILDER, YASMIN M 626.0 ABSENCE OF MENSTRUATION 12/20/2010 PIERCE DIE MAKER STAMPING, MARC R 272.4 OTHER AND UNSPECIFIED HYPERLIPIDEMIA 12/20/2010 PIERCE DIE MAKER STAMPING, MARC R 356.9 UNSPECIFIED IDIOPATHIC PERIPHERAL NEUROPATHY [...] K 626.0 ABSENCE OF MENSTRUATION 12/20/2010 BARBER TRANSMISSION REBUILDER, YASMIN M 272.4 OTHER AND UNSPECIFIED HYPERLIPIDEMIA 12/20/2010 BARBER TRANSMISSION REBUILDER, YASMIN M 356.9 UNSPECIFIED IDIOPATHIC PERIPHERAL NEUROPATHY 12/20/2010 BARBER TRANSMISSION REBUILDER, YASMIN M 626.0 ABSENCE OF MENSTRUATION 12/20/2010 BARBER TRANSMISSION REBUILDER, YASMIN M 272.4 OTHER AND UNSPECIFIED HYPERLIPIDEMIA 12/20/2010 BARBER TRANSMISSION REBUILDER, YASMIN M 356.9 UNSPECIFIED IDIOPATHIC PERIPHERAL NEUROPATHY 12/20/2010 BARBER TRANSMISSION REBUILDER, YASMIN M 626.0 ABSENCE OF MENSTRUATION 12/20/2010 PIERCE DIE MAKER STAMPING, MARC R 272.4 OTHER AND UNSPECIFIED HYPERLIPIDEMIA 12/20/2010 PIERCE DIE MAKER STAMPING, MARC R 356.9 UNSPECIFIED IDIOPATHIC PERIPHERAL NEUROPATHY 12/20/2010 PIERCE DIE MAKER STAMPING, MARC R 626.0 ABSENCE OF MENSTRUATION 12/20/2010 BARBER TRANSMISSION REBUILDER, YASMIN M 272.4 OTHER AND UNSPECIFIED HYPERLIPIDEMIA 12/20/2010 BARBER TRANSMISSION REBUILDER, YASMIN M 356.9 UNSPECIFIED IDIOPATHIC PERIPHERAL NEUROPATHY 12/20/2010 BARBER TRANSMISSION REBUILDER, YASMIN M 626.0 ABSENCE OF MENSTRUATION 12/20/2010 BARBER TRANSMISSION REBUILDER, YASMIN M 272.4 OTHER AND UNSPECIFIED HYPERLIPIDEMIA 12/20/2010 BARBER TRANSMISSION REBUILDER, YASMIN M 356.9 UNSPECIFIED IDIOPATHIC PERIPHERAL NEUROPATHY 12/20/2010 BARBER TRANSMISSION REBUILDER, YASMIN M 626.0 ABSENCE OF MENSTRUATION 12/20/2010 PIERCE DIE MAKER STAMPING, MARC R 272.4 OTHER AND UNSPECIFIED HYPERLIPIDEMIA 12/20/2010 PIERCE DIE MAKER STAMPING, MARC R 356.9 UNSPECIFIED IDIOPATHIC PERIPHERAL NEUROPATHY 12/20/2010 PIERCE DIE MAKER STAMPING, MARC R 626.0 ABSENCE OF MENSTRUATION 12/20/2010 BARBER TRANSMISSION REBUILDER, YASMIN M 272.4 OTHER AND UNSPECIFIED HYPERLIPIDEMIA 12/20/2010 BARBER TRANSMISSION REBUILDER, YASMIN M 356.9 UNSPECIFIED IDIOPATHIC PERIPHERAL NEUROPATHY [...] 524.60 TEMPOROMANDIBULAR JOINT DISORDERS UNSPECIFIED 06/13/2011 BARBER TRANSMISSION REBUILDER, YASMIN M 524.60 TEMPOROMANDIBULAR JOINT DISORDERS UNSPECIFIED 06/13/2011 PIERCE RAMACHANDRAN, MARC R 524.60 TEMPOROMANDIBULAR JOINT DISORDERS UNSPECIFIED 06/13/2011 POLO DO, MEHREEN K 524.60 TEMPOROMANDIBULAR JOINT DISORDERS UNSPECIFIED 06/13/2011 POLO DO, MEHREEN K 524.60 TEMPOROMANDIBULAR JOINT DISORDERS UNSPECIFIED 06/13/2011 BARBER TRANSMISSION REBUILDER, YASMIN M 524.60 TEMPOROMANDIBULAR JOINT DISORDERS UNSPECIFIED 06/13/2011 BARBER TRANSMISSION REBUILDER, YASMIN M 524.60 TEMPOROMANDIBULAR JOINT DISORDERS UNSPECIFIED 06/13/2011 PIERCE RAMACHANDRAN, MARC R 524.60 TEMPOROMANDIBULAR JOINT DISORDERS UNSPECIFIED 06/13/2011 BARBER TRANSMISSION REBUILDER, YASMIN M 524.60 TEMPOROMANDIBULAR JOINT DISORDERS UNSPECIFIED 06/13/2011 BARBER TRANSMISSION REBUILDER, YASMIN M 524.60 TEMPOROMANDIBULAR JOINT DISORDERS UNSPECIFIED 06/13/2011 PIERCE RAMACHANDRAN, MARC R 524.60 TEMPOROMANDIBULAR JOINT DISORDERS UNSPECIFIED 06/13/2011 BARBER TRANSMISSION REBUILDER, YASMIN M 524.60 TEMPOROMANDIBULAR JOINT DISORDERS UNSPECIFIED [...] DANIEL Tran 787.20 DYSPHAGIA, UNSPECIFIED 07/26/2012 PIERCE DIE MAKER STAMPING, MARC R 787.20 DYSPHAGIA, UNSPECIFIED 07/26/2012 PIERCE DIE MAKER STAMPING, MARC R 787.20 DYSPHAGIA, UNSPECIFIED 07/26/2012 POLO DO, MEHREEN K 787.20 DYSPHAGIA, UNSPECIFIED 07/26/2012 PIERCE DIE MAKER STAMPING, MARC R 787.20 DYSPHAGIA, UNSPECIFIED 07/26/2012 PIERCE DIE MAKER STAMPING, MARC R 787.20 DYSPHAGIA, UNSPECIFIED 07/26/2012 MAGALYS ALMAGUER, LARISA 787.20 DYSPHAGIA, UNSPECIFIED 07/26/2012 PIERCE DIE MAKER STAMPING, MARC R 787.20 DYSPHAGIA, UNSPECIFIED 07/26/2012 BARBER TRANSMISSION REBUILDER, YASMIN M 787.20 DYSPHAGIA, UNSPECIFIED 07/26/2012 PIERCE DIE MAKER STAMPING, MARC R 787.20 DYSPHAGIA, UNSPECIFIED 07/26/2012 POLO DO, MEHREEN K 787.20 DYSPHAGIA, UNSPECIFIED 07/26/2012 POLO DO, MEHREEN K 787.20 DYSPHAGIA, UNSPECIFIED 07/26/2012 BARBER TRANSMISSION REBUILDER, YASMIN M 787.20 DYSPHAGIA, UNSPECIFIED 07/26/2012 BARBER TRANSMISSION REBUILDER, YASMIN M 787.20 DYSPHAGIA, UNSPECIFIED 07/26/2012 PIERCE DIE MAKER STAMPING, MARC R 787.20 DYSPHAGIA, UNSPECIFIED 07/26/2012 BARBER TRANSMISSION REBUILDER, YASMIN M 787.20 DYSPHAGIA, UNSPECIFIED 07/26/2012 BARBER TRANSMISSION REBUILDER, YASMIN M 787.20 DYSPHAGIA, UNSPECIFIED 07/26/2012 PIERCE DIE MAKER STAMPING, MARC R 787.20 DYSPHAGIA, UNSPECIFIED 07/26/2012 BARBER TRANSMISSION REBUILDER, YASMIN M 787.20 DYSPHAGIA, UNSPECIFIED 08/15/2012 SABINA [...] MD 401.1 ESSENTIAL HYPERTENSION BENIGN 08/15/2012 PIERCE DIE MAKER STAMPING, MARC R 401.1 ESSENTIAL HYPERTENSION BENIGN 08/15/2012 BARBER TRANSMISSION REBUILDER, YASMIN M 401.1 ESSENTIAL HYPERTENSION BENIGN 08/15/2012 PIERCE DIE MAKER STAMPING, MARC R 401.1 ESSENTIAL HYPERTENSION BENIGN 08/15/2012 POLO DO, MEHREEN K 401.1 ESSENTIAL HYPERTENSION BENIGN 08/15/2012 POLO DO, MEHREEN K 401.1 ESSENTIAL HYPERTENSION BENIGN 08/15/2012 BARBER TRANSMISSION REBUILDER, YASMIN M 401.1 ESSENTIAL HYPERTENSION BENIGN 08/15/2012 BARBER TRANSMISSION REBUILDER, YASMIN M 401.1 ESSENTIAL HYPERTENSION BENIGN 08/15/2012 PIERCE DIE MAKER STAMPING, MARC R 401.1 ESSENTIAL HYPERTENSION BENIGN 08/15/2012 BARBER TRANSMISSION REBUILDER, YASMIN M 401.1 ESSENTIAL HYPERTENSION BENIGN 08/15/2012 BARBER TRANSMISSION REBUILDER, YASMIN M 401.1 ESSENTIAL HYPERTENSION BENIGN 08/15/2012 PIERCE DIE MAKER STAMPING, MARC R 401.1 ESSENTIAL HYPERTENSION BENIGN 08/15/2012 BARBER TRANSMISSION REBUILDER, YASMIN M 401.1 ESSENTIAL HYPERTENSION BENIGN 09/12/2012 SABINA POWELL MD 610.0 BREAST CYST 09/12/2012 SABINA POWELL MD 610.0 BREAST CYST 09/12/2012 ESTEFANIA RAMACHANDARN, STUART S 610.0 BREAST CYST 09/12/2012 ANDRE ALMAGUER, SABINA 610.0 BREAST CYST 09/12/2012 POLO DO, MEHREEN K 610.0 BREAST CYST 09/12/2012 610.0 BREAST CYST 09/12/2012 610.0 BREAST CYST 09/12/2012 610.0 BREAST CYST 09/12/2012 610.0 BREAST CYST 09/12/2012 610.0 BREAST CYST 09/12/2012 NEGIN ALMAGUER, DANIEL M 610.0 BREAST CYST 09/12/2012 NEGIN ALMAGUER, DANIEL M 610.0 BREAST CYST 09/12/2012 PIERCE DIE MAKER STAMPING, MARC R 610.0 BREAST CYST 09/12/2012 PIERCE DIE MAKER STAMPING, MARC R 610.0 BREAST CYST 09/12/2012 POLO DO, MEHREEN K 610.0 BREAST CYST 09/12/2012 PIERCE DIE MAKER STAMPING, MARC R 610.0 BREAST CYST 09/12/2012 PIERCE DIE MAKER STAMPING, MARC R 610.0 BREAST CYST 09/12/2012 MAGALYS ALMAGUER, LARISA 610.0 BREAST CYST 09/12/2012 PIERCE DIE MAKER STAMPING, MARC R 610.0 BREAST CYST 09/12/2012 BARBER TRANSMISSION REBUILDER, YASMIN M 610.0 BREAST CYST 09/12/2012 PIERCE DIE MAKER STAMPING, MARC R 610.0 BREAST CYST 09/12/2012 POLO DO, MEHREEN K 610.0 BREAST CYST 09/12/2012 POLO DO, MEHREEN K 610.0 BREAST CYST 09/12/2012 BARBER TRANSMISSION REBUILDER, YASMIN M 610.0 BREAST CYST 09/12/2012 BARBER TRANSMISSION REBUILDER, YASMIN M 610.0 BREAST CYST 09/12/2012 PIERCE DIE MAKER STAMPING, MARC R 610.0 BREAST CYST 09/12/2012 BARBER TRANSMISSION REBUILDER, YASMIN M 610.0 BREAST CYST 09/12/2012 BARBER TRANSMISSION REBUILDER, YASMIN M 610.0 BREAST CYST 09/12/2012 PIERCE DIE MAKER STAMPING, MARC R 610.0 BREAST CYST 09/12/2012 BARBER TRANSMISSION REBUILDER, YASMIN M 610.0 BREAST CYST 09/25/2012 SABINA [...] KAM MD 625.9 pelvic pain 09/25/2012 PIERCE DIE MAKER STAMPING, MARC R 216.9 PIGMENTED NEVUS 09/25/2012 PIERCE RAMACHANDRAN, MARC R 278.00 OBESITY 09/25/2012 PIERCE RAMACHANDRAN, MARC R 625.9 pelvic pain 09/25/2012 PIERCE DIE MAKER STAMPING, MARC R 216.9 PIGMENTED NEVUS 09/25/2012 PIERCE RAMACHANDRAN, MARC R 278.00 OBESITY 09/25/2012 PIERCE DIE MAKER STAMPING, MARC R 625.9 pelvic pain 09/25/2012 POLO DO, MEHREEN K 216.9 PIGMENTED NEVUS 09/25/2012 POLO DO, MEHREEN K 278.00 OBESITY 09/25/2012 POLO DO, MEHREEN K 625.9 pelvic pain 09/25/2012 PIERCE DIE MAKER STAMPING, MARC R 216.9 PIGMENTED NEVUS 09/25/2012 PIERCE DIE MAKER STAMPING, MARC R 278.00 OBESITY 09/25/2012 PIERCE DIE MAKER STAMPING, MARC R 625.9 pelvic pain 09/25/2012 PIERCE DIE MAKER STAMPING, MARC R 216.9 PIGMENTED NEVUS 09/25/2012 PIERCE DIE MAKER STAMPING, MARC R 278.00 OBESITY 09/25/2012 PIERCE DIE MAKER STAMPING, MARC R 625.9 pelvic pain 09/25/2012 MAGALYS LAMAGUER, LARISA 216.9 PIGMENTED NEVUS 09/25/2012 MAGALYS ALMAGUER, BASHAR 278.00 OBESITY 09/25/2012 MAGALYS ALMAGUER, LARISA 625.9 pelvic pain 09/25/2012 PIERCE DIE MAKER STAMPING, MARC R 216.9 PIGMENTED NEVUS 09/25/2012 PIERCE DIE MAKER STAMPING, MARC R 278.00 OBESITY 09/25/2012 PIERCE DIE MAKER STAMPING, MARC R 625.9 pelvic pain 09/25/2012 YASMIN NORRIS M 216.9 PIGMENTED NEVUS 09/25/2012 YASMIN NORRIS M 278.00 OBESITY 09/25/2012 YASMIN NORRIS M 625.9 pelvic pain 09/25/2012 PIERCE DIE MAKER STAMPING, MARC R 216.9 PIGMENTED NEVUS 09/25/2012 PIERCE DIE MAKER STAMPING, MARC R 278.00 OBESITY 09/25/2012 PIERCE DIE MAKER STAMPING, MARC R 625.9 pelvic pain 09/25/2012 POLO [...] YASMIN NORRIS M 278.00 OBESITY 09/25/2012 BARBER TRANSMISSION REBUILDER, YASMIN M 625.9 pelvic pain 09/25/2012 BARBER TRANSMISSION REBUILDER, YASMIN M 216.9 PIGMENTED NEVUS 09/25/2012 BARBER TRANSMISSION REBUILDER, YASMIN M 278.00 OBESITY 09/25/2012 BARBER TRANSMISSION REBUILDER, YASMIN M 625.9 pelvic pain 09/25/2012 PIERCE DIE MAKER STAMPING, MARC R 216.9 PIGMENTED NEVUS 09/25/2012 PIERCE DIE MAKER STAMPING, MARC R 278.00 OBESITY 09/25/2012 PIERCE DIE MAKER STAMPING, MARC R 625.9 pelvic pain 09/25/2012 BARBER TRANSMISSION REBUILDER, YASMIN M 216.9 PIGMENTED NEVUS 09/25/2012 BARBER TRANSMISSION REBUILDER, YASMIN M 278.00 OBESITY 09/25/2012 BARBER TRANSMISSION REBUILDER, YASMIN M 625.9 pelvic pain 09/25/2012 BARBER TRANSMISSION REBUILDER, YASMIN M 216.9 PIGMENTED NEVUS 09/25/2012 BARBER TRANSMISSION REBUILDER, YASMIN M 278.00 OBESITY 09/25/2012 BARBER TRANSMISSION REBUILDER, YASMIN M 625.9 pelvic pain 09/25/2012 PIERCE DIE MAKER STAMPING, MARC R 216.9 PIGMENTED NEVUS 09/25/2012 PIERCE DIE MAKER STAMPING, MARC R 278.00 OBESITY 09/25/2012 PIERCE DIE MAKER STAMPING, MARC R 625.9 pelvic pain 09/25/2012 BARBER TRANSMISSION REBUILDER, YASMIN M 216.9 PIGMENTED NEVUS 09/25/2012 BARBER TRANSMISSION REBUILDER, YASMIN M 278.00 OBESITY 09/25/2012 BARBER TRANSMISSION REBUILDER, YASMIN M 625.9 pelvic pain 10/11/2012 STUART [...] OF CHEEK, CHIN, AND NOSE 10/11/2012 PIERCE DIE MAKER STAMPING, MARC R 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, CHIN, AND NOSE 10/11/2012 PIERCE DIE MAKER STAMPING, MARC R 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, CHIN, AND NOSE 10/11/2012 POLO DO, MEHREEN K 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, CHIN, AND NOSE 10/11/2012 PIERCE DIE MAKER STAMPING, MARC R 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, CHIN, AND NOSE 10/11/2012 PIERCE DIE MAKER STAMPING, MARC R 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, CHIN, AND NOSE 10/11/2012 MAGALYS ALMAGUER, BASHAR 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, CHIN, AND NOSE 10/11/2012 PIERCE DIE MAKER STAMPING, MARC R 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, CHIN, AND NOSE 10/11/2012 BARBER AUSTIN, YASMIN M 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, CHIN, AND NOSE 10/11/2012 PIERCE DAIN, MARC R 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, CHIN, AND NOSE 10/11/2012 POLO DO, MEHREEN K 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, CHIN, AND NOSE 10/11/2012 POLO DO, MEHREEN K 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, CHIN, AND NOSE 10/11/2012 BARBER TRANSMISSION REBUILDER, YASMIN M 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, CHIN, AND NOSE 10/11/2012 BARBER TRANSMISSION REBUILDER, YASMIN M 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, CHIN, AND NOSE 10/11/2012 PIERCE DAIN, MARC R 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, CHIN, AND NOSE 10/11/2012 BARBER TRANSMISSION REBUILDER, YASMIN M 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, CHIN, AND NOSE 10/11/2012 BARBER TRANSMISSION REBUILDER, YASMIN M 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, CHIN, [...] MD M 305.1 NICOTINE DEPENDENCE 10/24/2012 PIERCE DIE MAKER STAMPING, MARC R 219.9 UTERINE NEOPLASM, BENIGN 10/24/2012 PIERCE DIE MAKER STAMPING, MARC R 305.1 NICOTINE DEPENDENCE 10/24/2012 PIERCE DIE MAKER STAMPING, MARC R 219.9 UTERINE NEOPLASM, BENIGN 10/24/2012 PIERCE DIE MAKER STAMPING, MARC R 305.1 NICOTINE DEPENDENCE 10/24/2012 MELANI BURCH MEHREEN K 219.9 UTERINE NEOPLASM, BENIGN 10/24/2012 MELANI BURCH EMHREEN K 305.1 NICOTINE DEPENDENCE 10/24/2012 PIERCE DIE MAKER STAMPING, MARC R 219.9 UTERINE NEOPLASM, BENIGN 10/24/2012 PIERCE DIE MAKER STAMPING, MARC R 305.1 NICOTINE DEPENDENCE 10/24/2012 PIERCE DIE MAKER STAMPING, MARC R 219.9 UTERINE NEOPLASM, BENIGN 10/24/2012 PIERCE DIE MAKER STAMPING, MARC R 305.1 NICOTINE DEPENDENCE 10/24/2012 MAGALYS ALMAGUER, LARISA 219.9 UTERINE NEOPLASM, BENIGN 10/24/2012 LARISA DOWELL MD 305.1 NICOTINE DEPENDENCE 10/24/2012 PIERCE DIE MAKER STAMPING, MARC R 219.9 UTERINE NEOPLASM, BENIGN 10/24/2012 PIERCE DIE MAKER STAMPING, MARC R 305.1 NICOTINE DEPENDENCE 10/24/2012 YASMIN NORRIS M 219.9 UTERINE NEOPLASM, BENIGN 10/24/2012 YASMIN NORRIS M 305.1 NICOTINE DEPENDENCE 10/24/2012 PIERCE DIE MAKER STAMPING, MARC R 219.9 UTERINE NEOPLASM, BENIGN 10/24/2012 PIERCE DIE MAKER STAMPING, MARC R 305.1 NICOTINE DEPENDENCE 10/24/2012 MELANI BURCH MEHREEN K 219.9 UTERINE NEOPLASM, BENIGN 10/24/2012 MELANI BURCHNADIAA K 305.1 NICOTINE DEPENDENCE 10/24/2012 MELANI BURCH MEHREEN K 219.9 UTERINE NEOPLASM, BENIGN 10/24/2012 MELANI BURCH MEHREEN K 305.1 NICOTINE DEPENDENCE 10/24/2012 BARBER TRANSMISSION REBUILDER, YASMIN M 219.9 UTERINE NEOPLASM, BENIGN 10/24/2012 BARBER TRANSMISSION REBUILDER, YASMIN M 305.1 NICOTINE DEPENDENCE 10/24/2012 BARBER TRANSMISSION REBUILDER, YASMIN M 219.9 UTERINE NEOPLASM, BENIGN 10/24/2012 BARBER TRANSMISSION REBUILDER, YASMIN M 305.1 NICOTINE DEPENDENCE 10/24/2012 PIERCE DIE MAKER STAMPING, MARC R 219.9 UTERINE NEOPLASM, BENIGN 10/24/2012 PIERCE DIE MAKER STAMPING, MARC R 305.1 NICOTINE DEPENDENCE 10/24/2012 BARBER TRANSMISSION REBUILDER, YASMIN M 219.9 UTERINE NEOPLASM, BENIGN 10/24/2012 BARBER TRANSMISSION REBUILDER, YASMIN M 305.1 NICOTINE DEPENDENCE 10/24/2012 BARBER TRANSMISSION REBUILDER, YASMIN M 219.9 UTERINE NEOPLASM, BENIGN 10/24/2012 BARBER TRANSMISSION REBUILDER, YASMIN M 305.1 NICOTINE DEPENDENCE 10/24/2012 PIERCE DIE MAKER STAMPING, MARC R 219.9 UTERINE NEOPLASM, BENIGN 10/24/2012 PIERCE DIE MAKER STAMPING, MARC R 305.1 NICOTINE DEPENDENCE 10/24/2012 BARBER TRANSMISSION REBUILDER, YASMIN M 219.9 UTERINE NEOPLASM, BENIGN 10/24/2012 BARBER TRANSMISSION REBUILDER, YASMIN M 305.1 NICOTINE DEPENDENCE 11/15/2012 MEHREEN [...] CERVICAL CANCER SCREENING (PAP SMEAR) 11/15/2012 PIERCE DIE MAKER STAMPING, MARC R V73.81 HPV SCREENING 11/15/2012 PIERCE DIE MAKER STAMPING, MARC R V76.10 BREAST CANCER SCREENING 11/15/2012 PIERCE DIE MAKER STAMPING, MARC R V76.2 CERVICAL CANCER SCREENING (PAP SMEAR) 11/15/2012 PIERCE DIE MAKER STAMPING, MARC R V73.81 HPV SCREENING 11/15/2012 PIERCE DIE MAKER STAMPING, MARC R V76.10 BREAST CANCER SCREENING 11/15/2012 PIERCE DIE MAKER STAMPING, MARC R V76.2 CERVICAL CANCER SCREENING (PAP SMEAR) 11/15/2012 POLO DO, MEHREEN K V73.81 HPV SCREENING 11/15/2012 POLO DO, MEHREEN K V76.10 BREAST CANCER SCREENING 11/15/2012 POLO DO, MEHREEN K V76.2 CERVICAL CANCER SCREENING (PAP SMEAR) 11/15/2012 PIERCE DIE MAKER STAMPING, MARC R V73.81 HPV SCREENING 11/15/2012 PIERCE DIE MAKER STAMPING, MARC R V76.10 BREAST CANCER SCREENING 11/15/2012 PIERCE DIE MAKER STAMPING, MARC R V76.2 CERVICAL CANCER SCREENING (PAP SMEAR) 11/15/2012 PIERCE DIE MAKER STAMPING, MARC R V73.81 HPV SCREENING 11/15/2012 PIERCE DIE MAKER STAMPING, MARC R V76.10 BREAST CANCER SCREENING 11/15/2012 PIERCE DIE MAKER STAMPING, MARC R V76.2 CERVICAL CANCER SCREENING (PAP SMEAR) 11/15/2012 MAGALYS ALMAGUER, LARISA V73.81 HPV SCREENING 11/15/2012 MAGALYS ALMAGUER, LARISA V76.10 BREAST CANCER SCREENING 11/15/2012 MAGALYS ALMAGUER, LARISA V76.2 CERVICAL CANCER SCREENING (PAP SMEAR) 11/15/2012 PIERCE DIE MAKER STAMPING, MARC R V73.81 HPV SCREENING 11/15/2012 PIERCE DIE MAKER STAMPING, MARC R V76.10 BREAST CANCER SCREENING 11/15/2012 PIERCE DIE MAKER STAMPING, MARC R V76.2 CERVICAL CANCER SCREENING (PAP SMEAR) 11/15/2012 YASMIN NORRIS M V73.81 HPV SCREENING 11/15/2012 YASMIN NORRIS M V76.10 BREAST CANCER SCREENING 11/15/2012 BARBER AUSTIN, YASMIN M V76.2 CERVICAL CANCER SCREENING (PAP SMEAR) 11/15/2012 PIERCE DIE MAKER STAMPING, MARC R V73.81 HPV SCREENING 11/15/2012 PIERCE DIE MAKER STAMPING, MARC R V76.10 BREAST CANCER SCREENING 11/15/2012 PIERCE DIE MAKER STAMPING, MARC R V76.2 CERVICAL CANCER SCREENING (PAP [...] CERVICAL CANCER SCREENING (PAP SMEAR) 11/15/2012 PIERCE DIE MAKER STAMPING, MARC R V73.81 HPV SCREENING 11/15/2012 PIERCE DIE MAKER STAMPING, MARC R V76.10 BREAST CANCER SCREENING 11/15/2012 PIERCE DIE MAKER STAMPING, MARC R V76.2 CERVICAL CANCER SCREENING (PAP SMEAR) 11/15/2012 BARBER TRANSMISSION REBUILDER, YASMIN M V73.81 HPV SCREENING 11/15/2012 BARBER TRANSMISSION REBUILDER, YASMIN M V76.10 BREAST CANCER SCREENING 11/15/2012 BARBER TRANSMISSION REBUILDER, YASMIN M V76.2 CERVICAL CANCER SCREENING (PAP SMEAR) 11/15/2012 BARBER TRANSMISSION REBUILDER, YASMIN M V73.81 HPV SCREENING 11/15/2012 BARBER TRANSMISSION REBUILDER, YASMIN M V76.10 BREAST CANCER SCREENING 11/15/2012 BARBER TRANSMISSION REBUILDER, YASMIN M V76.2 CERVICAL CANCER SCREENING (PAP SMEAR) 11/15/2012 PIERCE DIE MAKER STAMPING, MARC R V73.81 HPV SCREENING 11/15/2012 PIERCE DIE MAKER STAMPING, MARC R V76.10 BREAST CANCER SCREENING 11/15/2012 PIERCE DIE MAKER STAMPING, MARC R V76.2 CERVICAL CANCER SCREENING (PAP SMEAR) 11/15/2012 BARBER TRANSMISSION REBUILDER, YASMIN M V73.81 HPV SCREENING 11/15/2012 BARBER TRANSMISSION REBUILDER, YASMIN M V76.10 BREAST CANCER SCREENING 11/15/2012 BARBER TRANSMISSION REBUILDER, YASMIN M V76.2 CERVICAL CANCER SCREENING (PAP SMEAR) 01/24/2013 465.9 UPPER RESPIRATORY INFECTION 01/24/2013 465.9 UPPER RESPIRATORY INFECTION 01/24/2013 465.9 UPPER RESPIRATORY INFECTION 01/24/2013 465.9 UPPER RESPIRATORY INFECTION 01/24/2013 DANIEL KAM MD 465.9 UPPER RESPIRATORY INFECTION 01/24/2013 DANIEL KAM MD 465.9 UPPER RESPIRATORY INFECTION 01/24/2013 PIERCE DIE MAKER STAMPING, MARC R 465.9 UPPER RESPIRATORY INFECTION 01/24/2013 PIERCE DIE MAKER STAMPING, MARC R 465.9 UPPER RESPIRATORY INFECTION 01/24/2013 MEHREEN POLO DO 465.9 UPPER RESPIRATORY INFECTION 01/24/2013 PIERCE DIE MAKER STAMPING, MARC R 465.9 UPPER RESPIRATORY INFECTION 01/24/2013 PIERCE DIE MAKER STAMPING, MARC R 465.9 UPPER RESPIRATORY INFECTION 01/24/2013 LARISA DOWELL MD 465.9 UPPER RESPIRATORY INFECTION 01/24/2013 PIERCE DIE MAKER STAMPING, MARC R 465.9 UPPER RESPIRATORY INFECTION 01/24/2013 BARBER AUSTIN, YASMIN M 465.9 UPPER RESPIRATORY INFECTION 01/24/2013 PIERCE DIE MAKER STAMPING, MARC R 465.9 UPPER RESPIRATORY INFECTION 01/24/2013 POLO DONADIAA K 465.9 UPPER RESPIRATORY INFECTION 01/24/2013 POLO DO, MEHREEN K 465.9 UPPER RESPIRATORY INFECTION 01/24/2013 BARBER TRANSMISSION REBUILDER, YASMIN M 465.9 UPPER RESPIRATORY INFECTION 01/24/2013 BARBER TRANSMISSION REBUILDER, YASMIN M 465.9 UPPER RESPIRATORY INFECTION 01/24/2013 PIERCE DIE MAKER STAMPING, MARC R 465.9 UPPER RESPIRATORY INFECTION 01/24/2013 BARBER TRANSMISSION REBUILDER, YASMIN M 465.9 UPPER RESPIRATORY INFECTION 01/24/2013 BARBER TRANSMISSION REBUILDER, YASMIN M 465.9 UPPER RESPIRATORY INFECTION 01/24/2013 PIERCE DIE MAKER STAMPING, MARC R 465.9 UPPER RESPIRATORY INFECTION 01/24/2013 BARBER TRANSMISSION REBUILDER, YASMIN M 465.9 UPPER RESPIRATORY INFECTION 01/31/2013 SADIQ ALMAGUER, SANTIAGO R Ot 840.9 01/31/2013 SADIQ ALMAGUER, SANTIAGO R Ot 959.2 01/31/2013 SADIQ ALMAGUER, SANTIAGO R Ot E000.8 01/31/2013 SADIQ ALMAGUER, SANTIAGO R Ot E849.0 01/31/2013 SADIQ ALMAGUER SANTIAGO R Ot E927.0 02/15/2013 719.41 PAIN IN [...] IN JOINT INVOLVING SHOULDER REGION 02/15/2013 BARBER TRANSMISSION REBUILDERYASMIN M 719.41 PAIN IN JOINT INVOLVING SHOULDER REGION 02/15/2013 BARBER TRANSMISSION REBUILDERYASMIN M 719.41 PAIN IN JOINT INVOLVING SHOULDER [...] V70.0 EXAM - ROUTINE H&P 01/16/2014 BARBER TRANSMISSION REBUILDER, YASMIN M 300.00 AN ANXIETY UNSPEC 01/16/2014 BARBER TRANSMISSION REBUILDER, YASMIN M V70.0 EXAM - ROUTINE H&P [...] V70.0 EXAM - ROUTINE H&P 01/16/2014 BARBER TRANSMISSION REBUILDER, YASMIN M 300.00 AN ANXIETY UNSPEC 01/16/2014 BARBER TRANSMISSION REBUILDER, YASMIN M V70.0 EXAM - ROUTINE H&P 01/16/2014 BARBER TRANSMISSION REBUILDER, YASMIN M 300.00 AN ANXIETY UNSPEC 01/16/2014 BARBER TRANSMISSION REBUILDER, YASMIN M V70.0 EXAM - ROUTINE H&P 01/16/2014 YUMIKO PELAYO APRNINA R 300.00 AN ANXIETY UNSPEC 01/16/2014 PIERCE RAMACHANDRAN MARC R V70.0 EXAM - ROUTINE H&P 01/16/2014 BARBER TRANSMISSION REBUILDER, YASMIN M 300.00 AN ANXIETY UNSPEC 01/16/2014 BARBER TRANSMISSION REBUILDER, YASMIN M V70.0 EXAM - ROUTINE H&P 01/16/2014 BARBER TRANSMISSION REBUILDER, YASMIN M 300.00 AN ANXIETY UNSPEC 01/16/2014 BARBER TRANSMISSION REBUILDER, YASMIN M V70.0 EXAM - ROUTINE H&P 01/16/2014 MARC PELAYO APRN R 300.00 AN ANXIETY UNSPEC 01/16/2014 YUMIKO PELAYO APRNINA R V70.0 EXAM - ROUTINE H&P 01/16/2014 BARBER TRANSMISSION REBUILDER, YASMIN M 300.00 AN ANXIETY UNSPEC 01/16/2014 BARBER TRANSMISSION REBUILDER, YASMIN M V70.0 EXAM - ROUTINE H&P 01/29/2014 PIERCE DIE MAKER STAMPING, MARC R 239.3 BREAST MASS 01/29/2014 PIERCE DIE MAKER STAMPING, MARC R 239.3 BREAST MASS 01/29/2014 POLO DO, MEHREEN K 239.3 BREAST MASS 01/29/2014 PIERCE DIE MAKER STAMPING, MARC R 239.3 BREAST MASS 01/29/2014 PIERCE DIE MAKER STAMPING, MARC R 239.3 BREAST MASS 01/29/2014 MAGALYS ALMAGUER, BASOLMAN 239.3 BREAST MASS 01/29/2014 PIERCE DIE MAKER STAMPING, MARC R 239.3 BREAST MASS 01/29/2014 BARBER TRANSMISSION REBUILDER, YASMIN M 239.3 BREAST MASS 01/29/2014 PIERCE DIE MAKER STAMPING, MARC R 239.3 BREAST MASS 01/29/2014 POLO DO, MEHREEN K 239.3 BREAST MASS 01/29/2014 POLO DO, MEHREEN K 239.3 BREAST MASS 01/29/2014 BARBER TRANSMISSION REBUILDER, YASMIN M 239.3 BREAST MASS 01/29/2014 BARBER TRANSMISSION REBUILDER, YASMIN M 239.3 BREAST MASS 01/29/2014 PIERCE DIE MAKER STAMPING, MARC R 239.3 BREAST MASS 01/29/2014 BARBER TRANSMISSION REBUILDER, YASMIN M 239.3 BREAST MASS 01/29/2014 BARBER TRANSMISSION REBUILDER, YASMIN M 239.3 BREAST MASS 01/29/2014 PIERCE DIE MAKER STAMPING, MARC R 239.3 BREAST MASS 01/29/2014 ABRBER TRANSMISSION REBUILDER, YASMIN M 239.3 BREAST MASS 06/06/2014 PIERCE DIE MAKER STAMPING, MARC R 784.0 HEADACHE 06/06/2014 PIERCE DIE MAKER STAMPING, MARC R 786.50 CHEST PAIN 06/06/2014 POLO DO, MEHREEN K 784.0 HEADACHE 06/06/2014 POLO DO, MEHREEN K 786.50 CHEST PAIN 06/06/2014 PIERCE DIE MAKER STAMPING, MARC R 784.0 HEADACHE 06/06/2014 PIERCE DIE MAKER STAMPING, MARC R 786.50 CHEST PAIN 06/06/2014 PIERCE DIE MAKER STAMPING, MARC R 784.0 HEADACHE 06/06/2014 PIERCE DIE MAKER STAMPING, MARC R 786.50 CHEST PAIN 06/06/2014 MAGALYS ALMAGUER, LARISA 784.0 HEADACHE 06/06/2014 MAGALYS ALMAGUER, LARISA 786.50 CHEST PAIN 06/06/2014 PIERCE DIE MAKER STAMPING, MARC R 784.0 HEADACHE 06/06/2014 PIERCE DIE MAKER STAMPING, MARC R 786.50 CHEST PAIN 06/06/2014 BARBER TRANSMISSION REBUILDER, YASMIN M 784.0 HEADACHE 06/06/2014 BARBER TRANSMISSION REBUILDER, YASMIN M 786.50 CHEST PAIN 06/06/2014 PIERCE DIE MAKER STAMPING, MARC R 784.0 HEADACHE 06/06/2014 PIERCE DIE MAKER STAMPING, MARC R 786.50 CHEST PAIN 06/06/2014 POLO DO, MEHREEN K 784.0 HEADACHE 06/06/2014 POLO DO, MEHREEN K 786.50 CHEST PAIN 06/06/2014 POLO DO, MEHREEN K 784.0 HEADACHE 06/06/2014 POLO DO, MEHREEN K 786.50 CHEST PAIN 06/06/2014 BARBER TRANSMISSION REBUILDER, YASMIN M 784.0 HEADACHE 06/06/2014 BARBER TRANSMISSION REBUILDER, YASMIN M 786.50 CHEST PAIN 06/06/2014 BARBER TRANSMISSION REBUILDER, YASMIN M 784.0 HEADACHE 06/06/2014 BARBER TRANSMISSION REBUILDER, YASMIN M 786.50 CHEST PAIN 06/06/2014 PIERCE DIE MAKER STAMPING, MARC R 784.0 HEADACHE 06/06/2014 PIERCE DIE MAKER STAMPING, MARC R 786.50 CHEST PAIN 06/06/2014 BARBER TRANSMISSION REBUILDER, YASMIN M 784.0 HEADACHE 06/06/2014 BARBER TRANSMISSION REBUILDER, YASMIN M 786.50 CHEST PAIN 06/06/2014 BARBER TRANSMISSION REBUILDER, YASMIN M 784.0 HEADACHE 06/06/2014 BARBER TRANSMISSION REBUILDER, YASMIN M 786.50 CHEST PAIN 06/06/2014 PIERCE DIE MAKER STAMPING, MARC R 784.0 HEADACHE 06/06/2014 PIERCE DIE MAKER STAMPING, MARC R 786.50 CHEST PAIN 06/06/2014 BARBER TRANSMISSION REBUILDER, YASMIN M 784.0 HEADACHE 06/06/2014 BARBER TRANSMISSION REBUILDER, YASMIN M 786.50 CHEST PAIN 06/13/2014 POLO DO, MEHREEN K V81.1 HYPERTENSION SCREENING 06/13/2014 PIERCE DIE MAKER STAMPING, MARC R V81.1 HYPERTENSION SCREENING 06/13/2014 PIERCE DIE MAKER STAMPING, MARC R V81.1 HYPERTENSION SCREENING 06/13/2014 LARISA DOWELL MD V81.1 HYPERTENSION SCREENING 06/13/2014 PIERCE DIE MAKER STAMPING, MARC R V81.1 HYPERTENSION SCREENING 06/13/2014 BARBER TRANSMISSION REBUILDER, YASMIN M V81.1 HYPERTENSION SCREENING 06/13/2014 PIERCE DIE MAKER STAMPING, MARC R V81.1 HYPERTENSION SCREENING 06/13/2014 POLO DO, MEHREEN K V81.1 HYPERTENSION SCREENING 06/13/2014 POLO DO, MEHREEN K V81.1 HYPERTENSION SCREENING 06/13/2014 YASMIN NORRIS M V81.1 HYPERTENSION SCREENING 06/13/2014 YASMIN NORRIS M V81.1 HYPERTENSION SCREENING 06/13/2014 PIERCE DIE MAKER STAMPING, MARC R V81.1 HYPERTENSION SCREENING 06/13/2014 YASMIN NORRIS M V81.1 HYPERTENSION SCREENING 06/13/2014 YASMIN NORRIS M V81.1 HYPERTENSION SCREENING 06/13/2014 PIERCE RAMACHANDRAN, MARC R V81.1 HYPERTENSION SCREENING 06/13/2014 BARBER TRANSMISSION REBUILDER, YASMIN M V81.1 HYPERTENSION SCREENING 06/13/2014 AVANI GUO APRN Ot 300.00 ANXIETY STATE NOS 06/13/2014 AVANI GUO APRN Ot 786.50 CHEST PAIN NOS 07/03/2014 YUMIKO PELAYO [facility]INA R [facility] 07/03/2014 YUMIKO PELAYO APRNINA R V04.81 FLU SHOT 07/03/2014 PIERCE RAMACHANDRAN MARC R [facility] MEDICAL RECORDS 07/03/2014 PIERCE RAMACHANDRAN MARC R V04.81 FLU SHOT 07/03/2014 LARISA DOWELL MD [facility] MEDICAL RECORDS 07/03/2014 LARISA DOWELL MD V04.81 FLU SHOT 07/03/2014 PIERCE RAMACHANDRAN, MARC R [facility] MEDICAL RECORDS 07/03/2014 PIERCE RAMACHANDRAN, MARC R V04.81 FLU SHOT 07/03/2014 [facility]AS[facility] 07/03/2014 YASMIN NORRIS V04.81 FLU SHOT 07/03/2014 PIERCE RAMACHANDRAN MARC R [facility] MEDICAL RECORDS 07/03/2014 PIERCE RAMACHANDRAN, MARC R V04.81 FLU SHOT 07/03/2014 POLO DO MEHREEN K [facility] MEDICAL RECORDS 07/03/2014 POLO DO, MEHREEN K V04.81 FLU SHOT 07/03/2014 POLO DO, MEHREEN K [facility] MEDICAL RECORDS 07/03/2014 POLO DO, MEHREEN K V04.81 FLU SHOT 07/03/2014 YASMIN [facility]IS [facility] 07/03/2014 YASMIN NORRIS V04.81 FLU SHOT 07/03/2014 YASMIN NORRIS [facility] MEDICAL RECORDS 07/03/2014 YASMIN NORRIS V04.81 FLU SHOT 07/03/2014 PIERCE DIE MAKER STAMPING, MARC R [facility] MEDICAL RECORDS 07/03/2014 PIERCE DIE MAKER STAMPING, MARC R V04.81 FLU SHOT 07/03/2014 YASMIN NORRIS [facility] MEDICAL RECORDS 07/03/2014 YASMIN NORRIS V04.81 FLU SHOT 07/03/2014 [facility] 07/03/2014 YASMIN NORRIS V04.81 FLU SHOT 07/03/2014 PIERCE DIE MAKER STAMPING, MARC R [facility] MEDICAL RECORDS 07/03/2014 PIERCE DAIN, MARC R V04.81 FLU SHOT 07/03/2014 YASMIN NORRIS [facility] MEDICAL RECORDS 07/03/2014 YASMIN NORRIS V04.81 FLU [...] KIM Ot 793.89 08/12/2014 MARC PELAYO R DIE MAKER STAMPING Ot 611.72 08/12/2014 MARC PELAYO R DIE MAKER STAMPING Ot 611.89 08/15/2014 YASMIN NORRIS 296.62 MO [...] K 300.02 AN GEN ANXIETY 08/15/2014 BARBER TRANSMISSION REBUILDER, YASMIN M 296.62 MO BIPOLAR I MIXED MODERATE 08/15/2014 BARBER TRANSMISSION REBUILDER, YASMIN M 300.02 AN GEN ANXIETY 08/15/2014 BARBER TRANSMISSION REBUILDER, YASMIN M 296.62 MO BIPOLAR I MIXED MODERATE 08/15/2014 BARBER TRANSMISSION REBUILDER, YASMIN M 300.02 AN GEN ANXIETY 08/15/2014 PIERCE RAMACHANDRAN MARC R 296.62 MO BIPOLAR I MIXED MODERATE 08/15/2014 PIERCE RAMACHANDRAN MARC R 300.02 AN GEN ANXIETY 08/15/2014 BARBER TRANSMISSION REBUILDER, YASMIN M 296.62 MO BIPOLAR I MIXED MODERATE 08/15/2014 BARBER TRANSMISSION REBUILDER, YASMIN M 300.02 AN GEN ANXIETY 08/15/2014 BARBER TRANSMISSION REBUILDER, YASMIN M 296.62 MO BIPOLAR I MIXED MODERATE 08/15/2014 BARBER TRANSMISSION REBUILDER, YASMIN M 300.02 AN GEN ANXIETY 08/15/2014 PIERCE RAMACHANDRAN, MARC R 296.62 MO BIPOLAR I MIXED MODERATE 08/15/2014 PIERCE RAMACHANDRAN MARC R 300.02 AN GEN ANXIETY 08/15/2014 BARBER TRANSMISSION REBUILDER, YASMIN M 296.62 MO BIPOLAR I MIXED MODERATE 08/15/2014 BARBER TRANSMISSION REBUILDER, YASMIN M 300.02 AN GEN ANXIETY 10/03/2014 PIERCE RAMACHANDRAN MARC R 702.0 ACTINIC KERATOSIS 10/03/2014 BARBER TRANSMISSION REBUILDER, YASMIN M 702.0 ACTINIC KERATOSIS 10/03/2014 BARBER TRANSMISSION REBUILDER, YASMIN M 702.0 ACTINIC KERATOSIS 10/03/2014 PIERCE RAMACHANDRAN MARC R 702.0 ACTINIC KERATOSIS 10/03/2014 BARBER TRANSMISSION REBUILDER, YASMIN M 702.0 ACTINIC KERATOSIS 11/01/2014 Ot V76.12 11/01/2014 Ot 241.0 11/01/2014 Ot 241.0 11/01/2014 Ot 241.1 11/01/2014 Ot 787.20 11/01/2014 Ot 241.0 11/01/2014 Ot 530.81 11/01/2014 Ot 553.3 11/01/2014 Ot 793.82 11/01/2014 Ot V76.12 11/01/2014 Ot 793.89 11/01/2014 Ot 625.9 11/01/2014 NEGIN ALMAGUER, DANIEL Tran Ot 241.1 11/01/2014 NEGIN ALMAGUER, DANIEL Tran Ot 401.1 11/01/2014 DANIEL KAM MD Ot 719.41 11/01/2014 LUPILLO KMI SUPERVISOR INSTANT POTATO PROCESSING Ot 611.71 11/01/2014 LUPILLO KIM SUPERVISOR INSTANT POTATO PROCESSING Ot 793.89 11/01/2014 MARC PELAYO DIE MAKER STAMPING Ot 611.72 11/01/2014 MARC PELAYO DIE MAKER STAMPING Ot 611.89 11/01/2014 GRACE CANDELARIO, GREG Castrejon [...] 719.41 11/03/2014 LUPILLO KIM Ot 611.71 11/03/2014 LUIPLLO KIM Ot 793.89 11/03/2014 MARC PELAYO DIE MAKER STAMPING Ot 611.72 11/03/2014 MARC PELAYO DIE MAKER STAMPING Ot 611.89 11/03/2014 Ot V76.12 11/03/2014 Ot [...] LUPILLO KIM Ot 793.89 11/03/2014 MARC PELAYO DIE MAKER STAMPING Ot 611.72 11/03/2014 MARC PELAYO DIE MAKER STAMPING Ot 611.89 11/03/2014 GREG LARA Ot 272.4 [...] LUPILLO KIM Ot 793.89 11/03/2014 MARC PELAYO DIE MAKER STAMPING Ot 611.72 11/03/2014 MARC PELAYO DIE MAKER STAMPING Ot 611.89 11/03/2014 GRACE PA, GREG K [...] 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 11/04/2014 YASMIN NORRIS 719.47 PAIN IN JOINT INVOLVING ANKLE AND FOOT 11/04/2014 MARC PELAYO APRN R 414.00 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 11/04/2014 MARC PELAYO APRN R 719.47 PAIN IN JOINT INVOLVING ANKLE AND FOOT 11/04/2014 YASMIN NORRIS 414.00 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 11/04/2014 YASMIN NORRIS 719.47 PAIN [...] KAM MD Ot 719.41 02/03/2015 LUPILLO KIM SUPERVISOR INSTANT [employer]OTAT[employer] PROCESSING Ot 611.71 02/03/2015 LUPILLO KIM SUPERVISOR INSTANT POTATO PROCESSING Ot 793.89 02/03/2015 MARC PELAYO DIE MAKER STAMPING Ot 611.72 02/03/2015 MARC PELAYO DIE MAKER STAMPING Ot 611.89 02/03/2015 GRACE PA, GREG K [...] GREG K Ot 272.4 02/10/2015 STUART-ROB PA, GERG K Ot 305.1 02/10/2015 STUART-ROB PA, GREG K Ot 401.1 02/10/2015 STUART-ROB PA, GREG K Ot 786.50 02/10/2015 MAGALYS ALMAGUER, LARISA Morgan Ot 272.4 02/10/2015 MAGALYS ALMAGUER, LARISA Morgan Ot 414.00 02/10/2015 MAGALYS ALMAGUER, LARISA Morgan Ot 496 02/10/2015 LARISA DOWELL MD Ot 786.09 Procedures Code Description [place] [address] ROUTINE VENIPUNCTURE 07/13/2012 07049 URINE DRUG SCREEN (IN-HOUSE ) 07/13/2012 31127 A1C (IN-HOUSE) 07/13/2012 69045 CBC 07/13/2012 59667 LIPID PANEL 07/13/2012 63641 CMP 07/13/2012 6993177 GFR CALC (RESULT ONLY) 07/13/2012 80714 LH 07/14/2012 47360 T4 FREE 07/14/2012 87889 T3 TOTAL 07/14/2012 39032 FSH 07/14/2012 29230 TSH 07/14/2012 07816 FNA W/IMAGE 07/17/2012 47643 TRIGGER POINT INJ/3 MUS 07/17/2012 98599 BARIUM SWALLOW XRAY 07/17/2012 25245 US THYROID ULTRASOUND 07/17/2012 L3040 FT ARCH SUPRT PREMOLD LONGIT 07/17/2012 33778 ESTROGEN 07/18/2012 01051 MAMMOGRAM DX, RIGHT 09/12/2012 60452 URINE DRUG SCREEN (IN-HOUSE ) 09/21/2012 19880 URINE DRUG SCREEN (IN-HOUSE ) 09/21/2012 36651 US PELVIC COMPL (REFLEX CPT - 07054) 09/25/2012 94324 URINE DRUG SCREEN (IN-HOUSE ) 09/25/2012 29079 BIOPSY SKIN (EACH ADD'L) 10/12/2012 80519 BIOPSY SKIN LESION (SINGLE) 10/18/2012 FITZE Mayra Mcdaniel 10/25/2012 83337 URINE DRUG SCREEN (IN-HOUSE ) 11/15/2012 31645 PAP SMEAR 11/16/2012 Q0091 PAP SMEAR OBTAIN SMEAR 11/16/2012 ORTHOPEDI RevealAndrey 05/07/2013 17071 URINE DRUG SCREEN (IN-HOUSE ) 05/29/2013 34985 URINE DRUG SCREEN (IN-HOUSE ) 05/29/2013 20228 US GUIDE FOR BIOPSY 01/17/2014 63369 MAMMOGRAM DX, LEFT 01/17/2014 61236 [employer] 01/20/2014 22063 MAMMOGRAM DX, YUMIKO 01/21/2014 14961 BIOPSY OF BREAST, OPEN 01/29/2014 78683 ROUTINE VENIPUNCTURE 06/06/2014 04501 XRAY CHEST 2 VIEW 06/06/2014 87153 EKG, TRACING 06/06/2014 2042346 GFR CALC (RESULT ONLY) 06/06/2014 54721 CMP 06/06/2014 02071 LIPID PANEL 06/06/2014 45567 MAGNESIUM 06/06/2014 32670 CBC 06/06/2014 71406 TSH 06/06/2014 BLOOD PRESSURE CHECK 06/13/2014 18032 NUCLEAR STRESS TESTING 08/01/2014 14997 ECHO 2D 08/01/2014 01052 LIVER PANEL (LFT) 09/10/2014 13163 VALPROIC ACID / DEPAKOTE 09/10/2014 31139 PSYCH DIAG EVAL W/MED SRVCS 09/10/2014 BLOOD PRESSURE CHECK 09/10/2014 BLOOD PRESSURE CHECK 09/17/2014 00956 LIVER PANEL (LFT) 09/25/2014 84298 VALPROIC ACID / DEPAKOTE 09/25/2014 74567 PSYCH DIAG EVAL W/MED SRVCS 09/25/2014 61808 UA W/ CULTURE IF INDICATED 12/19/2014 Results There is no data. Encounters ACCT No. Visit Date/Time Discharge Status Pt. Type Provider Facility Loc./Unit Complaint [id number] 12/01/2014 07:22:00 12/01/2014 23:59:59 CLS Outpatient LARISA DOWELL MD [facility] CARD [id number] 10/14/2014 11:25:00 10/14/2014 23:59:59 CLS Outpatient GREG LARA [facility] CARD [id number] 08/19/2014 12:15:00 08/19/2014 23:59:59 CLS Preadmit GREG LARA [facility] CARD [id number] 08/13/2014 10:45:00 08/13/2014 23:59:59 CLS Outpatient GREG LARA [facility] CARD [id number] 06/13/2014 12:09:00 06/13/2014 14:27:00 DIS Emergency AVANI GUO DIE MAKER STAMPING [facility] ER CHEST PAIN ABDOMINAL PAIN [id number] 02/10/2014 10:25:00 02/10/2014 23:59:59 CLS Outpatient MARC PELAYO APRN [facility] RAD [id number] 01/21/2014 14:18:00 01/21/2014 23:59:59 CLS Outpatient LUPILLO KIM [facility] RAD [id number] 11/05/2013 11:56:00 11/05/2013 15:31:00 DIS Emergency SANTIAGO BABCOCK MD [facility] ER [id number] 04/02/2013 14:50:00 04/02/2013 23:59:59 CLS Outpatient DANIEL KAM MD [facility] RAD [id number] 01/31/2013 19:06:00 01/31/2013 21:39:00 DIS Emergency SANTIAGO BABCOCK MD [facility] ER [id number] 10/23/2017 09:21:00 Document Registration [id number] 11/09/2014 19:40:00 Document Registration [id number] 11/03/2014 11:55:00 Document Registration [id number] 11/03/2014 11:55:00 Document Registration [id number] 11/03/2014 11:55:00 Document Registration [id number] 11/03/2014 11:55:00 Document Registration [id number] 11/01/2014 22:05:00 Document Registration [id number] 10/05/2012 13:48:00 Document Registration [id number] 09/19/2012 07:38:00 Document Registration [id number] 08/24/2012 11:20:00 Document Registration [id number] 08/08/2012 08:36:00 Document Registration [id number] 08/07/2012 09:34:00 Document Registration [id number] 07/20/2012 14:19:00 Document Registration [id number] 07/04/2012 12:03:00 Document Registration [id number] 06/04/2011 15:05:00 Document Registration [id number] 03/09/2011 12:45:00 Document Registration [id number] 11/29/2010 11:41:00 Document Registration [id number] 11/11/2010 04:00:00 Document Registration [id number] 01/15/2010 14:28:00 Document Registration [id number] 12/19/2014 13:17:00 12/19/2014 23:59:59 CLS Outpatient MARC PELAYO APRN [id number] 12/05/2014 09:58:00 12/05/2014 23:59:59 CLS Outpatient YASMIN NORRIS [id number] 12/05/2014 09:58:00 12/05/2014 23:59:59 CLS Outpatient YASMIN NORRIS [id number] 10/22/2014 11:11:00 10/22/2014 23:59:59 CLS Outpatient YASMIN NORRIS [id number] 10/03/2014 08:48:00 10/03/2014 23:59:59 CLS Outpatient MARC PELAYO APRN R [id number] 09/17/2014 10:06:00 09/17/2014 23:59:59 CLS Outpatient MELANI MEHREEN [id number] 09/10/2014 12:24:00 09/10/2014 23:59:59 CLS Outpatient POLO MEHREEN [id number] 09/10/2014 11:24:00 09/10/2014 23:59:59 CLS Outpatient YASMIN NORRIS [id number] 09/03/2014 08:35:00 09/03/2014 23:59:59 CLS Outpatient MARC PELAYO APRN R [id number] 08/15/2014 08:38:00 08/15/2014 23:59:59 CLS Outpatient YASMIN NORRIS [id number] 08/15/2014 08:38:00 08/15/2014 23:59:59 CLS Outpatient YASMIN NORRIS [id number] 08/05/2014 10:49:00 08/05/2014 23:59:59 CLS Outpatient MARC PELAYO APRN R [id number] 08/01/2014 09:53:00 08/01/2014 23:59:59 CLS Outpatient MAGALYS ALMAGUER, LARISA [id number] 07/03/2014 11:18:00 07/03/2014 23:59:59 CLS Outpatient PIERCE DAIN MARC R [id number] 06/13/2014 09:36:00 06/13/2014 23:59:59 CLS Outpatient MEHREEN POLO DO [id number] 06/06/2014 08:11:00 06/06/2014 23:59:59 CLS Outpatient MARC PELAYO APRN R [id number] 01/16/2014 13:13:00 01/16/2014 23:59:59 CLS Outpatient MARC PELAYO APRN R [id number] 01/16/2014 13:13:00 01/16/2014 23:59:59 CLS Outpatient PIERCE RAMACHANDRAN MARC Cameron [id number] 06/28/2013 10:42:00 06/28/2013 23:59:59 CLS Outpatient DANIEL KAM MD [id number] 05/29/2013 16:01:00 05/29/2013 23:59:59 CLS Outpatient DANIEL KAM MD [id number] 11/15/2012 10:05:00 11/15/2012 23:59:59 CLS Outpatient MEHREEN POLO DO [id number] 10/24/2012 13:59:00 10/24/2012 23:59:59 CLS Outpatient SABINA POWELL MD [id number] 10/11/2012 13:37:00 10/11/2012 23:59:59 CLS Outpatient STUART MAC APRN [id number] 09/25/2012 14:38:00 09/25/2012 23:59:59 CLS Outpatient SABINA POWELL MD [id number] 09/17/2012 00:00:00 09/17/2012 23:59:59 CLS Outpatient SABINA POWELL MD [id number] 08/15/2012 13:34:00 08/15/2012 23:59:59 [place] [id number] 07/13/2012 10:10:00 07/13/2012 23:59:59 CLS Outpatient SABINA POWELL MD [id number] 04/26/2013 11:16:00 Document Registration [id number] 03/26/2013 12:59:00 Document Registration [id number] 02/15/2013 09:57:00 Document Registration [id number] 01/24/2013 12:42:00 Document Registration [id number] 01/15/2013 15:35:00 Document Registration
[2017-11-01] MEDS ORDERED: HEParin (CATH LAB) 2,000 ML IV ONE (08:58)
[2017-11-01] MEDS ORDERED: NS IV 1000 ML 1,000 ML ONE (08:58)
[2017-11-01] MEDS ORDERED: LIDOCAINE 1% INJ 50 ML (XYLOCAINE) VIAL ONE (08:58)
[2017-11-01] MEDS ORDERED: NS IV 1000 ML 1,000 ML IV SCH ×3 (09:03→12:24)
--- NOTE | 2017-11-01 09:32 | Diagnostic Imaging Report ---
INDICATION: Chest pain and coronary artery disease. Single view of the chest was obtained with comparison made to study of 10/22/2017. FINDINGS: Heart size and pulmonary vascularity are within normal limits, and the lungs are clear, bilaterally. IMPRESSION: Unremarkable chest. Dictated by: Dictated on workstation # [id number]
[2017-11-01 09:44] LABS: HEMOGLOBIN 16.4 G/DL (11.5-16.0); RED BLOOD COUNT 4.89 10^6/uL (4.35-5.85); RED CELL DISTRIBUTION WIDTH 12.2 % (10.0-14.5); WHITE BLOOD COUNT 10.4 10^3/uL (4.3-11.0)
[2017-11-01 09:53] LABS: INR 0.9 (0.8-1.4); PROTHROMBIN TIME PATIENT 12.6 SEC (12.2-14.7)
[2017-11-01] MEDS ORDERED: INFLUENZA TRIvalent 2017-2018 0.5 ML/45 MCG SYR IM ONE (10:00)
[2017-11-01 10:03] LABS: ALBUMIN 4.5 GM/DL (3.2-4.5); BILIRUBIN,TOTAL 0.5 MG/DL (0.1-1.0); CREATININE SERUM 1.06 MG/DL (0.60-1.30); POTASSIUM 3.8 MMOL/L (3.6-5.0); TOTAL PROTEIN 8.1 GM/DL (6.4-8.2)
[2017-11-01] MEDS ORDERED: ASPI-983 PO (10:13)
[2017-11-01] MEDS ORDERED: ATOR10TA PO (10:13)
[2017-11-01] MEDS ORDERED: BUPR150T7 PO (10:13)
[2017-11-01] MEDS ORDERED: NITR0.4T39 SL (10:16)
[2017-11-01] MEDS ORDERED: methylPREDNISolone 125 MG (Solu-MEDROL) VIAL ONE (11:11)
[2017-11-01] MEDS ORDERED: diphenhydrAMINE 50 MG/ML INJ (BENADRYL) ONE (11:28)
[2017-11-01] MEDS ORDERED: MIDAZOLAM 5 MG/5 ML (VERSED) VIAL ONE (11:49)
--- NOTE | 2017-11-01 12:26 | Discharge Inst-Post CATH ---
Discharge Inst-CATH Post Cardiac Cath D/C Inst Follow Up/Plan Appointment with Dr. Lucas's office in 4 weeks CARDIAC CATH DISCHARGE INSTRUCTIONS *Hold Metformin for 48 hours post heart cath. ACTIVITY * Go Home directly and rest. * Limit activity of the leg (or wrist if it was used) for 7 days including aerobics, swimming, jogging, bicycling, etc. * Restrict stair-climbing for 7 days if possible, if not, climb up with your non -cath leg, then bring together on the same step. * Avoid lifting, pushing, pulling or excessive movement of the affected extremity for 7 days. * Customary sexual activity may be resumed after 2 days-use caution not to use a position that strains or causes pain to the affected extremity. * No driving for 24 hours. * NO SMOKING. * Avoid straining for bowel movements for 7 days. * Gentle walking on level ground is allowed. * Returning to work will depend on the type of procedure and the results. Your doctor will discuss this with you. CALL YOUR DOCTOR FOR ANY OF THE FOLLOWING: *If bleeding from the puncture site occurs- Apply gentle pressure to site with clean cloth and call your doctor or EMS. * If a knot or lump forms under the skin, increases in size, or causes pain. * If bruising appears to be worsening or moving further down your leg instead of disappearing. * Temperature above 101 F. CARE OF YOUR GROIN INCISION; * Bruising or purple discoloration of the skin near the puncture site is common. * You may shower only, no bathtub bathing for 5 days. Be careful to avoid slipping as your leg may feel stiff. * If a closure device was used on your femoral artery, please see the attached guide regarding care of the device and your leg. * REMOVE the dressing from your groin the next day after your procedure in the shower. CARE OF YOUR WRIST INCISION; * Bruising or purple discoloration of the skin near the puncture site is common. * You may shower. * DO NOT submerge wrist. * Remove dressing in 24 hours. LARISA LUCAS MD Nov 01, 2017 12:26
[2017-11-01] MEDS ORDERED: PATIENT MAY USE OWN MEDS, ALL PO SCH (12:30)
--- NOTE | 2017-11-01 12:41 | Cardiac Cath Report ---
Cardiac Cath Report Physician (s)/[employer] (s) Physician LARISA DOWELL MD Pre-Procedure Diagnosis Pre-Procedure Diagnosis: Coronary artery disease Post-Procedure Note Procedure Start Date: Nov 01, 2017 Name of Procedure: Left heart catheterization Findings/Procedure Note PROCEDURE NOTE: After explaining the procedure to the patient, all pros and cons were explained, all questions were answered. The patient signed the consent and then she was placed on the cardiac catheterization laboratory. The patient was placed on the cardiac catheterization laboratory. Groin was prepped SL fashion local anesthesia was used. Sheath placed in the right femoral artery. Luis Felipe right and left catheter were used to access the coronary system. Luis Felipe right was used to access the left ventricular cavity. Pressure was measured, pullback LV to aorta was done At the end of the procedure the sheath was removed. Closure device was used FINDINGS: Hemodynamics LV 124/12, end-diastolic pressure of 12 Aorta 119/76 mean of 69 ANATOMY: Left Main is free of obstructive disease Left Anterior Descending has ostial/proximal 40-50 percent stenosis nonobstructive disease no change from previous study, mild disease at the midportion Left Circumflex a small to moderate in size with no obstructive disease Right Coronory Artery is moderate in size with mild disease or disease LV Gram was not done, pressure was measured CONCLUSION: [id number] coronary artery disease nonobstructive disease, no change compared to the previous study Normal left ventricular end-diastolic pressure DISCUSSION AND RECOMMENDATION: Continue to maximize medical therapy no intervention is warranted. Abnormal stress test is probably due to extracardiac attenuation Anesthesia Type: Conscious Sedation Estimated blood loss (mL): 10 ml Contrast Amount: 25 ml Total Radiation Dose: 224 mGy Post-Procedure Diagnosis Post-operative diagnosis: Coronary artery disease Hypertension Hyperlipidemia Chest pain nonspecific etiology LARISA DOWELL MD Nov 01, 2017 12:41
== END 2017-11-01 17:00 | disposition home or self-care (01) ==
LOC: CATH 08:33 → SURG 13:25 → CATH 17:00
PROVIDERS: ATTEND Internal Medicine Cardiovascular Disease
DX: I25.10 Atherosclerotic heart disease of native coronary artery without angina pectoris (principal); I10 Essential (primary) hypertension; E78.5 Hyperlipidemia, unspecified; R07.9 Chest pain, unspecified; E05.90 Thyrotoxicosis, unspecified without thyrotoxic crisis or storm; Z79.899 Other long term (current) drug therapy; Z87.891 Personal history of nicotine dependence; Z11.2 Encounter for screening for other bacterial diseases
CPT/HCPCS: 36415; 71045; 80053; 80061; 85027; 85610; 85730; 87081; 93458

== ENCOUNTER → 2017-11-06 | Outpatient (CLI) | payer SELFPAY ==
[~2017-11-06] MED LIST changes: +ASPI-983 PO; +BUPR150T7 PO; +NITR0.4T39 SL
--- NOTE | 2017-11-06 12:47 | Diagnostic Imaging Report ---
PROCEDURE: US Thyroid. TECHNIQUE: Multiple Real-time grayscale images were obtained of the thyroid in various projections. INDICATION: Bilateral thyroid nodules. The patient presents for followup. COMPARISON: Thyroid ultrasound dating back to 07/20/2012. FINDINGS: The right lobe of the thyroid measures 5.3 x 2.1 x 2.3 cm and the left lobe measures 4.5 x 1.7 x 1.3 cm. The partially calcified hypoechoic nodule in the mid left lobe measures approximately 8 x 10 x 8 mm, stable when compared with the prior exam. The nodule in the lower pole of the left lobe is not as well-seen on today's study. Multiple solid masses in the right lobe are again noted. A solid mass in the inferior aspect of the right lobe does show some enlargement since the prior exam, now measuring 2.7 x 1.8 x 3.0 cm. This compares with 1.8 x 1.8 x 3.0 cm. A mixed solid and cystic mass in the upper pole of the right lobe appears similar; however, this was not measured on the current exam. IMPRESSION: Stable left lobe thyroid nodule. There has been a mild increase in the size of the solid mass in the lower pole of the right lobe when compared with the prior study from July 2012. Tissue sampling of the lower pole nodule could be performed, if not already performed. Dictated by: Dictated on workstation # [id number]
== END ==
LOC: RAD 10:44
PROVIDERS: ATTEND Nurse Practitioner Family
DX: E04.2 Nontoxic multinodular goiter (principal); R94.6 Abnormal results of thyroid function studies
CPT/HCPCS: 76536

== ENCOUNTER → 2017-11-17 | Outpatient (CLI) | payer SELFPAY ==
[~2017-11-17] VITALS: Ht 165.1 cm; Wt 75.7 kg
[~2017-11-17] MED LIST changes: +LIDOCAINE 1% INJ 50 ML (XYLOCAINE) VIAL IJ ONE
[2017-11-17 12:30] VITALS: BP 127/71
[2017-11-17 13:06] VITALS: BP 129/84
--- NOTE | 2017-11-17 14:54 | Diagnostic Imaging Report ---
INDICATION: Right thyroid mass. Patient presents for ultrasound-guided biopsy. PROCEDURE: The patient was brought to the procedure room and placed on the table in the supine position. Ultrasound imaging over the neck was performed to evaluate appropriate entry site. The neck was then prepped and draped in usual sterile fashion. Small amount of 1% lidocaine was utilized for local anesthesia. A total of three passes were made with 25-gauge needle into the mixed solid and cystic mass in the lower pole of right lobe and fine-needle aspiration was performed. In addition, a total of four passes were made with a 20-gauge Temno and core biopsies were obtained. Hemostasis was obtained using manual compression. The patient tolerated the procedure well and left the department in stable condition. IMPRESSION: Ultrasound-guided fine needle aspiration and core biopsy of the mixed solid and cystic mass lower pole right lobe of the thyroid, as described. Pathology results are currently pending. Dictated by: Dictated on workstation # [id number]
== END ==
LOC: RAD 12:08
PROVIDERS: ATTEND Nurse Practitioner Family
DX: E04.1 Nontoxic single thyroid nodule (principal)
CPT/HCPCS: 76942

== ENCOUNTER 2019-01-05 07:35 | Observation (INO) | payer SELFPAY ==
[~2019-01-05] VITALS: Ht 165.1 cm; Wt 85.7 kg
[2019-01-05] VITALS (13 sets, daily range): BP systolic 122–174; BP diastolic 82–137
[~2019-01-05 07:35] MED LIST changes: -LIDOCAINE 1% INJ 50 ML (XYLOCAINE) VIAL IJ ONE
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
--- OUTSIDE RECORDS SUMMARY | 2019-01-05 07:41 | XMS REPORT | Clinical Summary ---
Author Author [facility] Organization [facility] Address Unknown Phone Unavailable Care Team Providers Care Retail Route Supervisor Name Role Phone PCP Unavailable Source Comments Some departments are not documenting in the electronic medical record. If you do not see the information that you expected, contact Release of Information in the Health Information Management department at [phone] for further assistance in locating additional records.[facility] Allergies Comments Active Allergy Reactions Severity Noted Date Allergy recorded in SMS: Tape Adhesive Tape 12/31/2005 Allergy recorded in SMS: Codeine~Reactions: HIVES Codeine Medium 12/31/2005 Medications Not on file Active Problems Not on file Social History Date Tobacco Use Types Packs/Day Years Used Never Assessed Sex Assigned at Date Recorded Not on file Industry Job Start Date Occupation Not on file Not on file Not on file Travel End Travel History Travel Start No recent travel history available. Last Filed Vital Signs Not on file Plan of Treatment Health Maintenance Due Date Last Done Comments PHYSICAL (COMPREHENSIVE) 1974 EXAM HIV SCREENING 1982 DTAP/TDAP VACCINES (1 - 1985 Tdap) CERVICAL CANCER SCREENING 1997 BREAST CANCER SCREENING 2007 COLORECTAL CANCER 2017 SCREENING SHINGLES RECOMBINANT 2017 VACCINE (1 of 2) INFLUENZA VACCINE 04/11/2019 Results Not on filefrom Last 3 Months
[2019-01-05] MEDS ORDERED: NITROGLYCERIN 0.4 MG SL TABS BTL 25'S SL ONE (07:42)
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
[2019-01-05] MEDS ORDERED: ASPIRIN 81 MG CHEW (CHILDREN'S ASA) ONE (07:43)
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
[2019-01-05] MEDS ORDERED: NITROGLYCERIN 0.4 MG SL TABS BTL 25'S SL PRN ×2 (07:45→10:30)
[2019-01-05] MEDS ORDERED: ASPIRIN 81 MG CHEW (CHILDREN'S ASA) PO ONE (07:45)
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
--- NOTE | 2019-01-05 07:47 | ED Chest Pain ---
General Stated Complaint: CP Source: patient Exam Limitations: no limitations History of Present Illness Date Seen by Provider: Jan 05, 2019 Time Seen by Provider: 07:39 Initial Comments The patient presents to the ER by private conveyance with chief complaint that about 4:30, 3 hours prior to arrival she began to experience severe chest pain about a 7 out of 10 in the center of her chest radiating towards her back. He has a history of coronary disease with a 60% stenosis but no stent placed on cardiac catheterization [address] Lucas[address] She's not having shortness of breath that she has having nausea and sweats. She took one dose of her nitroglycerin and that made the pain go away for a while but then the pain has come back since then and she still has a headache. He has not having any swelling in her hands or feet, orthopnea or shortness of breath. 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 She denies using recreational drugs recently with her last use of opiates being 3-1/ 2 years ago. She smokes about half pack cigarettes per day. She does not drink alcohol. She does not have diabetes, hypothyroidism but she does have high cholesterol and high blood pressure. She took her morning medicines already. She does take aspirin daily. She is having no pain in her daughter neck but she has a tingling in her left arm. Allergies and Home Medications Allergies Coded Allergies: Iodinated Contrast- Oral and IV Dye (Unverified Allergy, Intermediate, RASH, 11/01/17) morphine (Verified Adverse Reaction, Unknown, 01/05/19) Home Medications Aspirin 81 Mg Tablet.dr, 81 MG PO DAILY, (Reported) Atorvastatin Calcium 10 Mg Tablet, 10 MG PO DAILY, (Reported) Bupropion HCl 150 Mg Tab.er.24h, 150 MG PO DAILY, (Reported) Buspirone HCl 10 Mg Tablet, 10 MG PO TID, (Reported) Cetirizine HCl 10 Mg Tablet, 10 MG PO DAILY, (Reported) Chlorthalidone 25 Mg Tablet, 25 MG PO DAILY, (Reported) Clonidine HCl 0.1 Mg Tablet, 0.1 MG PO BID, (Reported) Gabapentin 300 Mg Capsule, 300 MG PO HS, (Reported) Ginseng 100 Mg Capsule, 100 MG PO DAILY, (Reported) Lisinopril 10 Mg Tablet, 10 MG PO DAILY, (Reported) LAST FILLED 08/14/17 #49 Metoprolol Succinate 25 Mg Tab.er.24h, 25 MG PO DAILY, (Reported) Nitroglycerin 0.4 Mg Tab.subl, 0.4 MG SL UD PRN for CHEST PAIN, (Reported) Vitamin B Complex 1 Each Tablet, 1 TAB PO DAILY, (Reported) Patient Home Medication List Home Medication List Reviewed: Yes Review of Systems Review of Systems Constitutional: No chills, No diaphoresis EENTM: No Blurred Vision, No Double Vision Respiratory: Denies Cough, Denies Shortness of Air Cardiovascular: Denies Chest Pain, Denies Edema Gastrointestinal: Denies Constipated, Denies Diarrhea; Nausea; Denies Vomiting Genitourinary: Denies Burning, Denies Discharge Musculoskeletal: No back pain, No joint pain Skin: No pruritus, No rash Past Yfkjtcp-Ductur-Ounbps Hx Patient Social History Alcohol Use: Denies Use Recreational Drug Use: Yes Drug of Choice: Hx opiates Smoking Status: Current Everyday Smoker Type Used: Cigarettes Recent Foreign Travel: No Contact w/Someone Who Travel: No Recent Hopitalizations: No Immunizations Up To Date Date of Pneumonia Vaccine: Jun 12, 2014 Date of Influenza Vaccine: Jun 12, 2014 Seasonal Allergies Seasonal Allergies: Yes Past Medical History Surgeries: Yes (SKIN GRAFTS, TUBAL LIGATION) Tubal Ligation Respiratory: No COPD Cardiac: Yes (ACS) High Cholesterol, Hypertension Neurological: No Headaches /Migraines Reproductive Disorders: Yes (HAD A PRIOR ABLATION? FOR FOR HEAVY PEERIODS) Female Reproductive Disorders: Menstrual Problems Genitourinary: No Gastrointestinal: Yes Gastroesophageal Reflux, Chronic Constipation Musculoskeletal: Yes (CHRONIC PAIN FROM PARRY) Arthritis Endocrine: Yes (nodules on thyroid) HEENT: No Cancer: No Psychosocial: Yes Anxiety, Bipolar, Depression Integumentary: No Blood Disorders: No Adverse Reaction/Blood Tranf: No Family Medical History Diabetes mellitus 19 FATHER Myocardial infarction 19 FATHER Psychosocial problem 19 MOTHER Schizophrenia 19 MOTHER CAD Over 55 Years Old, Diabetes, Psychiatric Problems Physical Exam Vital Signs Vital Signs - First Documented 01/05/19 07:35 Temp 97.8 Pulse 94 Resp 12 B/P (MAP) 168/114 (132) Pulse Ox 100 O2 Delivery Room Air Capillary Refill : Height, Weight, BMI Height: 5'5.00" Weight: 167lbs. 0.0oz. 75.389078ur; 27.8 BMI Method:Stated General Appearance: Anxious, Mild Distress HEENT: PERRL/EOMI, Pharynx Normal, Moist Mucous Membranes Neck: Full Range of Motion, Normal Inspection Respiratory: No Chest Non Tender; Lungs Clear, Normal Breath Sounds, No Accessory Muscle Use, No Respiratory Distress, Other (chest michelle re-creates the same pain she is complaining of) Cardiovascular: Regular Rate, Rhythm, No Edema, Normal Peripheral Pulses Extremity: Normal Capillary Refill, Normal Inspection Neurologic/Psychiatric: Alert, Oriented x3 Skin: Normal Color, Warm/Dry Progress/Results/Core Measures Results/Orders Lab Results Laboratory Tests Test 01/05/19 07:47 Range/Units White Blood Count 13.9 H 4.3-11.0 10^3/uL Red Blood Count 4.82 4.35-5.85 10^6/uL Hemoglobin 15.5 11.5-16.0 G/DL Hematocrit 45 35-52 % Mean Corpuscular Volume 94 80-99 FL Mean Corpuscular Hemoglobin 32 25-34 PG Mean Corpuscular Hemoglobin Concent 34 32-36 G/DL Red Cell Distribution Width 13.7 10.0-14.5 % Platelet Count 310 130-400 10^3/uL Mean Platelet Volume 11.9 H 7.4-10.4 FL Neutrophils (%) (Auto) 67 42-75 % Lymphocytes (%) (Auto) 21 12-44 % Monocytes (%) (Auto) 5 0-12 % Eosinophils (%) (Auto) 7 0-10 % Basophils (%) (Auto) 1 0-10 % Neutrophils # (Auto) 9.3 H 1.8-7.8 X 10^3 Lymphocytes # (Auto) 2.9 1.0-4.0 X 10^3 Monocytes # (Auto) 0.7 0.0-1.0 X 10^3 Eosinophils # (Auto) 1.0 H 0.0-0.3 10^3/uL Basophils # (Auto) 0.1 0.0-0.1 10^3/uL Prothrombin Time 13.3 12.2-14.7 SEC INR Comment 1.0 0.8-1.4 Activated Partial Thromboplast Time 28 24-35 SEC Sodium Level 141 135-145 MMOL/L Potassium Level 4.1 3.6-5.0 MMOL/L Chloride Level 106 98-107 MMOL/L Carbon Dioxide Level 20 L 21-32 MMOL/L Anion Gap 15 H 5-14 MMOL/L Blood Urea Nitrogen 15 7-18 MG/DL Creatinine 0.94 0.60-1.30 MG/DL Estimat Glomerular Filtration Rate > 60 BUN/Creatinine Ratio 16 Glucose Level 93 70-105 MG/DL Calcium Level 10.3 H 8.5-10.1 MG/DL Corrected Calcium 8.5-10.1 MG/DL Magnesium Level 3.0 H 1.8-2.4 MG/DL Total Bilirubin 0.2 0.1-1.0 MG/DL Aspartate Amino Transf (AST/SGOT) 37 H 5-34 U/L Alanine Aminotransferase (ALT/SGPT) 30 0-55 U/L Alkaline Phosphatase 88 40-136 U/L Myoglobin 46.7 10.0-92.0 NG/ML Troponin I < 0.028 <0.028 NG/ML B-Type Natriuretic Peptide 18.4 <100.0 PG/ML Total Protein 9.0 H 6.4-8.2 GM/DL Albumin 4.8 H 3.2-4.5 GM/DL Lipase 21 8-78 U/L My Orders Orders - JNTHAO J Ekg Tracing (01/05/19 07:37) Continuous Ekg Monitoring (01/05/19 07:37) Cbc With Automated Diff (01/05/19 07:43) Magnesium (01/05/19 07:43) Chest 1 View, Ap/Pa Only (01/05/19 07:43) Cardiac Profile 1 (01/05/19 07:43) Comprehensive Metabolic Panel (01/05/19 07:43) Myoglobin Serum (01/05/19 07:43) Protime With Inr (01/05/19 07:43) Partial Thromboplastin Time (01/05/19 07:43) O2 (01/05/19 07:43) Lipid Panel (01/06/19 06:00) Ed Iv/Invasive Line Start (01/05/19 07:43) Lipase (01/05/19 07:43) BNP (01/05/19 07:43) Nitroglycerin 0.4 Mg Btl 25's (Nitrostat (01/05/19 07:45) Aspirin Chewable Tablet (Baby Aspirin Ch (01/05/19 07:45) Nitroglycerin 0.4 Mg Btl 25's (Nitrostat (01/05/19 07:42) Aspirin Chewable Tablet (Baby Aspirin Ch (01/05/19 07:43) Ondansetron Injection (Zofran Injectio (01/05/19 08:00) Medications Given in ED Current Medications Medications Dose Ordered Sig/Bradley Route Start Time Stop Time Status Last Admin Dose Admin Aspirin 324 mg ONCE ONCE PO 01/05/19 07:45 01/05/19 07:46 DC 01/05/19 07:48 324 MG Nitroglycerin 0.4 mg UD PRN SL 01/05/19 07:45 01/05/19 07:49 0.4 MG Ondansetron HCl 4 mg ONCE ONCE IVP 01/05/19 08:00 01/05/19 08:01 DC 01/05/19 09:19 4 MG Vital Signs/I&O 01/05/19 01/05/19 07:35 07:35 Temp 97.8 Pulse 94 Resp 12 B/P (MAP) 168/114 (132) Pulse Ox 100 O2 Delivery Room Air Progress Progress Note : Time: 07:59 Progress Note Patient with a history of present with reproducible chest pain to palpation but radiating to the back and having some left arm tingling. Improved with initial nitroglycerin and improved to points on ER dose of nitroglycerin. We gave him aspirin and obtained a normal looking EKG. We will obtain blood work next. Cardiac catheterization October 2017 Dr. Lucas: Mild to moderate nonobstructive coronary artery disease unchanged from previous study. Normal left ventricular end-diastolic pressure. 40-50% stenosis nonobstructive proximal/ostial LAD. ED ACS 8 points. Low risk. If the patient also has: (1) EKG without new ischemic changes and (2) negative initial and 2-hour troponins, then this patient is safe for discharge to early outpatient follow-up investigation (or proceed to earlier inpatient testing). If EKG with ischemic changes or positive troponin, they are not low risk and require normal risk stratification. Initial ECG Impression Date: Jan 05, 2019 Initial ECG Impression Time: 07:37 Initial ECG Rate: 85 Initial ECG Rhythm: Normal Sinus Initial ECG Intervals: Normal Initial ECG Impression: Normal Initial ECG Comparisson: Unchanged Comment No significant ST elevation or depression. Diagnostic Imaging Diagonstic Imaging: Xray Plain Films/CT/US/NM/MRI: chest (1v) Comments [facility], [place] NAME: PALOMA HANSON [facility] REC#: [id number] PT STATUS: REG ER : 1965 PHYSICIAN: THAO RAGSDALE MD ADMIT DATE: 01/05/19/ER Draft Date of Exam:01/05/19 CHEST 1 VIEW, AP/PA ONLY Indication: Chest pain. Comparison: None. Discussion: Single portable upright view of the chest was obtained. Normal heart size. No focal consolidation, pleural fluid, or pneumothorax. No osseous abnormality. Impression: 1. Stable negative chest. Dictated on workstation # [id number] Dict: 01/05/19820 Trans: 01/05/19828 [facility] [id number] Interpreted by: SABINA MILES MD Electronically signed by: Reviewed: Reviewed by Me Consults : Consulting Physician: DUANE BURROWS MD FACP FACC CCDS Consults Notes Negative except the patient on observation stay on his service and see her this morning. Allow her to eat and continue home medications. Departure Communication (Admissions) Time/Spoke to Admitting Phy: 09:[address] Tovar, cardiology and he agrees to observe the patient on his service. He would like her to eat and he will see her when he does his rounds today. Serial troponins, home meds etc. Impression Primary Impression: Chest pain Qualified Codes: R07.9 - Chest pain, unspecified Disposition: ADMITTED INPATIENT Condition: Stable Admissions Decision to Admit Reason: Admit from ER (General) Decision to Admit/Date: Jan 05, 2019 Time/Decision to Admit Time: 09:15 Departure-Patient Inst. Referrals: MEHREEN POLO DO (PCP) Primary Care Physician MORGAN MICHAEL APRN (Family) Primary Care Physician Copy Copies To 1: MEHREEN POLO TITUS J Jan 05, 2019 07:47
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
--- OUTSIDE RECORDS SUMMARY | 2019-01-05 07:57 | XMS REPORT | Continuity of Care Document ---
Author Organization Unknown Address Unknown Allergies Active Description Code Type Severity Reaction Onset Reported/Identified Relationship to Patient Clinical Status Yes No Known Drug Allergies [id number] Drug Allergy Mild N/A 02/05/2009 Yes IV CONTRAST IV CONTRAST Unknown HIVES 11/02/2014 Yes Iodinated Contrast- Oral and IV Dye [id number] Drug Allergy Moderate RASH 11/01/2017 Medications There is no data. Problems Date [...] POLO DO 338.4 CHRONIC PAIN SYNDROME 06/19/2009 MARC PELAYO APRN R 338.4 CHRONIC PAIN SYNDROME 06/19/2009 MARC PELAYO APRN R 338.4 CHRONIC PAIN SYNDROME 06/19/2009 LARISA DOWELL MD 338.4 CHRONIC PAIN SYNDROME 06/19/2009 PIERCE KOSHER BUTCHER, MARC R 338.4 CHRONIC PAIN SYNDROME 06/19/2009 BARBER CHAIN MAKER HAND, YASMIN M 338.4 CHRONIC PAIN SYNDROME 06/19/2009 PIERCE KOSHER BUTCHER, MARC R 338.4 CHRONIC PAIN SYNDROME 06/19/2009 POLO DO, MEHREEN K 338.4 CHRONIC PAIN SYNDROME 06/19/2009 POLO DO, MEHREEN K 338.4 CHRONIC PAIN SYNDROME 06/19/2009 BARBER CHAIN MAKER HAND, YASMIN M 338.4 CHRONIC PAIN SYNDROME 06/19/2009 BARBER CHAIN MAKER HAND, YASMIN M 338.4 CHRONIC PAIN SYNDROME 06/19/2009 PIERCE KOSHER BUTCHER, MARC R 338.4 CHRONIC PAIN SYNDROME 06/19/2009 BARBER CHAIN MAKER HAND, YASMIN M 338.4 CHRONIC PAIN SYNDROME 06/19/2009 BARBER CHAIN MAKER HAND, YASMIN M 338.4 CHRONIC PAIN SYNDROME 06/19/2009 PIERCE KOSHER BUTCHER, MARC R 338.4 CHRONIC PAIN SYNDROME 06/19/2009 BARBER CHAIN MAKER HAND, YASMIN M 338.4 CHRONIC PAIN SYNDROME 08/05/2009 [...] DIS W/O AGORA 08/05/2009 STUART MAC APRN S 296.33 MAJOR DEPRESSION RECURRENT SEVERE 08/05/2009 STUART MAC APRN S 300.01 AN PANIC DIS W/O AGORA 08/05/2009 SABINA POWELL MD 296.33 MAJOR DEPRESSION RECURRENT SEVERE 08/05/2009 SABINA POWELL MD 300.01 AN PANIC DIS W/O AGORA 08/05/2009 POLO DO MEHREEN K 296.33 MAJOR DEPRESSION RECURRENT SEVERE [...] R 296.33 MAJOR DEPRESSION RECURRENT SEVERE 08/05/2009 YUMIKO PELAYO APRNINA R 300.01 AN PANIC DIS W/O AGORA 08/05/2009 YUMIKO PELAYO APRNINA R 296.33 MAJOR DEPRESSION RECURRENT SEVERE 08/05/2009 YUMIKO PELAYO APRNINA R 300.01 AN PANIC DIS W/O AGORA 08/05/2009 POLO DO, MEHREEN K 296.33 MAJOR DEPRESSION RECURRENT SEVERE 08/05/2009 POLO DO, MEHREEN K 300.01 AN PANIC DIS W/O AGORA 08/05/2009 YUMIKO PELAYO APRNINA R 296.33 MAJOR DEPRESSION RECURRENT SEVERE 08/05/2009 YUMIKO PELAYO APRNINA R 300.01 AN PANIC DIS W/O AGORA 08/05/2009 YUMIKO PELAYO APRNINA R 296.33 MAJOR DEPRESSION RECURRENT SEVERE 08/05/2009 YUMIKO PELAYO APRNINA R 300.01 AN PANIC DIS W/O AGORA 08/05/2009 LARISA DOWELL MD 296.33 MAJOR DEPRESSION RECURRENT SEVERE 08/05/2009 LARISA DOWELL MD 300.01 AN PANIC DIS W/O AGORA 08/05/2009 YUMIKO PELAYO APRNINA R 296.33 MAJOR DEPRESSION RECURRENT SEVERE 08/05/2009 PIERCE KOSHER BUTCHER, MARC R 300.01 AN PANIC DIS W/O AGORA 08/05/2009 BARBER CHAIN MAKER HAND, YASMIN M 296.33 MAJOR DEPRESSION RECURRENT SEVERE 08/05/2009 BARBER CHAIN MAKER HAND, YASIMN M 300.01 AN PANIC DIS W/O AGORA 08/05/2009 PIERCE RAMACHANDRAN, MARC R 296.33 MAJOR DEPRESSION RECURRENT SEVERE 08/05/2009 PIERCE RAMACHANDRAN, MARC R 300.01 AN PANIC DIS W/O AGORA 08/05/2009 POLO DO, MEHREEN K 296.33 MAJOR DEPRESSION RECURRENT SEVERE 08/05/2009 POLO DO, MEHREEN K 300.01 AN PANIC DIS W/O AGORA 08/05/2009 POLO DO, MEHREEN K 296.33 MAJOR DEPRESSION RECURRENT SEVERE 08/05/2009 POLO DO, MEHREEN K 300.01 AN PANIC DIS W/O AGORA 08/05/2009 BARBER CHAIN MAKER HAND, YASMIN M 296.33 MAJOR DEPRESSION RECURRENT SEVERE 08/05/2009 BARBER CHAIN MAKER HAND, YASMIN M 300.01 AN PANIC DIS W/O AGORA 08/05/2009 BARBER CHAIN MAKER HAND, YASMIN M 296.33 MAJOR DEPRESSION RECURRENT SEVERE 08/05/2009 BARBER CHAIN MAKER HAND, YASMIN M 300.01 AN PANIC DIS W/O AGORA 08/05/2009 PIERCE RAMACHANDRAN MARC R 296.33 MAJOR DEPRESSION RECURRENT SEVERE 08/05/2009 PIERCE RAMACHANDRAN MARC R 300.01 AN PANIC DIS W/O AGORA 08/05/2009 BARBER CHAIN MAKER HAND, YASMIN M 296.33 MAJOR DEPRESSION RECURRENT SEVERE 08/05/2009 BARBER CHAIN MAKER HAND, YASMIN M 300.01 AN PANIC DIS W/O AGORA 08/05/2009 BARBER CHAIN MAKER HAND, YASMIN M 296.33 MAJOR DEPRESSION RECURRENT SEVERE 08/05/2009 BARBER CHAIN MAKER HAND, YASMIN M 300.01 AN PANIC DIS W/O AGORA 08/05/2009 PIERCE RAMACHANDRAN MARC R 296.33 MAJOR DEPRESSION RECURRENT SEVERE 08/05/2009 PIERCE RAMACHANDRAN MARC R 300.01 AN PANIC DIS W/O AGORA 08/05/2009 BARBER CHAIN MAKER HAND, YASMIN M 296.33 MAJOR DEPRESSION RECURRENT SEVERE 08/05/2009 BARBER CHAIN MAKER HANDYASMIN M 300.01 AN PANIC DIS W/O AGORA 08/25/2009 SABINA POWELL MD 401.9 Essential Hypertension 08/25/2009 SABINA POWELL MD 401.9 Essential Hypertension 08/25/2009 ANDRE ALMAGUER, SABINA 401.9 Essential Hypertension 08/25/2009 ESTEFANIA RAMACHANDRAN STUART S 401.9 Essential Hypertension 08/25/2009 SABINA POWELL MD 401.9 Essential Hypertension 08/25/2009 POLO DO, MEHREEN K 401.9 Essential Hypertension 08/25/2009 401.9 Essential Hypertension 08/25/2009 401.9 Essential Hypertension 08/25/2009 401.9 Essential Hypertension 08/25/2009 401.9 Essential Hypertension 08/25/2009 SABINA POWELL MD 401.9 Essential Hypertension 08/25/2009 401.9 Essential Hypertension 08/25/2009 NEGIN ALMAGUER, DANIEL M 401.9 Essential Hypertension 08/25/2009 NEGIN ALMAGUER, DANIEL M 401.9 Essential Hypertension 08/25/2009 PIERCE KOSHER BUTCHER, MARC R 401.9 Essential Hypertension 08/25/2009 PIERCE KOSHER BUTCHER, MARC R 401.9 Essential Hypertension 08/25/2009 POLO DO, MEHREEN K 401.9 Essential Hypertension 08/25/2009 PIERCE KOSHER BUTCHER, MARC R 401.9 Essential Hypertension 08/25/2009 PIERCE KOSHER BUTCHER, MARC R 401.9 Essential Hypertension 08/25/2009 LARISA DOWELL MD 401.9 Essential Hypertension 08/25/2009 PIERCE KOSHER BUTCHER, MARC R 401.9 Essential Hypertension 08/25/2009 BARBER CHAIN MAKER HAND, YASMIN M 401.9 Essential Hypertension 08/25/2009 PIERCE KOSHER BUTCHER, MARC R 401.9 Essential Hypertension 08/25/2009 POLO DO, MEHREEN K 401.9 Essential Hypertension 08/25/2009 POLO DO, MEHREEN K 401.9 Essential Hypertension 08/25/2009 BARBER CHAIN MAKER HAND, YASMIN M 401.9 Essential Hypertension 08/25/2009 BARBER CHAIN MAKER HAND, YASMIN M 401.9 Essential Hypertension 08/25/2009 PIERCE KOSHER BUTCHER, MARC R 401.9 Essential Hypertension 08/25/2009 BARBER CHAIN MAKER HAND, YASMIN M 401.9 Essential Hypertension 08/25/2009 BARBER CHAIN MAKER HAND, YASMIN M 401.9 Essential Hypertension 08/25/2009 PIERCE KOSHER BUTCHER, MARC R 401.9 Essential Hypertension 08/25/2009 BARBER CHAIN MAKER HAND, YASMIN M 401.9 Essential Hypertension 10/02/2009 SABINA POWELL MD V72.9 ROUTINE GENITOURINARY EXAM 10/02/2009 SABINA POWELL MD V72.9 ROUTINE GENITOURINARY EXAM 10/02/2009 SABINA POWELL MD V72.9 ROUTINE GENITOURINARY EXAM 10/02/2009 STUART MAC APRN V72.9 ROUTINE GENITOURINARY EXAM 10/02/2009 SABINA POWELL MD V72.9 ROUTINE GENITOURINARY EXAM 10/02/2009 MEHREEN POLO DO K V72.9 ROUTINE GENITOURINARY EXAM 10/02/2009 V72.9 ROUTINE GENITOURINARY EXAM 10/02/2009 V72.9 ROUTINE GENITOURINARY EXAM 10/02/2009 V72.9 ROUTINE GENITOURINARY EXAM 10/02/2009 V72.9 ROUTINE GENITOURINARY EXAM 10/02/2009 SABINA POWELL MD V72.9 ROUTINE GENITOURINARY EXAM 10/02/2009 V72.9 ROUTINE [...] NORRIS V72.9 ROUTINE GENITOURINARY EXAM 10/02/2009 PIERCE RAMACHANDRAN, MARC R V72.9 ROUTINE GENITOURINARY EXAM 10/02/2009 MEHREEN POLO DO K V72.9 ROUTINE GENITOURINARY EXAM 10/02/2009 POLO NADIA BURCHA K V72.9 ROUTINE GENITOURINARY EXAM 10/02/2009 BARBER CHAIN MAKER HAND, YASMIN M V72.9 ROUTINE GENITOURINARY EXAM 10/02/2009 BARBER CHAIN MAKER HAND, YASMIN M V72.9 ROUTINE GENITOURINARY EXAM 10/02/2009 PIERCE KOSHER BUTCHER, MARC R V72.9 ROUTINE GENITOURINARY EXAM 10/02/2009 BARBER CHAIN MAKER HAND, YASMIN M V72.9 ROUTINE GENITOURINARY EXAM 10/02/2009 BARBER CHAIN MAKER HAND, YASMIN M V72.9 ROUTINE GENITOURINARY EXAM 10/02/2009 PIERCE KOSHER BUTCHER, MARC R V72.9 ROUTINE GENITOURINARY EXAM 10/02/2009 BARBER CHAIN MAKER HAND, YASMIN M V72.9 ROUTINE GENITOURINARY EXAM 11/05/2009 SABINA POWELL MD 780.52 insomnia 11/05/2009 SABINA POWELL MD 780.52 insomnia 11/05/2009 SABINA POWELL MD 780.52 insomnia 11/05/2009 STUART MAC APRN 780.52 insomnia 11/05/2009 SABINA POWELL MD 780.52 insomnia 11/05/2009 MELANI DOMEHREEN 780.52 insomnia 11/05/2009 780.52 insomnia 11/05/2009 780.52 insomnia 11/05/2009 780.52 insomnia 11/05/2009 780.52 insomnia 11/05/2009 SABINA POWELL MD 780.52 insomnia 11/05/2009 780.52 insomnia 11/05/2009 DANIEL KAM MD 780.52 insomnia 11/05/2009 DANIEL KAM MD 780.52 insomnia 11/05/2009 PIERCE KOSHER BUTCHER, MARC R 780.52 insomnia 11/05/2009 PIERCE KOSHER BUTCHER, MARC R 780.52 insomnia 11/05/2009 POLO DONADIAA K 780.52 insomnia 11/05/2009 PIERCE KOSHER BUTCHER, MARC R 780.52 insomnia 11/05/2009 PIERCE KOSHER BUTCHER, MARC R 780.52 insomnia 11/05/2009 LARISA DOWELL MD 780.52 insomnia 11/05/2009 PIERCE KOSHER BUTCHER, MARC R 780.52 insomnia 11/05/2009 YASMIN NORRIS 780.52 insomnia 11/05/2009 PIERCE KOSHER BUTCHER, MARC R 780.52 insomnia 11/05/2009 POLO DONADIAA K 780.52 insomnia 11/05/2009 POLO DO MEHREEN K 780.52 insomnia 11/05/2009 YASMIN NORRIS M 780.52 insomnia 11/05/2009 BARBER CHAIN MAKER HAND, YASMIN M 780.52 insomnia 11/05/2009 PIERCE KOSHER BUTCHER, MARC R 780.52 insomnia 11/05/2009 BARBER [place], YASMIN M 780.52 insomnia 11/05/2009 YASMIN NORRIS M 780.52 insomnia 11/05/2009 PIERCE KOSHER BUTCHER, MARC R 780.52 insomnia 11/05/2009 BARBER [place], YASMIN M 780.52 insomnia 11/27/2009 ANDRE ALMAGUER, SABINA 461.9 SINUSITIS ACUTE 11/27/2009 ANDRE ALMAGUER, SABINA 461.9 SINUSITIS ACUTE 11/27/2009 SABINA POWELL MD 461.9 SINUSITIS ACUTE 11/27/2009 ESTEFANIA RAMACHANDRAN, STUART S 461.9 SINUSITIS ACUTE 11/27/2009 SABINA POWELL MD 461.9 SINUSITIS ACUTE 11/27/2009 MEHREEN POLO DO K 461.9 SINUSITIS ACUTE 11/27/2009 461.9 SINUSITIS ACUTE 11/27/2009 461.9 SINUSITIS ACUTE 11/27/2009 461.9 SINUSITIS ACUTE 11/27/2009 461.9 SINUSITIS ACUTE 11/27/2009 SABINA POWELL MD 461.9 SINUSITIS ACUTE 11/27/2009 461.9 SINUSITIS ACUTE 11/27/2009 DANIEL KAM MD 461.9 SINUSITIS ACUTE 11/27/2009 DANIEL KAM MD 461.9 SINUSITIS ACUTE 11/27/2009 PIERCE KOSHER BUTCHER, MARC R 461.9 SINUSITIS ACUTE 11/27/2009 PIERCE KOSHER BUTCHER, MARC R 461.9 SINUSITIS ACUTE 11/27/2009 POLO MEHREEN BURCH K 461.9 SINUSITIS ACUTE 11/27/2009 PIERCE KOSHER BUTCHER, MARC R 461.9 SINUSITIS ACUTE 11/27/2009 PIERCE KOSHER BUTCHER, MARC R 461.9 SINUSITIS ACUTE 11/27/2009 LARISA DOWELL MD 461.9 SINUSITIS ACUTE 11/27/2009 PIERCE KOSHER BUTCHER, MARC R 461.9 SINUSITIS ACUTE 11/27/2009 YASMIN NORRIS 461.9 SINUSITIS ACUTE 11/27/2009 PIERCE KOSHER BUTCHER, MARC R 461.9 SINUSITIS ACUTE 11/27/2009 POLO DO, MEHREEN K 461.9 SINUSITIS ACUTE 11/27/2009 POLO DO, MEHREEN K 461.9 SINUSITIS ACUTE 11/27/2009 BARBER CHAIN MAKER HAND, YASMIN M 461.9 SINUSITIS ACUTE 11/27/2009 BARBER CHAIN MAKER HAND, YASMIN M 461.9 SINUSITIS ACUTE 11/27/2009 PIERCE KOSHER BUTCHER, MARC R 461.9 SINUSITIS ACUTE 11/27/2009 BARBER CHAIN MAKER HAND, YASMIN M 461.9 SINUSITIS ACUTE 11/27/2009 BARBER CHAIN MAKER HAND, YASMIN M 461.9 SINUSITIS ACUTE 11/27/2009 PIERCE KOSHER BUTCHER, MARC R 461.9 SINUSITIS ACUTE 11/27/2009 BARBER CHAIN MAKER HAND, YASMIN M 461.9 SINUSITIS ACUTE 12/22/2009 ANDRE ALMAGUER, SABINA 692.9 DERMATITIS 12/22/2009 ANDRE ALMAGUER, SABINA 692.9 DERMATITIS 12/22/2009 ANDRE ALMAGUER, SABINA 692.9 DERMATITIS 12/22/2009 ESTEFANIA RAMACHANDRAN, STUART S 692.9 DERMATITIS 12/22/2009 ANDRE ALMAGUER, SABINA 692.9 DERMATITIS 12/22/2009 MEHREEN POLO DO K 692.9 DERMATITIS 12/22/2009 692.9 DERMATITIS 12/22/2009 692.9 DERMATITIS 12/22/2009 692.9 DERMATITIS 12/22/2009 692.9 DERMATITIS 12/22/2009 SABINA POWELL MD 692.9 DERMATITIS 12/22/2009 692.9 DERMATITIS 12/22/2009 DANIEL KAM MD 692.9 DERMATITIS 12/22/2009 DANIEL KAM MD 692.9 DERMATITIS 12/22/2009 PIERCE KOSHER BUTCHER, MARC R 692.9 DERMATITIS 12/22/2009 PIERCE KOSHER BUTCHER, MARC R 692.9 DERMATITIS 12/22/2009 POLO MEHREEN BURCH K 692.9 DERMATITIS 12/22/2009 PIERCE KOSHER BUTCHER, MARC R 692.9 DERMATITIS 12/22/2009 PIERCE KOSHER BUTCHER, MARC R 692.9 DERMATITIS 12/22/2009 LARISA DOWELL MD 692.9 DERMATITIS 12/22/2009 PIERCE KOSHER BUTCHER, MARC R 692.9 DERMATITIS 12/22/2009 BARBER CHAIN MAKER HAND, YASMIN M 692.9 DERMATITIS 12/22/2009 PIERCE KOSHER BUTCHER, MARC R 692.9 DERMATITIS 12/22/2009 POLO DO, MEHREEN K 692.9 DERMATITIS 12/22/2009 POLO DO, MEHREEN K 692.9 DERMATITIS 12/22/2009 BARBER CHAIN MAKER HAND, YASMIN M 692.9 DERMATITIS 12/22/2009 BARBER CHAIN MAKER HAND, YASMIN M 692.9 DERMATITIS 12/22/2009 PIERCE KOSHER BUTCHER, MARC R 692.9 DERMATITIS 12/22/2009 BARBER CHAIN MAKER HAND, YASMIN M 692.9 DERMATITIS 12/22/2009 BARBER CHAIN MAKER HAND, YASMIN M 692.9 DERMATITIS 12/22/2009 PIERCE KOSHER BUTCHER, MARC R 692.9 DERMATITIS 12/22/2009 BARBER CHAIN MAKER HAND, YASMIN M 692.9 DERMATITIS 01/11/2010 ANDRE ALMAGUER, SABINA 133.0 SCABIES 01/11/2010 ANDRE ALMAGUER, SABINA 133.0 SCABIES 01/11/2010 SABINA POWELL MD 133.0 SCABIES 01/11/2010 STUART MAC APRN 133.0 SCABIES 01/11/2010 SABINA POWELL MD 133.0 SCABIES 01/11/2010 POLO DOMEHREEN K 133.0 SCABIES 01/11/2010 133.0 SCABIES 01/11/2010 133.0 SCABIES 01/11/2010 133.0 SCABIES 01/11/2010 133.0 SCABIES 01/11/2010 SABINA POWELL MD 133.0 SCABIES 01/11/2010 133.0 SCABIES 01/11/2010 DANIEL KAM MD 133.0 SCABIES 01/11/2010 DANIEL KAM MD 133.0 SCABIES 01/11/2010 PIERCE KOSHER BUTCHER, MARC R 133.0 SCABIES 01/11/2010 PIERCE KOSHER BUTCHER, MARC R 133.0 SCABIES 01/11/2010 POLO DO, MEHREEN K 133.0 SCABIES 01/11/2010 PIERCE KOSHER BUTCHER, MARC R 133.0 SCABIES 01/11/2010 PIERCE KOSHER BUTCHER, MARC R 133.0 SCABIES 01/11/2010 MAGALYS ALMAGUER, LARISA 133.0 SCABIES 01/11/2010 PIERCE KOSHER BUTCHER, MARC R 133.0 SCABIES 01/11/2010 BARBER CHAIN MAKER HAND, YASMIN M 133.0 SCABIES 01/11/2010 PIERCE KOSHER BUTCHER, MARC R 133.0 SCABIES 01/11/2010 POLO DO, MEHREEN K 133.0 SCABIES 01/11/2010 POLO DO, MEHREEN K 133.0 SCABIES 01/11/2010 BARBER CHAIN MAKER HAND, YASMIN M 133.0 SCABIES 01/11/2010 BARBER CHAIN MAKER HAND, YASMIN M 133.0 SCABIES 01/11/2010 PIERCE KOSHER BUTCHER, MARC R 133.0 SCABIES 01/11/2010 BARBER CHAIN MAKER HAND, YASMIN M 133.0 SCABIES 01/11/2010 BARBER CHAIN MAKER HAND, YASMIN M 133.0 SCABIES 01/11/2010 PIERCE KOSHER BUTCHER, MARC R 133.0 SCABIES 01/11/2010 BARBER CHAIN MAKER HAND, YASMIN M 133.0 SCABIES 01/21/2010 SABINA POWELL [...] LONG-TERM (CURRENT) USE OF OTHER MEDICATIONS 01/21/2010 YUMIKO PELAYO APRNINA R V58.69 LONG-TERM (CURRENT) USE OF OTHER MEDICATIONS 01/21/2010 PIERCE KOSHER BUTCHER, MARC R V58.69 LONG-TERM (CURRENT) USE OF OTHER MEDICATIONS 01/21/2010 MEHREEN POLO DO V58.69 LONG-TERM (CURRENT) USE OF OTHER MEDICATIONS 01/21/2010 PIERCE RAMACHANDRAN MARC R V58.69 LONG-TERM (CURRENT) USE OF OTHER MEDICATIONS 01/21/2010 YUMIKO PELAYO APRNINA R V58.69 LONG-TERM (CURRENT) USE OF OTHER [...] LONG-TERM (CURRENT) USE OF OTHER MEDICATIONS 01/21/2010 YUMIKO PELAYO APRNINA R V58.69 LONG-TERM (CURRENT) USE OF OTHER [...] KAM MD 241.1 NONTOXIC MULTINODULAR GOITER 11/18/2010 PIERCE RAMACHANDRAN MARC R 241.1 NONTOXIC MULTINODULAR GOITER 11/18/2010 PIERCE RAMACHANDRAN MARC R 241.1 NONTOXIC MULTINODULAR GOITER 11/18/2010 MEHREEN POLO DO K 241.1 NONTOXIC MULTINODULAR GOITER 11/18/2010 PIERCE RAMACHANDRAN MARC R 241.1 NONTOXIC MULTINODULAR GOITER 11/18/2010 PIERCE RAMACHANDRAN MARC R 241.1 NONTOXIC MULTINODULAR GOITER 11/18/2010 LARISA DOWELL MD 241.1 NONTOXIC MULTINODULAR GOITER 11/18/2010 PIERCE RAMACHANDRAN MARC R 241.1 NONTOXIC MULTINODULAR GOITER 11/18/2010 BARBER CHAIN MAKER HAND, YASMIN M 241.1 NONTOXIC MULTINODULAR GOITER 11/18/2010 PIERCE KOSHER BUTCHER, MARC R 241.1 NONTOXIC MULTINODULAR GOITER 11/18/2010 POLO DO, MEHREEN K 241.1 NONTOXIC MULTINODULAR GOITER 11/18/2010 POLO DO, MEHREEN K 241.1 NONTOXIC MULTINODULAR GOITER 11/18/2010 BARBER CHAIN MAKER HAND, YASMIN M 241.1 NONTOXIC MULTINODULAR GOITER 11/18/2010 BARBER CHAIN MAKER HAND, YASMIN M 241.1 NONTOXIC MULTINODULAR GOITER 11/18/2010 PIERCE KOSHER BUTCHER, MARC R 241.1 NONTOXIC MULTINODULAR GOITER 11/18/2010 BARBER CHAIN MAKER HAND, YASMIN M 241.1 NONTOXIC MULTINODULAR GOITER 11/18/2010 BARBER CHAIN MAKER HAND, YASMIN M 241.1 NONTOXIC MULTINODULAR GOITER 11/18/2010 PIERCE KOSHER BUTCHER, MARC R 241.1 NONTOXIC MULTINODULAR GOITER 11/18/2010 BARBER CHAIN MAKER HAND, YASMIN M 241.1 NONTOXIC MULTINODULAR GOITER 12/20/2010 [...] MD 626.0 ABSENCE OF MENSTRUATION 12/20/2010 PIERCE KOSHER BUTCHER, MARC R 272.4 OTHER AND UNSPECIFIED HYPERLIPIDEMIA 12/20/2010 PIERCE KOSHER BUTCHER, MARC R 356.9 UNSPECIFIED IDIOPATHIC PERIPHERAL NEUROPATHY 12/20/2010 PIERCE KOSHER BUTCHER, MARC R 626.0 ABSENCE OF MENSTRUATION 12/20/2010 PIERCE KOSHER BUTCHER, MARC R 272.4 OTHER AND UNSPECIFIED HYPERLIPIDEMIA 12/20/2010 PIERCE KOSHER BUTCHER, MARC R 356.9 UNSPECIFIED IDIOPATHIC PERIPHERAL NEUROPATHY 12/20/2010 PIERCE KOSHER BUTCHER, MARC R 626.0 ABSENCE OF MENSTRUATION 12/20/2010 POLO DO, MEHREEN K 272.4 OTHER AND UNSPECIFIED HYPERLIPIDEMIA 12/20/2010 POLO DO, MEHREEN K 356.9 UNSPECIFIED IDIOPATHIC PERIPHERAL NEUROPATHY 12/20/2010 POLO DO, MEHREEN K 626.0 ABSENCE OF MENSTRUATION 12/20/2010 PIERCE KOSHER BUTCHER, MARC R 272.4 OTHER AND UNSPECIFIED HYPERLIPIDEMIA 12/20/2010 PIERCE DAIN, MARC R 356.9 UNSPECIFIED IDIOPATHIC PERIPHERAL NEUROPATHY 12/20/2010 PIERCE KOSHER BUTCHER, MARC R 626.0 ABSENCE OF MENSTRUATION 12/20/2010 PIERCE RAMACHANDRAN, MARC R 272.4 OTHER AND UNSPECIFIED HYPERLIPIDEMIA 12/20/2010 PIERCE RAMACHANDRAN, MARC R 356.9 UNSPECIFIED IDIOPATHIC PERIPHERAL NEUROPATHY 12/20/2010 PIERCE DAIN, MARC R 626.0 ABSENCE OF MENSTRUATION 12/20/2010 LARISA DOWELL MD 272.4 OTHER AND UNSPECIFIED HYPERLIPIDEMIA 12/20/2010 LARISA DOWELL MD 356.9 UNSPECIFIED IDIOPATHIC PERIPHERAL NEUROPATHY 12/20/2010 LARISA DOWELL MD 626.0 ABSENCE OF MENSTRUATION 12/20/2010 PIERCE DAIN, MARC R 272.4 OTHER AND UNSPECIFIED HYPERLIPIDEMIA 12/20/2010 PIERCE DAIN, MARC R 356.9 UNSPECIFIED IDIOPATHIC PERIPHERAL NEUROPATHY 12/20/2010 PIERCE KOSHER BUTCHER, MARC R 626.0 ABSENCE OF MENSTRUATION 12/20/2010 BARBER CHAIN MAKER HAND, YASMIN M 272.4 OTHER AND UNSPECIFIED HYPERLIPIDEMIA 12/20/2010 BARBER CHAIN MAKER HAND, YASMIN M 356.9 UNSPECIFIED IDIOPATHIC PERIPHERAL NEUROPATHY 12/20/2010 BARBER CHAIN MAKER HAND, YASMIN M 626.0 ABSENCE OF MENSTRUATION 12/20/2010 PIERCE KOSHER BUTCHER, MARC R 272.4 OTHER AND UNSPECIFIED HYPERLIPIDEMIA 12/20/2010 PIERCE KOSHER BUTCHER, MARC R 356.9 UNSPECIFIED IDIOPATHIC PERIPHERAL NEUROPATHY [...] K 626.0 ABSENCE OF MENSTRUATION 12/20/2010 BARBER CHAIN MAKER HAND, YASMIN M 272.4 OTHER AND UNSPECIFIED HYPERLIPIDEMIA 12/20/2010 BARBER CHAIN MAKER HAND, YASMIN M 356.9 UNSPECIFIED IDIOPATHIC PERIPHERAL NEUROPATHY 12/20/2010 BARBER CHAIN MAKER HAND, YASMIN M 626.0 ABSENCE OF MENSTRUATION 12/20/2010 BARBER CHAIN MAKER HAND, YASMIN M 272.4 OTHER AND UNSPECIFIED HYPERLIPIDEMIA 12/20/2010 BARBER CHAIN MAKER HAND, YASMIN M 356.9 UNSPECIFIED IDIOPATHIC PERIPHERAL NEUROPATHY 12/20/2010 BARBER CHAIN MAKER HAND, YASMIN M 626.0 ABSENCE OF MENSTRUATION 12/20/2010 PIERCE KOSHER BUTCHER, MARC R 272.4 OTHER AND UNSPECIFIED HYPERLIPIDEMIA 12/20/2010 PIERCE KOSHER BUTCHER, MARC R 356.9 UNSPECIFIED IDIOPATHIC PERIPHERAL NEUROPATHY 12/20/2010 PIERCE KOSHER BUTCHER, MARC R 626.0 ABSENCE OF MENSTRUATION 12/20/2010 BARBER CHAIN MAKER HAND, YASMIN M 272.4 OTHER AND UNSPECIFIED HYPERLIPIDEMIA 12/20/2010 BARBER CHAIN MAKER HAND, YASMIN M 356.9 UNSPECIFIED IDIOPATHIC PERIPHERAL NEUROPATHY 12/20/2010 BARBER CHAIN MAKER HAND, YASMIN M 626.0 ABSENCE OF MENSTRUATION 12/20/2010 BARBER CHAIN MAKER HAND, YASMIN M 272.4 OTHER AND UNSPECIFIED HYPERLIPIDEMIA 12/20/2010 BARBER CHAIN MAKER HAND, YASMIN M 356.9 UNSPECIFIED IDIOPATHIC PERIPHERAL NEUROPATHY 12/20/2010 BARBER CHAIN MAKER HAND, YASMIN M 626.0 ABSENCE OF MENSTRUATION 12/20/2010 PIERCE KOSHER BUTCHER, MARC R 272.4 OTHER AND UNSPECIFIED HYPERLIPIDEMIA 12/20/2010 PIERCE KOSHER BUTCHER, MARC R 356.9 UNSPECIFIED IDIOPATHIC PERIPHERAL NEUROPATHY 12/20/2010 PIERCE KOSHER BUTCHER, MARC R 626.0 ABSENCE OF MENSTRUATION 12/20/2010 BARBER CHAIN MAKER HAND, YASMIN M 272.4 OTHER AND UNSPECIFIED HYPERLIPIDEMIA 12/20/2010 YASMIN NORRIS M 356.9 UNSPECIFIED IDIOPATHIC PERIPHERAL NEUROPATHY 12/20/2010 YASMIN NORRIS 626.0 ABSENCE OF MENSTRUATION 06/04/2011 Ot 524.60 06/04/2011 Ot 784.92 06/13/2011 SABINA POWELL MD 524.60 TEMPOROMANDIBULAR JOINT DISORDERS UNSPECIFIED 06/13/2011 SABINA POWELL MD 524.60 TEMPOROMANDIBULAR JOINT DISORDERS UNSPECIFIED 06/13/2011 SABINA POWELL MD 524.60 TEMPOROMANDIBULAR JOINT DISORDERS UNSPECIFIED 06/13/2011 ESTEFANIA RAMACHANDRAN, STUART Aguilar 524.60 TEMPOROMANDIBULAR JOINT DISORDERS UNSPECIFIED 06/13/2011 SABINA [...] MD 524.60 TEMPOROMANDIBULAR JOINT DISORDERS UNSPECIFIED 06/13/2011 MARC PELAYO APRN R 524.60 TEMPOROMANDIBULAR JOINT DISORDERS UNSPECIFIED 06/13/2011 PIERCE RAMACHANDRAN, MARC R 524.60 TEMPOROMANDIBULAR JOINT DISORDERS UNSPECIFIED 06/13/2011 MEHREEN POLO DO 524.60 TEMPOROMANDIBULAR JOINT DISORDERS UNSPECIFIED 06/13/2011 PIERCE RAMACHANDRAN, MARC R 524.60 TEMPOROMANDIBULAR JOINT DISORDERS UNSPECIFIED 06/13/2011 PIERCE KOSHER BUTCHER, MARC R 524.60 TEMPOROMANDIBULAR JOINT DISORDERS UNSPECIFIED 06/13/2011 MAGALYS ALMAGUER, LARISA 524.60 TEMPOROMANDIBULAR JOINT DISORDERS UNSPECIFIED 06/13/2011 PIERCE RAMACHANDRAN, MARC R 524.60 TEMPOROMANDIBULAR JOINT DISORDERS UNSPECIFIED 06/13/2011 BARBER CHAIN MAKER HAND, YASMIN M 524.60 TEMPOROMANDIBULAR JOINT DISORDERS UNSPECIFIED 06/13/2011 PIERCE RAMCAHANDRAN, MARC R 524.60 TEMPOROMANDIBULAR JOINT DISORDERS UNSPECIFIED 06/13/2011 POLO DO, MEHREEN K 524.60 TEMPOROMANDIBULAR JOINT DISORDERS UNSPECIFIED 06/13/2011 POLO DO, MEHREEN K 524.60 TEMPOROMANDIBULAR JOINT DISORDERS UNSPECIFIED 06/13/2011 BARBER CHAIN MAKER HAND, YASMIN M 524.60 TEMPOROMANDIBULAR JOINT DISORDERS UNSPECIFIED 06/13/2011 BARBER CHAIN MAKER HAND, YASMIN M 524.60 TEMPOROMANDIBULAR JOINT DISORDERS UNSPECIFIED 06/13/2011 PIERCE RAMACHANDRAN, MARC R 524.60 TEMPOROMANDIBULAR JOINT DISORDERS UNSPECIFIED 06/13/2011 BARBER CHAIN MAKER HAND, YASMIN M 524.60 TEMPOROMANDIBULAR JOINT DISORDERS UNSPECIFIED 06/13/2011 BARBER CHAIN MAKER HAND, YASMIN M 524.60 TEMPOROMANDIBULAR JOINT DISORDERS UNSPECIFIED 06/13/2011 YUMIKO PELAYO APRNINA R 524.60 TEMPOROMANDIBULAR JOINT DISORDERS UNSPECIFIED 06/13/2011 BARBER CHAIN MAKER HAND, YASMIN M 524.60 TEMPOROMANDIBULAR JOINT DISORDERS UNSPECIFIED 07/04/2012 Ot 338.29 OTHER CHRONIC PAIN 07/04/2012 Ot 729.5 PAIN IN LIMB 07/26/2012 SABINA POWELL MD 787.20 DYSPHAGIA, UNSPECIFIED 07/26/2012 SABINA POWELL MD 787.20 DYSPHAGIA, UNSPECIFIED 07/26/2012 SABINA POWELL MD 787.20 DYSPHAGIA, UNSPECIFIED 07/26/2012 STUART MAC APRN 787.20 DYSPHAGIA, UNSPECIFIED 07/26/2012 SABINA POWELL MD 787.20 DYSPHAGIA, UNSPECIFIED 07/26/2012 MELANI BURCH MEHREEN K 787.20 DYSPHAGIA, UNSPECIFIED 07/26/2012 787.20 DYSPHAGIA, UNSPECIFIED 07/26/2012 787.20 DYSPHAGIA, UNSPECIFIED 07/26/2012 787.20 DYSPHAGIA, UNSPECIFIED 07/26/2012 787.20 DYSPHAGIA, UNSPECIFIED 07/26/2012 SABINA POWELL MD 787.20 DYSPHAGIA, UNSPECIFIED 07/26/2012 787.20 DYSPHAGIA, UNSPECIFIED 07/26/2012 NEGIN ALMAGUER, DANIEL Tran 787.20 DYSPHAGIA, UNSPECIFIED 07/26/2012 DANIEL KAM MD 787.20 DYSPHAGIA, UNSPECIFIED 07/26/2012 PIERCE KOSHER BUTCHER, MARC R 787.20 DYSPHAGIA, UNSPECIFIED 07/26/2012 PIERCE KOSHER BUTCHER, MARC R 787.20 DYSPHAGIA, UNSPECIFIED 07/26/2012 POLO DO, MEHREEN K 787.20 DYSPHAGIA, UNSPECIFIED 07/26/2012 PIERCE KOSHER BUTCHER, MARC R 787.20 DYSPHAGIA, UNSPECIFIED 07/26/2012 PIERCE KOSHER BUTCHER, MARC R 787.20 DYSPHAGIA, UNSPECIFIED 07/26/2012 MAGALYS ALMAGUER, LARISA 787.20 DYSPHAGIA, UNSPECIFIED 07/26/2012 PIERCE KOSHER BUTCHER, MARC R 787.20 DYSPHAGIA, UNSPECIFIED 07/26/2012 BARBER CHAIN MAKER HAND, YASMIN M 787.20 DYSPHAGIA, UNSPECIFIED 07/26/2012 PIERCE KOSHER BUTCHER, MARC R 787.20 DYSPHAGIA, UNSPECIFIED 07/26/2012 POLO DO, MEHREEN K 787.20 DYSPHAGIA, UNSPECIFIED 07/26/2012 POLO DO, MEHREEN K 787.20 DYSPHAGIA, UNSPECIFIED 07/26/2012 BARBER CHAIN MAKER HAND, YASMIN M 787.20 DYSPHAGIA, UNSPECIFIED 07/26/2012 BARBER CHAIN MAKER HAND, YASMIN M 787.20 DYSPHAGIA, UNSPECIFIED 07/26/2012 PIERCE KOSHER BUTCHER, MARC R 787.20 DYSPHAGIA, UNSPECIFIED 07/26/2012 BARBER CHAIN MAKER HAND, YASMIN M 787.20 DYSPHAGIA, UNSPECIFIED 07/26/2012 BARBER CHAIN MAKER HAND, YASMIN M 787.20 DYSPHAGIA, UNSPECIFIED 07/26/2012 PIERCE KOSHER BUTCHER, MARC R 787.20 DYSPHAGIA, UNSPECIFIED 07/26/2012 BARBER AUSTIN, YASMIN M 787.20 DYSPHAGIA, UNSPECIFIED 08/15/2012 SABINA POWELL MD 401.1 ESSENTIAL HYPERTENSION BENIGN 08/15/2012 SABINA POWELL MD 401.1 ESSENTIAL HYPERTENSION BENIGN 08/15/2012 SABINA POWELL MD 401.1 ESSENTIAL HYPERTENSION BENIGN 08/15/2012 STUART MAC APRN S 401.1 ESSENTIAL HYPERTENSION BENIGN 08/15/2012 SABINA [...] M 401.1 ESSENTIAL HYPERTENSION BENIGN 08/15/2012 PIERCE KOSHER BUTCHER, MARC R 401.1 ESSENTIAL HYPERTENSION BENIGN 08/15/2012 PIERCE KOSHER BUTCHER, MARC R 401.1 ESSENTIAL HYPERTENSION BENIGN 08/15/2012 POLO DO, MEHREEN K 401.1 ESSENTIAL HYPERTENSION BENIGN 08/15/2012 PIERCE KOSHER BUTCHER, MARC R 401.1 ESSENTIAL HYPERTENSION BENIGN 08/15/2012 PIERCE KOSHER BUTCHER, MARC R 401.1 ESSENTIAL HYPERTENSION BENIGN 08/15/2012 MAGALYS ALMAGUER, LARISA 401.1 ESSENTIAL HYPERTENSION BENIGN 08/15/2012 PIERCE KOSHER BUTCHER, MARC R 401.1 ESSENTIAL HYPERTENSION BENIGN 08/15/2012 BARBER CHAIN MAKER HAND, YASMIN M 401.1 ESSENTIAL HYPERTENSION BENIGN 08/15/2012 PIERCE KOSHER BUTCHER, MARC R 401.1 ESSENTIAL HYPERTENSION BENIGN 08/15/2012 POLO DO, MEHREEN K 401.1 ESSENTIAL HYPERTENSION BENIGN 08/15/2012 POLO DO, MEHREEN K 401.1 ESSENTIAL HYPERTENSION BENIGN 08/15/2012 BARBER CHAIN MAKER HAND, YASMIN M 401.1 ESSENTIAL HYPERTENSION BENIGN 08/15/2012 BARBER CHAIN MAKER HAND, YASMIN M 401.1 ESSENTIAL HYPERTENSION BENIGN 08/15/2012 PIERCE KOSHER BUTCHER, MARC R 401.1 ESSENTIAL HYPERTENSION BENIGN 08/15/2012 BARBER CHAIN MAKER HAND, YASMIN M 401.1 ESSENTIAL HYPERTENSION BENIGN 08/15/2012 BARBER CHAIN MAKER HAND, YASMIN M 401.1 ESSENTIAL HYPERTENSION BENIGN 08/15/2012 PIERCE KOSHER BUTCHER, MARC R 401.1 ESSENTIAL HYPERTENSION BENIGN 08/15/2012 BARBER CHAIN MAKER HAND, YASMIN M 401.1 ESSENTIAL HYPERTENSION BENIGN 09/12/2012 SABINA POWELL MD 610.0 BREAST CYST 09/12/2012 ANDRE ALMAGUER, SABINA 610.0 BREAST CYST 09/12/2012 ESTEFANIA RAMACHANDRAN, STUART [...] DANIEL M 610.0 BREAST CYST 09/12/2012 PIERCE KOSHER BUTCHER, MARC R 610.0 BREAST CYST 09/12/2012 PIERCE KOSHER BUTCHER, MARC R 610.0 BREAST CYST 09/12/2012 POLO DO, MEHREEN K 610.0 BREAST CYST 09/12/2012 PIERCE KOSHER BUTCHER, MARC R 610.0 BREAST CYST 09/12/2012 PIERCE KOSHER BUTCHER, MARC R 610.0 BREAST CYST 09/12/2012 MAGALYS ALMAGUER, LARISA 610.0 BREAST CYST 09/12/2012 PIERCE KOSHER BUTCHER, MARC R 610.0 BREAST CYST 09/12/2012 BARBER CHAIN MAKER HAND, YASMIN M 610.0 BREAST CYST 09/12/2012 PIERCE KOSHER BUTCHER, MARC R 610.0 BREAST CYST 09/12/2012 POLO DO, MEHREEN K 610.0 BREAST CYST 09/12/2012 POLO DO, MEHREEN K 610.0 BREAST CYST 09/12/2012 BARBER CHAIN MAKER HAND, YASMIN M 610.0 BREAST CYST 09/12/2012 BARBER CHAIN MAKER HAND, YASMIN M 610.0 BREAST CYST 09/12/2012 PIERCE KOSHER BUTCHER, MARC R 610.0 BREAST CYST 09/12/2012 BARBER CHAIN MAKER HAND, YASMIN M 610.0 BREAST CYST 09/12/2012 BARBER CHAIN MAKER HAND, YASMIN M 610.0 BREAST CYST 09/12/2012 PIERCE KOSHER BUTCHER, MARC R 610.0 BREAST CYST 09/12/2012 BARBER CHAIN MAKER HAND, YASMIN M 610.0 BREAST CYST 09/25/2012 ANDRE ALMAGUER, SABINA 216.9 PIGMENTED NEVUS 09/25/2012 ANDRE ALMAGUER, SABINA 278.00 OBESITY 09/25/2012 SABINA POWELL MD 625.9 pelvic pain 09/25/2012 STUART MAC APRN S 216.9 PIGMENTED NEVUS 09/25/2012 STUART MAC APRN S 278.00 OBESITY 09/25/2012 STUART MAC APRN [...] DANIEL KAM MD 625.9 pelvic pain 09/25/2012 YUMIKO PELAYO APRNINA R 216.9 PIGMENTED NEVUS 09/25/2012 PIERCE RAMACHANDRAN, MARC R 278.00 OBESITY 09/25/2012 PIERCE RAMACHANDRAN, MARC R 625.9 pelvic pain 09/25/2012 PIERCE RAMACHANDRAN, MARC R 216.9 PIGMENTED NEVUS 09/25/2012 PIERCE KOSHER BUTCHER, MARC R 278.00 OBESITY 09/25/2012 PIERCE KOSHER BUTCHER, MARC R 625.9 pelvic pain 09/25/2012 POLO DO, MEHREEN K 216.9 PIGMENTED NEVUS 09/25/2012 POLO DO, MEHREEN K 278.00 OBESITY 09/25/2012 POLO DO, MEHREEN K 625.9 pelvic pain 09/25/2012 PIERCE KOSHER BUTCHER, MARC R 216.9 PIGMENTED NEVUS 09/25/2012 PIERCE KOSHER BUTCHER, MARC R 278.00 OBESITY 09/25/2012 PIERCE KOSHER BUTCHER, MARC R 625.9 pelvic pain 09/25/2012 PIERCE KOSHER BUTCHER, MARC R 216.9 PIGMENTED NEVUS 09/25/2012 PIERCE KOSHER BUTCHER, MARC R 278.00 OBESITY 09/25/2012 PIERCE KOSHER BUTCHER, MARC R 625.9 pelvic pain 09/25/2012 MAGALYS ALMAGUER, LARISA 216.9 PIGMENTED NEVUS 09/25/2012 MAGALYS ALMAGUER, BASOLMAN 278.00 OBESITY 09/25/2012 MAGALYS ALMAGUER, LARISA 625.9 pelvic pain 09/25/2012 PIERCE KOSHER BUTCHER, MARC R 216.9 PIGMENTED NEVUS 09/25/2012 PIERCE KOSHER BUTCHER, MARC R 278.00 OBESITY 09/25/2012 PIERCE KOSHER BUTCHER, MARC R 625.9 pelvic pain 09/25/2012 YASMIN NORRIS M 216.9 PIGMENTED NEVUS 09/25/2012 YASMIN NORRIS M 278.00 OBESITY 09/25/2012 YASMIN NORRIS M 625.9 pelvic pain 09/25/2012 PIERCE KOSHER BUTCHER, MARC R 216.9 PIGMENTED NEVUS 09/25/2012 PIERCE KOSHER BUTCHER, MARC R 278.00 OBESITY 09/25/2012 PIERCE KOSHER BUTCHER, MARC R 625.9 pelvic pain 09/25/2012 POLO DO, MEHREEN K 216.9 PIGMENTED NEVUS 09/25/2012 POLO DO, MEHREEN K 278.00 OBESITY 09/25/2012 POLO DO, MEHREEN K 625.9 pelvic pain 09/25/2012 POLO DO, MEHREEN K 216.9 PIGMENTED NEVUS 09/25/2012 POLO DO, MEHREEN K 278.00 OBESITY 09/25/2012 POLO DO, MEHREEN K 625.9 pelvic pain 09/25/2012 YASMIN NORRIS M 216.9 PIGMENTED NEVUS 09/25/2012 BARBER CHAIN MAKER HAND, YASMIN M 278.00 OBESITY 09/25/2012 BARBER CHAIN MAKER HAND, YASMIN M 625.9 pelvic pain 09/25/2012 BARBER CHAIN MAKER HAND, YASMIN M 216.9 PIGMENTED NEVUS 09/25/2012 BARBER CHAIN MAKER HAND, YASMIN M 278.00 OBESITY 09/25/2012 BARBER CHAIN MAKER HAND, YASMIN M 625.9 pelvic pain 09/25/2012 PIERCE KOSHER BUTCHER, MARC R 216.9 PIGMENTED NEVUS 09/25/2012 PIERCE KOSHER BUTCHER, MARC R 278.00 OBESITY 09/25/2012 PIERCE KOSHER BUTCHER, MARC R 625.9 pelvic pain 09/25/2012 BARBER CHAIN MAKER HAND, YASMIN M 216.9 PIGMENTED NEVUS 09/25/2012 BARBER CHAIN MAKER HAND, YASMIN M 278.00 OBESITY 09/25/2012 BARBER CHAIN MAKER HAND, YASMIN M 625.9 pelvic pain 09/25/2012 BARBER CHAIN MAKER HAND, YASMIN M 216.9 PIGMENTED NEVUS 09/25/2012 BARBER CHAIN MAKER HAND, YASMIN M 278.00 OBESITY 09/25/2012 BARBER CHAIN MAKER HAND, YASMIN M 625.9 pelvic pain 09/25/2012 PIERCE KOSHER BUTCHER, MARC R 216.9 PIGMENTED NEVUS 09/25/2012 PIERCE KOSHER BUTCHER, MARC R 278.00 OBESITY 09/25/2012 PIERCE KOSHER BUTCHER, MARC R 625.9 pelvic pain 09/25/2012 BARBER CHAIN MAKER HAND, YASMIN M 216.9 PIGMENTED NEVUS 09/25/2012 BARBER CHAIN MAKER HAND, YASMIN M 278.00 OBESITY 09/25/2012 BARBER CHAIN MAKER HAND, YASMIN M 625.9 pelvic pain 10/11/2012 STUART [...] OF CHEEK, CHIN, AND NOSE 10/11/2012 PIERCE KOSHER BUTCHER, MARC R 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, CHIN, AND NOSE 10/11/2012 PIERCE KOSHER BUTCHER, MARC R 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, CHIN, AND NOSE 10/11/2012 POLO DO, MEHREEN K 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, CHIN, AND NOSE 10/11/2012 PIERCE KOSHER BUTCHER, MARC R 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, CHIN, AND NOSE 10/11/2012 PIERCE KOSHER BUTCHER, MARC R 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, CHIN, AND NOSE 10/11/2012 LARISA DOWELL MD 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, CHIN, AND NOSE 10/11/2012 PIERCE KOSHER BUTCHER, MARC R 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, CHIN, AND NOSE 10/11/2012 BARBER CHAIN MAKER HAND, YASMIN M 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, CHIN, AND NOSE 10/11/2012 PIERCE DAIN, MARC R 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, CHIN, AND NOSE 10/11/2012 POLO DO, MEHREEN K 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, CHIN, AND NOSE 10/11/2012 POLO DO, MEHREEN K 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, CHIN, AND NOSE 10/11/2012 BARBER CHAIN MAKER HAND, YASMIN M 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, CHIN, AND NOSE 10/11/2012 BARBER CHAIN MAKER HAND, YASMIN M 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, CHIN, AND NOSE 10/11/2012 PIERCE RAMACHANDRAN, MARC R 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, CHIN, AND NOSE 10/11/2012 BARBER CHAIN MAKER HAND, YASMIN M 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, CHIN, AND NOSE 10/11/2012 BARBER CHAIN MAKER HAND, YASMIN M 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, CHIN, AND NOSE 10/11/2012 PIERCE RAMACHANDRAN, MARC R 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, CHIN, AND NOSE 10/11/2012 BARBER CHAIN MAKER HAND, YASMIN M 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, CHIN, AND NOSE 10/24/2012 SABINA POWELL MD 219.9 UTERINE NEOPLASM, BENIGN 10/24/2012 SABINA POWELL MD 305.1 NICOTINE DEPENDENCE 10/24/2012 MELANI BURCH MEHREEN K 219.9 UTERINE NEOPLASM, BENIGN 10/24/2012 NADIA POLO DOA K 305.1 NICOTINE DEPENDENCE 10/24/2012 219.9 UTERINE [...] DANIEL KAM MD 305.1 NICOTINE DEPENDENCE 10/24/2012 PIERCE KOSHER BUTCHER, MARC R 219.9 UTERINE NEOPLASM, BENIGN 10/24/2012 PIERCE KOSHER BUTCHER, MARC R 305.1 NICOTINE DEPENDENCE 10/24/2012 PIERCE KOSHER BUTCHER, MARC R 219.9 UTERINE NEOPLASM, BENIGN 10/24/2012 PIERCE KOSHER BUTCHER, MARC R 305.1 NICOTINE DEPENDENCE 10/24/2012 NADIA POLO DOA K 219.9 UTERINE NEOPLASM, BENIGN 10/24/2012 MELANI BURCH MEHREEN K 305.1 NICOTINE DEPENDENCE 10/24/2012 PIERCE KOSHER BUTCHER, MARC R 219.9 UTERINE NEOPLASM, BENIGN 10/24/2012 PIERCE KOSHER BUTCHER, MARC R 305.1 NICOTINE DEPENDENCE 10/24/2012 PIERCE KOSHER BUTCHER, MARC R 219.9 UTERINE NEOPLASM, BENIGN 10/24/2012 PIERCE KOSHER BUTCHER, MARC R 305.1 NICOTINE DEPENDENCE 10/24/2012 LARISA DOWELL MD 219.9 UTERINE NEOPLASM, BENIGN 10/24/2012 LARISA DOWELL MD 305.1 NICOTINE DEPENDENCE 10/24/2012 PIERCE KOSHER BUTCHER, MARC R 219.9 UTERINE NEOPLASM, BENIGN 10/24/2012 PIERCE KOSHER BUTCHER, MARC R 305.1 NICOTINE DEPENDENCE 10/24/2012 YASMIN NORRIS 219.9 UTERINE NEOPLASM, BENIGN 10/24/2012 BARBER CHAIN MAKER HAND, YASMIN M 305.1 NICOTINE DEPENDENCE 10/24/2012 PIERCE KOSHER BUTCHER, MARC R 219.9 UTERINE NEOPLASM, BENIGN 10/24/2012 PIERCE KOSHER BUTCHER, MARC R 305.1 NICOTINE DEPENDENCE 10/24/2012 POLO DO, MEHREEN K 219.9 UTERINE NEOPLASM, BENIGN 10/24/2012 POLO DO, MEHREEN K 305.1 NICOTINE DEPENDENCE 10/24/2012 POLO DO, MEHREEN K 219.9 UTERINE NEOPLASM, BENIGN 10/24/2012 POLO DO, MEHREEN K 305.1 NICOTINE DEPENDENCE 10/24/2012 BARBER CHAIN MAKER HAND, YASMIN M 219.9 UTERINE NEOPLASM, BENIGN 10/24/2012 BARBER CHAIN MAKER HAND, YASMIN M 305.1 NICOTINE DEPENDENCE 10/24/2012 BARBER CHAIN MAKER HAND, YASMIN M 219.9 UTERINE NEOPLASM, BENIGN 10/24/2012 BARBER CHAIN MAKER HAND, YASMIN M 305.1 NICOTINE DEPENDENCE 10/24/2012 PIERCE KOSHER BUTCHER, MARC R 219.9 UTERINE NEOPLASM, BENIGN 10/24/2012 PIERCE KOSHER BUTCHER, MARC R 305.1 NICOTINE DEPENDENCE 10/24/2012 BARBER CHAIN MAKER HAND, YASMIN M 219.9 UTERINE NEOPLASM, BENIGN 10/24/2012 BARBER CHAIN MAKER HAND, YASMIN M 305.1 NICOTINE DEPENDENCE 10/24/2012 BARBER CHAIN MAKER HAND, YASMIN M 219.9 UTERINE NEOPLASM, BENIGN 10/24/2012 BARBER CHAIN MAKER HAND, YASMIN M 305.1 NICOTINE DEPENDENCE 10/24/2012 PIERCE KOSHER BUTCHER, MARC R 219.9 UTERINE NEOPLASM, BENIGN 10/24/2012 PIERCE KOSHER BUTCHER, MARC R 305.1 NICOTINE DEPENDENCE 10/24/2012 BARBER CHAIN MAKER HAND, YASMIN M 219.9 UTERINE NEOPLASM, BENIGN 10/24/2012 BARBER CHAIN MAKER HAND, YASMIN M 305.1 NICOTINE DEPENDENCE 11/15/2012 MELANI BURCH MEHREEN K V73.81 HPV SCREENING 11/15/2012 POLO DO, MEHREEN K V76.10 BREAST CANCER SCREENING 11/15/2012 MELANI BURCH MEHREEN K V76.2 CERVICAL CANCER SCREENING (PAP [...] CERVICAL CANCER SCREENING (PAP SMEAR) 11/15/2012 PIERCE KOSHER BUTCHER, MARC R V73.81 HPV SCREENING 11/15/2012 PIERCE KOSHER BUTCHER, MARC R V76.10 BREAST CANCER SCREENING 11/15/2012 PIERCE KOSHER BUTCHER, MARC R V76.2 CERVICAL CANCER SCREENING (PAP SMEAR) 11/15/2012 PIERCE KOSHER BUTCHER, MARC R V73.81 HPV SCREENING 11/15/2012 PIERCE KOSHER BUTCHER, MARC R V76.10 BREAST CANCER SCREENING 11/15/2012 PIERCE KOSHER BUTCHER, MARC R V76.2 CERVICAL CANCER SCREENING (PAP SMEAR) 11/15/2012 POLO DO, MEHREEN K V73.81 HPV SCREENING 11/15/2012 POLO DO, MEHREEN K V76.10 BREAST CANCER SCREENING 11/15/2012 POLO DO, MEHREEN K V76.2 CERVICAL CANCER SCREENING (PAP SMEAR) 11/15/2012 PIERCE KOSHER BUTCHER, MARC R V73.81 HPV SCREENING 11/15/2012 PIERCE KOSHER BUTCHER, MARC R V76.10 BREAST CANCER SCREENING 11/15/2012 PIERCE KOSHER BUTCHER, MARC R V76.2 CERVICAL CANCER SCREENING (PAP SMEAR) 11/15/2012 PIERCE KOSHER BUTCHER, MARC R V73.81 HPV SCREENING 11/15/2012 PIERCE KOSHER BUTCHER, MARC R V76.10 BREAST CANCER SCREENING 11/15/2012 PIERCE KOSHER BUTCHER, MARC R V76.2 CERVICAL CANCER SCREENING (PAP SMEAR) 11/15/2012 MAGALYS ALMAGUER, LARISA V73.81 HPV SCREENING 11/15/2012 MAGALYS ALMAGUER, LARISA V76.10 BREAST CANCER SCREENING 11/15/2012 MAGALYS ALMAGUER, LARISA V76.2 CERVICAL CANCER SCREENING (PAP SMEAR) 11/15/2012 PIERCE KOSHER BUTCHER, MARC R V73.81 HPV SCREENING 11/15/2012 PIERCE KOSHER BUTCHER, MARC R V76.10 BREAST CANCER SCREENING 11/15/2012 PIERCE KOSHER BUTCHER, MARC R V76.2 CERVICAL CANCER SCREENING (PAP SMEAR) 11/15/2012 YASMIN NORRIS M V73.81 HPV SCREENING 11/15/2012 YASMIN NORRIS M V76.10 BREAST CANCER SCREENING 11/15/2012 YASMIN NORRIS M V76.2 CERVICAL CANCER SCREENING (PAP SMEAR) 11/15/2012 PIERCE KOSHER BUTCHER, MARC R V73.81 HPV SCREENING 11/15/2012 PIERCE KOSHER BUTCHER, MARC R V76.10 BREAST CANCER SCREENING 11/15/2012 PIERCE KOSHER BUTCHER, MARC R V76.2 CERVICAL CANCER SCREENING (PAP [...] CERVICAL CANCER SCREENING (PAP SMEAR) 11/15/2012 PIERCE KOSHER BUTCHER, MARC R V73.81 HPV SCREENING 11/15/2012 PIERCE KOSHER BUTCHER, MARC R V76.10 BREAST CANCER SCREENING 11/15/2012 PIERCE KOSHER BUTCHER, MARC R V76.2 CERVICAL CANCER SCREENING (PAP SMEAR) 11/15/2012 BARBER CHAIN MAKER HAND, YASMIN M V73.81 HPV SCREENING 11/15/2012 BARBER CHAIN MAKER HAND, YASMIN M V76.10 BREAST CANCER SCREENING 11/15/2012 BARBER CHAIN MAKER HAND, YASMIN M V76.2 CERVICAL CANCER SCREENING (PAP SMEAR) 11/15/2012 BARBER CHAIN MAKER HAND, YASMIN M V73.81 HPV SCREENING 11/15/2012 BARBER CHAIN MAKER HAND, YASMIN M V76.10 BREAST CANCER SCREENING 11/15/2012 BARBER CHAIN MAKER HAND, YASMIN M V76.2 CERVICAL CANCER SCREENING (PAP SMEAR) 11/15/2012 PIERCE KOSHER BUTCHER, MARC R V73.81 HPV SCREENING 11/15/2012 PIERCE KOSHER BUTCHER, MARC R V76.10 BREAST CANCER SCREENING 11/15/2012 PIERCE KOSHER BUTCHER, MARC R V76.2 CERVICAL CANCER SCREENING (PAP SMEAR) 11/15/2012 BARBER CHAIN MAKER HAND, YASMIN M V73.81 HPV SCREENING 11/15/2012 BARBER CHAIN MAKER HAND, YASMIN M V76.10 BREAST CANCER SCREENING 11/15/2012 BARBER CHAIN MAKER HAND, YASMIN M V76.2 CERVICAL CANCER SCREENING (PAP SMEAR) 01/24/2013 465.9 UPPER RESPIRATORY INFECTION 01/24/2013 465.9 UPPER RESPIRATORY INFECTION 01/24/2013 465.9 UPPER RESPIRATORY INFECTION 01/24/2013 465.9 UPPER RESPIRATORY INFECTION 01/24/2013 DANIEL KAM MD 465.9 UPPER RESPIRATORY INFECTION 01/24/2013 DANIEL KAM MD 465.9 UPPER RESPIRATORY INFECTION 01/24/2013 PIERCE KOSHER BUTCHER, MARC R 465.9 UPPER RESPIRATORY INFECTION 01/24/2013 PIERCE KOSHER BUTCHER, MARC R 465.9 UPPER RESPIRATORY INFECTION 01/24/2013 MEHREEN POLO DO 465.9 UPPER RESPIRATORY INFECTION 01/24/2013 PIERCE KOSHER BUTCHER, MARC R 465.9 UPPER RESPIRATORY INFECTION 01/24/2013 PIERCE KOSHER BUTCHER, MARC R 465.9 UPPER RESPIRATORY INFECTION 01/24/2013 LARISA DOWLEL MD 465.9 UPPER RESPIRATORY INFECTION 01/24/2013 PIERCE KOSHER BUTCHER, MARC R 465.9 UPPER RESPIRATORY INFECTION 01/24/2013 BARBER CHAIN MAKER HAND, YASMIN M 465.9 UPPER RESPIRATORY INFECTION 01/24/2013 PIERCE DAIN, MARC R 465.9 UPPER RESPIRATORY INFECTION 01/24/2013 POLO DO, MEHREEN K 465.9 UPPER RESPIRATORY INFECTION 01/24/2013 POLO DO, MEHREEN K 465.9 UPPER RESPIRATORY INFECTION 01/24/2013 BARBER CHAIN MAKER HAND, YASMIN M 465.9 UPPER RESPIRATORY INFECTION 01/24/2013 BARBER CHAIN MAKER HAND, YASMIN M 465.9 UPPER RESPIRATORY INFECTION 01/24/2013 PIERCE DAIN, MARC R 465.9 UPPER RESPIRATORY INFECTION 01/24/2013 BARBER CHAIN MAKER HAND, YASMIN M 465.9 UPPER RESPIRATORY INFECTION 01/24/2013 BARBER CHAIN MAKER HAND, YASMIN M 465.9 UPPER RESPIRATORY INFECTION 01/24/2013 PIERCE RAMACHANDRAN, MARC R 465.9 UPPER RESPIRATORY INFECTION 01/24/2013 BARBER CHAIN MAKER HAND, YASMIN M 465.9 UPPER RESPIRATORY INFECTION 01/31/2013 SADIQ ALMAGUER, SANTIAGO R Ot 840.9 SPRAIN SHOULDER/ARM NOS 01/31/2013 SADIQ ALMAGUER, SANTIAGO R Ot 959.2 SHLDR/UPPER ARM INJ NOS 01/31/2013 SADIQ ALMAGUER, SANTIAGO R Ot E000.8 OTHER EXTERNAL CAUSE STATUS 01/31/2013 SADIQ ALMAGUER, SANTIAGO R Ot E849.0 ACCIDENT IN HOME 01/31/2013 SANTIAGO BABCOCK MD R Ot E927.0 OVEREXERTION FROM SUDDEN STRENUOUS MOVEM 02/15/2013 719.41 PAIN IN JOINT INVOLVING SHOULDER [...] PAIN IN JOINT INVOLVING SHOULDER REGION 02/15/2013 MELANI DONADIAA K 719.41 PAIN IN JOINT INVOLVING SHOULDER REGION 02/15/2013 PIERCE KOSHER BUTCHER, MARC R 719.41 PAIN IN JOINT INVOLVING SHOULDER REGION 02/15/2013 PIERCE RAMACHANDRAN, MARC R 719.41 PAIN IN JOINT INVOLVING SHOULDER REGION 02/15/2013 MAGALYS ALMAGUER, LARISA 719.41 PAIN IN JOINT INVOLVING SHOULDER REGION 02/15/2013 PIERCE RAMACHANDRAN MARC R 719.41 PAIN IN JOINT INVOLVING SHOULDER REGION 02/15/2013 YASMIN NORRIS M 719.41 PAIN IN JOINT INVOLVING SHOULDER REGION 02/15/2013 YUMIKO PELAYO APRNINA R 719.41 PAIN IN JOINT INVOLVING SHOULDER REGION 02/15/2013 NADIA POLO DOA K 719.41 PAIN IN JOINT INVOLVING SHOULDER REGION 02/15/2013 POLO DO MEHREEN K 719.41 PAIN IN JOINT INVOLVING SHOULDER REGION 02/15/2013 YASMIN NORRIS M 719.41 PAIN IN JOINT INVOLVING SHOULDER REGION 02/15/2013 YASIMN NORRIS M 719.41 PAIN IN JOINT INVOLVING [...] 11/05/2013 SADIQ ALMAGUER, SANTIAGO R Ot 789.00 ABDOMINAL PAIN, UNSPECIFIED SITE 01/16/2014 MARC PELAYO APRN R 300.00 AN ANXIETY UNSPEC 01/16/2014 YUMIKO PELAYO APRNINA R V70.0 EXAM - ROUTINE H&P 01/16/2014 YUMIKO PELAYO APRNINA R 300.00 AN ANXIETY UNSPEC 01/16/2014 YUMIKO PELAYO APRNINA R V70.0 EXAM - ROUTINE H&P 01/16/2014 MELANI DO MEHREEN K 300.00 AN ANXIETY UNSPEC 01/16/2014 POLO DONADIAA K V70.0 EXAM - ROUTINE H&P 01/16/2014 YUMIKO PELAYO APRNINA R 300.00 AN ANXIETY UNSPEC 01/16/2014 YUMIKO PELAYO APRNINA R V70.0 EXAM - ROUTINE H&P 01/16/2014 PIERCE KOSHER BUTCHER, MARC R 300.00 AN ANXIETY UNSPEC 01/16/2014 PIERCE RAMACHANDRAN, MARC R V70.0 EXAM - ROUTINE H&P 01/16/2014 LARISA DOWELL MD 300.00 AN ANXIETY UNSPEC 01/16/2014 LARISA DOWELL MD V70.0 EXAM - ROUTINE H&P 01/16/2014 PIERCE RAMACHANDRAN MARC R 300.00 AN ANXIETY UNSPEC 01/16/2014 PIERCE RAMACHANDRAN, MARC R V70.0 EXAM - ROUTINE H&P 01/16/2014 BARBER CHAIN MAKER HAND, YASMIN M 300.00 AN ANXIETY UNSPEC 01/16/2014 BARBER CHAIN MAKER HAND, YASMIN M V70.0 EXAM - ROUTINE H&P [...] V70.0 EXAM - ROUTINE H&P 01/16/2014 BARBER CHAIN MAKER HAND, YASMIN M 300.00 AN ANXIETY UNSPEC 01/16/2014 BARBER CHAIN MAKER HAND, YASMIN M V70.0 EXAM - ROUTINE H&P 01/16/2014 BARBER CHAIN MAKER HAND, YASMIN M 300.00 AN ANXIETY UNSPEC 01/16/2014 BARBER CHAIN MAKER HAND, YASMIN M V70.0 EXAM - ROUTINE H&P 01/16/2014 YUMIKO PELAYO APRNINA R 300.00 AN ANXIETY UNSPEC 01/16/2014 PIERCE RAMACHANDRAN MARC R V70.0 EXAM - ROUTINE H&P 01/16/2014 BARBER CHAIN MAKER HAND, YASMIN M 300.00 AN ANXIETY UNSPEC 01/16/2014 BARBER CHAIN MAKER HAND, YASMIN M V70.0 EXAM - ROUTINE H&P 01/16/2014 BARBER CHAIN MAKER HAND, YASMIN M 300.00 AN ANXIETY UNSPEC 01/16/2014 BARBER CHAIN MAKER HAND, YASMIN M V70.0 EXAM - ROUTINE H&P 01/16/2014 YUMIKO PELAYO APRNINA R 300.00 AN ANXIETY UNSPEC 01/16/2014 PIERCE KOSHER BUTCHER, MARC R V70.0 EXAM - ROUTINE H&P 01/16/2014 BARBER [place], YASMIN M 300.00 AN ANXIETY UNSPEC 01/16/2014 BARBER [place], YASMIN M V70.0 EXAM - ROUTINE H&P 01/29/2014 PIERCE KOSHER BUTCHER, MARC R 239.3 BREAST MASS 01/29/2014 PIERCE KOSHER BUTCHER, MARC R 239.3 BREAST MASS 01/29/2014 POLO DO, MEHREEN K 239.3 BREAST MASS 01/29/2014 PIERCE KOSHER BUTCHER, MARC R 239.3 BREAST MASS 01/29/2014 PIERCE KOSHER BUTCHER, MARC R 239.3 BREAST MASS 01/29/2014 MAGALYS ALMAGUER, LARISA 239.3 BREAST MASS 01/29/2014 PIERCE KOSHER BUTCHER, MARC R 239.3 BREAST MASS 01/29/2014 BARBER [place], YASMIN M 239.3 BREAST MASS 01/29/2014 PIERCE KOSHER BUTCHER, MARC R 239.3 BREAST MASS 01/29/2014 POLO DO, MEHREEN K 239.3 BREAST MASS 01/29/2014 POLO DO, MEHREEN K 239.3 BREAST MASS 01/29/2014 BARBER [place], YASMIN M 239.3 BREAST MASS 01/29/2014 BARBER [place], YASMIN M 239.3 BREAST MASS 01/29/2014 PIERCE KOSHER BUTCHER, MARC R 239.3 BREAST MASS 01/29/2014 BARBER [place], YASMIN M 239.3 BREAST MASS 01/29/2014 BARBER [place], YASMIN M 239.3 BREAST MASS 01/29/2014 PIERCE KOSHER BUTCHER, MARC R 239.3 BREAST MASS 01/29/2014 BARBER [place], YASMIN M 239.3 BREAST MASS 06/06/2014 PIERCE KOSHER BUTCHER, MARC R 784.0 HEADACHE 06/06/2014 PIERCE KOSHER BUTCHER, MARC R 786.50 CHEST PAIN 06/06/2014 POLO DO, MEHREEN K 784.0 HEADACHE 06/06/2014 POLO DO, MEHREEN K 786.50 CHEST PAIN 06/06/2014 PIERCE KOSHER BUTCHER, MARC R 784.0 HEADACHE 06/06/2014 PIERCE KOSHER BUTCHER, MARC R 786.50 CHEST PAIN 06/06/2014 PIERCE KOSHER BUTCHER, MARC R 784.0 HEADACHE 06/06/2014 PIERCE KOSHER BUTCHER, MARC R 786.50 CHEST PAIN 06/06/2014 MAGALYS ALMAGUER, BASHAR 784.0 HEADACHE 06/06/2014 MAGALYS ALMAGUER, LARISA 786.50 CHEST PAIN 06/06/2014 PIERCE KOSHER BUTCHER, MARC R 784.0 HEADACHE 06/06/2014 PIERCE KOSHER BUTCHER, MARC R 786.50 CHEST PAIN 06/06/2014 BARBER CHAIN MAKER HAND, YASMIN M 784.0 HEADACHE 06/06/2014 BARBER CHAIN MAKER HAND, YASMIN M 786.50 CHEST PAIN 06/06/2014 PIERCE KOSHER BUTCHER, MARC R 784.0 HEADACHE 06/06/2014 PIERCE KOSHER BUTCHER, MARC R 786.50 CHEST PAIN 06/06/2014 POLO DO, MEHREEN K 784.0 HEADACHE 06/06/2014 POLO DO, MEHREEN K 786.50 CHEST PAIN 06/06/2014 POLO DO, MEHREEN K 784.0 HEADACHE 06/06/2014 POLO DO, MEHREEN K 786.50 CHEST PAIN 06/06/2014 BARBER CHAIN MAKER HAND, YASMIN M 784.0 HEADACHE 06/06/2014 BARBER CHAIN MAKER HAND, YASMIN M 786.50 CHEST PAIN 06/06/2014 BARBER CHAIN MAKER HAND, YASMIN M 784.0 HEADACHE 06/06/2014 BARBER CHAIN MAKER HAND, YASMIN M 786.50 CHEST PAIN 06/06/2014 PIERCE KOSHER BUTCHER, MARC R 784.0 HEADACHE 06/06/2014 PIERCE KOSHER BUTCHER, MARC R 786.50 CHEST PAIN 06/06/2014 BARBER CHAIN MAKER HAND, YASMIN M 784.0 HEADACHE 06/06/2014 BARBER CHAIN MAKER HAND, YASMIN M 786.50 CHEST PAIN 06/06/2014 BARBER CHAIN MAKER HAND, YASMIN M 784.0 HEADACHE 06/06/2014 BARBER CHAIN MAKER HAND, YASMIN M 786.50 CHEST PAIN 06/06/2014 PIERCE KOSHER BUTCHER, MARC R 784.0 HEADACHE 06/06/2014 PIERCE KOSHER BUTCHER, MARC R 786.50 CHEST PAIN 06/06/2014 BARBER CHAIN MAKER HAND, YASMIN M 784.0 HEADACHE 06/06/2014 BARBER CHAIN MAKER HAND, YASMIN M 786.50 CHEST PAIN 06/13/2014 POLO DO, MEHREEN K V81.1 HYPERTENSION SCREENING 06/13/2014 PIERCE KOSHER BUTCHER, MARC R V81.1 HYPERTENSION SCREENING 06/13/2014 PIERCE KOSHER BUTCHER, MARC R V81.1 HYPERTENSION SCREENING 06/13/2014 MAGALYS ALMAGUER, LARISA V81.1 HYPERTENSION SCREENING 06/13/2014 PIERCE KOSHER BUTCHER, MARC R V81.1 HYPERTENSION SCREENING 06/13/2014 BARBER [place], YASMIN M V81.1 HYPERTENSION SCREENING 06/13/2014 PIERCE RAMACHANDRAN, MARC R V81.1 HYPERTENSION SCREENING 06/13/2014 POLO DO, MEHREEN K V81.1 HYPERTENSION SCREENING 06/13/2014 POLO DO, MEHREEN K V81.1 HYPERTENSION SCREENING 06/13/2014 BARBER CHAIN MAKER HAND, YASMIN M V81.1 HYPERTENSION SCREENING 06/13/2014 BARBER CHAIN MAKER HAND, YASMIN M V81.1 HYPERTENSION SCREENING 06/13/2014 PIERCE KOSHER BUTCHER, MARC R V81.1 HYPERTENSION SCREENING 06/13/2014 BARBER [place], YASMIN M V81.1 HYPERTENSION SCREENING 06/13/2014 BARBER [place], YASMIN M V81.1 HYPERTENSION SCREENING 06/13/2014 PIERCE RAMACHANDRAN, MARC R V81.1 HYPERTENSION SCREENING 06/13/2014 BARBER [place], YASMIN M V81.1 HYPERTENSION SCREENING 06/13/2014 AVANI GUO APRN Ot 300.00 ANXIETY STATE NOS 06/13/2014 AVANI GUO APRN Ot 786.50 CHEST PAIN NOS 07/03/2014 MARC PELAYO APRN R [facility]DS 07/03/2014 PIERCE RAMACHANDRAN MARC R V04.81 FLU SHOT 07/03/2014 MARC PELAYO APRN R [facility] 07/03/2014 PIERCE RAMACHANDRAN MARC R V04.81 FLU SHOT 07/03/2014 LARISA DOWELL MD [facility] 07/03/2014 LARISA DOWELL MD V04.81 FLU SHOT 07/03/2014 YUMIKO PELAYO APRNINA R [facility] RECORDS 07/03/2014 PIERCE RAMACHANDRAN MARC R V04.81 FLU SHOT 07/03/2014 YASMIN NORRIS M [facility] RECORDS 07/03/2014 BARBER CHAIN MAKER HANDYASMIN M V04.81 FLU SHOT 07/03/2014 YUMIKO PELAYO APRNINA R [facility] RECORDS 07/03/2014 PIERCE RAMACHANDRAN MARC R V04.81 FLU SHOT 07/03/2014 MEHREEN POLO DO [facility] 07/03/2014 POLO MEHREEN BURCH V04.81 FLU SHOT 07/03/2014 MEHREEN POLO DO [facility] 07/03/2014 MEHREEN POLO DO V04.81 FLU SHOT 07/03/2014 YASMIN NORRIS [facility] 07/03/2014 YASMIN NORRIS V04.81 FLU SHOT 07/03/2014 YASMIN NORRIS [facility] 07/03/2014 YASMIN NORRIS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 10*6/uL 4.35-5.85 Venous blood hemoglobin measurement (mass/volume) 15.1 g/dL 11.5-16.0 Blood hematocrit (volume fraction) 43 % 35-52 Automated erythrocyte mean corpuscular volume 96 [foz_us] 80-99 Automated erythrocyte mean corpuscular hemoglobin (mass per erythrocyte) 34 pg 25-34 Automated erythrocyte mean corpuscular hemoglobin concentration measurement ( mass/volume) 35 g/dL 32-36 Automated erythrocyte distribution width ratio 12.5 % 10.0-14.5 Automated blood platelet count (count/volume) 230 10*3/uL 130-400 Automated blood platelet mean volume measurement 12.2 [foz_us] 7.4-10.4 Automated blood neutrophils/100 leukocytes 65 % 42-75 Automated blood lymphocytes/100 leukocytes 27 % 12-44 Blood monocytes/100 leukocytes 6 % 0-12 Automated blood eosinophils/100 leukocytes 2 % 0-10 Automated blood basophils/100 leukocytes 1 % 0-10 Blood neutrophils automated count (number/volume) 6.3 10*3 1.8-7.8 Blood lymphocytes automated count (number/volume) 2.6 10*3 1.0-4.0 Blood monocytes automated count (number/volume) 0.6 10*3 0.0-1.0 Automated eosinophil count 0.2 10*3/uL 0.0-0.3 Automated blood basophil count (count/volume) 0.1 10*3/uL 0.0-0.1 Whole blood basic metabolic panel - 10/23/17 05:21 Serum or plasma sodium measurement (moles/volume) 139 mmol/L 135-145 Serum or plasma potassium measurement (moles/volume) 4.2 mmol/L 3.6-5.0 Serum or plasma chloride measurement (moles/volume) 110 mmol/L 98-107 Carbon dioxide 18 mmol/L 21-32 Serum or plasma anion gap determination (moles/volume) 11 mmol/L 5-14 Serum or plasma urea nitrogen measurement (mass/volume) 22 mg/dL 7-18 Serum or plasma creatinine measurement (mass/volume) 0.88 mg/dL 0.60-1.30 Serum or plasma urea nitrogen/creatinine mass ratio 25 NRG Serum or plasma creatinine measurement with calculation of estimated glomerular filtration rate > NRG Serum or plasma glucose measurement (mass/volume) 101 mg/dL 70-105 Serum or plasma calcium measurement (mass/volume) 9.9 mg/dL 8.5-10.1 Lipid 1996 panel - 10/23/17 05:21 Serum or plasma triglyceride measurement (mass/volume) 147 mg/dL <150 Serum or plasma cholesterol measurement (mass/volume) 198 mg/dL < 200 Serum or plasma cholesterol in HDL measurement (mass/volume) 44 mg/ dL 40-60 Cholesterol in LDL [mass/volume] in serum or plasma by direct assay 143 mg/dL 1-129 Serum or plasma cholesterol in VLDL measurement (mass/volume) 29 mg/ dL 5-40 THYROID STIMULATING HORMONE - 10/23/17 05:21 THYROID STIMULATING HORMONE 0.07 u[iU]/mL 0.35-4.94 A1C - 10/31/17 13:55 HEMOGLOBIN A1c 5.3 % of total Hgb <5.7 Automated blood complete blood count (hemogram) panel - 11/01/17 09:28 Blood leukocytes automated count (number/volume) 10.4 10*3/uL 4.3-11.0 Blood erythrocytes automated count (number/volume) 4.89 10*6/uL 4.35-5.85 Venous blood hemoglobin measurement (mass/volume) 16.4 g/dL 11.5-16.0 Blood hematocrit (volume fraction) 46 % 35-52 Automated erythrocyte mean corpuscular volume 95 [foz_us] 80-99 Automated erythrocyte mean corpuscular hemoglobin (mass per erythrocyte) 34 pg 25-34 Automated erythrocyte mean corpuscular hemoglobin concentration measurement ( mass/volume) 36 g/dL 32-36 Automated erythrocyte distribution width ratio 12.2 % 10.0-14.5 Automated blood platelet count (count/volume) 223 10*3/uL 130-400 Automated blood platelet mean volume measurement 12.0 [foz_us] 7.4-10.4 PT panel in platelet poor plasma by coagulation assay - 11/01/17 09:28 Prothrombin time (PT) in platelet poor plasma by coagulation assay 12.6 s 12.2-14.7 INR in platelet poor plasma or blood by coagulation assay 0.9 0.8-1.4 Activated partial thromboplastin time (aPTT) in platelet poor plasma bycoagulation assay - 11/01/17 09:28 Activated partial thromboplastin time (aPTT) in platelet poor plasma bycoagulation assay 26 s 24-35 Comprehensive metabolic panel - 11/01/17 09:28 Serum or plasma sodium measurement (moles/volume) 136 mmol/L 135-145 Serum or plasma potassium measurement (moles/volume) 3.8 mmol/L 3.6-5.0 Serum or plasma chloride measurement (moles/volume) 102 mmol/L 98-107 Carbon dioxide 20 mmol/L 21-32 Serum or plasma anion gap determination (moles/volume) 14 mmol/L 5-14 Serum or plasma urea nitrogen measurement (mass/volume) 30 mg/dL 7-18 Serum or plasma creatinine measurement (mass/volume) 1.06 mg/dL 0.60-1.30 Serum or plasma urea nitrogen/creatinine mass ratio 28 NRG Serum or plasma creatinine measurement with calculation of estimated glomerular filtration rate 55 NRG Serum or plasma glucose measurement (mass/volume) 103 mg/dL 70-105 Serum or plasma calcium measurement (mass/volume) 10.0 mg/dL 8.5-10.1 Serum or plasma total bilirubin measurement (mass/volume) 0.5 mg/dL 0.1-1.0 Serum or plasma alkaline phosphatase measurement (enzymatic activity/volume) 73 U/L 40-136 Serum or plasma aspartate aminotransferase measurement (enzymatic activity/ volume) 21 U/L 5-34 Serum or plasma alanine aminotransferase measurement (enzymatic activity/volume ) 28 U/L 0-55 Serum or plasma protein measurement (mass/volume) 8.1 g/dL 6.4-8.2 Serum or plasma albumin measurement (mass/volume) 4.5 g/dL 3.2-4.5 Lipid 1996 panel - 11/01/17 09:28 Serum or plasma triglyceride measurement (mass/volume) 91 mg/dL <150 Serum or plasma cholesterol measurement (mass/volume) 168 mg/dL < 200 Serum or plasma cholesterol in HDL measurement (mass/volume) 38 mg/ dL 40-60 Cholesterol in LDL [mass/volume] in serum or plasma by direct assay 115 mg/dL 1-129 Serum or plasma cholesterol in VLDL measurement (mass/volume) 18 mg/ dL 5-40 Methicillin resistant Staphylococcus aureus (MRSA) screening culture - 09:28 Methicillin resistant Staphylococcus aureus (MRSA) screening culture NEG NRG Encounters ACCT No. Visit Date/Time Discharge Status Pt. Type Provider Facility Loc./Unit Complaint [id number] 12/17/2018 09:00:00 12/17/2018 23:59:59 CLS Outpatient JESSICA JUARES [facility] [id number] 10/31/2017 13:20:00 Document Registration [id number] 12/19/2014 13:17:00 12/19/2014 23:59:59 CLS Outpatient MARC PELAYO APRN [id number] 12/05/2014 09:58:00 12/05/2014 23:59:59 CLS Outpatient YASMIN NORRIS [id number] 12/05/2014 09:58:00 12/05/2014 23:59:59 CLS Outpatient YASMIN NORRIS [id number] 10/22/2014 11:11:00 10/22/2014 23:59:59 CLS Outpatient YASMIN NORRIS [id number] 10/03/2014 08:48:00 10/03/2014 23:59:59 CLS Outpatient MARC PELAYO APRN [id number] 09/17/2014 10:06:00 09/17/2014 23:59:59 CLS Outpatient MELANI BURCH MEHREEN K [id number] 09/10/2014 12:24:00 09/10/2014 23:59:59 CLS Outpatient POLO DO MEHREEN K [id number] 09/10/2014 11:24:00 09/10/2014 23:59:59 CLS Outpatient BARBER CNS, YASMIN M [id number] 09/03/2014 08:35:00 09/03/2014 23:59:59 CLS Outpatient MARC PELAYO APRN [id number] 08/15/2014 08:38:00 08/15/2014 23:59:59 CLS Outpatient BARBER CNS, YASMIN M [id number] 08/15/2014 08:38:00 08/15/2014 23:59:59 CLS Outpatient BARBER [employer] HANDYASMIN [id number] 08/05/2014 10:49:00 08/05/2014 23:59:59 CLS Outpatient MARC PELAYO APRN [id number] 08/01/2014 09:53:00 08/01/2014 23:59:59 CLS Outpatient LARISA DOWELL MD [id number] 07/03/2014 11:18:00 07/03/2014 23:59:59 CLS Outpatient MARC PELAYO APRN [id number] 06/13/2014 09:36:00 06/13/2014 23:59:59 CLS Outpatient MELANI BURCH MEHREEN Castrejon [id number] 06/06/2014 08:11:00 06/06/2014 23:59:59 CLS Outpatient YUMIKO PELAYO APRNSHIRA Cameron [id number] 01/16/2014 13:13:00 01/16/2014 23:59:59 CLS Outpatient YUMIKO PELAYO APRNSHIRA Cameron [id number] 01/16/2014 13:13:00 01/16/2014 23:59:59 CLS Outpatient PIERCE RAMACHANDRAN MARC Cameron [id number] 06/28/2013 10:42:00 06/28/2013 23:59:59 CLS Outpatient DANIEL KAM MD [id number] 05/29/2013 16:01:00 05/29/2013 23:59:59 CLS Outpatient DANIEL KAM MD [id number] 11/15/2012 10:05:00 11/15/2012 23:59:59 CLS Outpatient MELANI BURCHMEHREEN [id number] 10/24/2012 13:59:00 10/24/2012 23:59:59 CLS Outpatient SABINA POWELL MD [id number] 10/11/2012 13:37:00 10/11/2012 23:59:59 CLS Outpatient ESTEFANIA DAINSTUART Jeff [id number] 09/25/2012 14:38:00 09/25/2012 23:59:59 CLS Outpatient SABINA POWELL MD [id number] 09/17/2012 00:00:00 09/17/2012 23:59:59 CLS Outpatient SABINA POWELL MD [id number] 08/15/2012 13:34:00 08/15/2012 23:59:59 [place] [id number] 07/13/2012 10:10:00 07/13/2012 23:59:59 CLS Outpatient SABINA POWELL MD [id number] 04/26/2013 11:16:00 Document Registration [id number] 03/26/2013 12:59:00 Document Registration [id number] 02/15/2013 09:57:00 Document Registration [id number] 01/24/2013 12:42:00 Document Registration [id number] 01/15/2013 15:35:00 Document Registration [id number] 11/17/2017 12:08:00 11/17/2017 23:59:59 CLS Outpatient MORGAN MICHAEL Rakesh KOSHER BUTCHER [facility] RAD E04.1 RT THYROID NODULE [id number] 11/06/2017 10:44:00 11/06/2017 23:59:59 CLS Outpatient MORGAN MICHAEL Rakesh KOSHER BUTCHER [facility] RAD R94.6 ABN THS LEVEL [id number] 11/01/2017 08:33:00 11/01/2017 17:00:00 DIS Outpatient LARISA DOWELL MD [facility] ABN STRESS TEST [id number] 10/25/2017 11:31:00 10/25/2017 23:59:59 CLS Outpatient GREG LARA [facility] CARD CAD [id number] 10/22/2017 12:20:00 10/23/2017 09:04:00 DIS Inpatient FREDY ARROYO MD [facility] ICU CP, R/O ACS [id number] 12/01/2014 07:22:00 12/01/2014 23:59:59 CLS Outpatient LARISA DOWELL MD [facility] CARD CAD,HLP,COPD [id number] 10/14/2014 11:25:00 10/14/2014 23:59:59 CLS Outpatient GREG LARA [facility] CARD CP [id number] 08/19/2014 12:15:00 08/19/2014 23:59:59 CLS Preadmit GREG LARA [facility] CARD CP [id number] 08/13/2014 10:45:00 08/13/2014 23:59:59 CLS Outpatient GREG LARA [facility] CARD CP, [id number] 06/13/2014 12:09:00 06/13/2014 14:27:00 DIS Emergency AVANI GUO KOSHER BUTCHER [facility] ER CHEST PAIN ABDOMINAL PAIN [id number] 02/10/2014 10:25:00 02/10/2014 23:59:59 CLS Outpatient MARC PELAYO KOSHER BUTCHER [facility] RAD LEISON LEFT BREAST, SEEN ON PREVIOUS MAMMO [id number] 01/21/2014 14:18:00 01/21/2014 23:59:59 CLS Outpatient JUDY LUPILLO Cameron JIMBO [facility] RAD 6 MONTH FOLLOW UP [id number] 11/05/2013 11:56:00 11/05/2013 15:31:00 DIS Emergency SANTIAGO BABCOCK MD [facility] ER ABD PAIN/HEADACHE [id number] 04/02/2013 14:50:00 04/02/2013 23:59:59 CLS Outpatient DANIEL KAM MD [facility] RAD WORSENED LT SHOULDER PAIN,LIMITED MOBILITY [id number] 01/31/2013 19:06:00 01/31/2013 21:39:00 DIS Emergency SANTIAGO BABCOCK MD [facility] ER LEFT ARM AND FACIAL PAIN [id number] 11/09/2014 19:40:00 Document Registration [id number] 11/03/2014 11:55:00 Document Registration [id number] 11/03/2014 11:55:00 Document Registration [id number] 11/03/2014 11:55:00 Document Registration [id number] 11/03/2014 11:55:00 Document Registration [id number] 11/01/2014 22:05:00 Document Registration [id number] 10/05/2012 13:48:00 Document Registration [id number] 09/19/2012 07:38:00 Document Registration [id number] 08/24/2012 11:20:00 Document Registration [id number] 08/08/2012 08:36:00 Document Registration [id number] 08/07/2012 09:34:00 Document Registration [id number] 07/20/2012 14:19:00 Document Registration [id number] 07/04/2012 12:03:00 Document Registration [id number] 06/04/2011 15:05:00 Document Registration [id number] 03/09/2011 12:45:00 Document Registration [id number] 11/29/2010 11:41:00 Document Registration [id number] 11/11/2010 04:00:00 Document Registration [id number] 01/15/2010 14:28:00 Document Registration
[2019-01-05] MEDS ORDERED: ONDANSETRON 4 MG/2 ML (SDV) Z0FRAN IVP ONE (08:00)
[2019-01-05 08:04] LABS: BASOPHILS # (AUTO) 0.1 10^3/uL (0.0-0.1); BASOPHILS % (AUTO) 1 % (0-10); EOSINOPHILS % (AUTO) 7 % (0-10); HEMATOCRIT 45 % (35-52); HEMOGLOBIN 15.5 G/DL (11.5-16.0); LYMPHOCYTES # (AUTO) 2.9 X 10^3 (1.0-4.0); LYMPHOCYTES % (AUTO) 21 % (12-44); MEAN CORPUSCULAR HEMOGLOBIN 32 PG (25-34); MEAN CORPUSCULAR HGB CONC 34 G/DL (32-36); MEAN CORPUSCULAR VOLUME 94 FL (80-99); MEAN PLATELET VOLUME 11.9 FL (7.4-10.4); MONOCYTES # (AUTO) 0.7 X 10^3 (0.0-1.0); MONOCYTES % (AUTO) 5 % (0-12); NEUTROPHILS # (AUTO) 9.3 X 10^3 (1.8-7.8); NEUTROPHILS % (AUTO) 67 % (42-75); PLATELET COUNT 310 10^3/uL (130-400); RED CELL DISTRIBUTION WIDTH 13.7 % (10.0-14.5); WHITE BLOOD COUNT 13.9 10^3/uL (4.3-11.0)
[2019-01-05 08:23] LABS: ALANINE AMINOTRANSFERASE 30 U/L (0-55); ALBUMIN 4.8 GM/DL (3.2-4.5); ALKALINE PHOSPHATASE 88 U/L (40-136); BILIRUBIN,TOTAL 0.2 MG/DL (0.1-1.0); BUN/CREATININE RATIO 16; CALCIUM 10.3 MG/DL (8.5-10.1); CARBON DIOXIDE 20 MMOL/L (21-32); CHLORIDE 106 MMOL/L (98-107); CREATININE SERUM 0.94 MG/DL (0.60-1.30); GFR ESTIMATED > 60; GLUCOSE 93 MG/DL (70-105); LIPASE 21 U/L (8-78); POTASSIUM 4.1 MMOL/L (3.6-5.0); SODIUM 141 MMOL/L (135-145)
--- NOTE | 2019-01-05 08:30 | Diagnostic Imaging Report ---
Indication: Chest pain. Comparison: None. Discussion: Single portable upright view of the chest was obtained. Normal heart size. No focal consolidation, pleural fluid, or pneumothorax. No osseous abnormality. Impression: 1. Stable negative chest. Dictated by: Dictated on workstation # [id number]
[2019-01-05 08:35] LABS: PROTHROMBIN TIME PATIENT 13.3 SEC (12.2-14.7)
[2019-01-05] MEDS ORDERED: CATHETER FLUSH 10 ML SYR IV PRN (10:30)
[2019-01-05] MEDS ORDERED: ONDANSETRON 4 MG/2 ML (SDV) Z0FRAN IV PRN (10:30)
[2019-01-05] MEDS ORDERED: ACETAMINOPHEN 500 MG TAB (TYLENOL) PO PRN (10:30)
[2019-01-05] MEDS ORDERED: PROMETHAZINE 25 MG (PHENERGAN) TAB PO PRN (10:30)
--- NOTE | 2019-01-05 10:30 | NUR ---
PALOMA HANSON admitted to room CU3-1, with an admitting diagnosis of CHEST PAIN, on 01/05/19 from ED via WHEELCHAIR, accompanied by HOSPITAL STAFF. PALOMA HANSON introduced to surroundings, call light, bed controls, phone, TV, temperature control, lights, meal times, smoking policy, visitor policy, side rail policy, bathrooms and showers. Patient Rights given to patient in the handbook.PALOMA HANSON verbalizes understanding that [facility] is not responsible for the loss or damage to any personal effects or valuables that are kept in the patients posession during their hospitalization. PALOMA HANSON verbalizes understanding of Interdisciplinary Patient Education. Patient and/or family were informed about the Rapid Response Team and its purpose.
--- NOTE | 2019-01-05 11:34 | Cardiology History & Physical ---
HPI-Cardiology Cardiology H&P Date of Admission 01/05/19 Primary Care Physician Alfreda Garcia DO Attending Physician Tiarra Sung MD, MA FACP [facility] Primary state auditor: Dr Lucas Consulting Physician [facility] CC: Chest pain HPI: 53 yo woman admitted with chest pain: Lower midsternal and epigastric, onset several years ago, intermittent, occurring several times a month, lasting up to 12-18 hours, mild to moderately severe, sharp or dull, non-radiating, markedly aggravated by palp/pressure on lower sternum or epigastrium, w/o relieving factors, not associated with other symptoms. Today's episode started at 4 am, worse than usual, associated with some nausea, minimally improved but not relieved with s/l NTG in ER, reproducible on pressure Chronic exertional shortness of breath, slowly progressive. No palp, syncope, presyncope, leg swelling. Chronic tobacco use, has lately reduced from 2 ppd to 6 cigs per day. Review of Systems-Cardiology Review of Systems Constitutional: malaise, tiredness; No weight loss, No other Eyes: No vision change Ears/Nose/Throat: No ear discharge, No nasal drainage, No recent hearing loss Respiratory: As described under HPI Cardiovascular: As described under HPI Gastrointestinal: As described under HPI Genitourinary: No dysuria, No hematuria, No urine frequency changes Musculoskeletal: No back pain, No joint pain Skin: No rash, No ulcerations Psychiatric/Neurological: No seizure, No focal weakness, No syncope Hematologic: No bleeding abnormalities [facility] H[facility] Patient Social History Alcohol Use: Denies Use Recreational Drug Use: Yes Drug of Choice: Hx opiates Smoking Status: Current Everyday Smoker Type Used: Cigarettes Recent Foreign Travel: No Recent Infectious Disease Expo: No Immunizations Up To Date Date of Pneumonia Vaccine: Jun 12, 2014 Date of Influenza Vaccine: Jun 12, 2014 Past Medical History PMH As described under Assessment. Family Medical History Family History: Diabetes mellitus 19 FATHER Myocardial infarction 19 FATHER Psychosocial problem 19 MOTHER Schizophrenia 19 MOTHER Allergies and Home Medications Allergies Coded Allergies: Iodinated Contrast- Oral and IV Dye (Unverified Allergy, Intermediate, RASH, 11/01/17) morphine (Verified Adverse Reaction, Unknown, 01/05/19) Home Medications Aspirin 81 Mg Tablet.dr, 81 MG PO DAILY, (Reported) Atorvastatin Calcium 10 Mg Tablet, 10 MG PO DAILY, (Reported) Bupropion HCl 150 Mg Tab.er.24h, 150 MG PO DAILY, (Reported) Buspirone HCl 10 Mg Tablet, 10 MG PO TID, (Reported) Cetirizine HCl 10 Mg Tablet, 10 MG PO DAILY, (Reported) Chlorthalidone 25 Mg Tablet, 25 MG PO DAILY, (Reported) Clonidine HCl 0.1 Mg Tablet, 0.1 MG PO BID, (Reported) Gabapentin 300 Mg Capsule, 300 MG PO HS, (Reported) Ginseng 100 Mg Capsule, 100 MG PO DAILY, (Reported) Lisinopril 10 Mg Tablet, 10 MG PO DAILY, (Reported) LAST FILLED 08/14/17 #49 Metoprolol Succinate 25 Mg Tab.er.24h, 25 MG PO DAILY, (Reported) Nitroglycerin 0.4 Mg Tab.subl, 0.4 MG SL UD PRN for CHEST PAIN, (Reported) Vitamin B Complex 1 Each Tablet, 1 TAB PO DAILY, (Reported) Patient Home Medication List Home Medication List Reviewed: Yes Physical Exam-Cardiology Physical Exam Vital Signs/I&O 01/05/19 01/05/19 01/05/19 07:35 07:35 10:06 Temp 97.8 98.2 Pulse 94 80 Resp 12 18 B/P (MAP) 168/114 (132) 136/92 (107) Pulse Ox 100 98 O2 Delivery Room Air Capillary Refill : Less Than 3 Seconds Constitutional: AAO x 3, well-developed, well-nourished HEENT: PERRL, EOMI, hearing is well preserved; No xanthelasmas are seen Neck: carotid pulses are 2 + bilaterally, with good upstrokes Respiratory: No accessory muscle use; lungs clear to percussion, lungs clear to auscultation Cardiovascular: regular rate-rhythm, S1 and S2, systolic murmur (faint CHRISTINA at card base) Gastrointestinal: tender (tenderness to palp in epigastrium), soft; No guarding , No rebound; audible bowel sounds Extremities: No clubbing, No cyanosis, No significant edema Neurologic/Psychiatric: oriented x 3, grossly intact, power is 5/5 both on sides Skin: No rash, No ulcerations Other comments Tenderness to palpation over lower sternum and epigastrium (same pain she has presented with) Data Review Labs Laboratory Tests 01/05/19 07:47: White Blood Count 13.9H, Red Blood Count 4.82, Hemoglobin 15.5, Hematocrit 45, Mean Corpuscular Volume 94, Mean Corpuscular Hemoglobin 32, Mean Corpuscular Hemoglobin Concent 34, Red Cell Distribution Width 13.7, Platelet Count 310, Mean Platelet Volume 11.9H, Neutrophils (%) (Auto) 67, Lymphocytes (%) (Auto) 21 , Monocytes (%) (Auto) 5, Eosinophils (%) (Auto) 7, Basophils (%) (Auto) 1, Neutrophils # (Auto) 9.3H, Lymphocytes # (Auto) 2.9, Monocytes # (Auto) 0.7, Eosinophils # (Auto) 1.0H, Basophils # (Auto) 0.1, Prothrombin Time 13.3, INR Comment 1.0, Activated Partial Thromboplast Time 28, Sodium Level 141, Potassium Level 4.1, Chloride Level 106, Carbon Dioxide Level 20L, Anion Gap 15H , Blood Urea Nitrogen 15, Creatinine 0.94, Estimat Glomerular Filtration Rate > 60, BUN/Creatinine Ratio 16, Glucose Level 93, Calcium Level 10.3H, Corrected Calcium , Magnesium Level 3.0H, Total Bilirubin 0.2, Aspartate Amino Transf (AST /SGOT) 37H, Alanine Aminotransferase (ALT/SGPT) 30, Alkaline Phosphatase 88, Myoglobin 46.7, Troponin I < 0.028, B-Type Natriuretic Peptide 18.4, Total Protein 9.0H, Albumin 4.8H, Lipase 21 Laboratory Tests 01/05/19 07:47 A/P-Cardiology Assessment/Admission Diagnosis Chest pain w/o evidence of ACS, so far CAD, previously known to be mild. Last card cath on 11/01/[address] Lucas: Left Main is free of obstructive disease; Left Anterior Descending has ostial/ proximal 40-50 percent stenosis nonobstructive disease no change from previous study, mild disease at the midportion; Left Circumflex a small to moderate in size with no obstructive disease; Right Coronory Artery is moderate in size with mild disease or disease; LV Gram was not done; LVEDP 12 mmHg Hypertension Hyperlipidemia Chronic tobacco use H/o hyperthyroidism-TSH on October 23, 2017 was 0.07. Pt reports this is managed by her pcp ([facility]) Probable COPD and chronic exertional shortness of breath H/o HH and GERD Admission Status: Observation Discussion and Recomendations * Serial card enz and ECGs * If evidence of ACS, consider cath. Otherwise, likely d/c tomorrow * Echo * Monitor labs * Advised to quit smoking immediately and completely Clinical Quality Measures AMI/AHF: ASA po Prior to arrival: Yes (81 MG) TIARRA SUNG MD FACP FAC CCDS Jan 05, 2019 11:34
[2019-01-05] MEDS ORDERED: ACETAMINOPHEN 325 MG TABLET PO PRN (12:00)
[2019-01-05] MEDS ORDERED: PANTOPRAZOLE 40 MG (PROTONIX) VIAL IV NR (12:00)
[2019-01-05] MEDS: busPIRone 10 MG (BUSPAR) TAB PO SCH ×2 (13:18→20:10)
[2019-01-05] MEDS ORDERED: NICOTINE 21 MG (NICODERM) PATCH ONE (14:23)
[2019-01-05] MEDS ORDERED: lisINopril 10 MG (PRINIVIL) TABLET ONE (14:23)
[2019-01-05] MEDS: NICOTINE 21 MG (NICODERM) PATCH TD SCH (14:34)
[2019-01-05] MEDS: lisINopril 10 MG (PRINIVIL) TABLET PO SCH (14:38)
[2019-01-05] MEDS: CATHETER FLUSH 10 ML SYR IV SCH ×2 (14:39→22:16)
[2019-01-05] MEDS ORDERED: ARIP5TAB12 PO (14:56)
[2019-01-05] MEDS: ANTACID SUSP 30 ML UDC (MYLANTA) PO SCH ×3 (16:00→20:09)
[2019-01-05] MEDS: cloNIDine 0.1 MG (CATAPRES) TAB PO SCH (20:10)
[2019-01-05] MEDS ORDERED: ATORVASTATIN 40 MG (LIPITOR) TABLET PO SCH (21:00)
[2019-01-05] MEDS ORDERED: GABAPENTIN 300 MG (NEURONTIN) CAP PO SCH (21:00)
[2019-01-06] VITALS: BP 129/78
[2019-01-06 03:47] LABS: BASOPHILS # (AUTO) 0.1 10^3/uL (0.0-0.1); BASOPHILS % (AUTO) 1 % (0-10); EOSINOPHILS % (AUTO) 11 % (0-10); HEMATOCRIT 42 % (35-52); LYMPHOCYTES # (AUTO) 2.4 X 10^3 (1.0-4.0); LYMPHOCYTES % (AUTO) 25 % (12-44); MEAN CORPUSCULAR HEMOGLOBIN 32 PG (25-34); MEAN CORPUSCULAR HGB CONC 33 G/DL (32-36); MEAN CORPUSCULAR VOLUME 97 FL (80-99); MEAN PLATELET VOLUME 11.9 FL (7.4-10.4); MONOCYTES # (AUTO) 0.7 X 10^3 (0.0-1.0); MONOCYTES % (AUTO) 8 % (0-12); NEUTROPHILS # (AUTO) 5.4 X 10^3 (1.8-7.8); NEUTROPHILS % (AUTO) 57 % (42-75); PLATELET COUNT 237 10^3/uL (130-400); RED CELL DISTRIBUTION WIDTH 13.7 % (10.0-14.5); WHITE BLOOD COUNT 9.6 10^3/uL (4.3-11.0)
[2019-01-06 04:00] VITALS: BP 116/91
[2019-01-06 04:16] LABS: ALANINE AMINOTRANSFERASE 20 U/L (0-55); ALBUMIN 3.9 GM/DL (3.2-4.5); ALKALINE PHOSPHATASE 75 U/L (40-136); BILIRUBIN,TOTAL 0.3 MG/DL (0.1-1.0); BUN/CREATININE RATIO 18; CALCIUM 9.8 MG/DL (8.5-10.1); CARBON DIOXIDE 23 MMOL/L (21-32); CHLORIDE 107 MMOL/L (98-107); CHOLESTEROL 181 MG/DL (< 200); CREATININE SERUM 0.88 MG/DL (0.60-1.30); GFR ESTIMATED > 60; GLUCOSE 105 MG/DL (70-105); HDL CHOLESTEROL 40 MG/DL (40-60); MAGNESIUM 2.4 MG/DL (1.8-2.4); POTASSIUM 3.8 MMOL/L (3.6-5.0); SODIUM 142 MMOL/L (135-145); TOTAL PROTEIN 6.7 GM/DL (6.4-8.2); TRIGLYCERIDES 175 MG/DL (<150); VLDL CHOLESTEROL 35 MG/DL (5-40)
[2019-01-06] MEDS: ANTACID SUSP 30 ML UDC (MYLANTA) PO SCH ×2 (06:02→11:28)
[2019-01-06] MEDS: CATHETER FLUSH 10 ML SYR IV SCH (06:25)
[2019-01-06] MEDS ORDERED: CHLORTHALIDONE 25 MG (HYGROTON) TABLET PO SCH (07:00)
[2019-01-06] MEDS: lisINopril 10 MG (PRINIVIL) TABLET PO SCH (08:55)
[2019-01-06] MEDS: NICOTINE 21 MG (NICODERM) PATCH TD SCH (08:55)
[2019-01-06] MEDS: cloNIDine 0.1 MG (CATAPRES) TAB PO SCH (08:56)
[2019-01-06] MEDS: busPIRone 10 MG (BUSPAR) TAB PO SCH (08:56)
[2019-01-06] MEDS ORDERED: NICOTINE PATCH REMOVAL TP SCH (08:59)
[2019-01-06] MEDS ORDERED: buPROPion SR 150 MG (WELLBUTRIN SR) TAB PO SCH (09:00)
[2019-01-06] MEDS ORDERED: PANTOPRAZOLE 40 MG (PROTONIX) TAB PO SCH (09:00)
[2019-01-06] MEDS ORDERED: LORATADINE (CLARITIN) 10 MG TAB PO SCH (09:00)
[2019-01-06] MEDS ORDERED: NON-FORMULARY MEDICATION 1 EA EA (Chlorthalidone 25 MG) PO SCH (09:00)
[2019-01-06] MEDS ORDERED: ASPIRIN E.C. 81 MG (ECOTRIN) TAB PO SCH (09:00)
[2019-01-06 11:36] VITALS: BP 125/86
--- NOTE | 2019-01-06 12:20 | Discharge Inst-Cardiology ---
Discharge Inst-Cardiac Discharge Medications Continued Medications: Aripiprazole (Abilify) 5 Mg Tablet 5 MG PO DAILY, TAB Aspirin (Aspirin EC) 81 Mg Tablet.dr 81 MG PO DAILY, TAB Atorvastatin Calcium (Lipitor) 10 Mg Tablet 10 MG PO DAILY, TAB Buspirone HCl (Buspirone HCl) 10 Mg Tablet 10 MG PO TID, TAB Cetirizine HCl (Cetirizine HCl) 10 Mg Tablet 10 MG PO DAILY, TAB Chlorthalidone (Chlorthalidone) 25 Mg Tablet 25 MG PO DAILY, TAB Clonidine HCl (Clonidine HCl) 0.1 Mg Tablet 0.1 MG PO BID, TAB Gabapentin (Gabapentin) 300 Mg Capsule 300 MG PO HS, CAP Lisinopril (Lisinopril) 10 Mg Tablet 10 MG PO DAILY, TAB LAST FILLED 08/14/17 #49 Metoprolol Succinate (Metoprolol Succinate) 25 Mg Tab.er.24h 25 MG PO DAILY, TAB Nitroglycerin (Nitroglycerin) 0.4 Mg Tab.subl 0.4 MG SL UD PRN for CHEST PAIN, TAB Vitamin B Complex (Vitamin B Complex) 1 Each Tablet 1 TAB PO DAILY, TAB Discontinued Medications: Ginseng (Ginseng) 100 Mg Capsule 100 MG PO DAILY, CAP Patient Instructions Patient Instructions: F/u with Dr Lucas within this week NO SMOKING DUANE BURROWS MD FACP FAC CCDS Jan 06, 2019 12:19
--- NOTE | 2019-01-06 12:25 | Progress Note-Cardiology ---
Cardiology SOAP Progress Note Subjective: No cp or palp or syncope or shortness of breath at rest Wishes to go home Objective: I&O/Vital Signs 01/06/19 01/06/19 01/06/19 01/06/19 01:00 04:00 04:00 07:00 Temp 98.0 Pulse 70 78 82 Resp 18 B/P (MAP) 116/91 (99) Pulse Ox 95 98 O2 Delivery Room Air Room Air 01/06/19 01/06/19 01/06/19 01/06/19 08:00 08:00 09:00 11:36 Temp 98.7 96.6 Pulse 72 Resp 20 B/P (MAP) 125/86 (99) Pulse Ox 98 98 93 O2 Delivery Room Air Room Air Room Air 01/06/19 00:00 Intake Total 600 ml Output Total 1300 ml Balance -700 ml Weight (Pounds): 189 Weight (Ounces): 6.0 Weight (Calculated Kilograms): 85.229370 Constitutional: AAO x 3, well-developed, well-nourished Respiratory: No accessory muscle use; lungs clear to percussion, lungs clear to auscultation Cardiovascular: regular rate-rhythm, S1 and S2, systolic murmur (faint CHRISTINA at card base) Gastrointestional: tender (tenderness to palp in epigastrium), soft; No guarding, No rebound; audible bowel sounds Extremities: No clubbing, No cyanosis, No significant edema Neurologic/Psychiatric: oriented x 3, grossly intact, power is 5/5 both on sides Skin: No rash, No ulcerations Results/Procedures: Labs Laboratory Tests 01/05/19 13:51: Troponin I < 0.028 01/05/19 19:55: Troponin I < 0.028 01/06/19 03:20: White Blood Count 9.6, Red Blood Count 4.37, Hemoglobin 14.0, Hematocrit 42, Mean Corpuscular Volume 97, Mean Corpuscular Hemoglobin 32, Mean Corpuscular Hemoglobin Concent 33, Red Cell Distribution Width 13.7, Platelet Count 237, Mean Platelet Volume 11.9H, Neutrophils (%) (Auto) 57, Lymphocytes (%) (Auto) 25 , Monocytes (%) (Auto) 8, Eosinophils (%) (Auto) 11H, Basophils (%) (Auto) 1, Neutrophils # (Auto) 5.4, Lymphocytes # (Auto) 2.4, Monocytes # (Auto) 0.7, Eosinophils # (Auto) 1.0H, Basophils # (Auto) 0.1, Sodium Level 142, Potassium Level 3.8, Chloride Level 107, Carbon Dioxide Level 23, Anion Gap 12, Blood Urea Nitrogen 16, Creatinine 0.88, Estimat Glomerular Filtration Rate > 60, BUN/ Creatinine Ratio 18, Glucose Level 105, Calcium Level 9.8, Corrected Calcium 9.9 , Magnesium Level 2.4, Total Bilirubin 0.3, Aspartate Amino Transf (AST/SGOT) 15 , Alanine Aminotransferase (ALT/SGPT) 20, Alkaline Phosphatase 75, Total Protein 6.7, Albumin 3.9, Triglycerides Level 175H, Cholesterol Level 181, LDL Cholesterol Direct 127, VLDL Cholesterol 35, HDL Cholesterol 40, Thyroid Stimulating Hormone (TSH) 0.78 Laboratory Tests 01/05/19 07:47 01/06/19 03:20 A/P: Assessment: Chest pain w/o any evidence of ACS, etiology undetermined CAD, previously known to be mild. Last card cath on 11/01/[address] Lucas: Left Main is free of obstructive disease; Left Anterior Descending has ostial/ proximal 40-50 percent stenosis nonobstructive disease no change from previous study, mild disease at the midportion; Left Circumflex a small to moderate in size with no obstructive disease; Right Coronory Artery is moderate in size with mild disease or disease; LV Gram was not done; LVEDP 12 mmHg Echo of 01/05/19: LVEF 60-65%, no wall motion abnormality, PASP approx 30 mmHg Hypertension Hyperlipidemia Chronic tobacco use H/o hyperthyroidism-TSH on October 23, 2017 was 0.07. Pt reports this is managed by her pcp ([facility]) Probable COPD and chronic exertional shortness of breath H/o HH and GERD Plan: * Risk factor modification reviewed * Advised to quit smoking immediately and completely * Outpt card f/u advised * Advised to return to ER for recurrent or new symptoms Clinical Quality Measures AMI/AHF: ASA po Prior to arrival: Yes (81 MG) DUANE BURROWS MD FACP FAC CCDS Jan 06, 2019 12:25
[2019-01-06 12:49] VITALS: BP 125/86
== END 2019-01-06 12:53 | disposition home or self-care (01) ==
LOC: EDUNIT# 07:35 → ER 07:36 → ICU 09:30
PROVIDERS: ADMIT Internal Medicine Cardiovascular Disease; ATTEND Internal Medicine Cardiovascular Disease
DX: R07.9 Chest pain, unspecified (principal); I25.10 Atherosclerotic heart disease of native coronary artery without angina pectoris; I10 Essential (primary) hypertension; E78.5 Hyperlipidemia, unspecified; E05.90 Thyrotoxicosis, unspecified without thyrotoxic crisis or storm; J44.9 Chronic obstructive pulmonary disease, unspecified; K21.9 Gastro-esophageal reflux disease without esophagitis; K44.9 Diaphragmatic hernia without obstruction or gangrene; F17.210 Nicotine dependence, cigarettes, uncomplicated; E78.00 Pure hypercholesterolemia, unspecified; K59.09 Other constipation; M19.91 Primary osteoarthritis, unspecified site; F41.9 Anxiety disorder, unspecified; F31.9 Bipolar disorder, unspecified; Z79.899 Other long term (current) drug therapy; Z79.82 Long term (current) use of aspirin; Z91.041 Radiographic dye allergy status
CPT/HCPCS: 36415; 71045; 80053; 80061; 83690; 83735; 83874; 83880; 84443; 84484; 85025; 85610; 85730; 93005; 93306

== ENCOUNTER 2021-07-27 11:42 | Inpatient (IN) | payer SELFPAY ==
[~2021-07-27] VITALS: Ht 165 cm; Wt 86.0 kg
[~2021-07-27 11:42] MED LIST changes: +ARIP5TAB12 PO; +ASPI-1238 PO; -ASPI-983 PO; +BUPR150T24 PO; -BUPR150T7 PO; -CLON0.1T PO; +LISI10TA25 PO; -METO-387 PO; +MTP25TSR PO
[2021-07-27] MEDS ORDERED: NS IV 1000 ML 1,000 ML IV SCH ×3 (12:00→17:15)
[2021-07-27] MEDS ORDERED: ONDANSETRON 4 MG/2 ML (SDV) Z0FRAN IVP ONE (12:00)
[2021-07-27] MEDS ORDERED: morphine INJ 10 MG/ML 1ML (SYR OR VIAL) IVP ONE (12:00)
--- NOTE | 2021-07-27 12:24 | ED Abdominal Pain ---
General Chief Complaint: Abdominal/GI Problems Stated Complaint: ABD PAIN Nursing Triage Note: PT ARRVIED PER EMS TO RM 5 PER CART, PT CO OF SEVERE ABD PAIN SUDDEN ONSET SINCE 0930 THIS AM. PT STATES L LOWER ABD THRU TO BACK 06/20. PT STATES FEELS LIKE NEEDS TO HAVE BM. PT HAS SL IN L AC THAT WILL NOT FLUSH BY EMS, DC'D. PT STATES HAD SEVERE SWEATING WHEN EMS ARRIVED Source of Information: Patient Exam Limitations: No Limitations (JESSICA LUCIA) History of Present Illness Date Seen by Provider: Jul 27, 2021 Time Seen by Provider: 12:21 Initial Comments Patient is a 55-year-old female who presents ED with acute onset of lower abdominal pain. Pain appears to be worse to the left lower quadrant with radiation to left flank. Described as sharp and stabbing. Denies history of kidney stones or history of similar pain. She reports nausea with a few episodes of vomiting. Denies any diarrhea. Patient was brought to the ED by EMS. Patient was not given any pain medication upon arrival. She denies history of previous abdominal surgery. Patient in mild to moderate distress on arrival. Denies chest pain, shortness of breath, cough, headache, dizziness, dysuria, increased urine frequency, hematuria. (JESSICA LUCIA) Allergies and Home Medications Allergies Coded Allergies: Iodinated Contrast Media (Unverified Allergy, Intermediate, RASH, 11/01/17) morphine (Verified Adverse Reaction, Unknown, 01/05/19) Patient Home Medication List Home Medication List Reviewed: Yes (JESSICA LUCIA) Amitriptyline HCl (Amitriptyline HCl) 25 Mg Tablet, 25 MG PO HS, (Reported) Entered as Reported by: GARRICK ADEN on 07/28/21 1232 Last Action: Reviewed Atorvastatin Calcium (Atorvastatin Calcium) 80 Mg Tablet, 80 MG PO DAILY, (Reported) Entered as Reported by: GARRICK ADEN on 07/28/21 1232 Last Action: Reviewed Clonidine HCl (Clonidine HCl) 0.1 Mg Tablet, 0.1 MG PO BID, (Reported) Entered as Reported by: BLACK IBRAHIM on 10/22/17 1639 Last Action: Reviewed Fluticasone Propionate (Flonase Allergy Relief) 9.9 Ml [place].susp, 2 SPRAY NSEACH DAILY PRN for CONGESTION, (Reported) Entered as Reported by: GARRICK ADEN on 07/28/21 1232 Last Action: Reviewed Gabapentin (Neurontin) 300 Mg Capsule, 300 MG PO TID, (Reported) Entered as Reported by: GARRICK ADEN on 07/28/21 123 Last Action: Reviewed Ibuprofen (Ibuprofen) 200 Mg Capsule, 200-400 MG PO Q8H PRN for PAIN-MILD (1-4), (Reported) Entered as Reported by: GARRICK ADEN on 07/28/21 1233 Last Action: Reviewed Lisinopril (Lisinopril) 20 Mg Tablet, 20 MG PO DAILY, (Reported) Entered as Reported by: GARRICK ADEN on 07/28/21 1235 Last Action: Reviewed Metoprolol Succinate (Metoprolol Succinate) 25 Mg Tab.er.24h, 25 MG PO DAILY, (Reported) Entered as Reported by: BLACK IBRAHIM on 10/22/17 1639 Last Action: Reviewed Multivitamin (Multivitamin) 1 Each Tablet, 1 EACH PO DAILY, (Reported) Entered as Reported by: GARRICK ADEN on 07/28/21 123 Last Action: Reviewed Nitroglycerin (Nitroglycerin) 0.4 Mg Tab.subl, 0.4 MG SL UD PRN for CHEST PAIN, (Reported) Entered as Reported by: MAGDALENO PINO on 11/01/17 1016 Last Action: Reviewed Quetiapine Fumarate (Seroquel) 50 Mg Tablet, 50 MG PO HS, (Reported) Entered as Reported by: GARRICK ADEN on 07/28/21 123 Last Action: Reviewed Vitamin B Complex (Vitamin B Complex) 1 Each Tablet, 1 TAB PO DAILY, (Reported) Entered as Reported by: BLACK IBRAHIM on 10/22/17 1641 Last Action: Reviewed Discontinued Medications Aripiprazole (Abilify) 5 Mg Tablet, 5 MG PO DAILY, (Reported) Discontinued Reason: No Longer Taking Entered as Reported by: MAURO SHORT on 01/05/19 1456 Last Action: Discontinued Atorvastatin Calcium (Lipitor) 10 Mg Tablet, 10 MG PO DAILY, (Reported) Discontinued Reason: Prescription changed Entered as Reported by: MAGDALENO PINO on 11/01/17 1013 Buspirone HCl (Buspirone HCl) 10 Mg Tablet, 10 MG PO TID, (Reported) Discontinued Reason: No Longer Taking Entered as Reported by: BLACK IBRAHIM on 10/22/171638 Last Action: Discontinued Cetirizine HCl (Cetirizine HCl) 10 Mg Tablet, 10 MG PO DAILY, (Reported) Discontinued Reason: No Longer Taking Entered as Reported by: BLACK IBRAHIM on 10/22/171638 Last Action: Discontinued Chlorthalidone (Chlorthalidone) 25 Mg Tablet, 25 MG PO DAILY, (Reported) Discontinued Reason: No Longer Taking Entered as Reported by: BLACK IBRAHIM on 10/22/171638 Last Action: Discontinued Lisinopril (Lisinopril) 10 Mg Tablet, 10 MG PO DAILY, (Reported) Discontinued Reason: Prescription changed Entered as Reported by: BLACK IBRAHIM on 10/22/171638 Last Action: Last Taken Edited Review of Systems Review of Systems Constitutional: No chills, No diaphoresis, No dizziness, No fever EENTM: No Blurred Vision, No Eye Pain, No Ear Drainage, No Ear Pain Cardiovascular: Denies Chest Pain, Denies Lightheadedness Gastrointestinal: Abdominal Pain; Denies Constipated, Denies Diarrhea; Nausea, Vomiting Genitourinary: Denies Burning, Denies Discharge, Denies Drainage, Denies Frequency; Flank Pain; Denies Hematuria Musculoskeletal: back pain; No gout, No joint pain Skin: No change in color, No change in hair/nails Psychiatric/Neurological: Denies Anxiety (JESSICA LUCIA) All Other Systems Reviewed Negative Unless Noted: Yes (JESSICA LUCIA) Past Ybvexlr-Dergzx-Gsuhsn Hx Patient Social History Tobacco Use?: Yes Tobacco type used: Cigarettes Smoking Status: Current Everyday Smoker Substance use?: No Alcohol Use?: No Pt feels they are or have been: No (JESSICA LUCIA) Seasonal Allergies Seasonal Allergies: Yes (JESSICA LUCIA) Past Medical History Surgeries: Yes (UPPPER EXT GRAFTS, CARDIAC CATH NO INTERVENTION) Tubal Ligation Respiratory: No COPD Cardiac: Yes (ACS) High Cholesterol, Hypertension Neurological: No Headaches /Migraines Reproductive Disorders: Yes (HAD A PRIOR ABLATION? FOR FOR HEAVY PEERIODS) Female Reproductive Disorders: Menstrual Problems Genitourinary: No Gastrointestinal: Yes Gastroesophageal Reflux, Chronic Constipation Musculoskeletal: Yes (CHRONIC PAIN FROM PARRY) Arthritis Endocrine: Yes (nodules on thyroid) HEENT: No Cancer: No Psychosocial: Yes Anxiety, Bipolar, Depression Integumentary: No Blood Disorders: No Adverse Reaction/Blood Tranf: No (JESSICA LUCIA) Family Medical History Diabetes mellitus 19 FATHER Myocardial infarction 19 FATHER Psychosocial problem 19 MOTHER Schizophrenia 19 MOTHER CAD Over 55 Years Old, Diabetes, Psychiatric Problems (JESSICA LUCIA) Physical Exam Vital Signs Vital Signs - First Documented 07/27/21 11:55 Temp 35.9 Pulse 134 Resp 18 B/P (MAP) 142/105 (117) Pulse Ox 98 (TELMA HESS MD) Vital Signs Capillary Refill : Less Than 3 Seconds (JESSICA LUCIA) Height/Weight/BMI Height: 5'5.00" Weight: 189lbs. 6.0oz. 85.170290xa; 31.00 BMI Method:Stated General Appearance: WD/WN HEENT: PERRL/EOMI, normal ENT inspection, TMs normal Neck: non-tender, full range of motion, supple, normal inspection Respiratory: chest non-tender, lungs clear, normal breath sounds, no respiratory distress, no accessory muscle use Cardiovascular: normal peripheral pulses, regular rate, rhythm, no edema, no gallop Gastrointestinal: normal bowel sounds, soft, no organomegaly, no pulsatile mass, tenderness (Left and right lower quadrant tenderness. 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, no motor/sensory deficits, alert, normal mood/affect Skin: normal color, warm/dry (JESSICA LUCIA) Progress/Results/Core Measures Results/Orders Lab Results Laboratory Tests Test 07/27/21 12:30 07/27/21 13:20 Range/Units White Blood Count 19.7 H 4.3-11.0 10^3/uL Red Blood Count 4.92 3.80-5.11 10^6/uL Hemoglobin 16.2 H 11.5-16.0 g/dL Hematocrit 48 35-52 % Mean Corpuscular Volume 98 80-99 fL Mean Corpuscular Hemoglobin 33 25-34 pg Mean Corpuscular Hemoglobin Concent 34 32-36 g/dL Red Cell Distribution Width 13.0 10.0-14.5 % Platelet Count 287 130-400 10^3/uL Mean Platelet Volume 11.2 9.0-12.2 fL Immature Granulocyte % (Auto) 1 % Neutrophils (%) (Auto) 78 H 42-75 % Lymphocytes (%) (Auto) 13 12-44 % Monocytes (%) (Auto) 5 0-12 % Eosinophils (%) (Auto) 2 0-10 % Basophils (%) (Auto) 1 0-10 % Neutrophils # (Auto) 15.5 H 1.8-7.8 10^3/uL Lymphocytes # (Auto) 2.6 1.0-4.0 10^3/uL Monocytes # (Auto) 1.0 0.0-1.0 10^3/uL Eosinophils # (Auto) 0.3 0.0-0.3 10^3/uL Basophils # (Auto) 0.1 0.0-0.1 10^3/uL Immature Granulocyte # (Auto) 0.2 H 0.0-0.1 10^3/uL Neutrophils % (Manual) 74 % Lymphocytes % (Manual) 17 % Monocytes % (Manual) 3 % Eosinophils % (Manual) 1 % Band Neutrophils 5 % Blood Morphology Comment NORMAL Sodium Level 141 135-145 MMOL/L Potassium Level 3.2 L 3.6-5.0 MMOL/L Chloride Level 105 98-107 MMOL/L Carbon Dioxide Level 22 21-32 MMOL/L Anion Gap 14 5-14 MMOL/L Blood Urea Nitrogen 21 H 7-18 MG/DL Creatinine 1.25 0.60-1.30 MG/DL Estimat Glomerular Filtration Rate 45 BUN/Creatinine Ratio 17 Glucose Level 192 H 70-105 MG/DL Calcium Level 10.2 H 8.5-10.1 MG/DL Corrected Calcium 10.0 8.5-10.1 MG/DL Total Bilirubin 0.3 0.1-1.0 MG/DL Aspartate Amino Transf (AST/SGOT) 26 5-34 U/L Alanine Aminotransferase (ALT/SGPT) 36 0-55 U/L Alkaline Phosphatase 113 40-136 U/L Total Protein 7.5 6.4-8.2 GM/DL Albumin 4.3 3.2-4.5 GM/DL Lipase 27 8-78 U/L Urine Color YELLOW Urine Clarity CLEAR Urine pH 5.5 5-9 Urine Specific [place] 1.015 L 1.016-1.022 Urine Protein NEGATIVE NEGATIVE Urine Glucose (UA) NEGATIVE NEGATIVE Urine Ketones NEGATIVE NEGATIVE Urine Nitrite NEGATIVE NEGATIVE Urine Bilirubin NEGATIVE NEGATIVE Urine Urobilinogen 0.2 < = 1.0 MG/DL Urine Leukocyte Esterase NEGATIVE NEGATIVE Urine RBC (Auto) NEGATIVE NEGATIVE Urine RBC NONE /HPF Urine WBC 0-2 /HPF Urine Squamous Epithelial Cells 2-5 /HPF Urine Crystals NONE /LPF Urine Bacteria MODERATE H /HPF Urine Casts PRESENT /LPF Urine Hyaline Casts 2-5 H /LPF Urine Mucus NEGATIVE /LPF Urine Culture Indicated YES (TELMA HESS MD) Micro Results Microbiology 07/27/21 Urine Culture - Preliminary, Resulted Escherichia coli (TELMA HESS MD) Vital Signs/I&O 07/27/21 11:55 Temp 35.9 Pulse 134 Resp 18 B/P (MAP) 142/105 (117) Pulse Ox 98 (TELMA HESS MD) 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 Mean: 117 Departure Communication (Admissions) Discussed patient with Dr. Good who accepts patient at this time. Recommend C. difficile stool culture. Patient was discussed with Dr. Anderson who recommends starting on oral vancomycin. Concerning for C. difficile. Stool culture was ordered. No recent antibiotic use. Elevated white blood count. Difficulty controlling pain here in the ED. CT abdomen pelvis negative for acute abnormality. Urinalysis without strong evidence of infection. Patient was accepted at this time by Dr. Good. She states she does have a history constipation but denies taking any laxatives today. She seems to be having pain improvement after having a bowel movement. Strong odor stool. Concerning for some form of colitis. Denies history of inflammatory bowel disease. (JESSICA LUCIA) Impression Primary Impression: Colitis Disposition: ADMITTED INPATIENT Condition: Stable Admissions Decision to Admit Reason: Admit from ER (General) Decision to Admit/Date: Jul 27, 2021 Time/Decision to Admit Time: 15:19 (JESSICA LUCIA) Departure-Patient Inst. Referrals: NO,LOCAL PHYSICIAN (PCP/Family) Primary Care Physician ATTENDING PHYSICIAN NOTE: I was physically present as attending physician in the emergency department during the care of this patient, but I was not directly involved in the decision making or delivery of care for this patient. (TELMA HESS MD) JESSICA LUCIA Jul 27, 2021 12:23 TELMA HESS MD Jul 29, 2021 05:13
[2021-07-27 12:34] LABS: BASOPHILS # (AUTO) 0.1 10^3/uL (0.0-0.1); BASOPHILS % (AUTO) 1 % (0-10); EOSINOPHILS # (AUTO) 0.3 10^3/uL (0.0-0.3); EOSINOPHILS % (AUTO) 2 % (0-10); HEMATOCRIT 48 % (35-52); HEMOGLOBIN 16.2 g/dL (11.5-16.0); LYMPHOCYTES # (AUTO) 2.6 10^3/uL (1.0-4.0); LYMPHOCYTES % (AUTO) 13 % (12-44); MEAN CORPUSCULAR HEMOGLOBIN 33 pg (25-34); MEAN CORPUSCULAR HGB CONC 34 g/dL (32-36); MEAN CORPUSCULAR VOLUME 98 fL (80-99); MEAN PLATELET VOLUME 11.2 fL (9.0-12.2); MONOCYTES % (AUTO) 5 % (0-12); NEUTROPHILS # (AUTO) 15.5 10^3/uL (1.8-7.8); NEUTROPHILS % (AUTO) 78 % (42-75); PLATELET COUNT 287 10^3/uL (130-400); WHITE BLOOD COUNT 19.7 10^3/uL (4.3-11.0)
[2021-07-27 12:46] LABS: ALBUMIN 4.3 GM/DL (3.2-4.5); POTASSIUM 3.2 MMOL/L (3.6-5.0)
[2021-07-27 12:48] LABS: CALCIUM 10.2 MG/DL (8.5-10.1)
[2021-07-27 12:49] LABS: TOTAL PROTEIN 7.5 GM/DL (6.4-8.2)
[2021-07-27 12:50] LABS: BAND NEUTROPHILS 5 %; BILIRUBIN,TOTAL 0.3 MG/DL (0.1-1.0); EOSINOPHILS % (MANUAL) 1 %; LYMPHOCYTES % (MANUAL) 17 %; MONOCYTES % (MANUAL) 3 %; NEUTROPHILS % (MANUAL) 74 %; RBC MORPH NORMAL
[2021-07-27 12:52] LABS: CREATININE SERUM 1.25 MG/DL (0.60-1.30)
--- NOTE | 2021-07-27 13:04 | Diagnostic Imaging Report ---
PROCEDURE: CT abdomen and pelvis without contrast. TECHNIQUE: Multiple contiguous axial images were obtained through the abdomen and pelvis without the use of intravenous contrast. Auto Exposure Controls were utilized during the CT exam to meet ALARA standards for radiation dose reduction. INDICATION: Lower abdominal pain. COMPARISON: 11/05/2013. FINDINGS: Unenhanced images of liver, gallbladder, pancreas, adrenal glands, and spleen are unremarkable. There is no evidence of urinary tract calculus or obstruction. Several dominant cortical cysts are present in the right kidney which have increased in prominence when compared to the previous study. Largest in the upper pole region measures 4.8 cm in diameter. There is mild aortoiliac atherosclerotic calcification. The appendix is unremarkable. No free fluid is seen in the abdomen or pelvis. Unopacified urinary bladder is decompressed and otherwise unremarkable. Presumed lipoma is noted in the anterior thigh musculature. IMPRESSION: No definite acute abnormality is identified. There has been further increase in size of several right renal cysts. No obstructive uropathy or focal inflammation is seen. Dictated by: Dictated on workstation # [id number]
[2021-07-27 13:30] LABS: BILIRUBIN,URINE NEGATIVE (NEGATIVE); CLARITY,URINE CLEAR; COLOR,URINE YELLOW; GLUCOSE, URINE (UA) NEGATIVE (NEGATIVE); KETONES,URINE NEGATIVE (NEGATIVE); LEUKOCYTE ESTERASE ,URINE NEGATIVE (NEGATIVE); NITRITE,URINE NEGATIVE (NEGATIVE); PH,URINE 5.5 (5-9); PROTEIN,URINE NEGATIVE (NEGATIVE)
[2021-07-27 13:41] LABS: BACTERIA,URINE MODERATE /HPF; WBC,URINE 0-2 /HPF
[2021-07-27] MEDS ORDERED: fentaNYL INJ 100 MCG/2 ML AMP IVP STA (13:46)
[2021-07-27] MEDS ORDERED: KCL 20 MEQ TAB (K-DUR) PO ONE (14:45)
--- NOTE | 2021-07-27 16:04 | Consultation - Surgery ---
FILIBERTO YOUNG 07/27/21 1604: History of Present Illness History of Present Illness Patient Consulted On(elio/time) 07/27/21 16:00 Date Seen by Provider: Jul 27, 2021 Time Seen by Provider: 15:50 Reason for Visit: Consult for acute abdominal pain. History of Present Illness krishna Campa 55 y.o. F presented to the ED with acute abdominal pain. Patient stated pain was diffuse and radiated to back on both sides. Pain was sharp and constant. Patient also had a bout of foul-smelling, red-tinged, explosive diarrhea before this assessment. Patient reported she experienced nausea and some vomiting leading up to her feeling this way. Pain was 9.5/10 severity. Patient denied any changes to diet or eating anything out of the ordinary. Patient also denied any previous diarrhea but stated she deals with constipation 1-2x a month which has been her normal for a long time, cannot remember when it started or what brought it about. She mentioned that she was treated for bowel obstruction and had a "scope of her lower colon" performed a while ago. This was the worst she has ever felt. Patient states she has been having chills and is currently cold. Denied history of kidney stones or feeling this way before. Denied fever, shortness of breath, chest pain, palpitations, burning in her chest or throat, dysuria, increased urine frequency, hematuria, headache, vision changes, and dizziness or lightheadedness. Surgery was consulted for the acute abdominal pain. Allergies and Home Medications Allergies Coded Allergies: Iodinated Contrast Media (Unverified Allergy, Intermediate, RASH, 11/01/17) morphine (Verified Adverse Reaction, Unknown, 01/05/19) Patient Home Medication List Aripiprazole (Abilify) 5 Mg Tablet, 5 MG PO DAILY, (Reported) Entered as Reported by: MAURO SHORT on 01/05/19 1456 Aspirin (Aspirin EC) 81 Mg Tablet.dr, 81 MG PO DAILY, (Reported) Entered as Reported by: MAGDALENO PINO on 11/01/17 1013 Atorvastatin Calcium (Lipitor) 10 Mg Tablet, 10 MG PO DAILY, (Reported) Entered as Reported by: MAGDALENO PINO on 11/01/17 1013 Buspirone HCl (Buspirone HCl) 10 Mg Tablet, 10 MG PO TID, (Reported) Entered as Reported by: BLACK IBRAHIM on 10/22/17 1639 Cetirizine HCl (Cetirizine HCl) 10 Mg Tablet, 10 MG PO DAILY, (Reported) Entered as Reported by: BLACK IBRAHIM on 10/22/17 1639 Chlorthalidone (Chlorthalidone) 25 Mg Tablet, 25 MG PO DAILY, (Reported) Entered as Reported by: BLACK IBRAHIM on 10/22/17 1639 Clonidine HCl (Clonidine HCl) 0.1 Mg Tablet, 0.1 MG PO BID, (Reported) Entered as Reported by: BLACK IBRAHIM on 10/22/17 1639 Gabapentin (Gabapentin) 300 Mg Capsule, 300 MG PO HS, (Reported) Entered as Reported by: BLACK IBRAHIM on 10/22/17 1456 Lisinopril (Lisinopril) 10 Mg Tablet, 10 MG PO DAILY, (Reported) Entered as Reported by: BLACK IBRAHIM on 10/22/17 1639 Metoprolol Succinate (Metoprolol Succinate) 25 Mg Tab.er.24h, 25 MG PO DAILY, (Reported) Entered as Reported by: BLACK IBRAHIM on 10/22/17 1639 Nitroglycerin (Nitroglycerin) 0.4 Mg Tab.subl, 0.4 MG SL UD PRN for CHEST PAIN, (Reported) Entered as Reported by: MAGDALENO PINO on 11/01/17 1016 Vitamin B Complex (Vitamin B Complex) 1 Each Tablet, 1 TAB PO DAILY, (Reported) Entered as Reported by: BLACK IBRAHIM on 10/22/17 1641 Past Faiames-Pcmfmh-Sdpscp Hx Patient Social History Drug of Choice: Hx opiates Smoking Status: Current Everyday Smoker (1/2 pack since age 15) Type Used: Cigarettes 2nd Hand Smoke Exposure: Yes Recent Hopitalizations: No Alcohol Use?: No Have you traveled recently?: No Immunizations Up To Date Date of Pneumonia Vaccine: Jun 12, 2014 Date of Influenza Vaccine: Jun 12, 2014 Seasonal Allergies Seasonal Allergies: Yes Surgeries History of Surgeries: Yes (UPPPER EXT GRAFTS, CARDIAC CATH NO INTERVENTION) Respiratory History of Respiratory Disorde: No Cardiovascular History of Cardiac Disorders: Yes (ACS) Cardiac Disorders: High Cholesterol, Hypertension Neurological History of Neurological Disord: No Genitourinary History of Genitourinary Disor: No Gastrointestinal History of Gastrointestinal Di: Yes Gastrointestinal Disorders: Chronic Constipation (1-2x a month) HEENT History of HEENT Disorders: No Cancer History of Cancer: No Psychosocial History of Psychiatric Problem: Yes Behavioral Health Disorders: Depression Integumentary History of Skin or Integumenta: No Blood Transfusions History of Blood Disorders: No Adverse Reaction to a Blood Tr: No Family Medical History Significant Family History: CAD Over 55 Years Old, Diabetes Family Medial History: Diabetes mellitus 19 FATHER Myocardial infarction 19 FATHER Psychosocial problem 19 MOTHER Schizophrenia 19 MOTHER Review of Systems-General Constitutional: chills, diaphoresis; No fever EENTM: No hearing loss, No vision loss Respiratory: No cough, No short of breath Cardiovascular: No chest pain, No palpitations Gastrointestinal: abdominal pain (Diffuse), diarrhea (explosive, red tinge), nausea Genitourinary: No dysuria, No frequency, No hematuria Musculoskeletal: back pain (Lower back and flank pain bilateraly.); No muscle pain Skin: No change in color, No pruritus Psychiatric/Neurological: Anxiety; Denies Depressed, Denies Headache, Denies Numbness, Denies Paresthesia Physical Exam-General Problems Physical Exam Vital Signs Vital Signs - First Documented 07/27/21 11:55 Temp 35.9 Pulse 134 Resp 18 B/P (MAP) 142/105 (117) Pulse Ox 98 Capillary Refill : Less Than 3 Seconds General Appearance: WD/WN, moderate distress Eyes: Bilateral Eye PERRL HEENT: pharynx normal; No scleral icterus (R), No scleral icterus (L) Neck: non-tender, supple Respiratory: chest non-tender, lungs clear, normal breath sounds, no respiratory distress, no accessory muscle use Cardiovascular: regular rate, rhythm, no gallop, no murmur Peripheral Pulses: 2+ Dorsalis Pedis (R), 2+ Left Dors-Pedis (L), 2+ Radial Pulses (R), 2+ Radial Pulses (L) Gastrointestinal: guarding (voluntary), tenderness (diffuse) Rectal: blood streaked stool (Red tinged blood in loose stool), other (Foul smelling stool) Back: CVA tenderness (R), CVA tenderness (L) Extremities: normal range of motion, non-tender, normal inspection, no calf tenderness Neurologic/Psychiatric: no motor/sensory deficits, normal mood/affect, oriented x 3 Skin: normal color, diaphoresis (Skin was moist, face was diaphoretic. ); No jaundice, No pallor Lymphatic: no adenopathy (Cervical, axillary) Data Review Labs Laboratory Tests 07/27/21 12:30: White Blood Count 19.7H, Red Blood Count 4.92, Hemoglobin 16.2H, Hematocrit 48, Mean Corpuscular Volume 98, Mean Corpuscular Hemoglobin 33, Mean Corpuscular Hemoglobin Concent 34, Red Cell Distribution Width 13.0, Platelet Count 287, Mean Platelet Volume 11.2, Immature Granulocyte % (Auto) 1, Neutrophils (%) (Auto) 78H, Lymphocytes (%) (Auto) 13, Monocytes (%) (Auto) 5, Eosinophils (%) (Auto) 2, Basophils (%) (Auto) 1, Neutrophils # (Auto) 15.5H, Lymphocytes # (Auto) 2.6, Monocytes # (Auto) 1.0, Eosinophils # (Auto) 0.3, Basophils # (Auto) 0.1, Immature Granulocyte # (Auto) 0.2H, Neutrophils % (Manual) 74, Lymphocytes % (Manual) 17, Monocytes % (Manual) 3, Eosinophils % (Manual) 1, Band Neutrophils 5, Blood Morphology Comment NORMAL, Sodium Level 141, Potassium Level 3.2L, Chloride Level 105, Carbon Dioxide Level 22, Anion Gap 14, Blood Urea Nitrogen 21H, Creatinine 1.25, Estimat Glomerular Filtration Rate 45, BUN/Creatinine Ratio 17, Glucose Level 192H, Calcium Level 10.2H, Corrected Calcium 10.0, Total Bilirubin 0.3, Aspartate Amino Transf (AST/SGOT) 26, Alanine Aminotransferase (ALT/SGPT) 36, Alkaline Phosphatase 113, Total Protein 7.5, Albumin 4.3, Lipase 27 07/27/21 13:20: Urine Color YELLOW, Urine Clarity CLEAR, Urine pH 5.5, Urine Specific [place] 1.015L, Urine Protein NEGATIVE, Urine Glucose (UA) NEGATIVE, Urine Ketones NEGATIVE, Urine Nitrite NEGATIVE, Urine Bilirubin NEGATIVE, Urine Urobilinogen 0.2, Urine Leukocyte Esterase NEGATIVE, Urine RBC (Auto) NEGATIVE, Urine RBC NONE, Urine WBC 0-2, Urine Squamous Epithelial Cells 2-5, Urine Crystals NONE, Urine Bacteria MODERATEH, Urine Casts PRESENT, Urine Hyaline Casts 2-5H, Urine Mucus NEGATIVE, Urine Culture Indicated YES Radiology [facility] [place], [place] NAME: PALOMA HANSON [facility] REC#: [id number] PT STATUS: REG ER : 1965 PHYSICIAN: JESSICA LUCIA ADMIT DATE: 07/27/21/ER Draft Date of Exam:07/27/21 CT ABDOMEN/PELVIS WO PROCEDURE: CT abdomen and pelvis without contrast. TECHNIQUE: Multiple contiguous axial images were obtained through the abdomen and pelvis without the use of intravenous contrast. Auto Exposure Controls were utilized during the CT exam to meet ALARA standards for radiation dose reduction. INDICATION: Lower abdominal pain. COMPARISON: 11/05/2013. FINDINGS: Unenhanced images of liver, gallbladder, pancreas, adrenal glands, and spleen are unremarkable. There is no evidence of urinary tract calculus or obstruction. Several dominant cortical cysts are present in the right kidney which have increased in prominence when compared to the previous study. Largest in the upper pole region measures 4.8 cm in diameter. There is mild aortoiliac atherosclerotic calcification. The appendix is unremarkable. No free fluid is seen in the abdomen or pelvis. Unopacified urinary bladder is decompressed and otherwise unremarkable. Presumed lipoma is noted in the anterior thigh musculature. IMPRESSION: No definite acute abnormality is identified. There has been further increase in size of several right renal cysts. No obstructive uropathy or focal inflammation is seen. Dictated on workstation # [id number] Dict: 07/27/21 1241 Trans: 07/27/21 1304 [id number] Interpreted by: FALGUNI TUCKER MD Electronically signed by: Assessment/Plan Assessment/Plan Assessment/Plan Acute abdominal pain Red tinged diarrhea. Plan: Continue IV fluids Administer IV potassium for hypokalemia Culture stool - possible antibiotics pending culture Possible colonoscopy Will continue to monitor JOSELYN PINA DO 07/27/21 2004: History of Present Illness History of Present Illness Time Seen by Provider: 19:32 History of Present Illness Surgery asked to consult regarding Colitis and Hematochezia. HPI per ED: Patient is a 55-year-old female who presents ED with acute onset of lower abdominal pain. Pain appears to be worse to the left lower quadrant with radiation to left flank. Described as sharp and stabbing. Denies history of kidney stones or history of similar pain. She reports nausea with a few episodes of vomiting. Denies any diarrhea. Patient was brought to the ED by EMS. Patient was not given any pain medication upon arrival. She denies histor y of previous abdominal surgery. Patient in mild to moderate distress on arrival. Denies chest pain, shortness of breath, cough, headache, dizziness, dysuria, increased urine frequency, hematuria. When I spoke to her this evening she was complaining of pain and "chunks of blood come out when I just went to the bathroom." She states she had a colonoscopy appx 15 yrs ago; "for stomach pain", was not having hematochezia at that time. Denies EGD. Pt rating the pain as at least 8 out of 10; radiating to left flank. Allergies and Home Medications Allergies Coded Allergies: Iodinated Contrast Media (Unverified Allergy, Intermediate, RASH, 11/01/17) morphine (Verified Adverse Reaction, Unknown, 01/05/19) Patient Home Medication List Home Medication List Reviewed: Yes Aripiprazole (Abilify) 5 Mg Tablet, 5 MG PO DAILY, (Reported) Entered as Reported by: MAURO SHORT on 01/05/19 1456 Aspirin (Aspirin EC) 81 Mg Tablet.dr, 81 MG PO DAILY, (Reported) Entered as Reported by: MAGDALENO PINO on 11/01/17 1013 Atorvastatin Calcium (Lipitor) 10 Mg Tablet, 10 MG PO DAILY, (Reported) Entered as Reported by: MAGDALENO PINO on 11/01/17 1013 Buspirone HCl (Buspirone HCl) 10 Mg Tablet, 10 MG PO TID, (Reported) Entered as Reported by: BLACK IBRAHIM on 10/22/17 1639 Cetirizine HCl (Cetirizine HCl) 10 Mg Tablet, 10 MG PO DAILY, (Reported) Entered as Reported by: BLACK IBRAHIM on 10/22/17 1639 Chlorthalidone (Chlorthalidone) 25 Mg Tablet, 25 MG PO DAILY, (Reported) Entered as Reported by: BLACK IBRAHIM on 10/22/17 1639 Clonidine HCl (Clonidine HCl) 0.1 Mg Tablet, 0.1 MG PO BID, (Reported) Entered as Reported by: BLACK IBRAHIM on 10/22/17 1639 Gabapentin (Gabapentin) 300 Mg Capsule, 300 MG PO HS, (Reported) Entered as Reported by: BLACK IBRAHIM on 10/22/17 1456 Lisinopril (Lisinopril) 10 Mg Tablet, 10 MG PO DAILY, (Reported) Entered as Reported by: BLACK IBRAHIM on 10/22/17 1639 Metoprolol Succinate (Metoprolol Succinate) 25 Mg Tab.er.24h, 25 MG PO DAILY, (Reported) Entered as Reported by: BLACK IBRAHIM on 10/22/17 1639 Nitroglycerin (Nitroglycerin) 0.4 Mg Tab.subl, 0.4 MG SL UD PRN for CHEST PAIN, (Reported) Entered as Reported by: MAGDALENO PINO on 11/01/17 1016 Vitamin B Complex (Vitamin B Complex) 1 Each Tablet, 1 TAB PO DAILY, (Reported) Entered as Reported by: BLACK IBRAHIM on 10/22/17 1641 Past Ysvrvhi-Mclwox-Nmjcot Hx Patient Social History Smoking Status: Current Everyday Smoker (1/2 pack since age 15) 2nd Hand Smoke Exposure: Yes Alcohol Use?: Yes Substance type: Opiates/Opioids Surgeries History of Surgeries: Yes (colonoscopy) Surgeries: Coronary Stent Respiratory History of Respiratory Disorde: No Cardiovascular History of Cardiac Disorders: Yes Cardiac Disorders: Coronary Artery Disease, Hypertension Neurological History of Neurological Disord: Yes Neurological Disorders: Headaches /Migraines Genitourinary History of Genitourinary Disor: No Gastrointestinal History of Gastrointestinal Di: Yes Gastrointestinal Disorders: Gastrointestinal Bleed, Obstructive Bowel, Chronic Constipation (1-2x a month) Musculoskeletal History of Musculoskeletal Dis: Yes Musculoskeletal Disorders: Arthritis, Chronic Back Pain Endocrine History of Endocrine Disorders: No HEENT History of HEENT Disorders: No Loss of Vision: Denies Hearing Impairment: Denies Cancer History of Cancer: No Psychosocial History of Psychiatric Problem: Yes Behavioral Health Disorders: Depression Family Medical History Significant Family History: CAD Over 55 Years Old, Diabetes, Psychiatric Problems Family Medial History: Diabetes mellitus 19 FATHER Myocardial infarction 19 FATHER Psychosocial problem 19 MOTHER Schizophrenia 19 MOTHER Review of Systems-General Constitutional: chills, diaphoresis; No fever EENTM: No hearing loss, No vision loss, No mouth swelling, No epistaxis Respiratory: No cough, No short of breath Cardiovascular: No chest pain, No palpitations Gastrointestinal: abdominal pain (Diffuse), diarrhea (explosive, red tinge), nausea Genitourinary: No dysuria, No frequency, No hematuria Musculoskeletal: back pain (Lower back and flank pain bilateraly.); No muscle pain; muscle stiffness Skin: No change in color, No pruritus Psychiatric/Neurological: Anxiety, Depressed; Denies Headache, Denies Numbness, Denies Paresthesia Physical Exam-General Problems Physical Exam General Appearance: WD/WN, mild distress Eyes: Bilateral Eye PERRL, Bilateral Eye EOMI HEENT: pharynx normal; No scleral icterus (R), No scleral icterus (L) Neck: non-tender, supple Respiratory: chest non-tender, lungs clear, normal breath sounds, no respiratory distress, no accessory muscle use Cardiovascular: regular rate, rhythm, no murmur Gastrointestinal: soft, no organomegaly, guarding (voluntary), tenderness (d iffuse), hernia (umbilical hernia) Rectal: blood streaked stool (Red tinged blood in loose stool), other (Foul smelling stool) Back: CVA tenderness (R), CVA tenderness (L) Extremities: normal range of motion, non-tender, normal inspection, no calf tenderness Neurologic/Psychiatric: no motor/sensory deficits, normal mood/affect, oriented x 3 Skin: normal color, diaphoresis (Skin was moist, face was diaphoretic. ); No jaundice, No pallor Lymphatic: no adenopathy (Cervical, axillary) Assessment/Plan Assessment/Plan Assessment/Plan Colitis Anemia Lactic Acidosis Abdominal pain Hypokalemia Plan: Continue IV fluids, Administer IV potassium for hypokalemia, Culture stool - C. Diff negative await further enteric organisms, possible antibiotics pending culture Possible colonoscopy, Will monitor Lactic acid but increase fluids. Dilaudid for pain control, NPO. Recheck labs in am. I reviewed the CT myself and can see the thickened large bowel no pneumatosis intestinalis seen. Will treat mainly symptoms for now. Supervisory-Addendum Brief Verification & Attestation Participated in pt care: history, MDM, physical Personally performed: exam, history, MDM, supervision of care Care discussed with: Medical Student Procedures: n/a Verification and Attestation of Medical Student E/M Service A medical student performed and documented this service. I then reviewed and verified all information documented by the medical student and made modifications to such information, when appropriate. I personally performed a physical exam, medical decision making and then discussed any differences between the notes and made revisions as necessary to create one note. Joselyn Pina , 07/27/21 , 20:09 FILIBERTO YOUNG Jul 27, 2021 16:04 JOSELYN PINA DO Jul 27, 2021 20:04
[2021-07-27] MEDS ORDERED: fentaNYL INJ 100 MCG/2 ML AMP IVP PRN (17:15)
[2021-07-27] MEDS ORDERED: HYDROcodone/APAP 5 MG/325 MG (LORTAB) TAB PO PRN (17:15)
[2021-07-27] MEDS ORDERED: ALPRAZolam 0.25 MG (XANAX) TAB PO PRN (17:15)
[2021-07-27] MEDS ORDERED: LOPERAMIDE 2 MG (IMODIUM) TABLET PO PRN (17:15)
[2021-07-27] MEDS ORDERED: CALCIUM CARBONATE 500 MG (TUMS) TAB.CHEW PO PRN (17:15)
[2021-07-27] MEDS ORDERED: MELATONIN 3 MG TABLET PO PRN (17:15)
[2021-07-27] MEDS ORDERED: diphenhydrAMINE 25 MG TAB (BENADRYL) PO PRN (17:15)
[2021-07-27] MEDS ORDERED: ONDANSETRON 4 MG (ZOFRAN) ORAL DISSOLVE TAB PO PRN (17:15)
[2021-07-27] MEDS: ENOXAPARIN 40 MG/0.4 ML (LOVENOX) SYR SC SCH (17:23)
[2021-07-27] MEDS ORDERED: FLU QUADRIvalent (3YOA+) 60 mcg/0.5 ml 2021-22(AFLURIA) IM ONE (18:15)
[2021-07-27 20:00] VITALS: BP 171/132
[2021-07-27] MEDS: LACTATED RINGERS 1,000 ML IV SCH (20:14)
[2021-07-27] MEDS: HYDROmorphone 2 MG/ML VIAL (DILAUDID) IV PRN ×2 (20:14→22:18)
[2021-07-27] MEDS ORDERED: VANCOMYCIN 125 MG CAPSULE PO SCH (21:00)
[2021-07-27] MEDS: ONDANSETRON 4 MG/2 ML (SDV) Z0FRAN IVP PRN (22:13)
[2021-07-27 22:50] VITALS: BP 193/131
[2021-07-27] MEDS ORDERED: cloNIDine 0.1 MG (CATAPRES) TAB PO ONE (23:15)
[2021-07-28] VITALS (8 sets, daily range): BP systolic 153–194; BP diastolic 83–130
[2021-07-28] MEDS: LACTATED RINGERS 1,000 ML IV SCH ×5 (01:08→20:33)
[2021-07-28] MEDS: HYDROmorphone 2 MG/ML VIAL (DILAUDID) IV PRN ×9 (01:25→22:54)
[2021-07-28] MEDS: ONDANSETRON 4 MG/2 ML (SDV) Z0FRAN IVP PRN ×2 (01:25→21:53)
[2021-07-28] MEDS ORDERED: cloNIDine 0.1 MG (CATAPRES) TAB PO PRN ×2 (01:45→02:15)
[2021-07-28] MEDS ORDERED: amLODIPine 5 MG (NORVASC) TAB PO ONE ×2 (01:45→10:30)
[2021-07-28] MEDS ORDERED: NS IV 1000 ML 1,000 ML IV SCH (05:00)
[2021-07-28] MEDS: ENALAPRILAT 2.5 MG/2 ML (VASOTEC) VIAL IV SCH ×5 (05:31→23:44)
[2021-07-28] MEDS: hydrALAZINE (APRESOLINE) 25 MG TAB PO SCH ×4 (05:46→23:44)
[2021-07-28] MEDS ORDERED: PIPERACILLIN/TAZOBACTAM (BULK) 4.5 GM in NS (IVPB) 100 ML IV ONE (06:00)
[2021-07-28 06:22] LABS: BASOPHILS # (AUTO) 0.1 10^3/uL (0.0-0.1); BASOPHILS % (AUTO) 0 % (0-10); EOSINOPHILS % (AUTO) 0 % (0-10); HEMATOCRIT 42 % (35-52); HEMOGLOBIN 14.6 g/dL (11.5-16.0); LYMPHOCYTES # (AUTO) 1.6 10^3/uL (1.0-4.0); LYMPHOCYTES % (AUTO) 7 % (12-44); MEAN CORPUSCULAR HEMOGLOBIN 33 pg (25-34); MEAN CORPUSCULAR HGB CONC 35 g/dL (32-36); MEAN CORPUSCULAR VOLUME 95 fL (80-99); MEAN PLATELET VOLUME 11.6 fL (9.0-12.2); MONOCYTES # (AUTO) 1.1 10^3/uL (0.0-1.0); MONOCYTES % (AUTO) 5 % (0-12); NEUTROPHILS # (AUTO) 19.3 10^3/uL (1.8-7.8); NEUTROPHILS % (AUTO) 87 % (42-75); PLATELET COUNT 206 10^3/uL (130-400); WHITE BLOOD COUNT 22.3 10^3/uL (4.3-11.0)
[2021-07-28 06:35] LABS: ALBUMIN 3.3 GM/DL (3.2-4.5); POTASSIUM 3.1 MMOL/L (3.6-5.0)
[2021-07-28 06:37] LABS: CALCIUM 8.3 MG/DL (8.5-10.1)
[2021-07-28 06:38] LABS: TOTAL PROTEIN 5.8 GM/DL (6.4-8.2)
[2021-07-28 06:40] LABS: BILIRUBIN,TOTAL 0.5 MG/DL (0.1-1.0)
[2021-07-28 06:41] LABS: CREATININE SERUM 0.82 MG/DL (0.60-1.30)
--- NOTE | 2021-07-28 07:52 | Progress Note - Surgery ---
FILIBERTO YOUNG 07/28/21 0752: Subjective Date Seen by a Provider: Jul 28, 2021 Time Seen by a Provider: 06:45 Subjective/Events-last exam Patient was in restroom when initially visited. Patient was having abdominal pain, sharp and shooting in quality. Patient was still having diarrhea but not as severe as yesterday. Per nurse, patient has issues with blood pressure and heart rate o/n and was tx for sx. Patient still hypertensive and tachycardic still morning. Patient denies fever, chills, chest pain, palpitations, shortness of breath, vision changes, dizziness and lightheadedness. Review of Systems General: No Chills, No Night Sweats HEENT: No Head Aches, No Visual Changes Pulmonary: No Dyspnea, No Cough Cardiovascular: No: Chest Pain, Palpitations Gastrointestinal: Abdominal Pain, Diarrhea; No: Nausea, Vomiting Genitourinary: No Dysuria, No Frequency Musculoskeletal: No: neck pain, shoulder pain Neurological: No: Weakness, Numbness Focused Exam Lactate Level 07/27/21 19:00: Lactic Acid Level 2.87*H 07/27/21 20:58: Lactic Acid Level 2.23*H 07/27/21 23:04: Lactic Acid Level 2.00 Objective Exam Vital Signs Date Time Temp Pulse Resp B/P (MAP) Pulse Ox O2 Delivery O2 Flow Rate FiO2 07/28/21 06:51 111 18 184/108 (133) 07/28/21 04:22 36.0 120 184/120 (141) 07/28/21 01:36 140 190/130 (150) 07/28/21 00:30 37.3 131 18 93 Room Air 07/27/21 22:50 135 193/131 (151) 07/27/21 20:00 37.6 134 20 171/132 (145) 94 Room Air 07/27/21 20:00 Room Air 07/27/21 16:40 121 20 195/115 97 Room Air 07/27/21 11:55 35.9 134 18 142/105 (117) 98 I & O 07/28/21 07:00 Intake Total 3120 ml Balance 3120 ml Capillary Refill : Less Than 3 Seconds General Appearance: Anxious, Mild Distress HEENT: PERRL/EOMI, Normal ENT Inspection Neck: Full Range of Motion, Non Tender, Supple Respiratory: Chest Non Tender, Lungs Clear, Normal Breath Sounds, No Accessory Muscle Use, No Respiratory Distress Cardiovascular: No Gallop, No Murmur, Tachycardia Peripheral Pulses: 2+ Dorsalis Pedis (R), 2+ Left Dors-Pedis (L), 2+ Radial Pulses (R), 2+ Radial Pulses (L) Gastrointestinal: normal bowel sounds, soft, no organomegaly, no pulsatile mass, tenderness (Left and right lower quadrant tenderness. Left flank tenderness.) Extremity: Normal Range of Motion, Non Tender Neurologic/Psychiatric: Alert, Oriented x3, No Motor/Sensory Deficits, Normal Mood/Affect Skin: Normal Color, Warm/Dry Lymphatic: No Adenopathy (cervical, axillary) Results Lab Laboratory Tests 07/27/21 12:30: White Blood Count 19.7H, Red Blood Count 4.92, Hemoglobin 16.2H, Hematocrit 48, Mean Corpuscular Volume 98, Mean Corpuscular Hemoglobin 33, Mean Corpuscular Hemoglobin Concent 34, Red Cell Distribution Width 13.0, Platelet Count 287, Mean Platelet Volume 11.2, Immature Granulocyte % (Auto) 1, Neutrophils (%) (Auto) 78H, Lymphocytes (%) (Auto) 13, Monocytes (%) (Auto) 5, Eosinophils (%) (Auto) 2, Basophils (%) (Auto) 1, Neutrophils # (Auto) 15.5H, Lymphocytes # (Auto) 2.6, Monocytes # (Auto) 1.0, Eosinophils # (Auto) 0.3, Basophils # (Auto) 0.1, Immature Granulocyte # (Auto) 0.2H, Neutrophils % (Manual) 74, Lymphocytes % (Manual) 17, Monocytes % (Manual) 3, Eosinophils % (Manual) 1, Band Neutrophils 5, Blood Morphology Comment NORMAL, Sodium Level 141, Potassium Level 3.2L, Chloride Level 105, Carbon Dioxide Level 22, Anion Gap 14, Blood Urea Nitrogen 21H, Creatinine 1.25, Estimat Glomerular Filtration Rate 45, BUN/Creatinine Ratio 17, Glucose Level 192H, Calcium Level 10.2H, Corrected Calcium 10.0, Total Bilirubin 0.3, Aspartate Amino Transf (AST/SGOT) 26, Alanine Aminotransferase (ALT/SGPT) 36, Alkaline Phosphatase 113, Total Protein 7.5, Albumin 4.3, Lipase 27 07/27/21 13:20: Urine Color YELLOW, Urine Clarity CLEAR, Urine pH 5.5, Urine Specific [place] 1.015L, Urine Protein NEGATIVE, Urine Glucose (UA) NEGATIVE, Urine Ketones NEGATIVE, Urine Nitrite NEGATIVE, Urine Bilirubin NEGATIVE, Urine Urobilinogen 0.2, Urine Leukocyte Esterase NEGATIVE, Urine RBC (Auto) NEGATIVE, Urine RBC NONE, Urine WBC 0-2, Urine Squamous Epithelial Cells 2-5, Urine Crystals NONE, Urine Bacteria MODERATEH, Urine Casts PRESENT, Urine Hyaline Casts 2-5H, Urine Mucus NEGATIVE, Urine Culture Indicated YES 07/27/21 16:05: Lactic Acid Level 2.57*H 07/27/21 16:10: Stool Occult Blood Immunoassay POSITIVEH 07/27/21 19:00: Lactic Acid Level 2.87*H 07/27/21 20:58: Lactic Acid Level 2.23*H 07/27/21 23:04: Lactic Acid Level 2.00 07/28/21 06:00: White Blood Count 22.3H, Red Blood Count 4.43, Hemoglobin 14.6, Hematocrit 42, Mean Corpuscular Volume 95, Mean Corpuscular Hemoglobin 33, Mean Corpuscular Hemoglobin Concent 35, Red Cell Distribution Width 13.2, Platelet Count 206, Mean Platelet Volume 11.6, Immature Granulocyte % (Auto) 1, Neutrophils (%) (Auto) 87H, Lymphocytes (%) (Auto) 7L, Monocytes (%) (Auto) 5, Eosinophils (%) (Auto) 0, Basophils (%) (Auto) 0, Neutrophils # (Auto) 19.3H, Lymphocytes # (Auto) 1.6, Monocytes # (Auto) 1.1H, Eosinophils # (Auto) 0.0, Basophils # (Auto) 0.1, Immature Granulocyte # (Auto) 0.2H, Sodium Level 141, Potassium Level 3.1L, Chloride Level 108H, Carbon Dioxide Level 20L, Anion Gap 13, Blood Urea Nitrogen 21H, Creatinine 0.82, Estimat Glomerular Filtration Rate 73, BUN/Creatinine Ratio 26, Glucose Level 175H, Calcium Level 8.3L, Corrected Calcium 8.9, Total Bilirubin 0.5, Aspartate Amino Transf (AST/SGOT) 21, Alanine Aminotransferase (ALT/SGPT) 24, Alkaline Phosphatase 77, Total Protein 5.8L, Albumin 3.3, Procalcitonin 0.63H Microbiology 07/27/21 C. difficile [facility] Antigen & Toxins - Final, Complete 07/27/21 Urine Culture - Preliminary, Resulted Escherichia coli Meds Item Value Date Time Piperacillin Sod/ 120 ml @ 30 mls/hr 07/28/21 1200 Tazobactam Sod Q8H/IV 4.5 gm/Sodium Chloride Lisinopril 10 mg 07/28/21 0900 (Zestril Tablet) DAILY/PO Metoprolol 25 mg 07/28/21 0900 Succinate DAILY/PO (Toprol Xl Tablet) Clonidine HCl 0.1 mg 07/28/21 0900 (Catapres BID/PO Tablet) Hydralazine HCl 25 mg 07/28/21 0600 (Apresoline Q6HR/PO 07/28/21 0546 Tablet) Enalaprilat 2.5 mg 07/28/21 0500 (Vasotec Q6HR/IV Injection) Clonidine HCl 0.1 mg 07/28/21 0215 (Catapres Q4HR PRN/PO Tablet) Hydromorphone HCl 0.5 mg 07/27/21 2000 (Dilaudid Q2HR PRN/IV 07/28/21 0651 Injection) Lactated Ringer's 1,000 ml @ 200 mls/hr 07/27/211999 Acetaminophen 650 mg 07/27/21 1730 (Tylenol Tablet) Q4H PRN/PO Loperamide HCl 2 mg 07/27/21 1715 (Imodium Tablet) NEEDED PRN/PO Melatonin 3 mg 07/27/21 171 (Melatonin HS PRN/PO Tablet) Ondansetron HCl 4 mg 07/27/21 1715 (Zofran Q4H PRN/IVP 07/28/21 0125 Injection (Sdv)) Ondansetron HCl 4 mg 07/27/21 1715 (Zofran Oral Q6H PRN/PO Dissolve Tablet) Diphenhydramine 25 mg 07/27/21 1715 HCl Q6H PRN/PO (Benadryl Tablet) Calcium Carbonate 500 mg 07/27/21 171 (Antacid TID PRN/PO Chewable Tablet) Alprazolam 0.25 mg 07/27/21 1715 (Xanax Tablet) Q8H PRN/PO Enoxaparin Sodium 40 mg 07/27/21 1715 (Lovenox Q24H/SC 07/27/21 1723 Injection) Assessment/Plan Assessment/Plan Assessment/Plan Colitis Anemia Lactic Acidosis Abdominal pain Hypokalemia Plan: Continue IV fluids. Continue to treat cardiac sx. Administer IV potassium for hypokalemia. Culture stool - C. Diff negative await further enteric organisms, possible antibiotics pending culture. Continue to monitor lactic acid, latest lactic acid nl. Dilaudid for pain control. Continue NPO. Possible colonoscopy, Hgb lower from yesterday. Will continue to follow. WESLEY ANDERSON DO 07/28/21 1408: Subjective Time Seen by a Provider: 13:24 Subjective/Events-last exam Pt seen and examined, states abdominal pain is the same. She is having less diarrhea, "but still lots of blood". Review of Systems General: No Chills, No Night Sweats; Fatigue Pulmonary: No Dyspnea, No Cough Cardiovascular: No: Chest Pain, Palpitations Gastrointestinal: Abdominal Pain, Diarrhea, Hematochezia; No: Nausea, Vomiting Objective Exam General Appearance: Anxious, Mild Distress HEENT: PERRL/EOMI Respiratory: Lungs Clear, Normal Breath Sounds, No Accessory Muscle Use, No Respiratory Distress Cardiovascular: No Murmur, Tachycardia Gastrointestinal: soft, no organomegaly, tenderness (Left and right lower quadrant tenderness. Left flank tenderness.), hernia (umbilical) Assessment/Plan Assessment/Plan Assessment/Plan Colitis with hematochezia (C. Diff negative) UTI - E. Coli Lactic Acidosis Abdominal pain Hypokalemia Plan: Continue IV fluids. Potassium for hypokalemia. Will start colon prep today and get consent. We discussed risks and complications not limited to pain, bleeding, infection, scar and even possible intestinal perforation. Culture stool - C. Diff negative await further enteric organisms, possible antibiotics pending culture. Continue to monitor lactic acid, latest lactic acid nl. Dilaudid for pain control seems to be working. NPO after MN. Hgb lower from yesterday. Supervisory-Addendum Brief Verification & Attestation Participated in pt care: history, MDM, physical Personally performed: exam, history, MDM, supervision of care Care discussed with: Medical Student Procedures: n/a Verification and Attestation of Medical Student E/M Service A medical student performed and documented this service. I then reviewed and verified all information documented by the medical student and made modific ations to such information, when appropriate. I personally performed a physical exam, medical decision making and then discussed any differences between the notes and made revisions as necessary to create one note. Wesley Anderson , 07/28/21 , 14:08 FILIBERTO YOUNG Jul 28, 2021 07:52 WESLEY ANDERSON DO Jul 28, 2021 14:08
[2021-07-28] MEDS: cloNIDine 0.1 MG (CATAPRES) TAB PO SCH ×2 (08:50→20:25)
[2021-07-28] MEDS ORDERED: lisINopril 10 MG (PRINIVIL) TABLET PO SCH (09:00)
[2021-07-28] MEDS: POTASSIUM CL 10MEQ/50ML IVPB 50 ML IV SCH ×4 (10:50→14:19)
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
[2021-07-28] MEDS: PIPERACILLIN/TAZOBACTAM (BULK) 4.5 GM in NS (IVPB) 100 ML IV SCH ×2 (11:55→20:26)
[2021-07-28] MEDS ORDERED: FLUT9.9S NSEACH (12:32)
[2021-07-28] MEDS ORDERED: AMIT25TA9 PO (12:32)
[2021-07-28] MEDS ORDERED: QUET50TA PO (12:32)
[2021-07-28] MEDS ORDERED: GABA300C PO (12:32)
[2021-07-28] MEDS ORDERED: ATOR80TA76 PO (12:32)
[2021-07-28] MEDS ORDERED: IBUP-2185 PO (12:33)
[2021-07-28] MEDS ORDERED: MULT-1136 PO (12:33)
[2021-07-28] MEDS ORDERED: LISI20TA26 PO (12:35)
[2021-07-28] MEDS ORDERED: BISACODYL 5 MG (DULCOLAX) TABLET PO NR ×2 (14:00→15:00)
[2021-07-28] MEDS: ENOXAPARIN 40 MG/0.4 ML (LOVENOX) SYR SC SCH (16:23)
[2021-07-28] MEDS ORDERED: polyethylene glycoL Bowel Prep(MIRALAX) 238 GM PO NR (18:00)
[2021-07-28] MEDS: amLODIPine 5 MG (NORVASC) TAB PO SCH (20:26)
[2021-07-28] MEDS ORDERED: ONDANSETRON 4 MG/2 ML (SDV) Z0FRAN IVP PRN (22:00)
[2021-07-29] VITALS (10 sets, daily range): BP systolic 95–148; BP diastolic 8–107
[2021-07-29] MEDS: HYDROmorphone 2 MG/ML VIAL (DILAUDID) IV PRN ×8 (02:05→22:55)
[2021-07-29] MEDS: LACTATED RINGERS 1,000 ML IV SCH ×5 (02:05→19:58)
[2021-07-29] MEDS: PIPERACILLIN/TAZOBACTAM (BULK) 4.5 GM in NS (IVPB) 100 ML IV SCH ×3 (03:55→19:58)
[2021-07-29] MEDS: hydrALAZINE (APRESOLINE) 25 MG TAB PO SCH ×4 (05:20→22:00)
[2021-07-29] MEDS: ENALAPRILAT 2.5 MG/2 ML (VASOTEC) VIAL IV SCH ×3 (05:20→17:33)
[2021-07-29 06:08] LABS: BASOPHILS # (AUTO) 0.1 10^3/uL (0.0-0.1); BASOPHILS % (AUTO) 0 % (0-10); EOSINOPHILS # (AUTO) 0.1 10^3/uL (0.0-0.3); EOSINOPHILS % (AUTO) 1 % (0-10); HEMATOCRIT 35 % (35-52); HEMOGLOBIN 11.9 g/dL (11.5-16.0); LYMPHOCYTES # (AUTO) 2.8 10^3/uL (1.0-4.0); LYMPHOCYTES % (AUTO) 14 % (12-44); MEAN CORPUSCULAR HEMOGLOBIN 32 pg (25-34); MEAN CORPUSCULAR HGB CONC 34 g/dL (32-36); MEAN CORPUSCULAR VOLUME 96 fL (80-99); MEAN PLATELET VOLUME 12.1 fL (9.0-12.2); MONOCYTES # (AUTO) 1.6 10^3/uL (0.0-1.0); MONOCYTES % (AUTO) 8 % (0-12); NEUTROPHILS # (AUTO) 15.5 10^3/uL (1.8-7.8); NEUTROPHILS % (AUTO) 77 % (42-75); PLATELET COUNT 186 10^3/uL (130-400); WHITE BLOOD COUNT 20.1 10^3/uL (4.3-11.0)
[2021-07-29 06:17] LABS: ALBUMIN 3.1 GM/DL (3.2-4.5); POTASSIUM 3.3 MMOL/L (3.6-5.0)
[2021-07-29 06:18] LABS: CALCIUM 8.3 MG/DL (8.5-10.1)
[2021-07-29 06:19] LABS: TOTAL PROTEIN 5.4 GM/DL (6.4-8.2)
[2021-07-29 06:21] LABS: BILIRUBIN,TOTAL 0.9 MG/DL (0.1-1.0)
[2021-07-29 06:23] LABS: CREATININE SERUM 0.72 MG/DL (0.60-1.30)
--- NOTE | 2021-07-29 07:47 | Progress Note - Surgery ---
HANNAHFILIBERTO KING 07/29/21 0747: Subjective Date Seen by a Provider: Jul 29, 2021 Time Seen by a Provider: 07:20 Subjective/Events-last exam Patient had another rough night. Experienced nausea and vomiting but no blood in vomit after drinking prep liquid. Patient had 8 bouts of diarrhea o/n with bloody stools. Patient was given Dilaudid and Zofran. Zofran helped with nausea. Patient has been NPO since last night. Patient has diffuse tender abdomen and is still in moderate discomfort from last night. Patient is ambulating alone to restroom. Patient denies fever, chills, shortness of breath, chest pain, palpitations, lightheadedness and dizziness. Review of Systems General: No Chills, No Night Sweats HEENT: No Head Aches, No Visual Changes Pulmonary: No Dyspnea, No Cough Cardiovascular: No: Chest Pain, Palpitations Gastrointestinal: Nausea, Vomiting (no blood), Abdominal Pain (diffuse), Diarrhea (bloody stools) Genitourinary: No Dysuria, No Frequency Musculoskeletal: No: neck pain, shoulder pain Neurological: No: Weakness, Numbness Focused Exam Lactate Level 07/27/21 19:00: Lactic Acid Level 2.87*H 07/27/21 20:58: Lactic Acid Level 2.23*H 07/27/21 23:04: Lactic Acid Level 2.00 Objective Exam Vital Signs Date Time Temp Pulse Resp B/P (MAP) Pulse Ox O2 Delivery O2 Flow Rate FiO2 07/29/21 05:51 37.2 07/29/21 04:00 37.2 129 20 137/86 (103) 97 Room Air 07/28/21 23:30 36.4 127 20 155/88 (110) 95 Room Air 07/28/21 20:45 Room Air 07/28/21 19:58 37.0 97 26 153/83 (106) 97 Room Air 07/28/21 15:24 36.2 100 22 154/91 (112) 96 Room Air 07/28/21 12:00 36.2 80 20 157/88 (111) 98 Room Air 07/28/21 08:00 36.3 111 18 179/89 (119) 95 Room Air 07/28/21 08:00 Room Air I & O 07/29/21 07:00 Intake Total 2750 ml Balance 2750 ml Capillary Refill : Less Than 3 Seconds General Appearance: Anxious, Chronically ill, Moderate Distress (Patient was curled up in position. ) HEENT: PERRL/EOMI, Normal ENT Inspection, Pharynx Normal, Moist Mucous Membranes; No Scleral Icterus (L), No Scleral Icterus (R) Neck: Full Range of Motion, Normal Inspection, Non Tender, Supple Respiratory: Chest Non Tender, Lungs Clear, Normal Breath Sounds, No Accessory Muscle Use, No Respiratory Distress Cardiovascular: Regular Rate, Rhythm, No Gallop, No Murmur Peripheral Pulses: 2+ Dorsalis Pedis (R), 2+ Left Dors-Pedis (L), 2+ Radial Pulses (R), 2+ Radial Pulses (L) Gastrointestinal: soft, no organomegaly, no pulsatile mass, tenderness (Diffuse pain on palpation in all quadrants, mideline from epigastric to below umbillicus is worst.), hernia (umbilical) Extremity: Normal Capillary Refill, Normal Inspection, Normal Range of Motion, Non Tender, No Calf Tenderness, No Pedal Edema Neurologic/Psychiatric: Alert, Oriented x3, No Motor/Sensory Deficits, Normal Mood/Affect Skin: Normal Color, Warm/Dry; No Diaphoresis, No Jaundice Lymphatic: No Adenopathy (cervical, axillary) Results Lab Laboratory Tests 07/29/21 05:31: White Blood Count 20.1H, Red Blood Count 3.69L, Hemoglobin 11.9, Hematocrit 35, Mean Corpuscular Volume 96, Mean Corpuscular Hemoglobin 32, Mean Corpuscular Hemoglobin Concent 34, Red Cell Distribution Width 13.2, Platelet Count 186, Mean Platelet Volume 12.1, Immature Granulocyte % (Auto) 0, Neutrophils (%) (Auto) 77H, Lymphocytes (%) (Auto) 14, Monocytes (%) (Auto) 8, Eosinophils (%) (Auto) 1, Basophils (%) (Auto) 0, Neutrophils # (Auto) 15.5H, Lymphocytes # (Auto) 2.8, Monocytes # (Auto) 1.6H, Eosinophils # (Auto) 0.1, Basophils # (Auto) 0.1, Immature Granulocyte # (Auto) 0.1, Sodium Level 138, Potassium Level 3.3L, Chloride Level 104, Carbon Dioxide Level 24, Anion Gap 10, Blood Urea Nitrogen 10, Creatinine 0.72, Estimat Glomerular Filtration Rate 85, BUN/Creatinine Ratio 14, Glucose Level 129H, Calcium Level 8.3L, Corrected Calcium 9.0, Total Bilirubin 0.9, Aspartate Amino Transf (AST/SGOT) 17, Alanine Aminotransferase (ALT/SGPT) 17, Alkaline Phosphatase 66, Total Protein 5.4L, Albumin 3.1L Microbiology 07/27/21 C. difficile GDH Antigen & Toxins - Final, Complete 07/27/21 Blood Culture - Preliminary, Resulted No growth 07/27/21 Urine Culture - Preliminary, Resulted Escherichia coli Assessment/Plan Assessment/Plan Assessment/Plan Colitis with hematochezia (C. Diff negative) UTI - E. Coli Lactic Acidosis Abdominal pain Hypokalemia Plan: Continue IV fluids. Continue potassium tx - Potassium up to 3.3, continue to monitor. Monitor Hgb - Hgb dropped to 11.9 from 14.6, trending down over last three days. Patient was NPO after midnight. Patient had liquid prep but vomited significantly after drinking. Patient to have colonoscopy later today. Glucose was 129, down from 175. C. Diff was negative. Blood culture was negative. Continue Dilaudid for pain control prn. Continue Zofran for nausea prn. WESLEY ANDERSON DO 07/29/21 1217: Subjective Time Seen by a Provider: 10:16 Subjective/Events-last exam Pt seen and examined, still having pretty severe abdominal pain. Review of Systems General: No Chills, No Night Sweats Pulmonary: No Dyspnea, No Cough Cardiovascular: No: Chest Pain, Palpitations Gastrointestinal: Nausea, Vomiting (no blood), Abdominal Pain (diffuse), Diarrhea (bloody stools) Objective Exam General Appearance: Anxious, Chronically ill, Moderate Distress (Patient was curled up in position. ) HEENT: PERRL/EOMI, Moist Mucous Membranes Respiratory: Lungs Clear, Normal Breath Sounds, No Accessory Muscle Use, No Respiratory Distress Cardiovascular: No Murmur, Tachycardia Gastrointestinal: soft, no organomegaly, tenderness (Diffuse pain on palpation in all quadrants, mideline from epigastric to below umbillicus is worst.), hernia (umbilical) Neurologic/Psychiatric: Alert, Oriented x3 Assessment/Plan Assessment/Plan Assessment/Plan Colitis with hematochezia (C. Diff negative) UTI - E. Coli Lactic Acidosis - resolved Abdominal pain Hypokalemia Plan: Continue IV fluids. Continue potassium tx - Potassium up to 3.3, continue to monitor. Monitor Hgb - Hgb dropped to 11.9 from 14.6, trending down over last three days. Plan for colonoscopy. I spoke with family regarding findings and possible need for colon resection; will talk more tomorrow. Supervisory-Addendum Brief Verification & Attestation Participated in pt care: history, MDM, physical Personally performed: exam, history, MDM, supervision of care Care discussed with: Medical Student Procedures: n/a Verification and Attestation of Medical Student E/M Service A medical student performed and documented this service. I then reviewed and verified all information documented by the medical student and made modifications to such information, when appropriate. I personally performed a physical exam, medical decision making and then discussed any differences between the notes and made revisions as necessary to create one note. Wesley Anderson , 07/29/21 , 12:17 FILIBERTO YOUNG Jul 29, 2021 07:47 WESLEY ANDERSON DO Jul 29, 2021 12:17
[2021-07-29] MEDS: cloNIDine 0.1 MG (CATAPRES) TAB PO SCH ×2 (09:11→21:59)
[2021-07-29] MEDS: amLODIPine 5 MG (NORVASC) TAB PO SCH ×2 (09:11→21:59)
[2021-07-29] MEDS ORDERED: LACTATED RINGERS 1,000 ML IV STA (10:11)
[2021-07-29] MEDS ORDERED: PROPOFOL INJECTION 50 ML IV ONE (10:56)
[2021-07-29] MEDS ORDERED: MIDAZOLAM 2 MG/2 ML (VERSED) VIAL ONE (10:56)
--- NOTE | 2021-07-29 11:37 | Progress Note-Post Operative ---
Post-Operative Progess Note Surgeon (s)/Reverberatory Skimmer (s) Surgeon JOSELYN PINA DO Reverberatory Skimmer: Reji Al MSIII Pre-Operative Diagnosis Hematochezia, probable colitis Post-Operative Diagnosis Ischemic bowel Polyps Int hemorrhoids Procedure & Operative Findings Date of Procedure 07/29/21 Procedure Performed/Findings Colonoscopy with cold biopsy PROCEDURE NOTE: After informed consent was obtained, the patient was brought to the endoscopy suite, placed in bed in left lateral decubitus position. She was administered IV sedation by the DIAGNOSTICS SALES DEVELOPER who then monitored her vitals the entire time, heart rate, blood pressure and pulse ox and the scope was inserted. Pushed in to about 120 cm, but did not get into the cecum. On the way in noted ischemic colitis and took pictures. I got into ascending colon, but was getting some looping of the scope and was afraid to try and push, possibly causing a perforation. There was also a lot of retained fecal material. Slowly withdrew the scope insufflating to look circumferentiallly at the michelle. Ascending colon to the hepatic flexure, then down the transverse colon to the splenic flexure. It appeared to be almost all of the descending colon that had necrotic tissue, biopsy was done here. Continued down into the sigmoid; but cleared up at about 30cm. Saw a polyp in the sigmoid and did a cold biopsy. Finally into the rectum and saw multiple polyps; took a picture, but elected to leave them alone. Saw some in the rectal vault as well and then retroflexed the scope. Took picture of the internal hemorrhoids. The patient tolerated the procedure. She was recovered in endoscopy suite. Anesthesia Type IV sedation by DIAGNOSTICS SALES DEVELOPER Estimated Blood Loss Estimated blood loss (mL): scant Specimens/Packing Specimens Removed desc colon bx sigmoid polyp bx JOSELYN PINA DO Jul 29, 2021 11:37
--- NOTE | 2021-07-29 15:16 | Progress Note - Hospitalist ---
INDIANAMARIE Jeff 07/29/21 1516: Subjective HPI/CC On Admission Date Seen by Provider: Jul 29, 2021 Time Seen by Provider: 09:32 CC: Severe abdominal pain with colitis Subjective/Events-last exam Ms. Gutierrez reports being in less pain today than yesterday. She said her pain has decreased to a 6.5/10 today. She said she had diarrhea overnight but denied hematochezia. She had nausea and vomiting d/t the bowel prep for her colonoscopy. She had her colonoscopy with Dr. Anderson this afternoon and it was found that she had an ischemic bowel. A tentative colon resection is planned for tomorrow. Review of Systems General: Chills, Fatigue HEENT: No Head Aches Pulmonary: No Dyspnea, No Cough Cardiovascular: Chest Pain (Retrosternal 2/2 GERD); No: Palpitations Gastrointestinal: Nausea, Vomiting, Abdominal Pain, Diarrhea Genitourinary: No Dysuria, No Frequency Musculoskeletal: back pain (Radiation) Neurological: No: Weakness, Confusion Focused Exam Lactate Level 07/27/21 19:00: Lactic Acid Level 2.87*H 07/27/21 20:58: Lactic Acid Level 2.23*H 07/27/21 23:04: Lactic Acid Level 2.00 Capillary Refill: Less Than 3 Seconds Peripheral Pulses: 2+ Radial Pulses (R), 2+ Radial Pulses (L) Objective Exam Vital Signs Vital Signs Date Time Temp Pulse Resp B/P (MAP) Pulse Ox O2 Delivery O2 Flow Rate FiO2 07/29/21 14:16 36.8 126 16 132/85 (101) 97 Room Air 07/29/21 11:40 4 Capillary Refill : Less Than 3 Seconds General Appearance: Anxious, Moderate Distress (Patient in less pain today than yesterday) HEENT: PERRL/EOMI, Moist Mucous Membranes Neck: Normal Inspection, Non Tender; No Lymphadenopathy (L), No Lymphadenopathy (R) Respiratory: Chest Non Tender, Lungs Clear, Normal Breath Sounds, No Accessory Muscle Use, No Respiratory Distress Cardiovascular: Regular Rate, Rhythm, No Murmur, Normal Peripheral Pulses Gastrointestinal: Normal Bowel Sounds, Guarding (Voluntary), Tenderness (Yesterday tenderness was LLQ, RLQ, and suprapubic. Today tenderness is epigastric and suprapubic.) Back: CVA Tenderness (L), CVA Tenderness (R) Extremity: Normal Capillary Refill, Normal Inspection, Non Tender, No Calf Tenderness, Pedal Edema (Left extremity only) Neurologic/Psychiatric: Alert, Oriented x3, No Motor/Sensory Deficits, Normal Mood/Affect, medical claims analyst II-XII Norm as Tested Skin: Normal Color, Warm/Dry Lymphatic: No Adenopathy (Head and neck) Results/Procedures Lab Laboratory Tests 07/29/21 05:31 Patient resulted labs reviewed. Assessment/Plan Assessment and Plan Assess & Plan/Chief Complaint Assessment Ischemic colitis - Colonoscopy with Dr. Anderson today showed ischemic bowel of the descending colon, polyps, and internal hemorrhoids - h/o CAD Nonspecific colitis - Abdominal CT showed no acute changes - Elevated WBC Diarrhea - C. Diff negative - Hematochezia UTI - Culture showed E. coli Hypokalemia - Most likely 2/2 diarrhea - Consider replacement CAD HTN COPD Hypercholesterolemia Tobacco use Plan Surgery consulted for GI issues, hematochezia seen Plan for surgery tomorrow for bowel resection with Dr. Anderson Continue bowel rest and IV fluids NPO for surgery IV Zosyn for UTI and colitis Continue to treat pain as needed Potassium replacement for hypokalemia JOYCELYN ARIAS DO 07/30/21 0551: Subjective Subjective/Events-last exam Just got back from colonoscopy Will need resection for severe ischemic bowel Smoking is a big factor Review of Systems Gastrointestinal: Abdominal Pain Objective Exam General Appearance: WD/WN, Anxious, Chronically ill, Moderate Distress (Patient in less pain today than yesterday), Obese Respiratory: Lungs Clear, Normal Breath Sounds Assessment/Plan Assessment and Plan Assess & Plan/Chief Complaint Colon resection tomorrow Supervisory-Addendum Brief Verification & Attestation Participated in pt care: history, MDM, physical Personally performed: exam, history, MDM, supervision of care Care discussed with: Medical Student Procedures: n/a Results interpretation: Verified all documentation Verification and Attestation of Medical Student E/M Service A medical student performed and documented this service in my presence. I reviewed and verified all information documented by the medical student and made modifications to such information, when appropriate. I personally performed the physical exam and medical decision making. Joycelyn Arias Jul 30, 2021,05:50 MARIE BE Jul 29, 2021 15:16 JOYCELYN ARIAS DO Jul 30, 2021 05:51
[2021-07-29] MEDS: ENOXAPARIN 40 MG/0.4 ML (LOVENOX) SYR SC SCH (16:30)
[2021-07-30] VITALS (13 sets, daily range): BP systolic 96–168; BP diastolic 51–125
[2021-07-30] MEDS: ENALAPRILAT 2.5 MG/2 ML (VASOTEC) VIAL IV SCH ×5 (00:40→23:31)
[2021-07-30] MEDS: HYDROmorphone 2 MG/ML VIAL (DILAUDID) IV PRN ×11 (01:05→23:32)
[2021-07-30] MEDS: LACTATED RINGERS 1,000 ML IV SCH ×5 (02:55→23:10)
[2021-07-30] MEDS: hydrALAZINE (APRESOLINE) 25 MG TAB PO SCH ×4 (04:04→23:31)
[2021-07-30] MEDS: PIPERACILLIN/TAZOBACTAM (BULK) 4.5 GM in NS (IVPB) 100 ML IV SCH ×3 (04:04→19:50)
[2021-07-30 06:14] LABS: BASOPHILS # (AUTO) 0.1 10^3/uL (0.0-0.1); BASOPHILS % (AUTO) 0 % (0-10); EOSINOPHILS # (AUTO) 0.3 10^3/uL (0.0-0.3); EOSINOPHILS % (AUTO) 2 % (0-10); HEMATOCRIT 32 % (35-52); HEMOGLOBIN 10.8 g/dL (11.5-16.0); LYMPHOCYTES % (AUTO) 16 % (12-44); MEAN CORPUSCULAR HEMOGLOBIN 32 pg (25-34); MEAN CORPUSCULAR HGB CONC 34 g/dL (32-36); MEAN CORPUSCULAR VOLUME 96 fL (80-99); MONOCYTES # (AUTO) 0.9 10^3/uL (0.0-1.0); MONOCYTES % (AUTO) 7 % (0-12); NEUTROPHILS # (AUTO) 9.2 10^3/uL (1.8-7.8); NEUTROPHILS % (AUTO) 73 % (42-75); PLATELET COUNT 152 10^3/uL (130-400); WHITE BLOOD COUNT 12.5 10^3/uL (4.3-11.0)
[2021-07-30 06:40] LABS: ALBUMIN 2.9 GM/DL (3.2-4.5); BILIRUBIN,TOTAL 0.7 MG/DL (0.1-1.0); CALCIUM 8.4 MG/DL (8.5-10.1); CREATININE SERUM 0.68 MG/DL (0.60-1.30); POTASSIUM 2.9 MMOL/L (3.6-5.0); TOTAL PROTEIN 5.6 GM/DL (6.4-8.2)
--- NOTE | 2021-07-30 07:51 | Progress Note - Surgery ---
HANNAHFILIBERTO KING 07/30/21 0751: Subjective Date Seen by a Provider: Jul 30, 2021 Time Seen by a Provider: 06:50 Subjective/Events-last exam Patient in less pain than yesterday but still had pain o/n. Patient NPO since yesterday. Patient had headache o/n. Patient had 3-4 bouts of bloody diarrhea o/n. Patient has some muscle pain from laying in bed. Patient has appetite and waiting to find out what the plan is today. Per nurse, patient received Dilaudid o/n. Currently, receiving potassium as it dropped to 2.9 o/n. Finishing Zosyn this morning. Denies fever, chills, chest pain, palpitations, shortness of breath, lightheadedness and dizziness, and vision changes. Review of Systems General: No Chills, No Night Sweats; Fatigue HEENT: Head Aches; No Visual Changes Pulmonary: No Dyspnea, No Cough Cardiovascular: No: Chest Pain, Palpitations Gastrointestinal: Abdominal Pain, Diarrhea, Hematochezia; No: Nausea, Vomiting Genitourinary: No Dysuria, No Frequency Musculoskeletal: neck pain, shoulder pain Neurological: No: Weakness, Numbness, Confusion Focused Exam Lactate Level 07/27/21 19:00: Lactic Acid Level 2.87*H 07/27/21 20:58: Lactic Acid Level 2.23*H 07/27/21 23:04: Lactic Acid Level 2.00 Objective Exam Vital Signs Date Time Temp Pulse Resp B/P (MAP) Pulse Ox O2 Delivery O2 Flow Rate FiO2 07/30/21 07:27 36.8 106 18 138/82 (100) 96 Room Air 07/30/21 04:05 36.6 112 18 158/92 (114) 95 Room Air 07/29/21 23:54 36.8 112 18 138/76 (96) 99 Room Air 07/29/21 20:00 Room Air 07/29/21 20:00 37.0 117 22 142/107 (119) 95 Room Air 07/29/21 15:30 37.2 116 20 139/82 (101) 96 Room Air 07/29/21 14:16 36.8 126 16 132/85 (101) 97 Room Air 07/29/21 12:00 37.0 124 20 95/78 (84) 97 Room Air 07/29/21 11:45 102 16 100 Room Air 07/29/21 11:40 105 16 100 OxyMask 4 07/29/21 11:35 99 16 100 OxyMask 8 07/29/21 08:00 37.7 127 18 106/71 (83) 97 Room Air 07/29/21 07:52 Room Air I & O 07/30/21 06:59 Intake Total 3360 ml Balance 3360 ml Capillary Refill : Less Than 3 Seconds General Appearance: WD/WN, Anxious, Chronically ill, Mild Distress (Less pain than yesterday. ), Obese HEENT: PERRL/EOMI, Pharynx Normal, Moist Mucous Membranes; No Scleral Icterus (L), No Scleral Icterus (R) Neck: Normal Inspection, Non Tender, Supple; No Lymphadenopathy (L), No Lymphadenopathy (R); Tender Lateral (Tender on palpation. Patient states from laying in bed.), Tender Midline (Tender on palpation, patient states from laying in bed.) Respiratory: Lungs Clear, Normal Breath Sounds, No Accessory Muscle Use, No R espiratory Distress Cardiovascular: Regular Rate, Rhythm, No Gallop, No Murmur Peripheral Pulses: 2+ Dorsalis Pedis (R), 2+ Left Dors-Pedis (L), 2+ Radial Pulses (R), 2+ Radial Pulses (L) Gastrointestinal: soft, no organomegaly, no pulsatile mass, tenderness (Diffuse pain on palpation in all quadrants.), hernia (umbilical) Extremity: Normal Capillary Refill, Normal Range of Motion, Non Tender, No Calf Tenderness Neurologic/Psychiatric: Alert, Oriented x3, No Motor/Sensory Deficits, Normal Mood/Affect Skin: Normal Color, Warm/Dry; No Diaphoresis, No Jaundice Lymphatic: No Adenopathy (Cervical, axillary) Results Lab Laboratory Tests 07/30/21 05:32: White Blood Count 12.5H, Red Blood Count 3.33L, Hemoglobin 10.8L, Hematocrit 32L , Mean Corpuscular Volume 96, Mean Corpuscular Hemoglobin 32, Mean Corpuscular Hemoglobin Concent 34, Red Cell Distribution Width 13.0, Platelet Count 152, Mean Platelet Volume 12.0, Immature Granulocyte % (Auto) 1, Neutrophils (%) (Auto) 73, Lymphocytes (%) (Auto) 16, Monocytes (%) (Auto) 7, Eosinophils (%) (Auto) 2, Basophils (%) (Auto) 0, Neutrophils # (Auto) 9.2H, Lymphocytes # (Auto) 2.0, Monocytes # (Auto) 0.9, Eosinophils # (Auto) 0.3, Basophils # (Auto) 0.1, Immature Granulocyte # (Auto) 0.1, Sodium Level 138, Potassium Level 2.9L, Chloride Level 102, Carbon Dioxide Level 22, Anion Gap 14, Blood Urea Nitrogen 6L, Creatinine 0.68, Estimat Glomerular Filtration Rate 91, BUN/Creatinine Ratio 9, Glucose Level 87, Calcium Level 8.4L, Corrected Calcium 9.3, Total Bilirubin 0.7, Aspartate Amino Transf (AST/SGOT) 12, Alanine Aminotransferase (ALT/SGPT) 13, Alkaline Phosphatase 71, Total Protein 5.6L, Albumin 2.9L Microbiology 07/27/21 C. difficile GDH Antigen & Toxins - Final, Complete 07/27/21 Blood Culture - Preliminary, Resulted No growth 07/27/21 Urine Culture - Final, Complete Escherichia coli Meds Item Value Date Time Potassium Chloride 50 ml @ 50 mls/hr 07/30/21 0700 Lactated Ringer's 1,000 ml @ 0 mls/hr 07/29/21 1011 Ondansetron HCl 4 mg 07/28/21 2200 (Zofran Q4H PRN/IVP Injection (Sdv)) Amlodipine 5 mg 07/28/21 2100 Besylate BID/PO (Norvasc Tablet) Piperacillin Sod/ 120 ml @ 30 mls/hr 07/28/21 1200 Tazobactam Sod Q8H/IV 07/30/21 0404 4.5 gm/Sodium Chloride Metoprolol 25 mg 07/28/21 0900 Succinate DAILY/PO (Toprol Xl Tablet) Clonidine HCl 0.1 mg 07/28/21 0900 (Catapres BID/PO Tablet) Hydralazine HCl 25 mg 07/28/21 0600 (Apresoline Q6HR/PO Tablet) Enalaprilat 2.5 mg 07/28/21 0500 (Vasotec Q6HR/IV 07/30/21 0615 Injection) Clonidine HCl 0.1 mg 07/28/21 0215 (Catapres Q4HR PRN/PO Tablet) Hydromorphone HCl 0.5 mg 07/27/211999 (Dilaudid Q2HR PRN/IV 07/30/21 0615 Injection) Lactated Ringer's 1,000 ml @ 200 mls/hr 07/27/211999 Acetaminophen 650 mg 07/27/21 1730 (Tylenol Tablet) Q4H PRN/PO Loperamide HCl 2 mg 07/27/21 1715 (Imodium Tablet) NEEDED PRN/PO Melatonin 3 mg 07/27/21 171 (Melatonin HS PRN/PO Tablet) Ondansetron HCl 4 mg 07/27/21 1715 (Zofran Q4H PRN/IVP 07/28/21 2153 Injection (Sdv)) Ondansetron HCl 4 mg 07/27/21 171 (Zofran Oral Q6H PRN/PO 07/28/21 1803 Dissolve Tablet) Diphenhydramine 25 mg 07/27/211714 HCl Q6H PRN/PO (Benadryl Tablet) Calcium Carbonate 500 mg 07/27/21 171 (Antacid TID PRN/PO Chewable Tablet) Alprazolam 0.25 mg 07/27/21 1715 (Xanax Tablet) Q8H PRN/PO Enoxaparin Sodium 40 mg 07/27/21 171 (Lovenox Q24H/SC Injection) Radiology No new imaging. Procedures Received colonoscopy yesterday. NAME: PALOMA [facility]SON [facility] REC#: [id number] : 1965 ADMIT DATE: 07/27/21 PHYSICIAN: JOSELYN PINA DO PROGRESS NOTE Post-Operative Progess Note Surgeon (s)/Therapist Respiratory (s) Surgeon JOSELYN PINA DO Therapist Respiratory: IVIS PérezII Pre-Operative Diagnosis Hematochezia, probable colitis Post-Operative Diagnosis Ischemic bowel Polyps Int hemorrhoids Procedure & Operative Findings Date of Procedure 07/29/21 Procedure Performed/Findings Colonoscopy with cold biopsy PROCEDURE NOTE: After informed consent was obtained, the patient was brought to the endoscopy suite, placed in bed in left lateral decubitus position. She was administered IV sedation by the CAUL DRESSER who then monitored her vitals the entire time, heart rate, blood pressure and pulse ox and the scope was inserted. Pushed in to about 120 cm, but did not get into the cecum. On the way in noted ischemic colitis and took pictures. I got into ascending colon, but was getting some looping of the scope and was afraid to try and push, possibly causing a perforation. There was also a lot of retained fecal material. Slowly withdrew the scope insufflati ng to look circumferentiallly at the michelle. Ascending colon to the hepatic flexure, then down the transverse colon to the splenic flexure. It appeared to be almost all of the descending colon that had necrotic tissue, biopsy was done here. Continued down into the sigmoid; but cleared up at about 30cm. Saw a polyp in the sigmoid and did a cold biopsy. Finally into the rectum and saw multiple polyps; took a picture, but elected to leave them alone. Saw some in the rectal vault as well and then retroflexed the scope. Took picture of the internal hemorrhoids. The patient tolerated the procedure. She was recovered in endoscopy suite. Anesthesia Type IV sedation by CAUL DRESSER Estimated Blood Loss Estimated blood loss (mL): scant Specimens/Packing Specimens Removed desc colon bx sigmoid polyp bx JOSELYN PINA DO Jul 29, 2021 11:37 <Created by JOSELYN PINA DO> <Electronically signed by JOSELYN PINA DO> 07/29/21 1137 Assessment/Plan Assessment/Plan Assessment/Plan Colitis with hematochezia (C. Diff negative) UTI - E. Coli Lactic Acidosis - resolved Abdominal pain Hypokalemia Plan: Continue IV fluids. Continue potassium tx - Potassium down to 2.9 o/n, continue to monitor. Monitor anemia - Hgb dropped to 10.8 from 11.9 yesterday, trending down over last 4 days. WBC count trending down. Zosyn completed today. Continue to monitor. Performed colonoscopy, areas of necrosis noted - see report. Monitored patient o/n. Possible colon resection today, no decision made as of this note, will talk with patient this morning. JOSELYN PINA DO 07/30/21 0947: Subjective Time Seen by a Provider: 09:35 Subjective/Events-last exam Pt seen and examined, states she still has abdominal pain and feels weak. Review of Systems General: No Chills, No Night Sweats; Fatigue Pulmonary: No Dyspnea, No Cough Cardiovascular: No: Chest Pain, Palpitations Gastrointestinal: Abdominal Pain, Diarrhea, Hematochezia; No: Nausea, Vomiting Objective Exam General Appearance: No Apparent Distress, Anxious, Chronically ill, Obese HEENT: Pharynx Normal, Moist Mucous Membranes Respiratory: Lungs Clear, Normal Breath Sounds, No Accessory Muscle Use, No Respiratory Distress Cardiovascular: Regular Rate, Rhythm, No Murmur Gastrointestinal: soft, tenderness (Diffuse pain on palpation in all quadrants.), hernia (umbilical) Neurologic/Psychiatric: Alert, Oriented x3 Assessment/Plan Assessment/Plan Assessment/Plan Ischemic Colitis - confirmed yesterday on colonoscopy with necrotic colon UTI - E. Coli Lactic Acidosis - resolved Hypokalemia Plan: Discussed options with pt, 1) can watch and see if colon heals 2) go to surgery for colon resection. I had long discussion with family yesterday and pt today, going over options and I told them that I think there is a greater chance of perforation from colon than the chance of colon healing. They discussed it amongst themselves and because she is still having moderate pain (it is slightly better than yesterday) they want to do the colon resection. We will get consent for Laparoscopic Hand assisted left colon resection with possible open. Discussed risks and complications, not limited to pain, bleeding, infection, scar, damage to bowel, possible ostomy and need for further procedure. All questions answered to their satisfaction. Supervisory-Addendum Brief Verification & Attestation Participated in pt care: history, MDM, physical Personally performed: exam, history, MDM, supervision of care Care discussed with: Medical Student Procedures: n/a Verification and Attestation of Medical Student E/M Service A medical student performed and documented this service. I then reviewed and verified all information documented by the medical student and made modifications to such information, when appropriate. I personally performed a physical exam, medical decision making and then discussed any differences between the notes and made revisions as necessary to create one note. Joselyn Pina , 07/30/21 , 09:47 FILIBERTO YOUNG Jul 30, 2021 07:51 JOSELYN PINA DO Jul 30, 2021 09:47
[2021-07-30] MEDS: POTASSIUM CL 10MEQ/50ML IVPB 50 ML IV SCH ×4 (08:08→16:35)
[2021-07-30] MEDS: amLODIPine 5 MG (NORVASC) TAB PO SCH ×2 (10:00→21:22)
[2021-07-30] MEDS: cloNIDine 0.1 MG (CATAPRES) TAB PO SCH ×2 (10:00→21:18)
[2021-07-30] MEDS: LACTATED RINGERS 1,000 ML IV PRN ×3 (13:03→15:40)
--- NOTE | 2021-07-30 13:48 | Anesthesia-General Post-Op ---
MAC Patient Condition Mental Status/LOC: Same as Preop Cardiovascular: Satisfactory Nausea/Vomiting: Absent Respiratory: Satisfactory Pain: Controlled Complications: Absent Post Op Complications Complications None Follow Up Care/Instructions Patient Instructions None needed. Anesthesiology Discharge Order Discharge Order Patient is doing well, no complaints, stable vital signs, no apparent adverse anesthesia problems. No complications reported per nursing. PJ GUTIÉRREZ [employer] REFUELING HANDLER Jul 30, 2021 13:48
[2021-07-30] MEDS ORDERED: INDOCYANINE GREEN 25 MG (ICG) VIAL IV ONE (14:00)
--- NOTE | 2021-07-30 14:07 | Progress Note - Hospitalist ---
MARIE BE 07/30/21 1407: Subjective HPI/CC On Admission Date Seen by Provider: Jul 30, 2021 Time Seen by Provider: 08:46 CC: Severe abdominal pain with colitis Subjective/Events-last exam Ms. Gutierrez continues to be in a lot of pain this morning. Yesterday's colonoscopy revealed an ischemic section of bowel for which she is undergoing bowel resection today. She reports diffuse abdominal tenderness, hematochezia, diarrhea, bloating, and pain that is a 9/10. She is accompanied by her and family and has an extensive support system. She is ready for her surgery to be done and to begin her road to recovery. She and her inquired as to the cause of her condition and prevention. I told the her risk factors of CAD and smoking most likely contributed to her condition and smoking cessation would be helpful. Review of Systems General: No Chills; Fatigue HEENT: Head Aches Pulmonary: Dyspnea, Cough Cardiovascular: No: Chest Pain, Palpitations Gastrointestinal: Nausea, Vomiting, Abdominal Pain Neurological: No: Weakness, Confusion Focused Exam Lactate Level 07/27/21 19:00: Lactic Acid Level 2.87*H 07/27/21 20:58: Lactic Acid Level 2.23*H 07/27/21 23:04: Lactic Acid Level 2.00 Capillary Refill: Less Than 3 Seconds Peripheral Pulses: 2+ Radial Pulses (R), 2+ Radial Pulses (L) Objective Exam Vital Signs Vital Signs Date Time Temp Pulse Resp B/P (MAP) Pulse Ox O2 Delivery O2 Flow Rate FiO2 07/30/21 11:22 37.2 103 20 154/89 (110) 96 Room Air 07/29/21 11:40 4 Capillary Refill : Less Than 3 Seconds General Appearance: Anxious, Moderate Distress (Patient in a large amount of pain this morning. Ready for surgery.) HEENT: PERRL/EOMI, Moist Mucous Membranes; No Scleral Icterus (L), No Scleral Icterus (R) Neck: Normal Inspection, Non Tender Respiratory: Chest Non Tender, Lungs Clear, Normal Breath Sounds, No Accessory Muscle Use, No Respiratory Distress, Other (Pain with deep inspiration d/t abdominal pain. Not pleuritic in nature.) Cardiovascular: Regular Rate, Rhythm, No Murmur, Normal Peripheral Pulses Gastrointestinal: Abnormal Bowel Sounds (Decreased), Tenderness (Diffuse tenderness in all 4 quadrants), Other (Abdominal bloating) Back: CVA Tenderness (L), CVA Tenderness (R) Extremity: Normal Capillary Refill, Normal Inspection, Non Tender Neurologic/Psychiatric: Alert, Oriented x3, No Motor/Sensory Deficits, Normal Mood/Affect, cloth burler II-XII Norm as Tested Skin: Normal Color, Warm/Dry Lymphatic: No Adenopathy (Head and neck) Results/Procedures Lab Laboratory Tests 07/30/21 05:32 Patient resulted labs reviewed. Assessment/Plan Assessment and Plan Assess & Plan/Chief Complaint Assessment Ischemic colitis - Colonoscopy with Dr. Anderson yesterday showed ischemic bowel of the descending colon, polyps, and internal hemorrhoids - h/o CAD and smoking - Bowel resection today Nonspecific colitis - Abdominal CT showed no acute changes - Elevated WBC Diarrhea - C. Diff negative - Hematochezia UTI - Culture showed E. coli Hypokalemia - Most likely 2/2 diarrhea - Consider replacement CAD HTN COPD Hypercholesterolemia Tobacco use Plan Surgery today for bowel resection with Dr. Anderson Continue bowel rest and IV fluids PT and OT post-op as tolerated Continue IV antibiotics Continue to treat pain as needed Potassium replacement for hypokalemia Wish patient a happy birthday tomorrow JOYCELYN ARIAS DO 07/31/21 0629: Subjective Subjective/Events-last exam Patient ready for surgery Updated on labs Patient will need several days to recover from post op ileus Review of Systems General: Fatigue, Malaise Objective Exam General Appearance: No Apparent Distress, WD/WN, Anxious, Chronically ill Respiratory: Lungs Clear, Normal Breath Sounds Cardiovascular: Regular Rate, Rhythm Assessment/Plan Assessment and Plan Assess & Plan/Chief Complaint OR today Supervisory-Addendum Brief Verification & Attestation Participated in pt care: history, MDM, physical Personally performed: exam, history, MDM, supervision of care Care discussed with: Medical Student Procedures: n/a Results interpretation: Verified all documentation Verification and Attestation of Medical Student E/M Service A medical student performed and documented this service in my presence. I reviewed and verified all information documented by the medical student and made modifications to such information, when appropriate. I personally performed the physical exam and medical decision making. Joycelyn Arias Jul 31, 2021,06:28 MARIE BE Jul 30, 2021 14:07 JOYCELYN ARIAS DO Jul 31, 2021 06:29
--- NOTE | 2021-07-30 15:34 | Progress Note-Post Operative ---
Post-Operative Progess Note Surgeon (s)/Hand Scraper (s) Surgeon JOSELYN PINA DO Hand Scraper: Deidra Pre-Operative Diagnosis Ischemic colitis Post-Operative Diagnosis Partial thickness Ischemic Colitis Splenic capsule tear Procedure & Operative Findings Date of Procedure 07/30/21 Procedure Performed/Findings Exploratory Laparotomy Anesthesia Type GET Estimated Blood Loss Estimated blood loss (mL): 400ml Specimens/Packing Specimens Removed none JOSELYN PINA DO Jul 30, 2021 15:34
--- NOTE | 2021-07-30 15:44 | Anesthesia-General Post-Op ---
General Patient Condition Mental Status/LOC: Same as Preop Cardiovascular: Satisfactory Nausea/Vomiting: Absent Respiratory: Satisfactory Pain: Controlled Complications: Absent Post Op Complications Complications None Follow Up Care/Instructions Patient Instructions None needed. Anesthesia/Patient Condition Patient Condition Patient is doing well, no complaints, stable vital signs, no apparent adverse anesthesia problems. No complications reported per nursing. KATE MCCORMACK CRNA Jul 30, 2021 15:44
[2021-07-30] MEDS ORDERED: HYDROmorphone 2 MG/ML VIAL (DILAUDID) IV ONE (15:45)
[2021-07-30] MEDS ORDERED: ONDANSETRON 4 MG/2 ML (SDV) Z0FRAN IVP PRN (15:45)
[2021-07-30] MEDS ORDERED: PROMETHAZINE INJ 25 MG/ML (PHENERGAN) AMP IVP ONE (15:45)
[2021-07-30] MEDS ORDERED: fentaNYL INJ 100 MCG/2 ML AMP IVP ONE (15:45)
[2021-07-30] MEDS ORDERED: HYDROmorphone 2 MG/ML VIAL (DILAUDID) IVP NR (18:00)
[2021-07-30] MEDS: ENOXAPARIN 40 MG/0.4 ML (LOVENOX) SYR SC SCH (18:14)
[2021-07-31] VITALS (8 sets, daily range): BP systolic 108–162; BP diastolic 70–118
[2021-07-31] MEDS: HYDROmorphone 2 MG/ML VIAL (DILAUDID) IV PRN ×9 (00:42→11:02)
--- NOTE | 2021-07-31 02:42 | OPERATIVE REPORT ---
DATE OF SERVICE: 07/30/2021 PREOPERATIVE DIAGNOSIS: Ischemic colitis. POSTOPERATIVE DIAGNOSIS: Ischemic colitis, partial thickness. SURGEON: Wesley Anderson DO [employer] INSPECTOR: Jack Gay DO ANESTHESIA: General endotracheal tube. SPECIMENS: None. BLOOD LOSS: Approximately 400 mL. FLUIDS: Per anesthesia. POSTOPERATIVE CONDITION: Stable. INDICATION FOR PROCEDURE: The patient is a 55-year-old female who had a colonoscopy yesterday, which showed a necrotic bowel, could not tell whether this was full thickness, discussion today with the patient regarding options. She wanted to have surgery as we were concerned that it could be a full thickness ischemic colitis, which then lead to perforation. FINDINGS: The patient had viable bowel during the case. There was a small capsule tear of the spleen. No other obvious pathology. PROCEDURE NOTE: After informed consent was obtained, the patient was brought to the operating room, placed on the table in lithotomy position. She was sterilely prepped and draped in normal fashion. A midline incision was made from going about an inch above the umbilicus to just below the umbilicus. A #10 blade carried down through the skin into subcutaneous tissue, then deepened down to subcutaneous tissue with Bovie electrocautery down to fascia. Fascia was incised with Bovie electrocautery and bluntly entered the abdomen, made another incision just below the xiphoid first infiltrating local, make an incision with 11 blade, carried down through the skin and subcutaneous tissue. Placed a malleable in the abdomen and then carefully inserted the VersaStep needle and then removed this and then placed a 10 mm trocar. Once this was in place, then used a Gelport. The wound protector was placed into the incision and then attached the Gelport, then created pneumoperitoneum to look into the abdomen. There was some fluid, did not look like there is any necrotic tissue and then the fluid was not murky, did notice one necrotic epiploica. There were some adhesions in the left side, carefully taken down with some blunt dissection. While taking these down, got a small capsular tear in the spleen, it started bleeding. This was packed looked at the colon, could feel palpated, was a little bit thickened, but it looked viable. At this point, I elected to inject some ICG dye and used the camera to see if this bowel was viable, able to get the dye to come up, actually it illuminated the liver and then all of the intestine appeared viable. At this point, then elected to control the bleeding from the spleen, it was still oozing, Treitz, Surgicel and then packed with lap sponges for 5 minutes, looked it was still bleeding, tried Surgicel again, held for 10 minutes, pulled this down was still bleeding. I elected to place FloSeal over the top, then the Surgicel and then the Gelfoam, packed this for 10 minutes with packs. I then take the surgical sponges off. There did appear to have finally had stopped the bleeding. Once this was done, then elected to remove the sponges, did not see any other obvious pathology in the abdomen and at this point elected to close the abdomen, removed all ports under direct visualization, removed the GelPort, closed the fascia with 0 Vicryl [id number] started with a #1 PDS double stranded suture running from superior portion to inferior portion, tying to itself, copiously irrigated incision with normal saline and closing the skin with beltran. Area was cleaned and dried, dressings placed. The patient tolerated the procedure. She was transferred to recovery room in stable condition. Sponge, instrument and needle count correct at the end of the case. Dr. Gay assisted in this case helping to make incisions, close incisions, identify anatomy, hold anatomy out of the way. Job ID: [id number] DocumentID: [id number] Dictated Date: 07/30/2021 17:06:33 Manager Technical Sales Date: 07/31/2021 02:42:17 Dictated By: WESLEY ANDERSON DO
[2021-07-31] MEDS: LACTATED RINGERS 1,000 ML IV SCH ×3 (04:13→19:36)
[2021-07-31] MEDS: PIPERACILLIN/TAZOBACTAM (BULK) 4.5 GM in NS (IVPB) 100 ML IV SCH ×3 (04:13→19:41)
[2021-07-31] MEDS: ENALAPRILAT 2.5 MG/2 ML (VASOTEC) VIAL IV SCH ×4 (05:23→23:47)
[2021-07-31] MEDS: hydrALAZINE (APRESOLINE) 25 MG TAB PO SCH ×4 (05:23→23:49)
[2021-07-31 06:29] LABS: BASOPHILS % (AUTO) 0 % (0-10); EOSINOPHILS % (AUTO) 0 % (0-10); HEMATOCRIT 32 % (35-52); HEMOGLOBIN 10.9 g/dL (11.5-16.0); LYMPHOCYTES # (AUTO) 1.3 10^3/uL (1.0-4.0); LYMPHOCYTES % (AUTO) 8 % (12-44); MEAN CORPUSCULAR HEMOGLOBIN 33 pg (25-34); MEAN CORPUSCULAR HGB CONC 34 g/dL (32-36); MEAN CORPUSCULAR VOLUME 96 fL (80-99); MEAN PLATELET VOLUME 11.5 fL (9.0-12.2); MONOCYTES # (AUTO) 1.1 10^3/uL (0.0-1.0); MONOCYTES % (AUTO) 7 % (0-12); NEUTROPHILS # (AUTO) 13.8 10^3/uL (1.8-7.8); NEUTROPHILS % (AUTO) 85 % (42-75); PLATELET COUNT 224 10^3/uL (130-400); WHITE BLOOD COUNT 16.4 10^3/uL (4.3-11.0)
[2021-07-31 06:35] LABS: ALBUMIN 3.1 GM/DL (3.2-4.5); POTASSIUM 3.5 MMOL/L (3.6-5.0)
[2021-07-31 06:36] LABS: CALCIUM 8.3 MG/DL (8.5-10.1)
[2021-07-31 06:37] LABS: TOTAL PROTEIN 6.2 GM/DL (6.4-8.2)
[2021-07-31 06:39] LABS: BILIRUBIN,TOTAL 0.4 MG/DL (0.1-1.0)
[2021-07-31 06:41] LABS: CREATININE SERUM 0.71 MG/DL (0.60-1.30)
[2021-07-31] MEDS: amLODIPine 5 MG (NORVASC) TAB PO SCH ×2 (08:15→21:21)
[2021-07-31] MEDS: cloNIDine 0.1 MG (CATAPRES) TAB PO SCH ×2 (08:15→21:21)
--- NOTE | 2021-07-31 09:09 | Progress Note - Surgery ---
HANNAHFILIBERTO KING 07/31/21 0909: Subjective Date Seen by a Provider: Jul 31, 2021 Time Seen by a Provider: 07:20 Subjective/Events-last exam Patient is s/p 1 day exploratory laparotomy. Laparoscopic colon resection was planned but not performed after exploration. Patient had severe pain o/n and continues to have pain. Pain is diffuse and present more around midline. Patient stated that pain was 10/10 and has been constant at that level. Patient has not ambulated and per nurse, struggles to get up because of pain. Patient has not passed flatus and has not had any bowel movements. Patient on clear liquids and handling it well. Chicken broth made her stomach hurt. Per nurse, patient has requested pain medications frequently and it has been difficult to control her pain levels. Patient denied fever, chills, vomiting, shortness of breath, chest pain, palpitations, coughing, dizziness or lightheadedness, vision changes, extremity pain, and back pain. Review of Systems General: No Chills, No Night Sweats; Fatigue HEENT: Head Aches; No Visual Changes Pulmonary: No Dyspnea, No Cough Cardiovascular: No: Chest Pain, Palpitations Gastrointestinal: Abdominal Pain; No: Nausea, Vomiting, Diarrhea, Melena Genitourinary: No Dysuria, No Frequency Musculoskeletal: neck pain, shoulder pain Neurological: No: Weakness, Numbness Objective Exam Vital Signs Date Time Temp Pulse Resp B/P (MAP) Pulse Ox O2 Delivery O2 Flow Rate FiO2 07/31/21 07:20 37.2 116 18 148/89 (108) 93 Nasal Cannula 2.00 07/31/21 06:51 159/99 (119) 07/31/21 04:16 36.8 117 18 162/118 (133) 94 Nasal Cannula 2.00 07/31/21 00:29 150/98 (115) 07/30/21 23:20 36.0 120 16 168/125 (139) 94 Nasal Cannula 2.00 07/30/21 22:00 94 Nasal Cannula 2.00 07/30/21 20:00 Nasal Cannula 0.50 07/30/21 19:33 36.8 106 20 131/90 (104) 89 Nasal Cannula 0.50 07/30/21 16:25 36.7 20 122/84 (97) 94 Nasal Cannula 4 11/19/21 16:25 36.7 105 20 123/80 (94) 94 Nasal Cannula 4.00 07/30/21 16:25 Nasal Cannula 4 07/30/21 16:20 20 120/82 (95) 94 Nasal Cannula 4 07/30/21 16:15 Nasal Cannula 4 07/30/21 16:10 20 120/84 (96) 94 Nasal Cannula 4 07/30/21 16:00 OxyMask 4 07/30/21 16:00 20 116/85 (95) 94 OxyMask 4 07/30/21 15:50 20 109/74 (86) 94 OxyMask 5 07/30/21 15:45 OxyMask 5 07/30/21 15:40 20 111/71 (84) 95 OxyMask 5 07/30/21 15:30 20 102/67 (79) 95 OxyMask 10 07/30/21 15:30 OxyMask 10 07/30/21 15:20 36.9 20 96/51 (66) 92 OxyMask 10 07/30/21 15:20 OxyMask 10 07/30/21 11:22 37.2 103 20 154/89 (110) 96 Room Air I & O 07/31/21 07:00 Intake Total 2895 ml Output Total 1680 ml Balance 1215 ml Capillary Refill : Less Than 3 SecondsLess Than 3 Seconds General Appearance: Anxious, Chronically ill, Mild Distress (In pain, curled up legs to chest.) HEENT: PERRL/EOMI, Moist Mucous Membranes; No Scleral Icterus (L), No Scleral Icterus (R) Neck: Normal Inspection, Non Tender, Supple Respiratory: Lungs Clear, Normal Breath Sounds, No Accessory Muscle Use, No Respiratory Distress Cardiovascular: Regular Rate, Rhythm, No Gallop, No Murmur Peripheral Pulses: 2+ Dorsalis Pedis (R), 2+ Left Dors-Pedis (L), 2+ Radial Pulses (R), 2+ Radial Pulses (L) Gastrointestinal: soft, no organomegaly, no pulsatile mass, abnormal bowel sounds (decreased sounds), guarding (voluntary), tenderness (Diffuse pain on palpation in all quadrants, severe in midline.), hernia (umbilical), other (Feels full on palpation.) Extremity: Normal Capillary Refill, Normal Inspection, Normal Range of Motion, Non Tender Neurologic/Psychiatric: Alert, Oriented x3, No Motor/Sensory Deficits, Normal Mood/Affect Skin: Normal Color, Warm/Dry; No Diaphoresis, No Jaundice; Other (Incision sites have some discharge, tender on palpation, mild redness around staple sites. ) Lymphatic: No Adenopathy (Head and neck) Results Lab Laboratory Tests 07/31/21 05:50: White Blood Count 16.4H, Red Blood Count 3.35L, Hemoglobin 10.9L, Hematocrit 32L , Mean Corpuscular Volume 96, Mean Corpuscular Hemoglobin 33, Mean Corpuscular Hemoglobin Concent 34, Red Cell Distribution Width 12.8, Platelet Count 224, Mean Platelet Volume 11.5, Immature Granulocyte % (Auto) 1, Neutrophils (%) (Auto) 85H, Lymphocytes (%) (Auto) 8L, Monocytes (%) (Auto) 7, Eosinophils (%) (Auto) 0, Basophils (%) (Auto) 0, Neutrophils # (Auto) 13.8H, Lymphocytes # (Auto) 1.3, Monocytes # (Auto) 1.1H, Eosinophils # (Auto) 0.0, Basophils # (Auto) 0.0, Immature Granulocyte # (Auto) 0.1, Sodium Level 137, Potassium Level 3.5L, Chloride Level 102, Carbon Dioxide Level 22, Anion Gap 13, Blood Urea Nitrogen 9, Creatinine 0.71, Estimat Glomerular Filtration Rate 86, BUN/Creatinine Ratio 13, Glucose Level 141H, Calcium Level 8.3L, Corrected Calcium 9.0, Total Bilirubin 0.4, Aspartate Amino Transf (AST/SGOT) 18, Alanine Aminotransferase (ALT/SGPT) 15, Alkaline Phosphatase 107, Total Protein 6.2L, Albumin 3.1L Microbiology 07/30/21 MRSA Screen - Final, Complete MRSA not isolated 07/27/21 C. difficile GDH Antigen & Toxins - Final, Complete 07/27/21 Blood Culture - Preliminary, Resulted No growth 07/27/21 Urine Culture - Final, Complete Escherichia coli Assessment/Plan Assessment/Plan Assessment/Plan Ischemic Colitis - confirmed colonoscopy with necrotic colon UTI - E. Coli Lactic Acidosis - resolved Hypokalemia - resolved Plan: Monitor WBC count - Colon resection not performed after laparoscopic exploration. Hbg stable - 10.9 today, 10.8 yesterday, 11.9 two days ago. Continue to monitor. Consult PT to help patient ambulate. Possible CT reevaluation. Add Incentive spirometer. Continue clear liquids. Continue pain medication, possible addition of medications as tramadol and dilauded does not seem to provide enough control. WESLEY ANDERSON DO 07/31/21 1259: Subjective Time Seen by a Provider: 10:39 Subjective/Events-last exam Pt seen and examined, when I came in she was sitting up in chair in no distress and smiling. She stated she was feeling much better. Review of Systems General: No Chills, No Night Sweats; Fatigue HEENT: Head Aches Pulmonary: No Dyspnea, No Cough Cardiovascular: No: Chest Pain, Palpitations Gastrointestinal: Abdominal Pain; No: Nausea, Vomiting Objective Exam General Appearance: No Apparent Distress, Anxious HEENT: Moist Mucous Membranes Respiratory: Lungs Clear, Normal Breath Sounds, No Accessory Muscle Use, No Respiratory Distress Cardiovascular: Regular Rate, Rhythm, No Murmur Gastrointestinal: soft, abnormal bowel sounds (decreased sounds), guarding (voluntary), tenderness (Diffuse pain on palpation in all quadrants, severe in midline.), hernia (umbilical) Assessment/Plan Assessment/Plan Assessment/Plan S/P Ex lap - found viable bowel and no colon resection done Ischemic colitis - appears to be improving, not full thickness UTI Pt encouraged to ambulate, use IS and clears as tolerated. Would go slow on diet because of necrosis of colon (mid transverse to distal descending colon). Pain control and try to switch to orals. Supervisory-Addendum Brief Verification & Attestation Participated in pt care: history, MDM, physical Personally performed: exam, history, MDM, supervision of care Care discussed with: Medical Student Procedures: n/a Verification and Attestation of Medical Student E/M Service A medical student performed and documented this service. I then reviewed and verified all information documented by the medical student and made modifications to such information, when appropriate. I personally performed a physical exam, medical decision making and then discussed any differences between the notes and made revisions as necessary to create one note. Wesley Anderson , 07/31/21 , 12:58 FILIBERTO YOUNG Jul 31, 2021 09:09 WESLEY ANDERSON DO Jul 31, 2021 12:59
--- NOTE | 2021-07-31 11:13 | Progress Note - Hospitalist ---
Subjective HPI/CC On Admission Date Seen by Provider: Jul 31, 2021 Time Seen by Provider: 11:15 CC: Severe abdominal pain with colitis Subjective/Events-last exam Patient doing well No resection performed due to dye test in surgery revealed viable colon Patient doing well Using incentive spirometer Review of Systems General: Fatigue Gastrointestinal: Abdominal Pain Objective Exam Vital Signs Vital Signs Date Time Temp Pulse Resp B/P (MAP) Pulse Ox O2 Delivery O2 Flow Rate FiO2 08/01/21 04:08 36.6 97 16 128/73 (91) 93 Room Air 07/31/21 07:20 2.00 Capillary Refill : Less Than 3 SecondsLess Than 3 Seconds General Appearance: No Apparent Distress, WD/WN Respiratory: Chest Non Tender, Lungs Clear, Normal Breath Sounds, No Accessory Muscle Use, No Respiratory Distress Cardiovascular: Regular Rate, Rhythm, No Edema, No Gallop, No JVD, No Murmur, Normal Peripheral Pulses Neurologic/Psychiatric: Alert, Oriented x3, No Motor/Sensory Deficits, Normal Mood/Affect Results/Procedures Lab Patient resulted labs reviewed. Assessment/Plan Assessment and Plan Assess & Plan/Chief Complaint Assessment: Ischemic bowel type test showed viable tissue no resection completed Smoker Hypertension Plan: Supportive care Monitor closely Diagnosis/Problems Diagnosis/Problems (1) Colitis JESUS ALBERTO ARIAS DO Jul 31, 2021 11:13
--- NOTE | 2021-07-31 11:20 | Physical Therapy Progress Note ---
Therapy Progress Note PT order received. Pt up in chair reporting she is feeling much better. Reports she just returned from walking (I) in the hallway and is at PLOF, no skilled PT indicated. HARDY ALVA DPT Jul 31, 2021 11:20
[2021-07-31] MEDS: ACETAMINOPHEN 325 MG TABLET PO PRN (15:15)
[2021-07-31] MEDS: ENOXAPARIN 40 MG/0.4 ML (LOVENOX) SYR SC SCH (18:35)
[2021-08-01 04:08] VITALS: BP 128/73
[2021-08-01] MEDS: PIPERACILLIN/TAZOBACTAM (BULK) 4.5 GM in NS (IVPB) 100 ML IV SCH ×3 (04:12→20:09)
[2021-08-01] MEDS: hydrALAZINE (APRESOLINE) 25 MG TAB PO SCH ×4 (05:14→23:21)
[2021-08-01] MEDS: ENALAPRILAT 2.5 MG/2 ML (VASOTEC) VIAL IV SCH (05:14)
[2021-08-01 07:47] LABS: BASOPHILS # (AUTO) 0.1 10^3/uL (0.0-0.1); BASOPHILS % (AUTO) 0 % (0-10); EOSINOPHILS # (AUTO) 0.2 10^3/uL (0.0-0.3); EOSINOPHILS % (AUTO) 1 % (0-10); HEMATOCRIT 30 % (35-52); HEMOGLOBIN 10.1 g/dL (11.5-16.0); LYMPHOCYTES # (AUTO) 3.2 10^3/uL (1.0-4.0); LYMPHOCYTES % (AUTO) 24 % (12-44); MEAN CORPUSCULAR HEMOGLOBIN 33 pg (25-34); MEAN CORPUSCULAR HGB CONC 34 g/dL (32-36); MEAN CORPUSCULAR VOLUME 97 fL (80-99); MEAN PLATELET VOLUME 11.6 fL (9.0-12.2); MONOCYTES # (AUTO) 1.2 10^3/uL (0.0-1.0); MONOCYTES % (AUTO) 9 % (0-12); NEUTROPHILS # (AUTO) 8.4 10^3/uL (1.8-7.8); NEUTROPHILS % (AUTO) 62 % (42-75); PLATELET COUNT 255 10^3/uL (130-400); WHITE BLOOD COUNT 13.5 10^3/uL (4.3-11.0)
[2021-08-01 07:50] VITALS: BP 112/71
[2021-08-01] MEDS: cloNIDine 0.1 MG (CATAPRES) TAB PO SCH ×2 (07:55→20:09)
[2021-08-01] MEDS: amLODIPine 5 MG (NORVASC) TAB PO SCH ×2 (07:55→20:09)
[2021-08-01 08:03] LABS: ALBUMIN 3.2 GM/DL (3.2-4.5); POTASSIUM 2.9 MMOL/L (3.6-5.0)
[2021-08-01 08:05] LABS: CALCIUM 8.4 MG/DL (8.5-10.1)
[2021-08-01 08:06] LABS: TOTAL PROTEIN 6.1 GM/DL (6.4-8.2)
[2021-08-01 08:08] LABS: BILIRUBIN,TOTAL 0.5 MG/DL (0.1-1.0)
[2021-08-01 08:09] LABS: CREATININE SERUM 0.75 MG/DL (0.60-1.30)
--- NOTE | 2021-08-01 09:07 | Progress Note - Surgery ---
FILIBERTO YOUNG 08/01/21 0907: Subjective Date Seen by a Provider: Aug 01, 2021 Time Seen by a Provider: 07:50 Subjective/Events-last exam Patient is s/p 2 days exploratory laparotomy. Patient was resting in chair, rocking due to some abdominal pain. Patient reports not sleeping well last nigh t. Patient also reports having 9.5/10 pain in abdomen. States pain is significant around midline incision site. Patient passing flatus and having loose stools last night. No blood in stool. Patient tolerating clears and is hungry, hopes to have more to eat today. Patient ambulating, several laps around hospital last night. Patient using IS. Patient feeling better than yesterday, pa in is still greatest factor. Patient denies fever, vomiting, chills, shortness of breath, chest pain, palpitations, numbness, paresthesia, vision changes, headache. Review of Systems General: No Chills, No Night Sweats HEENT: No Head Aches, No Visual Changes Pulmonary: No Dyspnea, No Cough Cardiovascular: No: Chest Pain, Palpitations Gastrointestinal: No: Nausea, Vomiting Genitourinary: No Dysuria, No Frequency Musculoskeletal: No: neck pain, shoulder pain Neurological: No: Weakness, Numbness Objective Exam Vital Signs Date Time Temp Pulse Resp B/P (MAP) Pulse Ox O2 Delivery O2 Flow Rate FiO2 08/01/21 07:50 36.4 92 16 112/71 (85) 96 Room Air 08/01/21 04:08 36.6 97 16 128/73 (91) 93 Room Air 07/31/21 23:45 36.6 96 16 109/70 (83) 92 Room Air 07/31/21 19:58 37.1 92 16 137/88 (104) 91 Room Air 07/31/21 19:54 Room Air 07/31/21 15:38 36.8 96 20 117/71 (86) 92 Room Air 07/31/21 11:20 36.5 100 18 108/75 (86) 91 Room Air I & O 08/01/21 07:00 Intake Total 2035 ml Balance 2035 ml Capillary Refill : Less Than 3 SecondsLess Than 3 Seconds General Appearance: No Apparent Distress, WD/WN HEENT: PERRL/EOMI, Pharynx Normal, Moist Mucous Membranes; No Scleral Icterus (L), No Scleral Icterus (R) Neck: Full Range of Motion, Normal Inspection, Non Tender, Supple Respiratory: Chest Non Tender, Lungs Clear, Normal Breath Sounds, No Accessory Muscle Use, No Respiratory Distress Cardiovascular: Regular Rate, Rhythm, No Gallop, No Murmur Peripheral Pulses: 2+ Dorsalis Pedis (R), 2+ Left Dors-Pedis (L), 2+ Radial Pulses (R), 2+ Radial Pulses (L) Gastrointestinal: soft, tenderness (Still has diffuse pain on palpation in all quadrants, severe in midline. Some drainage from midline, bandaged. No redness around staple sites on other 2 sites.), hernia (umbilical) Extremity: Normal Capillary Refill, Normal Inspection, Normal Range of Motion, Non Tender, Other (Patient has added edema in legs, patient not able to lay in bed too long due to pain so sitting in chair more.) Neurologic/Psychiatric: Alert, Oriented x3, No Motor/Sensory Deficits, Normal Mood/Affect Skin: Normal Color, Warm/Dry; No Diaphoresis, No Jaundice; Other (Incision sites have some discharge, tender on palpation, mild redness around staple sites. ) Lymphatic: No Adenopathy (Head and neck) Results Lab Laboratory Tests 08/01/21 06:54: White Blood Count 13.5H, Red Blood Count 3.10L, Hemoglobin 10.1L, Hematocrit 30L , Mean Corpuscular Volume 97, Mean Corpuscular Hemoglobin 33, Mean Corpuscular Hemoglobin Concent 34, Red Cell Distribution Width 13.3, Platelet Count 255, Mean Platelet Volume 11.6, Immature Granulocyte % (Auto) 3, Neutrophils (%) (Auto) 62, Lymphocytes (%) (Auto) 24, Monocytes (%) (Auto) 9, Eosinophils (%) (Auto) 1, Basophils (%) (Auto) 0, Neutrophils # (Auto) 8.4H, Lymphocytes # (Auto) 3.2, Monocytes # (Auto) 1.2H, Eosinophils # (Auto) 0.2, Basophils # (Auto) 0.1, Immature Granulocyte # (Auto) 0.4H, Sodium Level 138, Potassium Level 2.9L, Chloride Level 102, Carbon Dioxide Level 24, Anion Gap 12, Blood Urea Nitrogen 10, Creatinine 0.75, Estimat Glomerular Filtration Rate 81, BUN/Creatinine Ratio 13, Glucose Level 93, Calcium Level 8.4L, Corrected Calcium 9.0, Total Bilirubin 0.5, Aspartate Amino Transf (AST/SGOT) 21, Alanine Aminotransferase (ALT/SGPT) 13, Alkaline Phosphatase 83, Total Protein 6.1L, Albumin 3.2 Microbiology 07/30/21 MRSA Screen - Final, Complete MRSA not isolated 07/27/21 C. difficile GDH Antigen & Toxins - Final, Complete 07/27/21 Blood Culture - Preliminary, Resulted No growth 07/27/21 Urine Culture - Final, Complete Escherichia coli Meds Item Value Date Time Acetaminophen/ 1 ea 07/31/21 1300 Hydrocodone Bitart Q6HR PRN/PO 08/01/21 0413 (Lortab 10 Mg Tablet) Hydromorphone HCl 0.5 mg 07/30/21 1900 (Dilaudid Q1HR PRN/IV 07/31/21 1102 Injection) Lactated Ringer's 1,000 ml @ 0 mls/hr 07/30/21 1245 Ondansetron HCl 4 mg 07/28/21 2200 (Zofran Q4H PRN/IVP Injection (Sdv)) Amlodipine 5 mg 07/28/21 2100 Besylate BID/PO 08/01/21 0755 (Norvasc Tablet) Piperacillin Sod/ 120 ml @ 30 mls/hr 07/28/21 1200 Tazobactam Sod Q8H/IV 08/01/21 0412 4.5 gm/Sodium Chloride Metoprolol 25 mg 07/28/21 0900 Succinate DAILY/PO 08/01/21 0754 (Toprol Xl Tablet) Clonidine HCl 0.1 mg 07/28/21 0900 (Catapres BID/PO 08/01/21 0755 Tablet) Hydralazine HCl 25 mg 07/28/21 0600 (Apresoline Q6HR/PO 08/01/21 0514 Tablet) Clonidine HCl 0.1 mg 07/28/21 0215 (Catapres Q4HR PRN/PO Tablet) Acetaminophen 650 mg 07/27/21 1730 (Tylenol Tablet) Q4H PRN/PO 07/31/21 1515 Loperamide HCl 2 mg 07/27/21 1715 (Imodium Tablet) NEEDED PRN/PO Melatonin 3 mg 07/27/21 1715 (Melatonin HS PRN/PO Tablet) Ondansetron HCl 4 mg 07/27/21 1715 (Zofran Q4H PRN/IVP 07/28/21 2153 Injection (Sdv)) Ondansetron HCl 4 mg 07/27/21 1715 (Zofran Oral Q6H PRN/PO 07/28/21 1803 Dissolve Tablet) Tramadol HCl 50 mg 07/27/21 1715 (Ultram Tablet) TID PRN/PO 08/01/21 0755 Diphenhydramine 25 mg 07/27/21 1715 HCl Q6H PRN/PO (Benadryl Tablet) Calcium Carbonate 500 mg 07/27/21 1715 (Antacid TID PRN/PO Chewable Tablet) Alprazolam 0.25 mg 07/27/21 1715 (Xanax Tablet) Q8H PRN/PO Enoxaparin Sodium 40 mg 07/27/21 1715 (Lovenox Q24H/SC 07/31/21 1835 Injection) Radiology No new imaging. Assessment/Plan Assessment/Plan Assessment/Plan S/P Ex lap - found viable bowel and no colon resection done Ischemic colitis - appears to be improving, not full thickness, no blood in loose stools o/n UTI Administer potassium for hypokalemia. Patient ambulating numerous times per day, encouraged to continue ambulating. Patient using IS, tolerating well. Patient tolerating clears and is hungry, possibly introduce some soft but would go slow on diet because of necrosis of colon (mid transverse to distal descending colon). Pain control as needed, continue oral tablets. WESLEY ANDERSON DO 08/01/21 1159: Subjective Time Seen by a Provider: 10:42 Subjective/Events-last exam Pt seen and examined, states she is doing better with small BM. She would like more to eat. Review of Systems General: No Chills, No Night Sweats Pulmonary: No Dyspnea, No Cough Cardiovascular: No: Chest Pain, Palpitations Gastrointestinal: Abdominal Pain; No: Nausea, Vomiting Objective Exam General Appearance: No Apparent Distress, Obese HEENT: PERRL/EOMI, Moist Mucous Membranes Respiratory: Lungs Clear, Normal Breath Sounds, No Accessory Muscle Use, No Respiratory Distress Cardiovascular: Regular Rate, Rhythm, No Murmur Gastrointestinal: soft, tenderness (Still has diffuse pain on palpation in all quadrants, moderate in midline. Incisions are c/d/i ) Assessment/Plan Assessment/Plan Assessment/Plan S/P Ex lap - found viable bowel and no colon resection done Ischemic colitis - appears to be improving, not full thickness, no blood in loose stools o/n Hypokalemia UTI Administer potassium for hypokalemia. Patient ambulating numerous times per day, encouraged to continue ambulating. Patient using IS, tolerating well. Patient tolerating clears and will increase to soft diet. Pain being controlled with oral tablets; states she hasn't used IV meds since early yesterday. Supervisory-Addendum Brief Verification & Attestation Participated in pt care: history, MDM, physical Personally performed: exam, history, MDM, supervision of care Care discussed with: Medical Student Procedures: n/a Verification and Attestation of Medical Student E/M Service A medical student performed and documented this service. I then reviewed and verified all information documented by the medical student and made modifications to such information, when appropriate. I personally performed a physical exam, medical decision making and then discussed any differences between the notes and made revisions as necessary to create one note. Wesley Anderson , 08/01/21 , 11:59 FILIBERTO YOUNG Aug 01, 2021 09:07 WESLEY ANDERSON DO Aug 01, 2021 11:59
--- NOTE | 2021-08-01 10:54 | Progress Note - Hospitalist ---
Subjective HPI/CC On Admission Date Seen by Provider: Aug 01, 2021 Time Seen by Provider: 11:00 CC: Severe abdominal pain with colitis Subjective/Events-last exam Patient doing a lot better Replace potassium Abdominal pain improved Walking Review of Systems Gastrointestinal: Abdominal Pain Objective Exam Vital Signs Vital Signs Date Time Temp Pulse Resp B/P (MAP) Pulse Ox O2 Delivery O2 Flow Rate FiO2 08/01/21 19:57 36.5 92 20 129/78 (95) 96 Room Air 07/31/21 07:20 2.00 Capillary Refill : Less Than 3 SecondsLess Than 3 Seconds General Appearance: No Apparent Distress, WD/WN, Chronically ill Respiratory: Lungs Clear, Normal Breath Sounds Cardiovascular: Regular Rate, Rhythm, No Edema Neurologic/Psychiatric: Alert, Oriented x3, No Motor/Sensory Deficits, Normal Mood/Affect Results/Procedures Lab Laboratory Tests 08/01/21 06:54 Patient resulted labs reviewed. Assessment/Plan Assessment and Plan Assess & Plan/Chief Complaint Assessment: Ischemic bowel type test showed viable tissue no resection completed Smoker Hypertension Plan: Supportive care Monitor closely 08/01/2021: Supportive care Pain control Diagnosis/Problems Diagnosis/Problems (1) Colitis JESUS ALBERTO ARIAS DO Aug 01, 2021 10:54
[2021-08-01] MEDS ORDERED: KCL 20 MEQ TAB (K-DUR) PO NR (11:00)
[2021-08-01 11:35] VITALS: BP 112/71
[2021-08-01] MEDS ORDERED: NS IV 1000 ML 1,000 ML ONE (11:45)
[2021-08-01] MEDS: ACETAMINOPHEN 325 MG TABLET PO PRN (14:56)
[2021-08-01 15:30] VITALS: BP 100/73
[2021-08-01] MEDS: ENOXAPARIN 40 MG/0.4 ML (LOVENOX) SYR SC SCH (18:01)
[2021-08-01 19:57] VITALS: BP 129/78
[2021-08-01 23:32] VITALS: BP 106/64
[2021-08-02] MEDS: PIPERACILLIN/TAZOBACTAM (BULK) 4.5 GM in NS (IVPB) 100 ML IV SCH (03:57)
[2021-08-02 04:10] VITALS: BP 102/62
[2021-08-02 05:26] VITALS: BP 111/73
[2021-08-02] MEDS: hydrALAZINE (APRESOLINE) 25 MG TAB PO SCH ×2 (05:26→13:40)
[2021-08-02 06:57] LABS: BASOPHILS # (AUTO) 0.1 10^3/uL (0.0-0.1); BASOPHILS % (AUTO) 1 % (0-10); EOSINOPHILS # (AUTO) 0.5 10^3/uL (0.0-0.3); EOSINOPHILS % (AUTO) 4 % (0-10); HEMATOCRIT 28 % (35-52); HEMOGLOBIN 9.4 g/dL (11.5-16.0); LYMPHOCYTES # (AUTO) 3.3 10^3/uL (1.0-4.0); LYMPHOCYTES % (AUTO) 28 % (12-44); MEAN CORPUSCULAR HEMOGLOBIN 33 pg (25-34); MEAN CORPUSCULAR HGB CONC 33 g/dL (32-36); MEAN CORPUSCULAR VOLUME 98 fL (80-99); MEAN PLATELET VOLUME 11.5 fL (9.0-12.2); MONOCYTES # (AUTO) 1.1 10^3/uL (0.0-1.0); MONOCYTES % (AUTO) 9 % (0-12); NEUTROPHILS # (AUTO) 6.3 10^3/uL (1.8-7.8); NEUTROPHILS % (AUTO) 52 % (42-75); PLATELET COUNT 266 10^3/uL (130-400)
[2021-08-02] MEDS ORDERED: KCL 20 MEQ TAB (K-DUR) PO SCH (07:00)
[2021-08-02 07:32] LABS: ALBUMIN 2.9 GM/DL (3.2-4.5); BILIRUBIN,TOTAL 0.4 MG/DL (0.1-1.0); CALCIUM 8.2 MG/DL (8.5-10.1); CREATININE SERUM 0.71 MG/DL (0.60-1.30); POTASSIUM 3.2 MMOL/L (3.6-5.0); TOTAL PROTEIN 5.5 GM/DL (6.4-8.2)
--- NOTE | 2021-08-02 07:53 | Progress Note - Surgery ---
FILIBERTO YOUNG 08/02/21 0753: Subjective Date Seen by a Provider: Aug 02, 2021 Time Seen by a Provider: 07:10 Subjective/Events-last exam Patient is s/p 3 days exploratory laparotomy. Patient resting in chair. Patient still has abdominal pain around incision sites. Patient having loose stools and beginning to have harder stools. No blood in stools. some shortness of breath because of incision site. Patient handling soft diet well. Patient states tablets for pain are working well. No fever, nausea, chills, melany pain, palpitations, vomiting.. Review of Systems General: No Chills, No Night Sweats HEENT: No Head Aches, No Visual Changes Pulmonary: No Dyspnea, No Cough Cardiovascular: No: Chest Pain, Palpitations Gastrointestinal: No: Nausea, Vomiting, Melena, Hematochezia Genitourinary: No Dysuria, No Frequency Musculoskeletal: No: neck pain, shoulder pain Neurological: No: Weakness, Numbness Objective Exam Vital Signs Date Time Temp Pulse Resp B/P (MAP) Pulse Ox O2 Delivery O2 Flow Rate FiO2 08/02/21 05:26 76 111/73 (86) 08/02/21 04:10 36.8 84 16 102/62 (75) 93 Room Air 08/01/21 23:32 36.8 94 18 106/64 (78) 93 Room Air 08/01/21 20:15 Room Air 08/01/21 19:57 36.5 92 20 129/78 (95) 96 Room Air 08/01/21 15:30 36.6 96 20 100/73 (82) 93 Room Air 08/01/21 11:35 36.3 90 18 112/71 (85) 96 Room Air 08/01/21 08:00 96 Room Air 08/01/21 07:50 36.4 92 16 112/71 (85) 96 Room Air I & O 08/02/21 07:00 Intake Total 1390 ml Balance 1390 ml Capillary Refill : Less Than 3 SecondsLess Than 3 Seconds General Appearance: No Apparent Distress, WD/WN HEENT: PERRL/EOMI, Moist Mucous Membranes Neck: Full Range of Motion, Normal Inspection, Non Tender, Supple Respiratory: Lungs Clear, Normal Breath Sounds Cardiovascular: Regular Rate, Rhythm, No Gallop, No Murmur Peripheral Pulses: 2+ Dorsalis Pedis (R), 2+ Left Dors-Pedis (L), 2+ Radial Pulses (R), 2+ Radial Pulses (L) Gastrointestinal: soft, no organomegaly, no pulsatile mass, tenderness (mainly around incision sites.) Extremity: Normal Capillary Refill, Normal Inspection, Normal Range of Motion, Non Tender, Other (Patient has added edema in legs, patient not able to lay in bed too long due to pain so sitting in chair more.) Neurologic/Psychiatric: Alert, Oriented x3, No Motor/Sensory Deficits, Normal Mood/Affect Skin: Normal Color, Warm/Dry; No Diaphoresis, No Jaundice; Other (Incision sites have some discharge, tender on palpation, mild redness around staple sites. ) Lymphatic: No Adenopathy (Head and neck) Results Lab Laboratory Tests 08/02/21 05:45: White Blood Count 12.0H, Red Blood Count 2.89L, Hemoglobin 9.4L, Hematocrit 28L, Mean Corpuscular Volume 98, Mean Corpuscular Hemoglobin 33, Mean Corpuscular Hemoglobin Concent 33, Red Cell Distribution Width 13.6, Platelet Count 266, Mean Platelet Volume 11.5, Immature Granulocyte % (Auto) 6, Neutrophils (%) (Auto) 52, Lymphocytes (%) (Auto) 28, Monocytes (%) (Auto) 9, Eosinophils (%) (Auto) 4, Basophils (%) (Auto) 1, Neutrophils # (Auto) 6.3, Lymphocytes # (Auto) 3.3, Monocytes # (Auto) 1.1H, Eosinophils # (Auto) 0.5H, Basophils # (Auto) 0.1, Immature Granulocyte # (Auto) 0.7H, Sodium Level 138, Potassium Level 3.2L, Chloride Level 104, Carbon Dioxide Level 21, Anion Gap 13, Blood Urea Nitrogen 8, Creatinine 0.71, Estimat Glomerular Filtration Rate 86, BUN/Creatinine Ratio 11, Glucose Level 76, Calcium Level 8.2L, Corrected Calcium 9.1, Total Bilirubin 0.4, Aspartate Amino Transf (AST/SGOT) 19, Alanine Aminotransferase (ALT/SGPT) 16, Alkaline Phosphatase 71, Total Protein 5.5L, Albumin 2.9L Microbiology 07/30/21 MRSA Screen - Final, Complete MRSA not isolated 07/27/21 C. difficile GDH Antigen & Toxins - Final, Complete 07/27/21 Blood Culture - Preliminary, Resulted No growth 07/27/21 Urine Culture - Final, Complete Escherichia coli Meds Item Value Date Time Potassium Chloride 20 meq 08/02/21 0700 (K Dur Tablet) DAILY@0700/PO 08/02/21 0526 Acetaminophen/ 1 ea 07/31/21 1300 Hydrocodone Bitart Q6HR PRN/PO 08/01/21 2321 (Lortab 10 Mg Tablet) Hydromorphone HCl 0.5 mg 07/30/21 1900 (Dilaudid Q1HR PRN/IV 07/31/21 1102 Injection) Lactated Ringer's 1,000 ml @ 0 mls/hr 07/30/21 1245 Ondansetron HCl 4 mg 07/28/21 2200 (Zofran Q4H PRN/IVP Injection (Sdv)) Amlodipine 5 mg 07/28/212099 Besylate BID/PO 08/01/212008 (Norvasc Tablet) Piperacillin Sod/ 120 ml @ 30 mls/hr 07/28/21 1200 Tazobactam Sod Q8H/IV 08/02/21 0357 4.5 gm/Sodium Chloride Metoprolol 25 mg 07/28/21 0900 Succinate DAILY/PO 08/01/21 0754 (Toprol Xl Tablet) Clonidine HCl 0.1 mg 07/28/21 0900 (Catapres BID/PO 08/01/212008 Tablet) Hydralazine HCl 25 mg 07/28/21 0600 (Apresoline Q6HR/PO 08/02/21525 Tablet) Clonidine HCl 0.1 mg 07/28/21 0215 (Catapres Q4HR PRN/PO Tablet) Acetaminophen 650 mg 07/27/21 1730 (Tylenol Tablet) Q4H PRN/PO 08/01/21 1456 Loperamide HCl 2 mg 07/27/21 1715 (Imodium Tablet) NEEDED PRN/PO Melatonin 3 mg 07/27/21 171 (Melatonin HS PRN/PO Tablet) Ondansetron HCl 4 mg 07/27/21 1715 (Zofran Q4H PRN/IVP 07/28/21 215 Injection (Sdv)) Ondansetron HCl 4 mg 07/27/21 1715 (Zofran Oral Q6H PRN/PO 07/28/21 1803 Dissolve Tablet) Tramadol HCl 50 mg 07/27/21 1715 (Ultram Tablet) TID PRN/PO 08/02/21 0357 Calcium Carbonate 500 mg 07/27/21 1715 (Antacid TID PRN/PO 08/01/21 1455 Chewable Tablet) Diphenhydramine 25 mg 07/27/21 1715 HCl Q6H PRN/PO (Benadryl Tablet) Alprazolam 0.25 mg 07/27/21 1715 (Xanax Tablet) Q8H PRN/PO Enoxaparin Sodium 40 mg 07/27/21 1715 (Lovenox Q24H/SC 08/01/21 1801 Injection) Radiology No new imaging. Assessment/Plan Assessment/Plan Assessment/Plan S/P Ex lap - found viable bowel and no colon resection done Ischemic colitis - appears to be improving, not full thickness, no blood in loose stools o/n Hypokalemia UTI Patient handling soft diet well. Patient ambulating numerous times per day, encouraged to continue ambulating. Patient using IS, tolerating well. Pain being controlled with oral tablets. Plan for discharge. 08/30/21 1146: FILIBERTO YOUNG Aug 02, 2021 07:53 Aug 30, 2021 11:46
[2021-08-02 08:00] VITALS: BP 151/95
[2021-08-02] MEDS ORDERED: POTASSIUM CL 10MEQ/50ML IVPB 50 ML IV SCH (08:30)
[2021-08-02] MEDS: amLODIPine 5 MG (NORVASC) TAB PO SCH (08:42)
[2021-08-02] MEDS: cloNIDine 0.1 MG (CATAPRES) TAB PO SCH (08:42)
[2021-08-02] MEDS ORDERED: KCL 20 MEQ TAB (K-DUR) PO ONE (10:30)
[2021-08-02] MEDS ORDERED: AMLO-250 PO (12:06)
[2021-08-02] MEDS ORDERED: ACHYD1T PO (12:06)
--- NOTE | 2021-08-02 12:10 | Discharge Summary ---
Discharge Summary Hospital Course Hospital Course Date of Admission: Jul 27, 2021 at 15:21 Admission Diagnosis : Nonspecific colitis Diarrhea Hematochezia UTI Hypokalemia CAD HTN COPD Hypercholesterolemia Family Physician/Provider: ConnieLocal Physician Date of Discharge: 08/02/21 Discharge Diagnosis: Ischemic colitis- partial thickness not requiring resection Diarrhea Hematochezia UTI Hypokalemia CAD HTN COPD Hypercholesterolemia Hospital Course: Pt admitted and Surgery consulted, exlap was done after colonoscopy showed suspicion for ischemic colitis, but bowel was found to be viable. UTI treated with zosyn. Feeling well, tolerating diet and having normal bowel movements by discharge. Labs and Pending Lab Test: Laboratory Tests 08/02/21 05:45: White Blood Count 12.0H, Red Blood Count 2.89L, Hemoglobin 9.4L, Hematocrit 28L, Mean Corpuscular Volume 98, Mean Corpuscular Hemoglobin 33, Mean Corpuscular Hemoglobin Concent 33, Red Cell Distribution Width 13.6, Platelet Count 266, Mean Platelet Volume 11.5, Immature Granulocyte % (Auto) 6, Neutrophils (%) (Auto) 52, Lymphocytes (%) (Auto) 28, Monocytes (%) (Auto) 9, Eosinophils (%) (Auto) 4, Basophils (%) (Auto) 1, Neutrophils # (Auto) 6.3, Lymphocytes # (Auto) 3.3, Monocytes # (Auto) 1.1H, Eosinophils # (Auto) 0.5H, Basophils # (Auto) 0.1, Immature Granulocyte # (Auto) 0.7H, Sodium Level 138, Potassium Level 3.2L, Chloride Level 104, Carbon Dioxide Level 21, Anion Gap 13, Blood Urea Nitrogen 8, Creatinine 0.71, Estimat Glomerular Filtration Rate 86, BUN/Creatinine Ratio 11, Glucose Level 76, Calcium Level 8.2L, Corrected Calcium 9.1, Total Bilirubin 0.4, Aspartate Amino Transf (AST/SGOT) 19, Alanine Aminotransferase (ALT/SGPT) 16, Alkaline Phosphatase 71, Total Protein 5.5L, Albumin 2.9L Microbiology 07/30/21 MRSA Screen - Final, Complete MRSA not isolated 07/27/21 C. difficile GDH Antigen & Toxins - Final, Complete 07/27/21 Blood Culture - Preliminary, Resulted No growth 07/27/21 Urine Culture - Final, Complete Escherichia coli Home Meds Active HYDROcodone/APAP 10/325 TABLET (Acetaminophen/Hydrocodone Bitart) 1 Ea Tab 1 Ea PO Q6HR PRN Amlodipine Besylate 5 Mg Tablet 5 Mg PO BID Reported Lisinopril 20 Mg Tablet 20 Mg PO DAILY Ibuprofen 200 Mg Capsule 200-400 Mg PO Q8H PRN Multivitamin 1 Each Tablet 1 Each PO DAILY Amitriptyline HCl 25 Mg Tablet 25 Mg PO HS Seroquel (Quetiapine Fumarate) 50 Mg Tablet 50 Mg PO HS Flonase Allergy Relief (Fluticasone Propionate) 9.9 Ml [place].susp 2 [place] NSEACH DAILY PRN Atorvastatin Calcium 80 Mg Tablet 80 Mg PO DAILY LAST FILLED 12-04-2020 #90/90 DAY SUPPLY Neurontin (Gabapentin) 300 Mg Capsule 300 Mg PO TID Nitroglycerin 0.4 Mg Tab.subl 0.4 Mg SL UD PRN Vitamin B Complex 1 Each Tablet 1 Tab PO DAILY Clonidine HCl 0.1 Mg Tablet 0.1 Mg PO BID Metoprolol Succinate 25 Mg Tab.er.24h 25 Mg PO DAILY Assessment/Pt DC Instructions Follow up with Dr. Anderson as directed. Follow up with primary provider within a week after discharge. Discharge Diet: Cardiac Diet Discharge Physical Examination Allergies: Coded Allergies: Iodinated Contrast Media (Unverified Allergy, Intermediate, RASH, 11/01/17) morphine (Verified Adverse Reaction, Unknown, 01/05/19) General Appearance: No Apparent Distress Respiratory: Lungs Clear, Normal Breath Sounds Cardiovascular: Regular Rate, Rhythm, No Murmur Gastrointestinal: Normal Bowel Sounds, Soft, Other (midline incision with no erythema or drainage) Neurologic/Psychiatric: Alert, Normal Mood/Affect FREDY ARROYO MD Aug 02, 2021 12:10
[2021-08-02 12:34] VITALS: BP 103/64
--- NOTE | 2021-08-02 14:01 | Discharge Inst-Surgical ---
Discharge Inst-Surgical Depart Medication/Instructions New, Converted or Re-Newed RX: Other Patient Instructions Follow up Appt: Make appointment for 1 week. [phone] Instructions: No lifting greater than 20 pounds. No strenuous activity. May shower in 24 hours, no tub bath or soaking. Use incentive spirometer at home as directed. No Smoking Skin/Wound Care: May remove bandages in am. You need to leave the beltran in place and come to office to have them removed. Symptoms to Report: Appetite Changes, Extremity Discoloration, Numbness/Tingling, Swelling Increased, Bleeding Excessive, Eyesight Changes, Pain Increased, Urine Color Change, Constipation(Persistent), Fever over 101 degree F, Pain/Pressure in chest, Urinating Difficulty, Cough Up/Vomit Blood, Heart Beat Irreg/Pounding, Pain/Pressure in jaw, Cramps in feet or legs, Lightheadedness, Pain/Pressure in shoulder, Diarrhea(Persistent), Memory Changes Suddenly, Questions/Concerns, Weight gain consecutive days, Dizziness/Fainting, Nausea/Vomiting, Shortness of Breath, Weight gain over 2 pounds If questions or concerns contact your physician Or seek help at emergency department. Activity Activity as Tolerated: Yes Activity Instructions: Avoid Stress to Incision Driving Instructions: You May Drive Diet Discharge Diet: No Restrictions Diet After 24 Hours: Clear Liquid if Nauseous If Any Problems/Questions/Issu: Contact Your Physician, Go to Emergency Room Skin/Wound Care Infection Signs and Symptoms: Increased Redness, Foul Odor of Wound, Increased Drainage, Skin Itchy or Has a Rash, Increased Swelling, Temperature Above 101 F Bathing Instructions: Shower Stitches/[place]/Dermabond Dis: Care of JOSELYN Gonzalez DO Aug 02, 2021 14:01
[2021-08-02 14:21] VITALS: BP 103/64
--- NOTE | 2021-09-17 09:58 | Physician Query Clarification ---
PQ-Further Specificity Admission/Discharge Admission Date: Jul 27, 2021 at 15:21 Discharge Date: Aug 02, 2021 at 14:21 Dr. Anderson, The medical record reflects the following clinical scenario: History/Risk Factors: ischemic colitis Clinical Findings: splenic capsule tear Treatment: control bleeding of splenic capsule tear Question: Can you further specify if the splenic capsule tear was incidental or a complication per the clinical indicators above? Please document a response in the Progress Notes or Discharge Summary. 1. incidental 2. complication 3. Other, with explanation of the clinical findings. 4. Clinically undetermined, no explanation for the clinical findings. PHYSICIAN RESPONSE Can you specify per above: 1 Please remember a lack of response to the above will prompt a phone page by [facility]oding staff. In responding to this query, please exercise your independent professional judgment. The purpose of this communication is to more accurately reflect the complexity of your patients condition. The fact that a question is asked does not imply that any particular answer is desired or expected. Thank you for your timely response to this clarification. Requestors name: Mary THIS PHYSICIAN QUERY FORM IS A PERMANENT PART OF THE MEDICAL RECORD MARY BEARD Sep 17, 2021 09:58 JOSELYN ANDERSON DO Sep 21, 2021 10:17
== END 2021-08-02 14:21 | disposition home or self-care (01) | DRG 345 ==
LOC: EDUNIT# 11:42 → ER 11:51 → OBSVTOIN 15:21 → INTOOBSV 15:21 → 4TH 15:21 → UNDOADMOB 15:21 → UNDODISIN 08-02 14:21
PROVIDERS: ADMIT Internal Medicine; ATTEND Family Medicine
PROC: 0DBM0ZX Excision of Descending Colon, Open Approach, Diagnostic (ICD-10-PCS; 2021-07-29)
PROC: 0DBN0ZX Excision of Sigmoid Colon, Open Approach, Diagnostic (ICD-10-PCS; 2021-07-29)
PROC: 0WJG0ZZ Inspection of Peritoneal Cavity, Open Approach (ICD-10-PCS; principal; 2021-07-30 13:04)
DX: K55.9 Vascular disorder of intestine, unspecified (principal); N39.0 Urinary tract infection, site not specified; E87.2 Acidosis; B96.20 Unspecified Escherichia coli [E. coli] as the cause of diseases classified elsewhere; D64.9 Anemia, unspecified; I10 Essential (primary) hypertension; E78.00 Pure hypercholesterolemia, unspecified; E78.5 Hyperlipidemia, unspecified; E87.6 Hypokalemia; J44.9 Chronic obstructive pulmonary disease, unspecified; F17.210 Nicotine dependence, cigarettes, uncomplicated; Z91.19 Patient's noncompliance with other medical treatment and regimen; K63.5 Polyp of colon; K64.8 Other hemorrhoids; M19.91 Primary osteoarthritis, unspecified site; F32.A Depression, unspecified; F41.9 Anxiety disorder, unspecified; I25.10 Atherosclerotic heart disease of native coronary artery without angina pectoris; Z79.1 Long term (current) use of non-steroidal anti-inflammatories (NSAID); Z79.82 Long term (current) use of aspirin; Z79.891 Long term (current) use of opiate analgesic; Z88.6 Allergy status to analgesic agent; Z91.041 Radiographic dye allergy status; Z23 Encounter for immunization
CPT/HCPCS: 36415; 74176; 80053; 81000; 82274; 83605; 83690; 84145; 85007; 85025; 85027; 87040; 87077; 87081; 87088; 87186; 87324; 87449; 88305; 94760; 96361; 96374; 96375; G0378